=== PATIENT | female | born 1940 | race Caucasian/White ===

== ENCOUNTER 2018-10-18 13:23 | Inpatient (IN) ==
--- NOTE | 2018-10-18 13:54 | DR.GENAD ---
HPI Time Seen Time Seen by Provider: 10/18/18 13:42 PCP Primary Care Physician: ERNST Complaint/Symptoms Chief Complaint Doctors Comments: An 78 y/o female presented with SOB x 3 days. She has productive cough of yellow phlegm initially but it is now blood tinged. She denies fever or chest pain. She's has N/V + diarrhea also. Chief Complaint:: PT. C/O COUGHING UP BLOOD X 3 DAYS. PT. HAS ALSO HAD N/V/D, WEAKNESS. Nurses notes reviewed Nurses Notes Review: Yes Source History Provided: Patient Mode of Arrival Mode of Arrival: Ambulatory Timing Onset of Chief Complaint: 10/15/18 Came on: Gradually Duration How lon Duration: Days Modifying Factors Worsens:: exertion Improves:: rest PMH PMH Past Medical History: Yes Past Medical History: Asthma, COPD, Dyslipidemia and Hypertension Past Surgical History: Yes Surgical History: Other Past Surgical History Comment: PACEMAKER Family History History of Family Medical Conditions: No Social History Does patient currently use any type of tobacco product: No Have you used tobacco products in the last 12 months: No Type of Tobacco Use: None Does any household member use tobacco: No Alcohol Use: None Do you use any recreational Drugs:: No Lives With: Family Lives Where: Home infectious screening In the last 2 months have you had wt loss of >10#?: NO Have you had fever, night sweats or hemotysis?: No Have you traveled outside the country in the last 6 months?: No Isolation: Standard ROS Review of Systems Constitutional: No Symptoms Reported Eyes: No Symptoms Reported ENTM: No Symptoms Reported Respiratoy: Productive Cough and Short of Breath Cardiovascular: No Symptoms Reported and Edema; negative See HPI, Chest Pain, Palpitations, Syncope, Cyanosis and Skin Mottling Gastrointestinal/Abdominal: Diarrhea, Nausea and Vomiting Genitourinary: No Symptoms Reported Neurological: No Symptoms Reported Musculoskeletal: No Symptoms Reported; negative Pelvis Integumentary: No Symptoms Reported Hematologic/Lymphatic: No Symptoms Reported Endocrine: No Symptoms Reported Psychiatric: No Symptoms Reported PE Vital Signs Vitals: Temperature 98.4 F Pulse Rate [Apical] 69 Pulse Rate 72 Respiratory Rate 28 Blood Pressure [Left Arm] 138/76 Blood Pressure 112/60 O2 Sat by Pulse Oximetry 95 General Limitations: No Limitations General Appearance: Alert and In No Apparent Distress Head Head Exam: Normal Inspection, Atraumatic and Normocephalic Eyes Eye exam: Normal Appearance and EOMI ENT ENT Exam: Normal Oropharynx and Mucous Membranes Moist Neck Neck Exam: Normal Inspection, Full ROM and Trachea Midline Chest Chest Inspection: Normal Inspection and Symmetric Chest Wall Rise Respiratory Respiratory Exam: Normal Lung Sounds Bilat Cardiovascular Cardiovascular Exam: Regular Rate, Normal Rhythm, +S1 and +S2 Abdominal Exam Abdominal Exam: Normal Inspection, Normal Bowel Sounds and Soft Extremities Extremities Exam: Edema (2+ in RLE and 1+ in the LLE.) Back Back Exam: Normal Inspection Neurologic Neurological Exam: Alert and Oriented X3 Psychiatric Psychiatric Exam: Normal Affect and Normal Mood Skin Skin Exam: Warm, Dry and Normal Color COURSE Education/Counseling Education/Counseling: Patient, Family, Education and Counseling Educated On: Diagnosis, Prognosis and Needs for Follow Up; negative Treatment ROR Labs Reviewed Laboratory Results Reviewed?: Yes Result Diagrams: 10/18/18 14:04 10/18/18 14:04 Laboratory: 10/18/18 14:39 Sputum - Expectorated Sputum - Final WBC 8.2 X10^3/uL (3.6-10.0) 10/18/18 14:04 RBC 4.71 X10^6/uL (3.5-5.4) 10/18/18 14:04 Hgb 15.8 g/dL (12.0-16.0) 10/18/18 14:04 Hct 46.8 % (36.0-47.0) 10/18/18 14:04 MCV 99.3 fL (80.0-100.0) 10/18/18 14:04 MCH 33.6 pg (27.0-34.0) 10/18/18 14:04 MCHC 33.8 g/dL (33.0-35.0) 10/18/18 14:04 RDW 16.2 % (11.6-16.5) 10/18/18 14:04 Plt Count 86 X10^3/uL (150.0-450.0) L 10/18/18 14:04 MPV 9.2 fL (7.4-11.0) 10/18/18 14:04 Neut % (Auto) 82.1 % (42.0-75.0) H 10/18/18 14:04 Lymph % (Auto) 9.5 % (21.0-51.0) L 10/18/18 14:04 [place] % (Auto) 7.8 % (0.0-13.0) 10/18/18 14:04 Eos % (Auto) 0.3 % (0.9-2.9) L 10/18/18 14:04 Baso % (Auto) 0.3 % (0.2-1.0) 10/18/18 14:04 Neut # (Auto) 6.7 x10^3/uL (2.2-4.8) H 10/18/18 14:04 Lymph # (Auto) 0.8 X10^3/uL (1.3-2.9) L 10/18/18 14:04 Bent # (Auto) 0.6 x10^3/uL (0.3-0.8) 10/18/18 14:04 Eos # (Auto) 0.0 x10^3/uL (0.0-0.2) 10/18/18 14:04 Baso # (Auto) 0.0 X10^3/uL (0.0-0.1) 10/18/18 14:04 Absolute Nucleated RBC 0.0 /100WBC 10/18/18 14:04 INR Target Range - 10/18/18 14:04 INR 1.69 (0.8-1.3) H 10/18/18 14:04 Sample Site Lr 10/18/18 13:56 ABG pH 7.430 (7.35-7.45) 10/18/18 13:56 ABG pCO2 46.0 mmHg (35.0-45.0) H 10/18/18 13:56 ABG pO2 64.0 mmHg (80.0-100.0) L 10/18/18 13:56 ABG HCO3 30.5 mmol/L (22-26) H* 10/18/18 13:56 ABG O2 Saturation 93.0 % (90-100) 10/18/18 13:56 ABG Base Excess 5.3 mmol/L (-2.0-2.0) H 10/18/18 13:56 Curtis Test Pos 10/18/18 13:56 A-a Gradient 78.0 mmHg 10/18/18 13:56 FiO2 28.0 10/18/18 13:56 Blood Gas Comments Pt mena well. cdn 10/18/18 13:56 Sodium 142 mmol/L (136-145) 10/18/18 14:04 Corrected Sodium 143 mmol/L (136-145) 10/18/18 14:04 Potassium 3.6 mmol/L (3.5-5.1) 10/18/18 14:04 Chloride 109 mmol/L (98-107) H 10/18/18 14:04 Carbon Dioxide 29.7 mmol/L (21-32) 10/18/18 14:04 BUN 25 mg/dL (7-18) H 10/18/18 14:04 Creatinine 0.96 mg/dL (0.55-1.02) 10/18/18 14:04 Est GFR (MDRD) Af Amer > 60 (>60) 10/18/18 14:04 Est GFR (MDRD) Non-Af 59 (>60) 10/18/18 14:04 Glucose 138 mg/dL (65-99) H 10/18/18 14:04 Lactic Acid 1.7 mmol/L (0.4-2.0) 10/18/18 15:48 Calcium 8.7 mg/dL (8.5-10.1) 10/18/18 14:04 Corrected Calcium 9.7 mg/dL (8.5-10.1) 10/18/18 14:04 Total Bilirubin 3.20 mg/dL (0.2-1.0) H 10/18/18 14:04 AST 23 Units/L (15-37) 10/18/18 14:04 ALT 10 Units/L (12-78) L 10/18/18 14:04 Alkaline Phosphatase 86 Units/L (46-116) 10/18/18 14:04 Total Protein 6.3 g/dL (6.4-8.2) L 10/18/18 14:04 Albumin 2.8 g/dL (3.4-5.0) L 10/18/18 14:04 Globulin 3.5 g/dL (2.5-4.5) 10/18/18 14:04 Albumin/Globulin Ratio 0.8 Ratio (1.1-2.1) L 10/18/18 14:04 Specimen Type Random urine 10/18/18 14:55 Urine Color Dark yellow (YELLOW) 10/18/18 14:55 Urine Appearance Hazy (CLEAR) 10/18/18 14:55 Urine pH 5.0 (5.0 - 8.0) 10/18/18 14:55 Ur Specific [place] 1.025 (1.000-1.030) 10/18/18 14:55 Urine Protein 3+ (NEGATIVE) 10/18/18 14:55 Urine Glucose (UA) Negative (NEGATIVE) 10/18/18 14:55 Urine Ketones Negative (NEGATIVE) 10/18/18 14:55 Urine Occult Blood 3+ (NEGATIVE) 10/18/18 14:55 Urine Nitrite Negative (NEGATIVE) 10/18/18 14:55 Urine Bilirubin 1+ (NEGATIVE) 10/18/18 14:55 Urine Urobilinogen 1+ (NORMAL) 10/18/18 14:55 Ur Leukocyte Esterase 1+ (NEGATIVE) 10/18/18 14:55 Urine RBC 3-5 /HPF (NONE SEEN) 10/18/18 14:55 Urine WBC 3-5 /HPF (NONE SEEN) 10/18/18 14:55 Ur Squamous Epith Cells Many /HPF (NEGATIVE) 10/18/18 14:55 Urine Bacteria Trace /HPF (NEGATIVE) 10/18/18 14:55 Ur Culture Indicated? No/not indicated 10/18/18 14:55 XRAY XRAY Interpreted by: Self XRAY Findings: CXR: cardiomegaly, PPM leads into LV. LLL infiltrate. EKG Rate: 73 [place]: Normal Rhythm: Paced Block: None Hypertrophy: None ST: Normal Diagnosis Discharge Problem: Thrombocytopathia, Azotemia, Benign essential HTN Pneumonia Qualifiers: Pneumonia type: due to unspecified organism Laterality: left Lung location: lower lobe of lung Qualified Code(s): J18.1 - Lobar pneumonia, unspecified organism Arrhythmia Qualifiers: Arrhythmia type: other cardiac arrhythmia Qualified Code(s): I49.8 - Other specified cardiac arrhythmias COPD (chronic obstructive pulmonary disease) Qualifiers: COPD type: COPD with acute lower respiratory infection Qualified Code(s): J44.0 - Chronic obstructive pulmonary disease with acute lower respiratory infection
[2018-10-18 14:06] LABS: ABG BASE EXCESS 5.3 mmol/L (-2.0-2.0)
[2018-10-18 14:07] LABS: ABG ALLEN TEST POS; ABG HCO3 30.5 mmol/L (22-26)
[2018-10-18 14:12] LABS: BASOPHILS % (AUTO) 0.3 % (0.2-1.0); EOSINOPHILS % (AUTO) 0.3 % (0.9-2.9); HEMATOCRIT 46.8 % (36.0-47.0); HEMOGLOBIN 15.8 g/dL (12.0-16.0); LYMPHOCYTES # (AUTO) 0.8 X10^3/uL (1.3-2.9); LYMPHOCYTES % (AUTO) 9.5 % (21.0-51.0); MEAN CORPUSCULAR HEMOGLOBIN 33.6 pg (27.0-34.0); MEAN CORPUSCULAR HGB CONC 33.8 g/dL (33.0-35.0); MEAN CORPUSCULAR VOLUME 99.3 fL (80.0-100.0); MEAN PLATELET VOLUME 9.2 fL (7.4-11.0); MONOCYTES # (AUTO) 0.6 x10^3/uL (0.3-0.8); MONOCYTES % (AUTO) 7.8 % (0.0-13.0); NEUTROPHILS # (AUTO) 6.7 x10^3/uL (2.2-4.8); NEUTROPHILS % (AUTO) 82.1 % (42.0-75.0); PLATELET COUNT 86 X10^3/uL (150.0-450.0); RED BLOOD COUNT 4.71 X10^6/uL (3.5-5.4); RED CELL DISTRIBUTION WIDTH 16.2 % (11.6-16.5); WHITE BLOOD COUNT 8.2 X10^3/uL (3.6-10.0)
[2018-10-18 14:24] LABS: ALANINE AMINOTRANSFERASE 10 Units/L (12-78); ALBUMIN 2.8 g/dL (3.4-5.0); ALKALINE PHOSPHATASE 86 Units/L (46-116); ASPARTATE AMINO TRANSFERASE 23 Units/L (15-37); BLOOD UREA NITROGEN 25 mg/dL (7-18); CALCIUM 8.7 mg/dL (8.5-10.1); CARBON DIOXIDE 29.7 mmol/L (21-32); CHLORIDE 109 mmol/L (98-107); COR CA(FOR HYPOALB) 9.7 mg/dL (8.5-10.1); COR NA(FOR HYPERGLY) 143 mmol/L (136-145); CREATININE 0.96 mg/dL (0.55-1.02); SODIUM 142 mmol/L (136-145); TOTAL PROTEIN 6.3 g/dL (6.4-8.2); eGFR NON BLACK RACES 59 (>60)
[2018-10-18] MEDS ORDERED: LASIX ONE (14:31)
[2018-10-18] MEDS: LASIX PO ONE (14:38)
--- NOTE | 2018-10-18 15:03 | RAD ---
HISTORY: Coughing up blood Study: Single view of the chest. Comparison: None. Findings: Cardiomegaly. Left lung base airspace opacity. Osseous structures demonstrate no acute abnormality. IMPRESSION: 1. Airspace opacity at the left lung base for which pneumonia or malignancy cannot be excluded. Reported By:
[2018-10-18 15:10] LABS: BILIRUBIN,URINE 1+ (NEGATIVE); BLOOD/HEMOGLOBIN,URINE 3+ (NEGATIVE); GLUCOSE, URINE NEGATIVE (NEGATIVE); KETONES,URINE NEGATIVE (NEGATIVE); LEUKOCYTE ESTERASE ,URINE 1+ (NEGATIVE); NITRITES,URINE NEGATIVE (NEGATIVE); PROTEIN,URINE 3+ (NEGATIVE); UROBILINOGEN,URINE 1+ (NORMAL)
[2018-10-18] MEDS ORDERED: ZOSYN VIAL 3.375 GRAMS 3.375 G in NS 100 ML IV + SPIKE MINIBAG* 100 ML IV ONE (15:32)
[2018-10-18 15:37] LABS: APPEARANCE,URINE HAZY (CLEAR); COLOR,URINE DARK YELLOW (YELLOW)
[2018-10-18 15:38] LABS: BACTERIA,URINE TRACE /HPF (NEGATIVE); SQUAMOUS EPITHELIAL CELL,UR MANY /HPF (NEGATIVE)
[2018-10-18] MEDS ORDERED: NS 100 ML IV + SPIKE MINIBAG* 100 ML ONE (15:50)
[2018-10-18] MEDS ORDERED: ZOSYN VIAL 3.375 GRAMS IV ONE (15:50)
[2018-10-18] MEDS ORDERED: NS 1000 ML 1,000 ML ONE (16:00)
[2018-10-18] MEDS ORDERED: TUSSIONEX PENNKINETIC SUSP PO PRN (17:13)
[2018-10-18 18:04] LABS: BILIRUBIN,URINE NEGATIVE (NEGATIVE); BLOOD/HEMOGLOBIN,URINE 2+ (NEGATIVE); GLUCOSE, URINE NEGATIVE (NEGATIVE); KETONES,URINE NEGATIVE (NEGATIVE); LEUKOCYTE ESTERASE ,URINE NEGATIVE (NEGATIVE); NITRITES,URINE NEGATIVE (NEGATIVE); PROTEIN,URINE NEGATIVE (NEGATIVE); UROBILINOGEN,URINE NORMAL (NORMAL)
[2018-10-18 18:14] LABS: APPEARANCE,URINE CLEAR (CLEAR); COLOR,URINE PALE YELLOW (YELLOW)
[2018-10-18 18:15] LABS: AMORPHOUS SEDIMENT,UR 2+ /HPF (NEGATIVE); BACTERIA,URINE TRACE /HPF (NEGATIVE); SQUAMOUS EPITHELIAL CELL,UR NEGATIVE /HPF (NEGATIVE)
[2018-10-18] MEDS ORDERED: NS 1/2 1000 ML IV 1,000 ML ONE (18:41)
[2018-10-18] MEDS: NS 1/2 1000 ML IV 1,000 ML IV SCH (18:42)
[2018-10-18] MEDS: PULMICORT NEB TX 0.5 MG NEB SCH (20:20)
[2018-10-18] MEDS: DUONEB 0.5 MG/3 MG NEB SCH (20:20)
[2018-10-18] MEDS: BROVANA IN SCH (20:39)
[2018-10-18] MEDS: ENTRESTO 24/26 MG TAB PO SCH (20:46)
[2018-10-18] MEDS: ROBITUSSIN DM PO SCH (20:46)
[2018-10-18] MEDS ORDERED: PULMICORT NEB TX 0.5 MG NEB SCH (21:00)
[2018-10-18] MEDS ORDERED: DUONEB 0.5 MG/3 MG NEB SCH (21:00)
[2018-10-18] MEDS ORDERED: PATIENT'S HOME MEDICATION (Fluticasone Propion-Salmeterol [Fluticasone Propion-Salmeterol] IN SCH (21:00)
[2018-10-18] MEDS ORDERED: BROVANA IN SCH (21:00)
[2018-10-19] MEDS: DUONEB 0.5 MG/3 MG NEB SCH ×6 (00:57→20:25)
[2018-10-19 05:40] LABS: BASOPHILS % (AUTO) 0.3 % (0.2-1.0); EOSINOPHILS % (AUTO) 0.2 % (0.9-2.9); HEMATOCRIT 44.7 % (36.0-47.0); LYMPHOCYTES # (AUTO) 0.8 X10^3/uL (1.3-2.9); LYMPHOCYTES % (AUTO) 13.4 % (21.0-51.0); MEAN CORPUSCULAR HEMOGLOBIN 33.9 pg (27.0-34.0); MEAN CORPUSCULAR HGB CONC 33.5 g/dL (33.0-35.0); MEAN PLATELET VOLUME 9.9 fL (7.4-11.0); MONOCYTES # (AUTO) 0.6 x10^3/uL (0.3-0.8); MONOCYTES % (AUTO) 10.6 % (0.0-13.0); NEUTROPHILS # (AUTO) 4.6 x10^3/uL (2.2-4.8); NEUTROPHILS % (AUTO) 75.5 % (42.0-75.0); PLATELET COUNT 88 X10^3/uL (150.0-450.0); RED BLOOD COUNT 4.43 X10^6/uL (3.5-5.4); RED CELL DISTRIBUTION WIDTH 16.1 % (11.6-16.5); WHITE BLOOD COUNT 6.1 X10^3/uL (3.6-10.0)
[2018-10-19 05:58] LABS: ALANINE AMINOTRANSFERASE 10 Units/L (12-78); ALBUMIN 2.4 g/dL (3.4-5.0); ALKALINE PHOSPHATASE 75 Units/L (46-116); ASPARTATE AMINO TRANSFERASE 21 Units/L (15-37); BLOOD UREA NITROGEN 19 mg/dL (7-18); CHLORIDE 106 mmol/L (98-107); COR CA(FOR HYPOALB) 9.3 mg/dL (8.5-10.1); CREATININE 0.89 mg/dL (0.55-1.02); SODIUM 144 mmol/L (136-145); TOTAL PROTEIN 5.7 g/dL (6.4-8.2); eGFR NON BLACK RACES > 60 (>60)
[2018-10-19] MEDS ORDERED: POTASSIUM CHLORIDE LIQ 20 MEQ UDC PO PRN (06:01)
[2018-10-19] MEDS ORDERED: K-RIDER 10 MEQ/NS 100 ML 10 MEQ/100 ML BAG IV PRN (06:01)
[2018-10-19] MEDS ORDERED: POTASSIUM CHL 40 MEQ/NS 0.45% 500 ML IV PRN (06:01)
[2018-10-19] MEDS ORDERED: POTASSIUM CHL 60 MEQ/NS 0.45% 500 ML IV PRN (06:01)
[2018-10-19] MEDS ORDERED: MAGNESIUM SULFATE 1 GRAM/100 mL PREMIX 1 GM/100 ML BAG IV PRN (06:01)
[2018-10-19] MEDS ORDERED: K-DUR TAB 20 MEQ PO PRN (06:01)
[2018-10-19] MEDS ORDERED: KLOR-CON PO PRN (06:01)
[2018-10-19] MEDS ORDERED: MICRO K EXTEN CAP 10 MEQ PO PRN (06:01)
[2018-10-19] MEDS: NS 1/2 1000 ML IV 1,000 ML IV SCH (06:19)
[2018-10-19] MEDS ORDERED: NS 1/2 1000 ML IV 1,000 ML ONE ×2 (06:19→23:43)
[2018-10-19] MEDS: BROVANA IN SCH ×2 (08:31→20:40)
[2018-10-19] MEDS: PULMICORT NEB TX 0.5 MG NEB SCH ×2 (08:35→20:25)
[2018-10-19] MEDS ORDERED: ASPIRIN EC 81 MG PO SCH ×2 (09:00→21:00)
[2018-10-19] MEDS ORDERED: PHARMACY CONSULT - DOSE _____ XX SCH (09:00)
[2018-10-19] MEDS: ROBITUSSIN DM PO SCH ×5 (09:43→22:30)
[2018-10-19] MEDS: LEVAQUIN PREMIX IV 750 MG 750 MG/150 ML BAG IV SCH (09:43)
[2018-10-19] MEDS: ENTRESTO 24/26 MG TAB PO SCH ×2 (09:43→20:56)
[2018-10-19] MEDS ORDERED: NS 100 ML IV 100 ML ONE (13:22)
[2018-10-19 14:01] LABS: FREE T4 (FREE THYROXINE) 1.37 ng/dL (0.76-1.46); TSH (3RD GENERATION) 1.685 uIU/mL (0.358-3.74)
[2018-10-19 14:04] VITALS: BMI 41.8
[2018-10-19] MEDS: COREG TAB 25 MG PO SCH ×3 (14:08→22:29)
--- NOTE | 2018-10-19 14:19 | CT ---
HISTORY: Shortness of breath with pneumonia versus mass. Study: CT chest with contrast Comparison: Chest x-ray dated October 18, 2018. Technique: Multiple axial images of the chest were obtained from the thoracic inlet to the upper abdomen after the administration of IV contrast. MIP images were obtained. Dose reduction techniques including Automated Exposure Control (AEC) and adjustment of mA and kV were utilized. Findings: The mediastinum does not demonstrate significant pathological lymphadenopathy. There is no paracardial effusion observed. The thoracic aorta is normal in its contour without evidence for aneurysmal dilatation. The central pulmonary arterial system does not demonstrate central filling defects to suggest pulmonary emboli. Left chest cardiac pacemaker. Cardiomegaly. Small bilateral pleural effusions with associated compressive atelectasis versus infiltrate. Interlobular septal thickening consistent with pulmonary edema. No obvious pulmonary nodule, mass, or pneumothorax. 6 mm nonobstructing left renal nephrolith. The gallbladder is surgically absent. Remaining upper abdominal structures are unremarkable. Degenerative changes of the spine. No aggressive osseous lesions. IMPRESSION: 1. No CT evidence of acute pulmonary embolus. 2. Constellation of findings likely representing pulmonary edema secondary to congestive heart failure. Underlying infiltrate not entirely excluded. Recommend clinical/laboratory correlation. 3. Other findings as above. Reported By:
[2018-10-19] MEDS: LASIX PO ONE (15:11)
--- NOTE | 2018-10-19 19:29 | DR.H&P ---
H&P - History & Physical for Day of: H&P Date: 10/18/18 - Chief Complaint Chief Complaint: COUGHING UP BLOOD - History of Present Illness History of Present Illness: 78 WF ER ADMISSION WITH CO COUGHING UP BLOOD IN MUCOUS FOR 2-3 DAYS. PT HAS PMH OF COPD, HTN, OA, CAD, AFIB. PT IS ON COUMADIN THERAPY FOR AFIB, HAS PACE MAKER PRESENT. PT HAS BEEN UNDER THE CARE OF [facility]. PT DENIES ANY CHEST PAIN. CXR IN ER REVEALED LL OPACITY. PT ADMITTED FOR PNEUMONIA PROTOCOL, RESP THERAPY, EVALUATION OF RESP ILLNESS. - Past Medical History Past Medical History: Asthma, CHF, COPD, Coronary Artery Disease, Dyslipidemia, Hypertension - Past Surgical History Surgical History: Cholecystectomy, Other - Family History Family Medical History: Hypertension - Social History Does patient currently use any type of tobacco product: No Have you used tobacco products in the last 12 months: No Type of Tobacco Use: None Does any household member use tobacco: No Alcohol Use: None Drug Use: None - Medications Home Medications: codeine Allergy (Verified 10/18/18 13:38) latex Allergy (Verified 10/18/18 13:38) milk Allergy (Verified 10/18/18 14:31) CONTINUE taking the following medications aspirin [Aspirin Low Dose] 81 mg PO DAILY 10/18/18 [History] fluticasone propion-salmeterol [Advair Diskus] 1 puff INHALATION BID 10/18/18 [History] sacubitril-valsartan [Entresto] 1 tab PO BID 10/18/18 [History] - Review of Systems Constitutional: Weakness Eyes: No Symptoms Reported ENT: No Symptoms Reported Respiratory: Cough, Shortness of Breath, Hemoptysis Cardiovascular: No Symptoms Reported. denies: Edema Gastrointestinal: No Symptoms Reported Genitourinary: No Symptoms Reported Musculoskeletal: No Symptoms Reported Skin: No Symptoms Reported Neurological: No Symptoms Reported - Physical Exam Vital Signs: Temperature 98 F Pulse Rate [Apical] 70 Pulse Rate 70 Respiratory Rate 18 Blood Pressure [Left Arm] 116/67 Blood Pressure 112/60 O2 Sat by Pulse Oximetry 93 Oriented: Normal Eyes: Normal Ear: Normal Nose: Normal Throat: Normal Respiratory: RLL Diminished, LML Diminished, LLL Diminished Cardiovascular: Normal, Other (PACEMAKER PRESENT) : Normal Auscultation: Bowel Sounds: Normal Palpation: Normal Tenderness: Normal Skin: Normal Musculoskeletal: Normal Psychiatric: Normal Mood Description: Anxious Affect: Anxious Speech Pattern: Clear, Appropriate - Assessment/Plan (1) Pneumonia Qualifiers: Pneumonia type: due to unspecified organism Laterality: left Lung location: lower lobe of lung Qualified Code(s): J18.1 - Lobar pneumonia, unspecified organism Status: Acute Plan: ADMIT, PNEUMONIA PROTOCOL. IV ATBX, RESP THERAPY. BLOOD AND SPUTUM CULTURES. CARDIAC MONITORING, AM CT CHEST WITH CONTRAST. STRICT I& OS, SUPPLEMENTAL O2. VERIFY HOME MEDICATIONS (2) Hemoptysis Status: Acute (3) Chronic a-fib Status: Acute (4) Thrombocytopathia Status: Acute (5) COPD (chronic obstructive pulmonary disease) Qualifiers: COPD type: COPD with acute lower respiratory infection Qualified Code(s): J44.0 - Chronic obstructive pulmonary disease with acute lower respiratory infection Status: Acute - Allergies Allergies/Adverse Reactions: Allergies Allergy/AdvReac Type Severity Reaction Status Date / Time codeine Allergy Verified 10/18/18 13:38 latex Allergy Verified 10/18/18 13:38 milk Allergy Verified 10/18/18 14:31
[2018-10-19] MEDS ORDERED: APLISOL ID ONE (19:33)
[2018-10-19] MEDS: LASIX IVP SCH (20:58)
[2018-10-19] MEDS ORDERED: LIPITOR TAB 10 MG PO SCH (21:00)
[2018-10-20] MEDS: DUONEB 0.5 MG/3 MG NEB SCH ×4 (00:45→11:59)
[2018-10-20] MEDS: NS 1/2 1000 ML IV 1,000 ML IV SCH ×4 (05:22→13:47)
[2018-10-20 06:00] LABS: BASOPHILS % (AUTO) 0.5 % (0.2-1.0); EOSINOPHILS # (AUTO) 0.1 x10^3/uL (0.0-0.2); EOSINOPHILS % (AUTO) 1.4 % (0.9-2.9); HEMOGLOBIN 15.2 g/dL (12.0-16.0); LYMPHOCYTES # (AUTO) 0.8 X10^3/uL (1.3-2.9); LYMPHOCYTES % (AUTO) 13.2 % (21.0-51.0); MEAN CORPUSCULAR HEMOGLOBIN 33.4 pg (27.0-34.0); MEAN CORPUSCULAR HGB CONC 33.7 g/dL (33.0-35.0); MEAN CORPUSCULAR VOLUME 99.2 fL (80.0-100.0); MEAN PLATELET VOLUME 8.8 fL (7.4-11.0); MONOCYTES # (AUTO) 0.7 x10^3/uL (0.3-0.8); MONOCYTES % (AUTO) 10.9 % (0.0-13.0); NEUTROPHILS # (AUTO) 4.4 x10^3/uL (2.2-4.8); PLATELET COUNT 101 X10^3/uL (150.0-450.0); RED BLOOD COUNT 4.54 X10^6/uL (3.5-5.4); RED CELL DISTRIBUTION WIDTH 15.8 % (11.6-16.5)
[2018-10-20 06:21] LABS: ALANINE AMINOTRANSFERASE 10 Units/L (12-78); ALBUMIN 2.3 g/dL (3.4-5.0); ALKALINE PHOSPHATASE 86 Units/L (46-116); ASPARTATE AMINO TRANSFERASE 21 Units/L (15-37); BLOOD UREA NITROGEN 14 mg/dL (7-18); CALCIUM 8.1 mg/dL (8.5-10.1); CARBON DIOXIDE 34.3 mmol/L (21-32); CHLORIDE 103 mmol/L (98-107); CHOL/HDL RATIO 3.3 (0.0-5.0); CHOLESTEROL 97 mg/dL (0-200); COR CA(FOR HYPOALB) 9.5 mg/dL (8.5-10.1); CREATININE 0.86 mg/dL (0.55-1.02); HDL CHOLESTEROL 29 mg/dL (40-60); SODIUM 143 mmol/L (136-145); TOTAL PROTEIN 5.8 g/dL (6.4-8.2); TRIGLYCERIDES 67 mg/dL (0-150); eGFR NON BLACK RACES > 60 (>60)
[2018-10-20] MEDS: COREG TAB 25 MG PO SCH (08:14)
[2018-10-20] MEDS: ENTRESTO 24/26 MG TAB PO SCH (08:14)
[2018-10-20] MEDS: LEVAQUIN PREMIX IV 750 MG 750 MG/150 ML BAG IV SCH (08:14)
[2018-10-20] MEDS: ROBITUSSIN DM PO SCH ×2 (08:15→13:47)
[2018-10-20] MEDS: BROVANA IN SCH (09:07)
[2018-10-20] MEDS: PULMICORT NEB TX 0.5 MG NEB SCH (09:10)
[2018-10-20] MEDS: LASIX IVP SCH (09:25)
--- NOTE | 2018-10-20 10:07 | RAD ---
HISTORY: Shortness of breath Study: Chest Comparison: October 18, 2018 Findings: The patient is rotated. The cardiac silhouette is enlarged. Persistent opacification is again seen within the left lower lobe similar to prior exam and keeping with atelectasis, infiltrate and/or effusion. Underlying lesion cannot entirely be excluded. Recommend clinical correlation and continued follow-up as indicated for further evaluation. If practical, correlation with follow-up exam to include PA and lateral views may be helpful. IMPRESSION: Cardiomegaly. Left basilar airspace disease as discussed above. Reported By:
[2018-10-20 13:45] VITALS: BP 144/88
--- NOTE | 2018-10-25 18:09 | PCM.PROG ---
Progress Note - Progress Note for Day of Date of Exam: 10/19/18 - Subjective Subjective: 78 WF ADMITTED VIA ER ON 10/18 WITH SOB. PT HAS PMH OF COPD AND CHF. SPUTUM CULTURE COLLECTED ON ADMISSION, PT STARTED ON IV ATBX THERAPY, IV LASIX FOR CHF EXACERBATION, RESP THERAPY. PT CONTINUES WITH CO SOB TODAY, WITH 4LITERS URINE OUTPT SINCE STARTING IV LASIX. PT HAD CT CHEST R/O PE, NEGATIVE FOR PULMONARY EMBOLI. - Past Medical Family Social History Past Med/Fam/Surg Hx: No changes since H&P Allergies: Allergies codeine Allergy (Verified 10/18/18 13:38) latex Allergy (Verified 10/18/18 13:38) milk Allergy (Verified 10/18/18 14:31) - Review of Systems ROS: No change since H&P - Vital Signs and I&O's Vital Signs: Temperature 98.0 F Pulse Rate [Right] 70 Pulse Rate [Apical] 70 Pulse Rate 70 Respiratory Rate 20 Blood Pressure [Left Arm] 144/88 Blood Pressure 112/60 O2 Sat by Pulse Oximetry 2 - Physical Exam Oriented: Normal Eyes: Normal Ear: Normal Nose: Normal Throat: Normal Respiratory: Diminished, Rhonchi Cardiovascular: Normal, Other (PACEMAKER PRESENT) : Normal Auscultation: Bowel Sounds: Normal Tenderness: Normal Skin: Normal Musculoskeletal: Normal Psychiatric: Normal Mood Description: Anxious Affect: Anxious Speech Pattern: Clear, Appropriate - Laboratory and Diagnostics Result Diagrams: 10/20/18 05:19 10/20/18 05:19 Labs: 10/18/18 15:48 Blood Blood Culture - Final 10/18/18 15:48 Blood Blood Culture - Final 10/18/18 14:39 Sputum - Expectorated Sputum Sputum Culture - Final 10/18/18 14:39 Sputum - Expectorated Sputum - Final Laboratory WBC 6.0 X10^3/uL (3.6-10.0) 10/20/18 05:19 RBC 4.54 X10^6/uL (3.5-5.4) 10/20/18 05:19 Hgb 15.2 g/dL (12.0-16.0) 10/20/18 05:19 Hct 45.0 % (36.0-47.0) 10/20/18 05:19 MCV 99.2 fL (80.0-100.0) 10/20/18 05:19 MCH 33.4 pg (27.0-34.0) 10/20/18 05:19 MCHC 33.7 g/dL (33.0-35.0) 10/20/18 05:19 RDW 15.8 % (11.6-16.5) 10/20/18 05:19 Plt Count 101 X10^3/uL (150.0-450.0) L 10/20/18 05:19 MPV 8.8 fL (7.4-11.0) 10/20/18 05:19 Neut % (Auto) 74.0 % (42.0-75.0) 10/20/18 05:19 Lymph % (Auto) 13.2 % (21.0-51.0) L 10/20/18 05:19 [place] % (Auto) 10.9 % (0.0-13.0) 10/20/18 05:19 Eos % (Auto) 1.4 % (0.9-2.9) 10/20/18 05:19 Baso % (Auto) 0.5 % (0.2-1.0) 10/20/18 05:19 Neut # (Auto) 4.4 x10^3/uL (2.2-4.8) 10/20/18 05:19 Lymph # (Auto) 0.8 X10^3/uL (1.3-2.9) L 10/20/18 05:19 [place] # (Auto) 0.7 x10^3/uL (0.3-0.8) 10/20/18 05:19 Eos # (Auto) 0.1 x10^3/uL (0.0-0.2) 10/20/18 05:19 Baso # (Auto) 0.0 X10^3/uL (0.0-0.1) 10/20/18 05:19 Absolute Nucleated RBC 0.0 /100WBC 10/20/18 05:19 ESR 8 MM/HOUR (0-20) 10/19/18 13:17 INR Target Range - 10/18/18 14:04 INR 1.69 (0.8-1.3) H 10/18/18 14:04 Sample Site Lr 10/18/18 13:56 ABG pH 7.430 (7.35-7.45) 10/18/18 13:56 ABG pCO2 46.0 mmHg (35.0-45.0) H 10/18/18 13:56 ABG pO2 64.0 mmHg (80.0-100.0) L 10/18/18 13:56 ABG HCO3 30.5 mmol/L (22-26) H* 10/18/18 13:56 ABG O2 Saturation 93.0 % (90-100) 10/18/18 13:56 ABG Base Excess 5.3 mmol/L (-2.0-2.0) H 10/18/18 13:56 Curtis Test Pos 10/18/18 13:56 A-a Gradient 78.0 mmHg 10/18/18 13:56 FiO2 28.0 10/18/18 13:56 Blood Gas Comments Pt mena well. cdn 10/18/18 13:56 Sodium 143 mmol/L (136-145) 10/20/18 05:19 Corrected Sodium TNP 10/20/18 05:19 Potassium 3.0 mmol/L (3.5-5.1) L* 10/20/18 05:19 Chloride 103 mmol/L (98-107) 10/20/18 05:19 Carbon Dioxide 34.3 mmol/L (21-32) H 10/20/18 05:19 BUN 14 mg/dL (7-18) 10/20/18 05:19 Creatinine 0.86 mg/dL (0.55-1.02) 10/20/18 05:19 Est GFR (MDRD) Af Amer > 60 (>60) 10/20/18 05:19 Est GFR (MDRD) Non-Af > 60 (>60) 10/20/18 05:19 Glucose 98 mg/dL (65-99) 10/20/18 05:19 Lactic Acid 1.7 mmol/L (0.4-2.0) 10/18/18 15:48 Calcium 8.1 mg/dL (8.5-10.1) L 10/20/18 05:19 Corrected Calcium 9.5 mg/dL (8.5-10.1) 10/20/18 05:19 Magnesium 1.6 mg/dL (1.7-2.9) L 10/20/18 05:19 Total Bilirubin 1.80 mg/dL (0.2-1.0) H 10/20/18 05:19 AST 21 Units/L (15-37) 10/20/18 05:19 ALT 10 Units/L (12-78) L 10/20/18 05:19 Alkaline Phosphatase 86 Units/L (46-116) 10/20/18 05:19 Lactate Dehydrogenase 216 Units/L (81-234) 10/19/18 13:17 C-Reactive Protein 79.00 mg/L (0-3.0) H 10/19/18 13:17 Total Protein 5.8 g/dL (6.4-8.2) L 10/20/18 05:19 Albumin 2.3 g/dL (3.4-5.0) L 10/20/18 05:19 Globulin 3.5 g/dL (2.5-4.5) 10/20/18 05:19 Albumin/Globulin Ratio 0.7 Ratio (1.1-2.1) L 10/20/18 05:19 Triglycerides 67 mg/dL (0-150) 10/20/18 05:19 Cholesterol 97 mg/dL (0-200) 10/20/18 05:19 LDL Cholesterol, Calc 55 mg/dL (0-100) 10/20/18 05:19 HDL Cholesterol 29 mg/dL (40-60) L 10/20/18 05:19 Cholesterol/HDL Ratio 3.3 (0.0-5.0) 10/20/18 05:19 Free T4 1.37 ng/dL (0.76-1.46) 10/19/18 13:17 TSH 3rd Generation 1.685 uIU/mL (0.358-3.74) 10/19/18 13:17 Specimen Type Catherized urine 10/18/18 17:50 Urine Color Pale yellow (YELLOW) 10/18/18 17:50 Urine Appearance Clear (CLEAR) 10/18/18 17:50 Urine pH 5.0 (5.0 - 8.0) 10/18/18 17:50 Ur Specific [place] 1.015 (1.000-1.030) 10/18/18 17:50 Urine Protein Negative (NEGATIVE) 10/18/18 17:50 Urine Glucose (UA) Negative (NEGATIVE) 10/18/18 17:50 Urine Ketones Negative (NEGATIVE) 10/18/18 17:50 Urine Occult Blood 2+ (NEGATIVE) 10/18/18 17:50 Urine Nitrite Negative (NEGATIVE) 10/18/18 17:50 Urine Bilirubin Negative (NEGATIVE) 10/18/18 17:50 Urine Urobilinogen Normal (NORMAL) 10/18/18 17:50 Ur Leukocyte Esterase Negative (NEGATIVE) 10/18/18 17:50 Urine RBC 3-5 /HPF (NONE SEEN) 10/18/18 17:50 Urine WBC None seen /HPF (NONE SEEN) 10/18/18 17:50 Ur Squamous Epith Cells Negative /HPF (NEGATIVE) 10/18/18 17:50 Amorphous Sediment 2+ /HPF (NEGATIVE) 10/18/18 17:50 Urine Bacteria Trace /HPF (NEGATIVE) 10/18/18 17:50 Ur Culture Indicated? No/not indicated 10/18/18 17:50 - Plan (1) SOB (shortness of breath) Status: Acute Plan: CT CHEST, IV LASIX. RESP THERAPY, IV ATBX, SUPPLEMENTAL O2. REPEAT AM ABG. BP CONTROL, STRICT I & OS (2) CHF (congestive heart failure) Status: Acute (3) COPD (chronic obstructive pulmonary disease) Status: Acute Qualifiers: COPD type: COPD with acute exacerbation Qualified Code(s): J44.1 - Chronic obstructive pulmonary disease with (acute) exacerbation (4) Hemoptysis Status: Acute (5) Pneumonia Status: Acute Qualifiers: Pneumonia type: due to unspecified organism Laterality: left Lung location: lower lobe of lung Qualified Code(s): J18.1 - Lobar pneumonia, unspecified organism Plan: PNEUMONIA PROTOCOL. IV ATBX, RESP THERAPY. BLOOD AND SPUTUM CULTURES. CARDIAC MONITORING. STRICT I& OS, SUPPLEMENTAL O2. VERIFY HOME MEDICATIONS (6) Chronic a-fib Status: Acute (7) Thrombocytopathia Status: Acute
--- NOTE | 2018-10-25 18:17 | PCM.DCPLAN ---
Discharge Summary - Admission Date Date of Admission: 10/18/18 - Discharge Date Discharge Date: 10/20/18 - Admission Diagnoses (1) SOB (shortness of breath) Status: Acute (2) CHF (congestive heart failure) Status: Acute (3) COPD (chronic obstructive pulmonary disease) Status: Acute (4) Hemoptysis Status: Acute (5) Pneumonia Status: Acute (6) Chronic a-fib Status: Acute (7) Thrombocytopathia Status: Acute - Discharge Diagnoses Discharge Diagnosis: SOB DUE TO COPD EXACERBATION HYPOXIA CHF COPD PNEUMONIA HTN CAD OA AFIB - Discharge Medications Discharge Medications: Home Medication List Entresto 1 tab PO BID 10/18/18 [History] aspirin [Aspirin Low Dose] 81 mg PO DAILY 10/18/18 [History] fluticasone propion-salmeterol 1 puff INHALATION BID 10/18/18 [History] doxycycline hyclate 100 mg PO BID #20 cap 10/20/18 [Rx] Prescriptions: doxycycline hyclate NATALY ROSE - Hospital Course Vital Signs: Temperature 98.0 F Pulse Rate [Right] 70 Pulse Rate [Apical] 70 Pulse Rate 70 Respiratory Rate 20 Blood Pressure [Left Arm] 144/88 Blood Pressure 112/60 O2 Sat by Pulse Oximetry 2 Latest Lab Results: Laboratory Last Values WBC 6.0 X10^3/uL (3.6-10.0) 10/20/18 05:19 RBC 4.54 X10^6/uL (3.5-5.4) 10/20/18 05:19 Hgb 15.2 g/dL (12.0-16.0) 10/20/18 05:19 Hct 45.0 % (36.0-47.0) 10/20/18 05:19 MCV 99.2 fL (80.0-100.0) 10/20/18 05:19 MCH 33.4 pg (27.0-34.0) 10/20/18 05:19 MCHC 33.7 g/dL (33.0-35.0) 10/20/18 05:19 RDW 15.8 % (11.6-16.5) 10/20/18 05:19 Plt Count 101 X10^3/uL (150.0-450.0) L 10/20/18 05:19 MPV 8.8 fL (7.4-11.0) 10/20/18 05:19 Neut % (Auto) 74.0 % (42.0-75.0) 10/20/18 05:19 Lymph % (Auto) 13.2 % (21.0-51.0) L 10/20/18 05:19 [place] % (Auto) 10.9 % (0.0-13.0) 10/20/18 05:19 Eos % (Auto) 1.4 % (0.9-2.9) 10/20/18 05:19 Baso % (Auto) 0.5 % (0.2-1.0) 10/20/18 05:19 Neut # (Auto) 4.4 x10^3/uL (2.2-4.8) 10/20/18 05:19 Lymph # (Auto) 0.8 X10^3/uL (1.3-2.9) L 10/20/18 05:19 [place] # (Auto) 0.7 x10^3/uL (0.3-0.8) 10/20/18 05:19 Eos # (Auto) 0.1 x10^3/uL (0.0-0.2) 10/20/18 05:19 Baso # (Auto) 0.0 X10^3/uL (0.0-0.1) 10/20/18 05:19 Absolute Nucleated RBC 0.0 /100WBC 10/20/18 05:19 ESR 8 MM/HOUR (0-20) 10/19/18 13:17 INR Target Range - 10/18/18 14:04 INR 1.69 (0.8-1.3) H 10/18/18 14:04 Sample Site Lr 10/18/18 13:56 ABG pH 7.430 (7.35-7.45) 10/18/18 13:56 ABG pCO2 46.0 mmHg (35.0-45.0) H 10/18/18 13:56 ABG pO2 64.0 mmHg (80.0-100.0) L 10/18/18 13:56 ABG HCO3 30.5 mmol/L (22-26) H* 10/18/18 13:56 ABG O2 Saturation 93.0 % (90-100) 10/18/18 13:56 ABG Base Excess 5.3 mmol/L (-2.0-2.0) H 10/18/18 13:56 Curtis Test Pos 10/18/18 13:56 A-a Gradient 78.0 mmHg 10/18/18 13:56 FiO2 28.0 10/18/18 13:56 Blood Gas Comments Pt mena well. cdn 10/18/18 13:56 Sodium 143 mmol/L (136-145) 10/20/18 05:19 Corrected Sodium TNP 10/20/18 05:19 Potassium 3.0 mmol/L (3.5-5.1) L* 10/20/18 05:19 Chloride 103 mmol/L (98-107) 10/20/18 05:19 Carbon Dioxide 34.3 mmol/L (21-32) H 10/20/18 05:19 BUN 14 mg/dL (7-18) 10/20/18 05:19 Creatinine 0.86 mg/dL (0.55-1.02) 10/20/18 05:19 Est GFR (MDRD) Af Amer > 60 (>60) 10/20/18 05:19 Est GFR (MDRD) Non-Af > 60 (>60) 10/20/18 05:19 Glucose 98 mg/dL (65-99) 10/20/18 05:19 Lactic Acid 1.7 mmol/L (0.4-2.0) 10/18/18 15:48 Calcium 8.1 mg/dL (8.5-10.1) L 10/20/18 05:19 Corrected Calcium 9.5 mg/dL (8.5-10.1) 10/20/18 05:19 Magnesium 1.6 mg/dL (1.7-2.9) L 10/20/18 05:19 Total Bilirubin 1.80 mg/dL (0.2-1.0) H 10/20/18 05:19 AST 21 Units/L (15-37) 10/20/18 05:19 ALT 10 Units/L (12-78) L 10/20/18 05:19 Alkaline Phosphatase 86 Units/L (46-116) 10/20/18 05:19 Lactate Dehydrogenase 216 Units/L (81-234) 10/19/18 13:17 C-Reactive Protein 79.00 mg/L (0-3.0) H 10/19/18 13:17 Total Protein 5.8 g/dL (6.4-8.2) L 10/20/18 05:19 Albumin 2.3 g/dL (3.4-5.0) L 10/20/18 05:19 Globulin 3.5 g/dL (2.5-4.5) 10/20/18 05:19 Albumin/Globulin Ratio 0.7 Ratio (1.1-2.1) L 10/20/18 05:19 Triglycerides 67 mg/dL (0-150) 10/20/18 05:19 Cholesterol 97 mg/dL (0-200) 10/20/18 05:19 LDL Cholesterol, Calc 55 mg/dL (0-100) 10/20/18 05:19 HDL Cholesterol 29 mg/dL (40-60) L 10/20/18 05:19 Cholesterol/HDL Ratio 3.3 (0.0-5.0) 10/20/18 05:19 Free T4 1.37 ng/dL (0.76-1.46) 10/19/18 13:17 TSH 3rd Generation 1.685 uIU/mL (0.358-3.74) 10/19/18 13:17 Specimen Type Catherized urine 10/18/18 17:50 Urine Color Pale yellow (YELLOW) 10/18/18 17:50 Urine Appearance Clear (CLEAR) 10/18/18 17:50 Urine pH 5.0 (5.0 - 8.0) 10/18/18 17:50 Ur Specific Gary 1.015 (1.000-1.030) 10/18/18 17:50 Urine Protein Negative (NEGATIVE) 10/18/18 17:50 Urine Glucose (UA) Negative (NEGATIVE) 10/18/18 17:50 Urine Ketones Negative (NEGATIVE) 10/18/18 17:50 Urine Occult Blood 2+ (NEGATIVE) 10/18/18 17:50 Urine Nitrite Negative (NEGATIVE) 10/18/18 17:50 Urine Bilirubin Negative (NEGATIVE) 10/18/18 17:50 Urine Urobilinogen Normal (NORMAL) 10/18/18 17:50 Ur Leukocyte Esterase Negative (NEGATIVE) 10/18/18 17:50 Urine RBC 3-5 /HPF (NONE SEEN) 05/22/19 17:50 Urine WBC None seen /HPF (NONE SEEN) 10/18/18 17:50 Ur Squamous Epith Cells Negative /HPF (NEGATIVE) 10/18/18 17:50 Amorphous Sediment 2+ /HPF (NEGATIVE) 10/18/18 17:50 Urine Bacteria Trace /HPF (NEGATIVE) 10/18/18 17:50 Ur Culture Indicated? No/not indicated 10/18/18 17:50 Hospital Course: 78 WF ER ADMISSION WITH CO COUGHING UP BLOOD IN MUCOUS FOR 2-3 DAYS. PT HAS PMH OF COPD, HTN, OA, CAD, AFIB. PT IS ON COUMADIN THERAPY FOR AFIB, HAS PACE MAKER PRESENT. PT HAS BEEN UNDER THE CARE OF [facility]. PT DENIES ANY CHEST PAIN. CXR IN ER REVEALED LL OPACITY SUGGESTING POSSIBLE PNEUMONIA WITH VASCULAR CONGESTION, CHF. PT HAS HX OF COPD. PT ADMITTED WITH PNEUMONIA PROTOCOL, RESP THERAPY, SPUTUM CULTURES, IV LASIX WITH STRICT I&OS, CARDIAC MONITORING. PT HAD ABG ON ADMISSION AND AFTER TREATMENT AND IMPROVEMENT IN RESP DISTRESS PT REFUSED REPEAT ABG. PT HAD CT CHEST R/O PE AND LUNG MASS. CT RESULTED IN Constellation of findings likely representing pulmonary edema secondary to congestive heart failure. Underlying infiltrate not entirely excluded. Recommend clinical/laboratory correlation. WBC WERE NORMAL, PT WAS AFEBRILE. PT HAD 4LITERS URINE OUTPUT SINCE FIRST IV LASIX DOSE. PT REPORTED IMPROVING SOB, ASKING TO GO HOME. PT INSTRUCTED TO FOLLOW UP WITH HER INTELLECTUAL PROPERTY COUNSEL AND PCP FOR REPEAT LUNG CXR TO SHOW RESOLUTION IN LLL AIRSPACE DISEASE. PT ON COUMADIN. PT INSTRUCTED TO REPEAT INR DUE TO ANTIBIOTIC TREATMENT AND INSTRUCTED PT TO USE DUO NEBS AND SUPPLEMENTAL O2 FOR SOB DUE TO COPD AND CHF EXACERBATION. PT INSTRUCTED TO RETURN TO ER IF CONDITION RETURNED OR WORSENED. - Discharge Plan Disposition: HOME, SELF-CARE Condition: Stable Prescriptions: doxycycline hyclate 100 mg PO BID #20 cap - Follow ups/Referrals Follow ups/Referrals: [facility] [place] [facility] [place] [Other] DAVIDGORHAM HEALT [STAFF PHYSICIAN] - Kristin Biggs [Primary Care Provider] - 10/30/18 10:20 am - Instructions Instructions: Chronic Obstructive Pulmonary Disease Exacerbation, Krzc-[id number], Fall Prevention in the Home, Adult, [id number], Home Oxygen Use, Adult, Hypertension, [id number]-ln-Cyor, Heart Failure, [id number], Edema, [id number]-[id number], Community-Acquired Pneumonia, Adult Additional Instructions: dc home to resume home meds doxy 100mg bid strict i&O repeat inr and cxr with pcp in 1 week f/u cardiology in 2-3 weeks Forms: Patient Portal
== END 2018-10-20 15:20 | disposition home or self-care (01) | DRG 194 ==
LOC: ER 13:32 → MED/SURG 17:13
PROVIDERS: ADMIT Internal Medicine; ATTEND Internal Medicine
DX: R04.2 Hemoptysis; R79.82 Elevated C-reactive protein (CRP); Z79.1 Long term (current) use of non-steroidal anti-inflammatories (NSAID); Z95.0 Presence of cardiac pacemaker; J44.0 Chronic obstructive pulmonary disease with (acute) lower respiratory infection; D69.6 Thrombocytopenia, unspecified; R79.89 Other specified abnormal findings of blood chemistry; I48.91 Unspecified atrial fibrillation; R06.02 Shortness of breath; R26.89 Other abnormalities of gait and mobility; J18.8 Other pneumonia, unspecified organism; I10 Essential (primary) hypertension; E78.2 Mixed hyperlipidemia; I49.8 Other specified cardiac arrhythmias; R94.31 Abnormal electrocardiogram [ECG] [EKG]
CPT/HCPCS: 36415; 36600; 51702; 71010; 71045; 71260; 80053; 80061; 81001; 82803; 83605; 83615; 83735; 84132; 84439; 84443; 85025; 85610; 85652; 86140; 87040; 87070; 87205; 93005; 94640; 94760; 96365; 96374; 99284; A4222; J1940; J1956; J2543; J7030; J7050; J7620; J7626

== ENCOUNTER 2019-02-21 14:35 | Observation (INO) ==
[2019-02-21] MEDS ORDERED: DUONEB 0.5 MG/3 MG NEB ONE (14:46)
[2019-02-21] MEDS ORDERED: LASIX IVP ONE ×2 (14:47→14:56)
--- NOTE | 2019-02-21 15:01 | DR.SOBA ---
HPI Time Seen Time Seen by Provider: 02/21/19 14:40 Primary Care Physician Primary Care Physician: TAYLOR MEZA Complaints Chief Complaint Doctors Comments: An 78 y/o female presenting with c/o SOB today. This occurs at rest/minimal exertion. She has productive cough but no fever. She has COPD and is oxygen dependent at home. She has some inhalers at home but doesn't know the name (s). Chief Complaint:: PT C/O SOB, PT STATES SHE HAD PNEUMONIA 5 MONTHS AGO AND PT WEARS HOME 02, 3 LPM AND PT C/O COUGHING UP YELLOW SPUTUM , PT HAS 2 PLUS PITTING EDEMA TO HER LOWER ,,BR Reviewed Nurses Notes Reviewed: Yes Source History Provided: Patient Mode of Arrival Mode of Arrival: Stretcher Timing Onset of Chief Complaint: 02/20/19 Context Onset:: At Rest and With Light Exertion PE Risk Factors:: None History of:: COPD and CHF Currently on:: Inhaled Bronchodilators Prehospital Care:: O2 Modifying Factors Worsens:: Exertion Improves:: Nothing Associated Signs and Symptoms Associated Signs and Symptoms: None If Chest Pain Quality: denies Sharp, Stabbing, Squeezing, Pressure like, Heavy, Crushing, Burning, Aching, Pleuritic and Other PMH PMH Past Medical History: Yes Past Medical History: Asthma, CHF, COPD, Coronary Artery Disease, Dyslipidemia and Hypertension Past Surgical History: Yes Surgical History: Cholecystectomy and Other Family History History of Family Medical Conditions: Yes Family Medical History: Hypertension Social History Does patient currently use any type of tobacco product: No Have you used tobacco products in the last 12 months: No Type of Tobacco Use: None Does any household member use tobacco: No Alcohol Use: None Do you use any recreational Drugs:: No Lives With: Family Lives Where: Home infectious screening In the last 2 months have you had wt loss of >10#?: NO Have you had fever, night sweats or hemotysis?: No Have you traveled outside the country in the last 6 months?: No Isolation: Standard ROS Review of Systems Constitutional: No Symptoms Reported Eyes: No Symptoms Reported ENTM: No Symptoms Reported Respiratoy: Productive Cough and Short of Breath Cardiovascular: Edema; negative No Symptoms Reported, See HPI, Chest Pain, Palpitations, Syncope, Cyanosis and Skin Mottling Gastrointestinal/Abdominal: No Symptoms Reported Genitourinary: No Symptoms Reported Neurological: No Symptoms Reported Musculoskeletal: No Symptoms Reported Integumentary: No Symptoms Reported Hematologic/Lymphatic: No Symptoms Reported Endocrine: No Symptoms Reported Psychiatric: No Symptoms Reported PE Vital Signs Vitals: Temperature 97.2 F Pulse Rate 80 Respiratory Rate 22 Blood Pressure [Left Arm] 163/96 Blood Pressure 152/90 O2 Sat by Pulse Oximetry 94 General Limitations: No Limitations General Appearance: Alert and In No Apparent Distress Head Head Exam: Normal Inspection, Atraumatic and Normocephalic Eyes Eye exam: Normal Appearance and EOMI ENT ENT Exam: Normal Exam, Normal Oropharynx and Mucous Membranes Moist Neck Neck Exam: Normal Inspection, Full ROM and Trachea Midline Chest Chest Inspection: Normal Inspection and Symmetric Chest Wall Rise Respiratory Respiratory Exam: Normal Lung Sounds Bilat Cardiovascular Cardiovascular Exam: Regular Rate, Normal Rhythm, Normal Heart Sounds, +S1 and +S2 Abdominal Exam Abdominal Exam: Normal Inspection, Normal Bowel Sounds and Soft Extremities Extremities Exam: Normal Inspection, Full ROM and Edema (2+); negative Tenderness, Normal Capillary Refill, Joint Swelling and Calf Tenderness Back Back Exam: Normal Inspection and Full ROM Neurologic Neurological Exam: Alert and Oriented X3 Psychiatric Psychiatric Exam: Normal Affect and Normal Mood ROR Labs Reviewed Result Diagrams: 02/21/19 15:04 02/21/19 15:04 Laboratory: WBC 4.0 X10^3/uL (3.6-10.0) 02/21/19 15:04 RBC 4.33 X10^6/uL (3.5-5.4) 02/21/19 15:04 Hgb 14.8 g/dL (12.0-16.0) 02/21/19 15:04 Hct 43.7 % (36.0-47.0) 02/21/19 15:04 MCV 101.0 fL (80.0-100.0) H 02/21/19 15:04 MCH 34.1 pg (27.0-34.0) H 02/21/19 15:04 MCHC 33.7 g/dL (33.0-35.0) 02/21/19 15:04 RDW 14.8 % (11.6-16.5) 02/21/19 15:04 Plt Count 105 X10^3/uL (150.0-450.0) L 02/21/19 15:04 MPV 8.6 fL (7.4-11.0) 02/21/19 15:04 Neut % (Auto) 64.7 % (42.0-75.0) 02/21/19 15:04 Lymph % (Auto) 21.7 % (21.0-51.0) 02/21/19 15:04 [place] % (Auto) 9.7 % (0.0-13.0) 02/21/19 15:04 Eos % (Auto) 2.8 % (0.9-2.9) 02/21/19 15:04 Baso % (Auto) 1.1 % (0.2-1.0) H 02/21/19 15:04 Neut # (Auto) 2.6 x10^3/uL (2.2-4.8) 02/21/19 15:04 Lymph # (Auto) 0.9 X10^3/uL (1.3-2.9) L 02/21/19 15:04 [place] # (Auto) 0.4 x10^3/uL (0.3-0.8) 02/21/19 15:04 Eos # (Auto) 0.1 x10^3/uL (0.0-0.2) 02/21/19 15:04 Baso # (Auto) 0.0 X10^3/uL (0.0-0.1) 02/21/19 15:04 Absolute Nucleated RBC 0.1 /100WBC 02/21/19 15:04 Sodium 143 mmol/L (136-145) 02/21/19 15:04 Corrected Sodium TNP 02/21/19 15:04 Potassium 4.0 mmol/L (3.5-5.1) 02/21/19 15:04 Chloride 106 mmol/L (98-107) 02/21/19 15:04 Carbon Dioxide 30.1 mmol/L (21-32) 02/21/19 15:04 BUN 19 mg/dL (7-18) H 02/21/19 15:04 Creatinine 0.92 mg/dL (0.55-1.02) 02/21/19 15:04 Est GFR (MDRD) Af Amer > 60 (>60) 02/21/19 15:04 Est GFR (MDRD) Non-Af > 60 (>60) 02/21/19 15:04 Glucose 104 mg/dL (65-99) H 02/21/19 15:04 Calcium 8.5 mg/dL (8.5-10.1) 02/21/19 15:04 Corrected Calcium 9.3 mg/dL (8.5-10.1) 02/21/19 15:04 Total Bilirubin 1.50 mg/dL (0.2-1.0) H 02/21/19 15:04 AST 15 Units/L (15-37) 02/21/19 15:04 ALT 6 Units/L (12-78) L 02/21/19 15:04 Alkaline Phosphatase 90 Units/L (46-116) 02/21/19 15:04 Creatine Kinase 39 Units/L (26-192) 02/21/19 15:04 CK-MB (CK-2) < 1.0 ng/mL (0-4.0) 02/21/19 15:04 CK/CKMB % Calc 2.6 % (<4) 02/21/19 15:04 Troponin I < 0.02 ng/mL (0-1.5) 02/21/19 15:04 Total Protein 6.7 g/dL (6.4-8.2) 02/21/19 15:04 Albumin 3.0 g/dL (3.4-5.0) L 02/21/19 15:04 Globulin 3.7 g/dL (2.5-4.5) 02/21/19 15:04 Albumin/Globulin Ratio 0.8 Ratio (1.1-2.1) L 02/21/19 15:04 Opioid Opioid Risk Tool Age (Robson box if 16-45): No History of Preadolescent Sexual Abuse: No Total: 0 Total Score Risk Category: Low Risk Copyright: Darryl ABEL predicting aberrant behaviors Diagnosis Discharge Problem: Pulmonary edema with congestive heart failure, Benign essential HTN COPD (chronic obstructive pulmonary disease) Qualifiers: COPD type: chronic bronchitis Chronic bronchitis type: simple Qualified Code(s): J41.0 - Simple chronic bronchitis A-fib Qualifiers: Atrial fibrillation type: chronic Qualified Code(s): I48.2 - Chronic atrial fibrillation Instructions Forms: Excuse From Work
[2019-02-21 15:14] LABS: BASOPHILS % (AUTO) 1.1 % (0.2-1.0); EOSINOPHILS # (AUTO) 0.1 x10^3/uL (0.0-0.2); EOSINOPHILS % (AUTO) 2.8 % (0.9-2.9); HEMATOCRIT 43.7 % (36.0-47.0); HEMOGLOBIN 14.8 g/dL (12.0-16.0); LYMPHOCYTES # (AUTO) 0.9 X10^3/uL (1.3-2.9); LYMPHOCYTES % (AUTO) 21.7 % (21.0-51.0); MEAN CORPUSCULAR HEMOGLOBIN 34.1 pg (27.0-34.0); MEAN CORPUSCULAR HGB CONC 33.7 g/dL (33.0-35.0); MEAN PLATELET VOLUME 8.6 fL (7.4-11.0); MONOCYTES # (AUTO) 0.4 x10^3/uL (0.3-0.8); MONOCYTES % (AUTO) 9.7 % (0.0-13.0); NEUTROPHILS # (AUTO) 2.6 x10^3/uL (2.2-4.8); NEUTROPHILS % (AUTO) 64.7 % (42.0-75.0); PLATELET COUNT 105 X10^3/uL (150.0-450.0); RED BLOOD COUNT 4.33 X10^6/uL (3.5-5.4); RED CELL DISTRIBUTION WIDTH 14.8 % (11.6-16.5)
[2019-02-21 15:23] LABS: ALANINE AMINOTRANSFERASE 6 Units/L (12-78); ALKALINE PHOSPHATASE 90 Units/L (46-116); ASPARTATE AMINO TRANSFERASE 15 Units/L (15-37); BLOOD UREA NITROGEN 19 mg/dL (7-18); CALCIUM 8.5 mg/dL (8.5-10.1); CARBON DIOXIDE 30.1 mmol/L (21-32); CHLORIDE 106 mmol/L (98-107); COR CA(FOR HYPOALB) 9.3 mg/dL (8.5-10.1); CREATININE 0.92 mg/dL (0.55-1.02); SODIUM 143 mmol/L (136-145); TOTAL PROTEIN 6.7 g/dL (6.4-8.2); eGFR NON BLACK RACES > 60 (>60)
--- NOTE | 2019-02-21 15:31 | RAD ---
Chest, one view Indication: Shortness of breath with dizziness Comparison: 01/14/2019 Findings: There is stable enlargement of the cardiac silhouette. There is pulmonary vascular congestion and diffuse bilateral interstitial prominence, suggestive for mild edema. Left-sided pacemaker is unchanged. Left basilar opacities appear essentially stable and again could reflect atelectasis versus residual infiltrate. No significant pleural effusion. No pneumothorax. Impression: Cardiomegaly, pulmonary vascular congestion and diffuse bilateral interstitial prominence, suggestive for mild pulmonary edema. Stable left basilar airspace disease. Reported By:
[2019-02-21 17:00] LABS: CKMB % 2.6 % (<4); CREATINE KINASE 39 Units/L (26-192); CREATINE KINASE MB < 1.0 ng/mL (0-4.0); TROPONIN I < 0.02 ng/mL (0-1.5)
--- NOTE | 2019-02-21 17:54 | DR.SOBA ---
HPI Time Seen Time Seen by Provider: 02/21/19 14:40 Primary Care Physician Primary Care Physician: TAYLOR MEZA Complaints Chief Complaint:: PT C/O SOB, PT STATES SHE HAD PNEUMONIA 5 MONTHS AGO AND PT WEARS HOME 02, 3 LPM AND PT C/O COUGHING UP YELLOW SPUTUM , PT HAS 2 PLUS PITTING EDEMA TO HER LOWER ,,BR Source History Provided: Patient Mode of Arrival Mode of Arrival: Stretcher Timing Onset of Chief Complaint: 02/20/19 PMH PMH Past Medical History: Yes Past Medical History: Asthma, CHF, COPD, Coronary Artery Disease, Dyslipidemia and Hypertension Past Surgical History: Yes Surgical History: Cholecystectomy and Other Family History History of Family Medical Conditions: Yes Family Medical History: Hypertension Social History Does patient currently use any type of tobacco product: No Have you used tobacco products in the last 12 months: No Type of Tobacco Use: None Does any household member use tobacco: No Alcohol Use: None Do you use any recreational Drugs:: No Lives With: Family Lives Where: Home infectious screening In the last 2 months have you had wt loss of >10#?: NO Have you had fever, night sweats or hemotysis?: No Have you traveled outside the country in the last 6 months?: No Isolation: Standard PE Vital Signs Vitals: Temperature 97.2 F Pulse Rate 80 Respiratory Rate 22 Blood Pressure [Left Arm] 163/96 Blood Pressure 152/90 O2 Sat by Pulse Oximetry 94 COURSE Reevaluation 1st: Improved 2nd: Improved Education/Counseling Education/Counseling: Patient, Education and Counseling Educated On: Treatment, Diagnosis, Prognosis and Needs for Follow Up ROR Labs Reviewed Laboratory Results Reviewed?: Yes Result Diagrams: 02/21/19 15:04 02/21/19 15:04 Laboratory: WBC 4.0 X10^3/uL (3.6-10.0) 02/21/19 15:04 RBC 4.33 X10^6/uL (3.5-5.4) 02/21/19 15:04 Hgb 14.8 g/dL (12.0-16.0) 02/21/19 15:04 Hct 43.7 % (36.0-47.0) 02/21/19 15:04 MCV 101.0 fL (80.0-100.0) H 02/21/19 15:04 MCH 34.1 pg (27.0-34.0) H 02/21/19 15:04 MCHC 33.7 g/dL (33.0-35.0) 02/21/19 15:04 RDW 14.8 % (11.6-16.5) 02/21/19 15:04 Plt Count 105 X10^3/uL (150.0-450.0) L 02/21/19 15:04 MPV 8.6 fL (7.4-11.0) 02/21/19 15:04 Neut % (Auto) 64.7 % (42.0-75.0) 02/21/19 15:04 Lymph % (Auto) 21.7 % (21.0-51.0) 02/21/19 15:04 [place] % (Auto) 9.7 % (0.0-13.0) 02/21/19 15:04 Eos % (Auto) 2.8 % (0.9-2.9) 02/21/19 15:04 Baso % (Auto) 1.1 % (0.2-1.0) H 02/21/19 15:04 Neut # (Auto) 2.6 x10^3/uL (2.2-4.8) 02/21/19 15:04 Lymph # (Auto) 0.9 X10^3/uL (1.3-2.9) L 02/21/19 15:04 [place] # (Auto) 0.4 x10^3/uL (0.3-0.8) 02/21/19 15:04 Eos # (Auto) 0.1 x10^3/uL (0.0-0.2) 02/21/19 15:04 Baso # (Auto) 0.0 X10^3/uL (0.0-0.1) 02/21/19 15:04 Absolute Nucleated RBC 0.1 /100WBC 02/21/19 15:04 Sodium 143 mmol/L (136-145) 02/21/19 15:04 Corrected Sodium TNP 02/21/19 15:04 Potassium 4.0 mmol/L (3.5-5.1) 02/21/19 15:04 Chloride 106 mmol/L (98-107) 02/21/19 15:04 Carbon Dioxide 30.1 mmol/L (21-32) 02/21/19 15:04 BUN 19 mg/dL (7-18) H 02/21/19 15:04 Creatinine 0.92 mg/dL (0.55-1.02) 02/21/19 15:04 Est GFR (MDRD) Af Amer > 60 (>60) 02/21/19 15:04 Est GFR (MDRD) Non-Af > 60 (>60) 02/21/19 15:04 Glucose 104 mg/dL (65-99) H 02/21/19 15:04 Calcium 8.5 mg/dL (8.5-10.1) 02/21/19 15:04 Corrected Calcium 9.3 mg/dL (8.5-10.1) 02/21/19 15:04 Total Bilirubin 1.50 mg/dL (0.2-1.0) H 02/21/19 15:04 AST 15 Units/L (15-37) 02/21/19 15:04 ALT 6 Units/L (12-78) L 02/21/19 15:04 Alkaline Phosphatase 90 Units/L (46-116) 02/21/19 15:04 Creatine Kinase 39 Units/L (26-192) 02/21/19 15:04 CK-MB (CK-2) < 1.0 ng/mL (0-4.0) 02/21/19 15:04 CK/CKMB % Calc 2.6 % (<4) 02/21/19 15:04 Troponin I < 0.02 ng/mL (0-1.5) 02/21/19 15:04 Total Protein 6.7 g/dL (6.4-8.2) 02/21/19 15:04 Albumin 3.0 g/dL (3.4-5.0) L 02/21/19 15:04 Globulin 3.7 g/dL (2.5-4.5) 02/21/19 15:04 Albumin/Globulin Ratio 0.8 Ratio (1.1-2.1) L 02/21/19 15:04 XRAY XRAY Interpreted by: Self XRAY Findings: CXR: Interstitial edema + Pulmonary edema. EKG Rate: 75 [place]: Normal Rhythm: Paced Block: None Opioid Opioid Risk Tool Age (Robson box if 16-45): No History of Preadolescent Sexual Abuse: No Total: 0 Total Score Risk Category: Low Risk Copyright: Darryl ABEL predicting aberrant behaviors Diagnosis Discharge Problem: Pulmonary edema with congestive heart failure, Benign essential HTN COPD (chronic obstructive pulmonary disease) Qualifiers: COPD type: chronic bronchitis Chronic bronchitis type: simple Qualified Code(s): J41.0 - Simple chronic bronchitis A-fib Qualifiers: Atrial fibrillation type: chronic Qualified Code(s): I48.2 - Chronic atrial fibrillation Instructions Forms: Excuse From Work
[2019-02-21] MEDS ORDERED: DUONEB 0.5 MG/3 MG NEB SCH (18:00)
[2019-02-21 20:17] VITALS: BMI 35.3
[2019-02-21] MEDS: DUONEB 0.5 MG/3 MG NEB SCH (20:37)
[2019-02-21] MEDS: LASIX IVP SCH (21:08)
[2019-02-21 21:36] LABS: CKMB % 2.1 % (<4); CREATINE KINASE 58 Units/L (26-192); CREATINE KINASE MB 1.2 ng/mL (0-4.0); TROPONIN I < 0.02 ng/mL (0-1.5)
[2019-02-22] MEDS: DUONEB 0.5 MG/3 MG NEB SCH ×6 (01:01→20:18)
[2019-02-22 04:02] LABS: CKMB % 2.1 % (<4); TROPONIN I 0.02 ng/mL (0-1.5)
--- NOTE | 2019-02-22 06:23 | RAD ---
AP chest. Indication: Shortness of breath Comparison: 02/21/2019 Findings: Examination is unchanged with moderate cardiomegaly and dense consolidative process within the retrocardiac left lower lobe and blunting of left costophrenic sulcus. There is also stable pulmonary interstitial prominence bilaterally. No pneumothorax. No acute osseous abnormality. Stable positioning of left chest wall pacemaker. Impression: No significant change from prior examination demonstrating suspected mild pulmonary interstitial edema in the setting of moderate cardiomegaly. Persistent dense airspace consolidation and blunting of left costophrenic sulcus likely represents combination of atelectasis, infiltrate and or pleural effusion. Reported By:
[2019-02-22] MEDS: LASIX IVP SCH ×2 (08:44→21:14)
[2019-02-22] MEDS ORDERED: COUMADIN TAB 4 MG PO SCH (09:00)
[2019-02-22 09:02] LABS: CKMB % 1.7 % (<4); CREATINE KINASE 59 Units/L (26-192); CREATINE KINASE MB < 1.0 ng/mL (0-4.0); TROPONIN I 0.02 ng/mL (0-1.5)
[2019-02-22] MEDS ORDERED: FLUTICASONE PROPION SALMETEROL INHALATION SCH (09:45)
[2019-02-22] MEDS: CLARITIN PO SCH (09:51)
[2019-02-22] MEDS: ENTRESTO 24/26 MG TAB PO SCH ×2 (09:52→21:15)
[2019-02-22] MEDS: COREG TAB 25 MG PO SCH ×2 (09:52→21:14)
[2019-02-22] MEDS: PULMICORT NEB TX 0.5 MG NEB SCH (20:19)
[2019-02-22] MEDS ORDERED: LIPITOR TAB 10 MG PO SCH (21:00)
[2019-02-22] MEDS: COUMADIN TAB 4 MG PO SCH ×2 (21:14→21:17)
[2019-02-23] MEDS: DUONEB 0.5 MG/3 MG NEB SCH ×4 (01:29→12:44)
[2019-02-23 05:25] LABS: BASOPHILS % (AUTO) 0.7 % (0.2-1.0); EOSINOPHILS # (AUTO) 0.1 x10^3/uL (0.0-0.2); EOSINOPHILS % (AUTO) 1.7 % (0.9-2.9); HEMATOCRIT 48.5 % (36.0-47.0); HEMOGLOBIN 16.5 g/dL (12.0-16.0); LYMPHOCYTES # (AUTO) 0.7 X10^3/uL (1.3-2.9); LYMPHOCYTES % (AUTO) 11.2 % (21.0-51.0); MEAN CORPUSCULAR HGB CONC 34.1 g/dL (33.0-35.0); MEAN CORPUSCULAR VOLUME 99.8 fL (80.0-100.0); MEAN PLATELET VOLUME 8.5 fL (7.4-11.0); MONOCYTES # (AUTO) 0.6 x10^3/uL (0.3-0.8); MONOCYTES % (AUTO) 9.3 % (0.0-13.0); NEUTROPHILS # (AUTO) 4.8 x10^3/uL (2.2-4.8); NEUTROPHILS % (AUTO) 77.1 % (42.0-75.0); PLATELET COUNT 113 X10^3/uL (150.0-450.0); RED BLOOD COUNT 4.86 X10^6/uL (3.5-5.4); RED CELL DISTRIBUTION WIDTH 14.6 % (11.6-16.5); WHITE BLOOD COUNT 6.2 X10^3/uL (3.6-10.0)
[2019-02-23 05:39] LABS: ALANINE AMINOTRANSFERASE 7 Units/L (12-78); ALBUMIN 2.8 g/dL (3.4-5.0); ALKALINE PHOSPHATASE 88 Units/L (46-116); ASPARTATE AMINO TRANSFERASE 20 Units/L (15-37); BLOOD UREA NITROGEN 21 mg/dL (7-18); CALCIUM 8.4 mg/dL (8.5-10.1); CARBON DIOXIDE 36.2 mmol/L (21-32); CHLORIDE 98 mmol/L (98-107); COR CA(FOR HYPOALB) 9.4 mg/dL (8.5-10.1); CREATININE 1.09 mg/dL (0.55-1.02); SODIUM 142 mmol/L (136-145); TOTAL PROTEIN 6.6 g/dL (6.4-8.2); eGFR NON BLACK RACES 51 (>60)
[2019-02-23 05:57] LABS: IRON 74 ug/dL (50-175)
--- NOTE | 2019-02-23 06:42 | RAD ---
Examination: Chest, PA and lateral views History: SOB Comparison 02/22/2019 Findings: Cardiomegaly with stable position of pacing device. Chronic coarsening of interstitial pulmonary pattern with persistent opacification in the left lower lobe. Impression: Stable cardiomegaly and left lower lung airspace disease consistent with pneumonia/atelectasis. Reported By:
[2019-02-23] MEDS: ENTRESTO 24/26 MG TAB PO SCH (08:45)
[2019-02-23] MEDS: COREG TAB 25 MG PO SCH (08:45)
[2019-02-23] MEDS: CLARITIN PO SCH (08:45)
[2019-02-23] MEDS ORDERED: K-DUR TAB 20 MEQ PO STA (09:07)
[2019-02-23] MEDS: PULMICORT NEB TX 0.5 MG NEB SCH (09:19)
[2019-02-23] MEDS ORDERED: K-DUR TAB 20 MEQ PO ONE (09:20)
[2019-02-23 11:01] LABS: CALCIUM 8.5 mg/dL (8.5-10.1); CREATININE 1.2 mg/dL (0.55-1.02)
[2019-02-23 11:05] LABS: CARBON DIOXIDE 41.1 mmol/L (21-32)
[2019-02-23] MEDS: LASIX IVP SCH (11:38)
[2019-02-23 12:06] VITALS: BP 109/69
== END 2019-02-23 15:40 | disposition home or self-care (01) ==
LOC: ER 14:35 → MED/SURG 14:35
PROVIDERS: ADMIT Obstetrics & Gynecology Obstetrics; ATTEND Obstetrics & Gynecology Obstetrics
CPT/HCPCS: 36415; 71010; 71020; 71045; 71046; 80048; 80053; 82550; 82553; 82607; 82728; 82746; 83540; 83735; 84466; 84484; 85025; 85610; 87070; 87205; 93005; 94640; 94760; 96365; 96374; 97162; 97166; 99284; A4222; G0378; J1940; J7620; J7626

== ENCOUNTER 2019-08-09 13:49 | Observation (INO) ==
[2019-08-09] MEDS ORDERED: DUONEB 0.5 MG/3 MG (3 mL) NEB ONE ×2 (15:28→15:47)
[2019-08-09] MEDS ORDERED: NS 1000 ML 1,000 ML ONE (15:35)
[2019-08-09 15:48] LABS: BASOPHILS % (AUTO) 0.7 % (0.2-1.0); EOSINOPHILS % (AUTO) 1.2 % (0.9-2.9); HEMATOCRIT 42.5 % (36.0-47.0); LYMPHOCYTES # (AUTO) 0.6 X10^3/uL (1.3-2.9); LYMPHOCYTES % (AUTO) 27.1 % (21.0-51.0); MEAN CORPUSCULAR HEMOGLOBIN 32.7 pg (27.0-34.0); MEAN CORPUSCULAR HGB CONC 32.9 g/dL (33.0-35.0); MEAN CORPUSCULAR VOLUME 99.1 fL (80.0-100.0); MEAN PLATELET VOLUME 9.4 fL (7.4-11.0); MONOCYTES # (AUTO) 0.3 x10^3/uL (0.3-0.8); MONOCYTES % (AUTO) 15.6 % (0.0-13.0); NEUTROPHILS # (AUTO) 1.2 x10^3/uL (2.2-4.8); NEUTROPHILS % (AUTO) 55.4 % (42.0-75.0); PLATELET COUNT 113 X10^3/uL (150.0-450.0); RED BLOOD COUNT 4.29 X10^6/uL (3.5-5.4); RED CELL DISTRIBUTION WIDTH 15.7 % (11.6-16.5); WHITE BLOOD COUNT 2.1 X10^3/uL (3.6-10.0)
[2019-08-09] MEDS ORDERED: NS 1000 ML 1,000 ML IV SCH (16:00)
[2019-08-09 16:15] LABS: BAND NEUTROPHILS % 5 % (0-10); PLATELET MORPHOLOGY COMMENT NORMAL (NORMAL)
[2019-08-09 16:24] LABS: ALANINE AMINOTRANSFERASE 26 Units/L (12-78); ALBUMIN 2.8 g/dL (3.4-5.0); ALKALINE PHOSPHATASE 77 Units/L (46-116); ASPARTATE AMINO TRANSFERASE 50 Units/L (15-37); BLOOD UREA NITROGEN 20 mg/dL (7-18); CALCIUM 8.1 mg/dL (8.5-10.1); CARBON DIOXIDE 38.6 mmol/L (21-32); CHLORIDE 105 mmol/L (98-107); COR CA(FOR HYPOALB) 9.1 mg/dL (8.5-10.1); CREATINE KINASE 59 Units/L (26-192); CREATININE 0.96 mg/dL (0.55-1.02); MAGNESIUM 1.9 mg/dL (1.7-2.9); SODIUM 141 mmol/L (136-145); TOTAL PROTEIN 6.4 g/dL (6.4-8.2); TROPONIN I 0.19 ng/mL (0-1.5); eGFR NON BLACK RACES 59 (>60)
[2019-08-09 18:14] LABS: CKMB % 2.1 % (<4); CREATINE KINASE MB 1.1 ng/mL (0-4.0); TROPONIN I 0.16 ng/mL (0-1.5)
--- NOTE | 2019-08-09 19:41 | RAD ---
CHEST, 1 VIEWHISTORY: Cough and nauseaStudy: Single view of the chest.Comparison:NoneFindings:Cardiomegaly.No focal consolidations, pleural effusions or pneumothorax. Osseous structures demonstrate no acute abnormality.IMPRESSION:1. No acute cardiopulmonary process.Electronically signed by: HARSHAD JACKSON (Aug 09, 2019 19:40:50)
--- NOTE | 2019-08-09 20:15 | DR.NAUSEAF ---
HPI Time Seen Time Seen by Provider: 08/09/19 15:25 Primary Care Physician Primary Care Physician: DIAMOND Calvo MD Complaints Chief Complaint:: PT C/O BLOOD PRESSURE LOW, " I FELL LIKE I'M GONNA LEAVE HERE ") PT STATES " I NEED A SHOT TO KEEP ME UP AND TO KEEP MY BP UP AND I THINK MY BLOOD SUGAR IS LOW AND I HAVE BEEN NAUSEATED , AND I HAVE NOT BEEN ABLE TO SLEEP ..BR Self Treatment fo Chief Complaint: PT STATES " MELISSA MEZA IS TRYING TO GET MY BP UP ,,BR Source History Provided: Patient Mode of Arrival Mode of Arrival: Wheelchair Timing Onset of Chief Complaint: 07/18/19 PMH PMH Past Medical History: Yes Past Medical History: Asthma, CHF and COPD Past Surgical History: Yes Surgical History: Cholecystectomy and Other Past Surgical History Comment: PACEMAKER . BR Family History History of Family Medical Conditions: Yes Family Medical History: Hypertension Social History Does patient currently use any type of tobacco product: Yes Have you used tobacco products in the last 12 months: Yes Type of Tobacco Use: None Does any household member use tobacco: No Alcohol Use: None Do you use any recreational Drugs:: No Lives With: Family Lives Where: Home infectious screening In the last 2 months have you had wt loss of >10#?: NO Have you had fever, night sweats or hemotysis?: No Have you traveled outside the country in the last 6 months?: No Isolation: Standard ROS Review of Systems Constitutional: Weakness and Other (Feels like BP is low and sugar isn't right) Eyes: No Symptoms Reported ENTM: No Symptoms Reported Respiratoy: No Symptoms Reported Cardiovascular: No Symptoms Reported Gastrointestinal/Abdominal: Nausea Musculoskeletal: No Symptoms Reported All Other Systems: Reviewed and Negative PE Vital Signs Vitals: Temperature 99.6 F Pulse Rate 69 Respiratory Rate 19 Blood Pressure [Right Arm] 109/61 Blood Pressure [Left Arm] 109/69 Blood Pressure 145/85 O2 Sat by Pulse Oximetry 98 General Limitations: No Limitations General Appearance: Alert and In No Apparent Distress Head Head Exam: Normal Inspection, Atraumatic and Normocephalic Eyes Eye exam: PERRL and EOMI ENT ENT Exam: Mucous Membranes Moist and Other (mildly cyanotic lips) Neck Neck Exam: Full ROM Chest Chest Inspection: Symmetric Chest Wall Rise Respiratory Respiratory Exam: Bilateral: Decreased Breath Sounds Cardiovascular Cardiovascular Exam: Regular Rate and Normal Rhythm Abdominal Exam Abdominal Exam: Soft and Other (Nontender) Extremities Extremities Exam: Other (No pedal edema. There is a right medial ankle dogbite without drainage. Mild erythema.) Neurologic Neurological Exam: Alert, CN II-XII Intact and Other (Appropriately co mmunicative) Psychiatric Psychiatric Exam: Normal Affect and Normal Mood Skin Skin Exam: Warm, Dry and Normal Color COURSE Treatment Treatment: DuoNeb was administered (SOB). Second Troponin -.16 . Will admit to R/O [place]. Consultation Consultation Comments: 20:10 Discussed w/ Dr. Agrawal. Will admit to Observation. Pt. stating on the way to the floor that she has not taken her Xarelto for a while until today because it was causing the dog bite on the right ankle to b leed heavily. ROR Labs Reviewed Result Diagrams: 08/09/19 15:57 08/09/19 15:57 Laboratory: WBC 2.1 X10^3/uL (3.6-10.0) L 08/09/19 15:57 RBC 4.29 X10^6/uL (3.5-5.4) 08/09/19 15:57 Hgb 14.0 g/dL (12.0-16.0) 08/09/19 15:57 Hct 42.5 % (36.0-47.0) 08/09/19 15:57 MCV 99.1 fL (80.0-100.0) 08/09/19 15:57 MCH 32.7 pg (27.0-34.0) 08/09/19 15:57 MCHC 32.9 g/dL (33.0-35.0) L 08/09/19 15:57 RDW 15.7 % (11.6-16.5) 08/09/19 15:57 Plt Count 113 X10^3/uL (150.0-450.0) L 08/09/19 15:57 Plt Count Comment Decreased (ADEQUATE) A 08/09/19 15:57 MPV 9.4 fL (7.4-11.0) 08/09/19 15:57 Neut % (Auto) 55.4 % (42.0-75.0) 08/09/19 15:57 Lymph % (Auto) 27.1 % (21.0-51.0) 08/09/19 15:57 [place] % (Auto) 15.6 % (0.0-13.0) H 08/09/19 15:57 Eos % (Auto) 1.2 % (0.9-2.9) 08/09/19 15:57 Baso % (Auto) 0.7 % (0.2-1.0) 08/09/19 15:57 Neut # (Auto) 1.2 x10^3/uL (2.2-4.8) L 08/09/19 15:57 Lymph # (Auto) 0.6 X10^3/uL (1.3-2.9) L 08/09/19 15:57 [place] # (Auto) 0.3 x10^3/uL (0.3-0.8) 08/09/19 15:57 Eos # (Auto) 0.0 x10^3/uL (0.0-0.2) 08/09/19 15:57 Baso # (Auto) 0.0 X10^3/uL (0.0-0.1) 08/09/19 15:57 Absolute Nucleated RBC 0.3 /100WBC 08/09/19 15:57 Total Counted 100 08/09/19 15:57 Neutrophils % (Manual) 54 % (39-76) 08/09/19 15:57 Band Neutrophils % 5 % (0-10) 08/09/19 15:57 Lymphocytes % (Manual) 27 % (13-43) 08/09/19 15:57 Monocytes % (Manual) 13 % (4-9) H 08/09/19 15:57 Eosinophils % (Manual) 1 % (0-6) 08/09/19 15:57 Plt Morphology Comment Normal (NORMAL) 08/09/19 15:57 RBC Morphology Normal (NORMAL) 08/09/19 15:57 Sodium 141 mmol/L (136-145) 08/09/19 15:57 Corrected Sodium TNP 08/09/19 15:57 Potassium 3.7 mmol/L (3.5-5.1) 08/09/19 15:57 Chloride 105 mmol/L (98-107) 08/09/19 15:57 Carbon Dioxide 38.6 mmol/L (21-32) H 08/09/19 15:57 BUN 20 mg/dL (7-18) H 08/09/19 15:57 Creatinine 0.96 mg/dL (0.55-1.02) 08/09/19 15:57 Est GFR (MDRD) Af Amer > 60 (>60) 08/09/19 15:57 Est GFR (MDRD) Non-Af 59 (>60) 08/09/19 15:57 Glucose 88 mg/dL (65-99) 08/09/19 15:57 Calcium 8.1 mg/dL (8.5-10.1) L 08/09/19 15:57 Corrected Calcium 9.1 mg/dL (8.5-10.1) 08/09/19 15:57 Magnesium 1.9 mg/dL (1.7-2.9) 08/09/19 15:57 Total Bilirubin 0.90 mg/dL (0.2-1.0) 08/09/19 15:57 AST 50 Units/L (15-37) H 08/09/19 15:57 ALT 26 Units/L (12-78) 08/09/19 15:57 Alkaline Phosphatase 77 Units/L (46-116) 08/09/19 15:57 Creatine Kinase 52 Units/L (26-192) 08/09/19 17:40 CK-MB (CK-2) 1.1 ng/mL (0-4.0) 08/09/19 17:40 CK/CKMB % Calc 2.1 % (<4) 08/09/19 17:40 Troponin I 0.16 ng/mL (0-1.5) 08/09/19 17:40 Total Protein 6.4 g/dL (6.4-8.2) 08/09/19 15:57 Albumin 2.8 g/dL (3.4-5.0) L 08/09/19 15:57 Globulin 3.6 g/dL (2.5-4.5) 08/09/19 15:57 Albumin/Globulin Ratio 0.8 Ratio (1.1-2.1) L 08/09/19 15:57 Opioid Opioid Risk Tool Age (Robson box if 16-45): No History of Preadolescent Sexual Abuse: No Total: 0 Total Score Risk Category: Low Risk Copyright: Darryl ABEL predicting aberrant behaviors Diagnosis Discharge Problem: Nausea and vomiting in adult patient
[2019-08-09] MEDS ORDERED: PROVENTIL NEB TX 0.083% 2.5MG/ 3ML IN PRN (20:29)
[2019-08-09] MEDS ORDERED: ENTRESTO 24/26 MG TAB PO SCH (21:03)
[2019-08-09 21:49] LABS: CKMB % 2.2 % (<4); CREATINE KINASE MB 1.1 ng/mL (0-4.0); TROPONIN I 0.18 ng/mL (0-1.5)
[2019-08-09] MEDS: LIPITOR TAB 10 MG PO SCH (22:30)
[2019-08-09] MEDS: D5 NS + KCL 20 MEQ/L 1,000 ML IV SCH (22:30)
[2019-08-09] MEDS: PROVENTIL NEB TX 0.083% 2.5MG/ 3ML IN PRN (23:01)
[2019-08-10] VITALS: BMI 32.8
[2019-08-10 03:49] LABS: CKMB % 1.9 % (<4); CREATINE KINASE 53 Units/L (26-192); CREATINE KINASE MB < 1.0 ng/mL (0-4.0); TROPONIN I 0.17 ng/mL (0-1.5)
[2019-08-10] MEDS: PROVENTIL NEB TX 0.083% 2.5MG/ 3ML IN PRN (04:45)
[2019-08-10] MEDS ORDERED: ZOFRAN INJ 4 MG VIAL IVP PRN (08:20)
--- NOTE | 2019-08-10 08:23 | DR.H&P ---
H&P History & Physical for Day of: H&P Date: 08/10/19 Chief Complaint Chief Complaint: SOB, nausea, diarrhea Allergies Allergies Allergy/AdvReac Type Severity Reaction Status Date / Time codeine Allergy Verified 08/09/19 14:01 latex Allergy Verified 08/09/19 14:01 milk Allergy Verified 08/09/19 14:01 History of Present Illness History of Present Illness: Mr. Vasquez is a 79y/o female with a PMH of COPD, CHF, Atrial fibrillation, severe cardiomyopathy, pacemaker, asthma presents with worsening SOB, cough. She states her symptoms worsened yesterday. She does use oxygen at home 2L intermittently during the day and night. She does have inhalers and nebulizer but has not been using much. She also reports nausea, decreased appetite and diarrhea for the past 2-3 weeks. She reports poor oral intake. She states she was admitted at [facility] few weeks ago due to a leg injury and dizziness. She lives with her daughter who recently had pneumonia. She sees Dr. Melton cardiology in [place]. Her pcp is Dr. Biggs, she was recently taken off Entresto due to low blood pressure. She was also recently switched from coumadin to Xarelto. ED work up: -CXR: negative for acute process - troponins: 0.19 - 0.16 - 0.18 - 0.17 - Started on D5 NS with KCL due to dehydration Plan: start solumedrol 80 mg q8, add scheduled duonebs, mucomyst, azithromycin Sputum cultures, stool studies, C diff Decrease IVF to 50 cc/hr, stop once patient is eating Add Zofran prn Resume home medications Follow up labs from today Past Medical History Past Medical History: Asthma, CHF, COPD and Hypertension Additional Medical History: Atrial fibrillation Past Surgical History Surgical History: Cholecystectomy Additional Surgical History: Pacemaker placement Family History Family Medical History: Hypertension Social History Does patient currently use any type of tobacco product: No Have you used tobacco products in the last 12 months: No Type of Tobacco Use: None How many years tobacco product used: 40 Does any household member use tobacco: No Alcohol Use: None Drug Use: None Prescription drug monitoring program results: PDMP was not reviewed Medications Home Medications: codeine Allergy (Verified 08/09/19 14:01) latex Allergy (Verified 08/09/19 14:01) milk Allergy (Verified 08/09/19 14:01) CONTINUE taking the following medications albuterol sulfate 2.5 mg INHALATION PRN PRN 08/09/19 [History] carvedilol [Coreg] 25 mg PO DAILY 08/09/19 [History] furosemide 20 mg PO DAILY 08/09/19 [History] potassium chloride [K-Tab] 10 meq PO DAILY 08/09/19 [History] rivaroxaban [Xarelto] 20 mg PO DAILY 08/09/19 [History] Labs Result Diagrams: 08/10/19 08:59 08/10/19 08:59 Labs: Laboratory WBC 2.1 X10^3/uL (3.6-10.0) L 08/09/19 15:57 RBC 4.29 X10^6/uL (3.5-5.4) 08/09/19 15:57 Hgb 14.0 g/dL (12.0-16.0) 08/09/19 15:57 Hct 42.5 % (36.0-47.0) 08/09/19 15:57 MCV 99.1 fL (80.0-100.0) 08/09/19 15:57 MCH 32.7 pg (27.0-34.0) 08/09/19 15:57 MCHC 32.9 g/dL (33.0-35.0) L 08/09/19 15:57 RDW 15.7 % (11.6-16.5) 08/09/19 15:57 Plt Count 113 X10^3/uL (150.0-450.0) L 08/09/19 15:57 Plt Count Comment Decreased (ADEQUATE) A 08/09/19 15:57 MPV 9.4 fL (7.4-11.0) 08/09/19 15:57 Neut % (Auto) 55.4 % (42.0-75.0) 08/09/19 15:57 Lymph % (Auto) 27.1 % (21.0-51.0) 08/09/19 15:57 [place] % (Auto) 15.6 % (0.0-13.0) H 08/09/19 15:57 Eos % (Auto) 1.2 % (0.9-2.9) 08/09/19 15:57 Baso % (Auto) 0.7 % (0.2-1.0) 08/09/19 15:57 Neut # (Auto) 1.2 x10^3/uL (2.2-4.8) L 08/09/19 15:57 Lymph # (Auto) 0.6 X10^3/uL (1.3-2.9) L 08/09/19 15:57 [place] # (Auto) 0.3 x10^3/uL (0.3-0.8) 08/09/19 15:57 Eos # (Auto) 0.0 x10^3/uL (0.0-0.2) 08/09/19 15:57 Baso # (Auto) 0.0 X10^3/uL (0.0-0.1) 08/09/19 15:57 Absolute Nucleated RBC 0.3 /100WBC 08/09/19 15:57 Total Counted 100 08/09/19 15:57 Neutrophils % (Manual) 54 % (39-76) 08/09/19 15:57 Band Neutrophils % 5 % (0-10) 08/09/19 15:57 Lymphocytes % (Manual) 27 % (13-43) 08/09/19 15:57 Monocytes % (Manual) 13 % (4-9) H 08/09/19 15:57 Eosinophils % (Manual) 1 % (0-6) 08/09/19 15:57 Plt Morphology Comment Normal (NORMAL) 08/09/19 15:57 RBC Morphology Normal (NORMAL) 08/09/19 15:57 Sodium 141 mmol/L (136-145) 08/09/19 15:57 Corrected Sodium TNP 08/09/19 15:57 Potassium 3.7 mmol/L (3.5-5.1) 08/09/19 15:57 Chloride 105 mmol/L (98-107) 08/09/19 15:57 Carbon Dioxide 38.6 mmol/L (21-32) H 08/09/19 15:57 BUN 20 mg/dL (7-18) H 08/09/19 15:57 Creatinine 0.96 mg/dL (0.55-1.02) 08/09/19 15:57 Est GFR (MDRD) Af Amer > 60 (>60) 08/09/19 15:57 Est GFR (MDRD) Non-Af 59 (>60) 08/09/19 15:57 Glucose 88 mg/dL (65-99) 08/09/19 15:57 Calcium 8.1 mg/dL (8.5-10.1) L 08/09/19 15:57 Corrected Calcium 9.1 mg/dL (8.5-10.1) 08/09/19 15:57 Magnesium 1.9 mg/dL (1.7-2.9) 08/09/19 15:57 Total Bilirubin 0.90 mg/dL (0.2-1.0) 08/09/19 15:57 AST 50 Units/L (15-37) H 08/09/19 15:57 ALT 26 Units/L (12-78) 08/09/19 15:57 Alkaline Phosphatase 77 Units/L (46-116) 08/09/19 15:57 Creatine Kinase 53 Units/L (26-192) 08/10/19 03:21 CK-MB (CK-2) < 1.0 ng/mL (0-4.0) 08/10/19 03:21 CK/CKMB % Calc 1.9 % (<4) 08/10/19 03:21 Troponin I 0.17 ng/mL (0-1.5) 08/10/19 03:21 Total Protein 6.4 g/dL (6.4-8.2) 08/09/19 15:57 Albumin 2.8 g/dL (3.4-5.0) L 08/09/19 15:57 Globulin 3.6 g/dL (2.5-4.5) 08/09/19 15:57 Albumin/Globulin Ratio 0.8 Ratio (1.1-2.1) L 08/09/19 15:57 Review of Systems Constitutional: Weakness Eyes: No Symptoms Reported ENT: No Symptoms Reported Respiratory: Cough, Shortness of Breath, SOB with Excertion, Sputum and Wheezing Cardiovascular: No Symptoms Reported Gastrointestinal: Nausea and Diarrhea Genitourinary: No Symptoms Reported Musculoskeletal: No Symptoms Reported Skin: Bruising Neurological: No Symptoms Reported Physical Exam Vital Signs: Temperature 98.1 F Pulse Rate [Right Brachial] 69 Pulse Rate 69 Respiratory Rate 21 Blood Pressure [Right Arm] 132/89 Blood Pressure [Left Arm] 109/69 Blood Pressure 138/91 O2 Sat by Pulse Oximetry 95 Oriented: Normal Eyes: Normal Nose: Normal Respiratory: Rhonchi Throughout and Wheezes Throughout Cardiovascular: Normal and Edema Auscultation: Bowel Sounds: Normal Palpation: Normal Tenderness: Normal Skin: Normal Musculoskeletal: Normal Psychiatric: Normal Mood Description: Calm Affect: Normal Speech Pattern: Clear and Appropriate Assessment/Plan (1) COPD exacerbation: Status: Acute (2) CHF (congestive heart failure): Qualifiers: Heart failure chronicity: chronic Heart failure type: systolic Qualified Code(s): I50.22 - Chronic systolic (congestive) heart failure Status: Acute (3) Diarrhea: Qualifiers: Diarrhea type: unspecified type Qualified Code(s): R19.7 - Diarrhea, unspecified Status: Acute (4) Chronic a-fib: Status: Acute (5) Benign essential HTN: Status: Acute (6) Hypoalbuminemia due to protein-calorie malnutrition: Status: Acute (7) Thrombocytopenia: Status: Acute (8) Hematuria: Qualifiers: Hematuria type: asymptomatic microscopic Qualified Code(s): R31.21 - Asymptomatic microscopic hematuria Status: Acute Review H&P Reviewed: Yes Patient was examined?: Yes
[2019-08-10] MEDS ORDERED: XARELTO PO SCH (09:00)
[2019-08-10] MEDS ORDERED: LASIX PO SCH (09:00)
[2019-08-10 09:13] LABS: BASOPHILS % (AUTO) 1.1 % (0.2-1.0); EOSINOPHILS % (AUTO) 1.8 % (0.9-2.9); HEMATOCRIT 42.7 % (36.0-47.0); HEMOGLOBIN 14.2 g/dL (12.0-16.0); LYMPHOCYTES # (AUTO) 0.8 X10^3/uL (1.3-2.9); LYMPHOCYTES % (AUTO) 30.9 % (21.0-51.0); MEAN CORPUSCULAR HGB CONC 33.2 g/dL (33.0-35.0); MEAN CORPUSCULAR VOLUME 99.3 fL (80.0-100.0); MONOCYTES # (AUTO) 0.4 x10^3/uL (0.3-0.8); MONOCYTES % (AUTO) 15.6 % (0.0-13.0); NEUTROPHILS # (AUTO) 1.2 x10^3/uL (2.2-4.8); NEUTROPHILS % (AUTO) 50.6 % (42.0-75.0); PLATELET COUNT 80 X10^3/uL (150.0-450.0); RED CELL DISTRIBUTION WIDTH 15.6 % (11.6-16.5); WHITE BLOOD COUNT 2.4 X10^3/uL (3.6-10.0)
[2019-08-10 09:23] LABS: BILIRUBIN,URINE NEGATIVE (NEGATIVE); BLOOD/HEMOGLOBIN,URINE 4+ (NEGATIVE); GLUCOSE, URINE NEGATIVE (NEGATIVE); KETONES,URINE NEGATIVE (NEGATIVE); LEUKOCYTE ESTERASE ,URINE NEGATIVE (NEGATIVE); NITRITES,URINE NEGATIVE (NEGATIVE); PROTEIN,URINE 3+ (NEGATIVE); UROBILINOGEN,URINE 1+ (NORMAL)
[2019-08-10 09:27] LABS: ALANINE AMINOTRANSFERASE 25 Units/L (12-78); ALBUMIN 2.8 g/dL (3.4-5.0); ALKALINE PHOSPHATASE 75 Units/L (46-116); ASPARTATE AMINO TRANSFERASE 42 Units/L (15-37); BLOOD UREA NITROGEN 16 mg/dL (7-18); CALCIUM 7.9 mg/dL (8.5-10.1); CARBON DIOXIDE 33.3 mmol/L (21-32); CHLORIDE 105 mmol/L (98-107); COR CA(FOR HYPOALB) 8.9 mg/dL (8.5-10.1); COR NA(FOR HYPERGLY) 141 mmol/L (136-145); CREATININE 0.97 mg/dL (0.55-1.02); MAGNESIUM 1.8 mg/dL (1.7-2.9); SODIUM 140 mmol/L (136-145); TOTAL PROTEIN 6.4 g/dL (6.4-8.2); eGFR NON BLACK RACES 59 (>60)
[2019-08-10 09:35] LABS: CKMB % 1.9 % (<4); CREATINE KINASE 53 Units/L (26-192); CREATINE KINASE MB < 1.0 ng/mL (0-4.0); TROPONIN I 0.14 ng/mL (0-1.5)
[2019-08-10] MEDS: DUONEB 0.5 MG/3 MG (3 mL) NEB SCH ×4 (09:38→20:06)
[2019-08-10] MEDS: MUCOMYST 20% 200 MG/ML NEB SCH ×3 (09:38→20:07)
[2019-08-10 09:40] LABS: BAND NEUTROPHILS % 6 % (0-10); BASOPHILS % (MANUAL) 1 % (0-1); PLATELET MORPHOLOGY COMMENT NORMAL (NORMAL)
[2019-08-10 09:46] LABS: APPEARANCE,URINE CLOUDY (CLEAR); COLOR,URINE YELLOW (YELLOW)
[2019-08-10 09:47] LABS: BACTERIA,URINE TRACE /HPF (NEGATIVE); RBC,URINE 20-30 /HPF (0-3); SQUAMOUS EPITHELIAL CELL,UR MODERATE /HPF (NEGATIVE)
[2019-08-10] MEDS: MICRO K EXTEN CAP 10 MEQ PO SCH (10:15)
[2019-08-10] MEDS: COREG TAB 25 MG PO SCH (10:15)
[2019-08-10] MEDS: ZITHROMAX TAB 250 MG PO SCH (11:45)
[2019-08-10] MEDS: SOLU-Medrol 125 MG VIAL IVP SCH ×3 (11:45→21:51)
[2019-08-10] MEDS: D5 NS + KCL 20 MEQ/L 1,000 ML IV SCH ×2 (16:45→23:16)
[2019-08-10] MEDS: LIPITOR TAB 10 MG PO SCH (21:15)
[2019-08-11] MEDS: DUONEB 0.5 MG/3 MG (3 mL) NEB SCH ×6 (00:55→20:22)
[2019-08-11 05:24] LABS: BASOPHILS % (AUTO) 0.4 % (0.2-1.0); HEMATOCRIT 41.6 % (36.0-47.0); HEMOGLOBIN 13.7 g/dL (12.0-16.0); LYMPHOCYTES # (AUTO) 0.4 X10^3/uL (1.3-2.9); LYMPHOCYTES % (AUTO) 32.4 % (21.0-51.0); MEAN CORPUSCULAR HEMOGLOBIN 32.9 pg (27.0-34.0); MEAN CORPUSCULAR HGB CONC 32.8 g/dL (33.0-35.0); MEAN CORPUSCULAR VOLUME 100.1 fL (80.0-100.0); MONOCYTES # (AUTO) 0.1 x10^3/uL (0.3-0.8); MONOCYTES % (AUTO) 11.2 % (0.0-13.0); NEUTROPHILS # (AUTO) 0.7 x10^3/uL (2.2-4.8); PLATELET COUNT 70 X10^3/uL (150.0-450.0); RED BLOOD COUNT 4.16 X10^6/uL (3.5-5.4); RED CELL DISTRIBUTION WIDTH 15.1 % (11.6-16.5)
[2019-08-11 05:27] LABS: BLOOD UREA NITROGEN 13 mg/dL (7-18); CALCIUM 7.6 mg/dL (8.5-10.1); CARBON DIOXIDE 33.4 mmol/L (21-32); CHLORIDE 104 mmol/L (98-107); COR NA(FOR HYPERGLY) 144 mmol/L (136-145); CREATININE 0.96 mg/dL (0.55-1.02); SODIUM 141 mmol/L (136-145); eGFR NON BLACK RACES 59 (>60)
[2019-08-11 05:56] LABS: WHITE BLOOD COUNT 1.3 X10^3/uL (3.6-10.0)
[2019-08-11 05:57] LABS: BAND NEUTROPHILS % 4 % (0-10); PLATELET MORPHOLOGY COMMENT NORMAL (NORMAL)
[2019-08-11] MEDS: SOLU-Medrol 125 MG VIAL IVP SCH ×3 (05:57→22:00)
[2019-08-11] MEDS: MUCOMYST 20% 200 MG/ML NEB SCH ×2 (08:02→20:22)
[2019-08-11] MEDS: MICRO K EXTEN CAP 10 MEQ PO SCH (08:37)
[2019-08-11] MEDS: COREG TAB 25 MG PO SCH (08:37)
[2019-08-11] MEDS: ZITHROMAX TAB 250 MG PO SCH (08:37)
[2019-08-11] MEDS: D5 NS + KCL 20 MEQ/L 1,000 ML IV SCH (17:11)
[2019-08-11] MEDS ORDERED: SOLU-Medrol 40 MG VIAL ONE (20:35)
[2019-08-11] MEDS: LIPITOR TAB 10 MG PO SCH (20:41)
[2019-08-12] MEDS: DUONEB 0.5 MG/3 MG (3 mL) NEB SCH ×3 (00:44→08:58)
[2019-08-12] MEDS: D5 NS + KCL 20 MEQ/L 1,000 ML IV SCH (01:00)
[2019-08-12 05:26] LABS: BASOPHILS % (AUTO) 0.2 % (0.2-1.0); HEMATOCRIT 39.8 % (36.0-47.0); HEMOGLOBIN 13.2 g/dL (12.0-16.0); LYMPHOCYTES # (AUTO) 0.4 X10^3/uL (1.3-2.9); LYMPHOCYTES % (AUTO) 8.8 % (21.0-51.0); MEAN CORPUSCULAR HEMOGLOBIN 32.8 pg (27.0-34.0); MEAN CORPUSCULAR VOLUME 99.2 fL (80.0-100.0); MEAN PLATELET VOLUME 9.6 fL (7.4-11.0); MONOCYTES # (AUTO) 0.5 x10^3/uL (0.3-0.8); MONOCYTES % (AUTO) 9.7 % (0.0-13.0); NEUTROPHILS # (AUTO) 4.1 x10^3/uL (2.2-4.8); NEUTROPHILS % (AUTO) 81.3 % (42.0-75.0); PLATELET COUNT 70 X10^3/uL (150.0-450.0); RED BLOOD COUNT 4.01 X10^6/uL (3.5-5.4); RED CELL DISTRIBUTION WIDTH 15.2 % (11.6-16.5)
[2019-08-12 05:29] LABS: BLOOD UREA NITROGEN 14 mg/dL (7-18); CALCIUM 7.9 mg/dL (8.5-10.1); CARBON DIOXIDE 32.8 mmol/L (21-32); CHLORIDE 106 mmol/L (98-107); COR NA(FOR HYPERGLY) 144 mmol/L (136-145); CREATININE 0.85 mg/dL (0.55-1.02); SODIUM 142 mmol/L (136-145); eGFR NON BLACK RACES > 60 (>60)
[2019-08-12] MEDS ORDERED: SOLU-Medrol 40 MG VIAL ONE (05:34)
[2019-08-12] MEDS: SOLU-Medrol 125 MG VIAL IVP SCH (05:36)
[2019-08-12] MEDS: MUCOMYST 20% 200 MG/ML NEB SCH (08:58)
[2019-08-12] MEDS: ZITHROMAX TAB 250 MG PO SCH (09:26)
[2019-08-12] MEDS: MICRO K EXTEN CAP 10 MEQ PO SCH (09:26)
[2019-08-12] MEDS: COREG TAB 25 MG PO SCH (09:26)
[2019-08-12 11:10] VITALS: BP 143/96
== END 2019-08-12 11:00 | disposition home or self-care (01) ==
LOC: ICU 13:56 → ER 13:56 → OBS 21:05 → ICU 21:06 → OBS 08-10 15:00 → UNDODISOB 08-12 11:00
PROVIDERS: ADMIT Internal Medicine; ATTEND Internal Medicine
CPT/HCPCS: 36415; 71010; 71045; 80048; 80053; 81001; 82270; 82550; 82553; 83630; 83735; 84484; 85025; 85610; 87045; 87427; 87449; 87493; 87899; 93005; 94640; 96360; 96361; 96365; 96367; 96374; 97163; 97165; 99285; A4222; G0378; J2920; J2930; J7030; J7613; J7620

== ENCOUNTER 2019-08-21 03:14 | Inpatient (IN) ==
--- NOTE | 2019-08-21 03:24 | DR.CP ---
HPI - Time Seen Time seen: 03:25 - HPI Comment HPI Comment: Patient complaint of cough , chest pain and dyspnea. Hx of same but worse last night. On oxygen 2 l/NC at home. Patient with wet gurgling cough. - Source History Provided: Patient - Mode of Arrival Mode of Arrival: EMS - Timing Came on: Gradually Pain: Present Now - Duration Duration: Constant How lon Duration: Days - Location Location of Chest Pain: Chest Chest Pain Radiation Location: None - Context Onset: At rest Cardiac Risk Factors: HTN History of: Cardiomyopathy Prehospital Care: Oxygen - Quality Quality: Sharp (chest pain) - Severity Severity: Moderate - Modifying Factors Worsens: Coughing Impoves: Rest - Associated Signs and Symptoms Associated Signs and Symptoms: Shortness of Breath PMH - PMH Past Medical History: Hypertension, COPD, Asthma, CHF Past Surgical History: Yes Surgical History: Cholecystectomy - Family History Family Medical History: Hypertension - Social History Do you use any recreational Drugs:: No - infectious screening Isolation: Standard ROS - Review of Systems Constitutional: No Symptoms Reported Eyes: No Symptoms Reported ENTM: No Symptoms Reported Respiratoy: Non-Productive Cough, Moist Cough Cardiovascular: Chest Pain Gastrointestinal/Abdominal: No Symptoms Reported Genitourinary: No Symptoms Reported Neurological: No Symptoms Reported Musculoskeletal: No Symptoms Reported Integumentary: Other (senile skin) Hematologic/Lymphatic: No Symptoms Reported Endocrine: No Symptoms Reported Psychiatric: Depression All Other Systems: Reviewed and Negative PE - General Limitations: No Limitations General Appearance: Alert - Head Head Exam: Normal Inspection - Eyes Eye exam: Normal Appearance, PERRL, EOMI - ENT ENT Exam: Normal Exam - Chest Chest Inspection: Normal Inspection - Respiratory Respiratory Exam: Bilateral Rales, Bilateral Decreased Breath Sounds, Lower Rales - Cardiovascular Cardiovascular Exam: Regular Rate Pulse: Irregular Edema: Normal - Abdominal Exam Abdominal Exam: Normal Inspection, Normal Bowel Sounds, Soft. negative: Distention - Extremities Extremities Exam: Normal Inspection, Full ROM - Back Back Exam: Normal Inspection - Neurologic Neurological Exam: Alert, Oriented X3, CN II-XII Intact - Psychiatric Psychiatric Exam: Depressed - Skin Skin Exam: Intact, Other (senile skin) - Vitals Vitals: Blood Pressure [Right Arm] 132/89 Blood Pressure [Left Arm] 109/69 Blood Pressure 143/96 Opioid - Opioid Risk Tool Age (Robson box if 16-45): No History of Preadolescent Sexual Abuse: No Total: 0 Total Score Risk Category: Low Risk - Discharge Plan Condition: Stable - Follow ups/Referrals Follow ups/Referrals: HANNAH DUKES [Primary Care Provider] - 3 days - Instructions
[2019-08-21] MEDS ORDERED: XOPENEX 1.25 MG/3 ML NEBULE NEB ONE ×2 (03:39→03:46)
[2019-08-21] MEDS ORDERED: SOLU-Medrol 125 MG VIAL IVP ONE (03:39)
[2019-08-21] MEDS ORDERED: SOLU-Medrol 125 MG VIAL ONE (03:46)
--- NOTE | 2019-08-21 03:49 | DR.CP ---
HPI - Time Seen Time seen: 03:30 - PCP Primary Care Physician: SOCRATES - HPI Comment HPI Comment: patient with wet gurgling cough and chest pain. Hx of copd and chf. - Complaint Chief Complaint:: PATIENT STATES SHE WOKE UP 1 HR BACK FACER AND WAS HAVING MID CHEST PAIN AND COMPLAINTS OF COUGH WITH SOB, PT NOTED TO HAVE COUGH IN TRIAGE NON PRODUCTIVE. PT STATES WAS IN HOSPITAL 3-12 THRU 3-15 FOR PNA. - Reviewed Nurses Notes Review: Yes - Source History Provided: Patient, EMS - Mode of Arrival Mode of Arrival: EMS - Timing Onset of Chief Complaint: 08/21/19 Came on: Gradually Pain: Present Now - Duration Duration: Constant How lon Duration: Hours - Location Location of Chest Pain: Chest Chest Pain Radiation Location: None - Context Onset: At rest Cardiac Risk Factors: HTN History of: Cardiomyopathy Prehospital Care: Oxygen - Quality Quality: Sharp PMH - PMH Past Medical History: Yes Past Medical History: Hypertension, COPD, Asthma, CHF Past Surgical History: Yes Surgical History: Cholecystectomy Past Surgical History Comment: PACE MAKER - Family History History of Family Medical Conditions: Yes Family Medical History: Hypertension - Social History Does patient currently use any type of tobacco product: No Have you used tobacco products in the last 12 months: No Type of Tobacco Use: None Does any household member use tobacco: No Alcohol Use: None Do you use any recreational Drugs:: No Lives With: Alone Lives Where: Home - Travel Risk Coronavirus risk:travel/contact w/high risk person: No Has patient experienced Coronavirus symptoms: No - infectious screening In the last 2 months have you had wt loss of >10#?: NO Have you had fever, night sweats or hemotysis?: No Have you traveled outside the country in the last 6 months?: No Isolation: Standard ROS - Review of Systems Constitutional: No Symptoms Reported Eyes: No Symptoms Reported ENTM: No Symptoms Reported Respiratoy: Non-Productive Cough, Moist Cough Cardiovascular: Chest Pain, Other (cardiomyopathy) Gastrointestinal/Abdominal: No Symptoms Reported Genitourinary: No Symptoms Reported Neurological: No Symptoms Reported Musculoskeletal: No Symptoms Reported Integumentary: Other (senile skin) Hematologic/Lymphatic: No Symptoms Reported Endocrine: No Symptoms Reported Psychiatric: Depression PE - General Limitations: No Limitations General Appearance: Alert, In No Apparent Distress - Head Head Exam: Normal Inspection - Eyes Eye exam: Normal Appearance, EOMI - ENT ENT Exam: Normal Exam, Normal Oropharynx - Chest Chest Inspection: Normal Inspection - Respiratory Respiratory Exam: Bilateral Rales, Bilateral Decreased Breath Sounds, Lower Rales - Cardiovascular Cardiovascular Exam: Regular Rate, Other (pacemaker) Pulse: Normal Edema: Normal - Abdominal Exam Abdominal Exam: Normal Inspection, Normal Bowel Sounds, Soft - Extremities Extremities Exam: Normal Inspection, Full ROM - Back Back Exam: Normal Inspection - Neurologic Neurological Exam: Alert, Oriented X3, CN II-XII Intact - Psychiatric Psychiatric Exam: Normal Affect - Skin Skin Exam: Intact, Other (senile skin) - Vitals Vitals: Temperature 97.6 F Pulse Rate [Left] 70 Pulse Rate 82 Respiratory Rate 20 Blood Pressure [Right Arm] 132/89 Blood Pressure [Left Arm] 165/96 Blood Pressure 176/96 O2 Sat by Pulse Oximetry 97 Course - Consultation Called: 06:30 Call Returned: 06:30 Consultation Comments: case discussed with DR. Charles admit rule out AL and chf possible Pneumonia ROR - Labs Reviewed Result Diagrams: 08/21/19 03:40 08/21/19 03:40 - Labs Reviewed Laboratory: WBC 4.3 X10^3/uL (3.6-10.0) 08/21/19 03:40 RBC 4.54 X10^6/uL (3.5-5.4) 08/21/19 03:40 Hgb 14.5 g/dL (12.0-16.0) 08/21/19 03:40 Hct 44.3 % (36.0-47.0) 08/21/19 03:40 MCV 97.5 fL (80.0-100.0) 08/21/19 03:40 MCH 32.0 pg (27.0-34.0) 08/21/19 03:40 MCHC 32.9 g/dL (33.0-35.0) L 08/21/19 03:40 RDW 15.6 % (11.6-16.5) 08/21/19 03:40 Plt Count 141 X10^3/uL (150.0-450.0) L 08/21/19 03:40 MPV 9.0 fL (7.4-11.0) 08/21/19 03:40 Neut % (Auto) 59.8 % (42.0-75.0) 08/21/19 03:40 Lymph % (Auto) 23.1 % (21.0-51.0) 08/21/19 03:40 [place] % (Auto) 13.6 % (0.0-13.0) H 08/21/19 03:40 Eos % (Auto) 2.2 % (0.9-2.9) 08/21/19 03:40 Baso % (Auto) 1.3 % (0.2-1.0) H 08/21/19 03:40 Neut # (Auto) 2.6 x10^3/uL (2.2-4.8) 08/21/19 03:40 Lymph # (Auto) 1.0 X10^3/uL (1.3-2.9) L 08/21/19 03:40 [place] # (Auto) 0.6 x10^3/uL (0.3-0.8) 08/21/19 03:40 Eos # (Auto) 0.1 x10^3/uL (0.0-0.2) 08/21/19 03:40 Baso # (Auto) 0.1 X10^3/uL (0.0-0.1) 08/21/19 03:40 Absolute Nucleated RBC 0.2 /100WBC 08/21/19 03:40 PT 23.3 SECONDS (11.8-14.3) 08/21/19 03:40 INR Target Range - 08/21/19 03:40 INR 2.17 (0.8-1.3) H 08/21/19 03:40 Sodium 143 mmol/L (136-145) 08/21/19 03:40 Corrected Sodium 144 mmol/L (136-145) 08/21/19 03:40 Potassium 3.7 mmol/L (3.5-5.1) 08/21/19 03:40 Chloride 104 mmol/L (98-107) 08/21/19 03:40 Carbon Dioxide 32.4 mmol/L (21-32) H 08/21/19 03:40 BUN 19 mg/dL (7-18) H 08/21/19 03:40 Creatinine 1.02 mg/dL (0.55-1.02) 08/21/19 03:40 Est GFR (MDRD) Af Amer > 60 (>60) 08/21/19 03:40 Est GFR (MDRD) Non-Af 55 (>60) L 08/21/19 03:40 Glucose 133 mg/dL (65-99) H 08/21/19 03:40 Calcium 8.0 mg/dL (8.5-10.1) L 08/21/19 03:40 Corrected Calcium 9.0 mg/dL (8.5-10.1) 08/21/19 03:40 Magnesium 1.8 mg/dL (1.7-2.9) 08/21/19 03:40 Total Bilirubin 2.60 mg/dL (0.2-1.0) H 08/21/19 03:40 AST 19 Units/L (15-37) 08/21/19 03:40 ALT 15 Units/L (12-78) 08/21/19 03:40 Alkaline Phosphatase 73 Units/L (46-116) 08/21/19 03:40 Creatine Kinase 31 Units/L (26-192) 08/21/19 03:40 CK-MB (CK-2) 1.4 ng/mL (0-4.0) 08/21/19 03:40 CK/CKMB % Calc 4.5 % (<4) 08/21/19 03:40 Troponin I 0.04 ng/mL (0-1.5) 08/21/19 03:40 B-Natriuretic Peptide 2410 pg/mL (0-79) H* 08/21/19 03:40 Total Protein 6.4 g/dL (6.4-8.2) 08/21/19 03:40 Albumin 2.8 g/dL (3.4-5.0) L 08/21/19 03:40 Globulin 3.6 g/dL (2.5-4.5) 08/21/19 03:40 Albumin/Globulin Ratio 0.8 Ratio (1.1-2.1) L 08/21/19 03:40 Triglycerides 79 mg/dL (0-150) 08/21/19 03:40 Cholesterol 111 mg/dL (0-200) 08/21/19 03:40 LDL Cholesterol, Calc 69 mg/dL (0-100) 08/21/19 03:40 HDL Cholesterol 26 mg/dL (40-60) L 08/21/19 03:40 Cholesterol/HDL Ratio 4.3 (0.0-5.0) 08/21/19 03:40 Opioid - Opioid Risk Tool Age (Robson box if 16-45): No History of Preadolescent Sexual Abuse: No Total: 0 Total Score Risk Category: Low Risk - Diagnosis Discharge Problem: Chest pain Qualifiers: Chest pain type: unspecified Qualified Code(s): R07.9 - Chest pain, unspecified CHF (congestive heart failure) Qualifiers: Heart failure type: other Qualified Code(s): I50.9 - Heart failure, unspecified - Discharge Plan Condition: Stable - Follow ups/Referrals Follow ups/Referrals: HANNAH DUKES [Primary Care Provider] - 3 days - Instructions
[2019-08-21 03:58] LABS: BASOPHILS # (AUTO) 0.1 X10^3/uL (0.0-0.1); BASOPHILS % (AUTO) 1.3 % (0.2-1.0); EOSINOPHILS # (AUTO) 0.1 x10^3/uL (0.0-0.2); EOSINOPHILS % (AUTO) 2.2 % (0.9-2.9); HEMATOCRIT 44.3 % (36.0-47.0); HEMOGLOBIN 14.5 g/dL (12.0-16.0); LYMPHOCYTES % (AUTO) 23.1 % (21.0-51.0); MEAN CORPUSCULAR HGB CONC 32.9 g/dL (33.0-35.0); MEAN CORPUSCULAR VOLUME 97.5 fL (80.0-100.0); MONOCYTES # (AUTO) 0.6 x10^3/uL (0.3-0.8); MONOCYTES % (AUTO) 13.6 % (0.0-13.0); NEUTROPHILS # (AUTO) 2.6 x10^3/uL (2.2-4.8); NEUTROPHILS % (AUTO) 59.8 % (42.0-75.0); PLATELET COUNT 141 X10^3/uL (150.0-450.0); RED BLOOD COUNT 4.54 X10^6/uL (3.5-5.4); RED CELL DISTRIBUTION WIDTH 15.6 % (11.6-16.5); WHITE BLOOD COUNT 4.3 X10^3/uL (3.6-10.0)
[2019-08-21 04:04] LABS: BLOOD UREA NITROGEN 19 mg/dL (7-18); CARBON DIOXIDE 32.4 mmol/L (21-32); CHLORIDE 104 mmol/L (98-107); COR NA(FOR HYPERGLY) 144 mmol/L (136-145); CREATININE 1.02 mg/dL (0.55-1.02); SODIUM 143 mmol/L (136-145); TROPONIN I 0.04 ng/mL (0-1.5); eGFR NON BLACK RACES 55 (>60)
[2019-08-21 04:07] LABS: ALANINE AMINOTRANSFERASE 15 Units/L (12-78); ALBUMIN 2.8 g/dL (3.4-5.0); ALKALINE PHOSPHATASE 73 Units/L (46-116); ASPARTATE AMINO TRANSFERASE 19 Units/L (15-37); CHOL/HDL RATIO 4.3 (0.0-5.0); CHOLESTEROL 111 mg/dL (0-200); CKMB % 4.5 % (<4); CREATINE KINASE 31 Units/L (26-192); CREATINE KINASE MB 1.4 ng/mL (0-4.0); HDL CHOLESTEROL 26 mg/dL (40-60); MAGNESIUM 1.8 mg/dL (1.7-2.9); TOTAL PROTEIN 6.4 g/dL (6.4-8.2); TRIGLYCERIDES 79 mg/dL (0-150)
--- NOTE | 2019-08-21 04:20 | RAD ---
Chest AP portableIndication: Chest painCOMPARISONMar2019FINDINGSThere is cardiomegaly without pneumothorax. Pacemaker leads noted. Increased interstitial markings. Patchy left lower lung opacity suggested.Left hemidiaphragm is mildly inflated.IMPRESSIONCardiomegaly and COPD with chronic lung changes. Developing left lower lung pneumonia favored. Follow-up to resolution.Electronically signed by: REGAN ARENAS (Aug 21, 2019 04:19:11)
[2019-08-21] MEDS ORDERED: LASIX IVP ONE ×2 (06:45→07:02)
[2019-08-21] MEDS ORDERED: NS 100 ML IV 100 ML IV ONE (07:22)
[2019-08-21] MEDS ORDERED: ROCEPHIN VIAL 1 GRAM ONE (07:23)
[2019-08-21] MEDS: ROCEPHIN VIAL 1 GRAM 1 G in NS 100 ML IV + SPIKE MINIBAG* 100 ML IV SCH ×2 (07:33→08:33)
[2019-08-21 07:47] LABS: BILIRUBIN,URINE 1+ (NEGATIVE); BLOOD/HEMOGLOBIN,URINE 5+ (NEGATIVE); GLUCOSE, URINE NEGATIVE (NEGATIVE); KETONES,URINE 1+ (NEGATIVE); LEUKOCYTE ESTERASE ,URINE 1+ (NEGATIVE); NITRITES,URINE NEGATIVE (NEGATIVE); PH,URINE 6.5 (5.0 - 8.0); PROTEIN,URINE 3+ (NEGATIVE); UROBILINOGEN,URINE 2+ (NORMAL)
[2019-08-21 08:00] LABS: APPEARANCE,URINE HAZY (CLEAR); COLOR,URINE YELLOW (YELLOW)
[2019-08-21 08:01] LABS: BACTERIA,URINE NEGATIVE /HPF (NEGATIVE); MUCUS,URINE FEW /HPF (NEGATIVE); RBC,URINE 20-30 /HPF (0-3); SQUAMOUS EPITHELIAL CELL,UR FEW /HPF (NEGATIVE)
[2019-08-21] MEDS ORDERED: XOPENEX 1.25 MG/3 ML NEBULE NEB PRN (08:17)
[2019-08-21 08:37] VITALS: BMI 32.2
[2019-08-21] MEDS: LASIX IVP SCH ×2 (08:51→17:50)
[2019-08-21] MEDS ORDERED: SOLU-Medrol 125 MG VIAL IVP SCH (09:00)
[2019-08-21] MEDS ORDERED: XOPENEX 1.25 MG/3 ML NEBULE NEB SCH (09:00)
[2019-08-21 09:25] LABS: CKMB % 5.8 % (<4); CREATINE KINASE MB 1.8 ng/mL (0-4.0); TROPONIN I 0.03 ng/mL (0-1.5)
--- NOTE | 2019-08-21 10:56 | DR.H&P ---
H&P - History & Physical for Day of: H&P Date: 08/21/19 - Chief Complaint Chief Complaint: COUGH, SOB - History of Present Illness History of Present Illness: IS A 79 YEAR OLD PATIENT OF [facility] WHO PRESENTED TO THE ER WITH COMPLAINTS OF PERSISTENT COUGH AND SHORTNESS OF BREATH. COUGH IS NON-PRODUCTIVE. SHE WAS RECENTLY HOSPITALIZED FROM 08/08-08/11 FOR TREATMENT OF PNEUMONIA. SHE REPORTS THAT SYMPTOMS HAVE BEEN PERSISTENT SINCE DISCHARGE. ON ARRIVAL TO THE ER, VITALS WERE 97.6-82-20-95%NC-176/96. LABS WERE OBTAINED. ABNORMAL LAB VALUES INCLUDE THE FOLLOWING: PLT COUNT 141, INR 2.17, CARBON DIOXIDE 32.4, BUN 19, GLUCOSE 133, CALCIUM 8.0, TOTAL BILI 2.60, BNP 2410, ALBUMIN 2.8, HDL 26. CARDIAC ENZYMES ARE WITHIN NORMAL LIMITS. A URINALYSIS WAS OBTAINED AND REVEALED: WBC 0-2, RBC 20- 30, BACTERIA NEGATIVE, LEUKOCYTES 1+. BLOOD CULTURES WERE OBTAINED. A CHEST XRAY WAS OBTAINED AND REVEALED: Cardiomegaly and COPD with chronic lung changes. Developing left lower lung pneumonia favored. Follow-up to resolution. EKG REVEALED: VENTRICULAR PACED RHYTHM WITH HR 70. SHE WAS GIVEN LASIX 40MG IV X 1 DOSE, XOPENEX TREATMENT X 1, AND SOLU-MEDROL 125MG IV X 1. SHE WAS ADMITTED FOR FURTHER EVALUATION AND TREATMENT OF PNEUMONIA AND CHF. SHE WAS STARTED ON ROCEPHIN 1G IV DAILY, LASIX 20MG IV BID, SOLU-MEDROL 125MG IV DAILY, AND RESPIRATORY TX. WE WILL DISCONTINUE THE ROCEPHIN TODAY AND START IV FORTAZ AND IV LEVAQUIN. WE WILL CHANGE THE SOLU-MEDROL TO 80MG IV TID. OTHERWISE, WE WILL FOLLOW UP WITH AM LABS AND CHEST XRAY AND CONTINUE TO MONITOR. - Past Medical History Past Medical History: Hypertension, COPD, Asthma, CHF Additional Medical History: Atrial fibrillation - Past Surgical History Surgical History: Cholecystectomy Additional Surgical History: Pacemaker placement - Family History Family Medical History: Hypertension - Social History Does patient currently use any type of tobacco product: No Have you used tobacco products in the last 12 months: No Type of Tobacco Use: None Does any household member use tobacco: No Alcohol Use: None - Medications Home Medications: codeine Allergy (Verified 03/24/20 08:16) latex Allergy (Verified 08/21/19 08:16) milk Allergy (Verified 08/21/19 08:16) CONTINUE taking the following medications atorvastatin 10 mg PO HS 08/21/19 [History] carvedilol [Coreg] 25 mg PO BID 08/21/19 [History] potassium chloride [K-Tab] 20 meq PO DAILY 08/21/19 [History] - Review of Systems Constitutional: Weakness Eyes: No Symptoms Reported ENT: No Symptoms Reported Respiratory: See HPI, Cough, Shortness of Breath, Wheezing. denies: Sputum Cardiovascular: No Symptoms Reported Gastrointestinal: No Symptoms Reported Genitourinary: No Symptoms Reported Musculoskeletal: No Symptoms Reported Skin: No Symptoms Reported Neurological: Weakness - Physical Exam Vital Signs: Temperature 98 F Pulse Rate [Left Brachial] 69 Pulse Rate [Apical] 69 Pulse Rate [Left] 70 Pulse Rate 82 Respiratory Rate 22 Blood Pressure [Right Arm] 132/89 Blood Pressure [Left Arm] 168/103 Blood Pressure 176/96 O2 Sat by Pulse Oximetry 98 Oriented: Normal Eyes: Normal Ear: Normal Nose: Normal Throat: Normal Respiratory: Wheezes Throughout Cardiovascular: Normal : Normal Auscultation: Bowel Sounds: Normal Palpation: Normal Tenderness: Normal Skin: Normal Musculoskeletal: Normal Psychiatric: Normal Mood Description: Calm Affect: Normal Speech Pattern: Clear - Assessment/Plan (1) Pneumonia Qualifiers: Pneumonia type: due to unspecified organism Laterality: left Lung location: lower lobe of lung Qualified Code(s): J18.9 - Pneumonia, unspecified organism Status: Acute Plan: ADMIT, IV FORTAZ, IV LEVAQUIN, SOLU-MEDROL 80MG IV TID, RESPIRATORY TX, SUPPLEMENTAL OXYGEN, (2) CHF (congestive heart failure) Qualifiers: Heart failure type: unspecified Heart failure chronicity: acute on chronic Qualified Code(s): I50.9 - Heart failure, unspecified Status: Acute Plan: LASIX 20MG IV BID, CONTINUE TO MONITOR - Allergies Allergies/Adverse Reactions: Allergies Allergy/AdvReac Type Severity Reaction Status Date / Time codeine Allergy Verified 08/21/19 08:16 latex Allergy Verified 08/21/19 08:16 milk Allergy Verified 08/21/19 08:16
[2019-08-21] MEDS: FORTAZ or TAZICEF VIAL INJ 1 G in NS 100 ML IV + SPIKE MINIBAG* 100 ML IV SCH ×3 (12:00→21:02)
[2019-08-21] MEDS ORDERED: NS 250 ML IV 250 ML IV ONE (12:05)
[2019-08-21] MEDS: LEVAQUIN PREMIX IV 750 MG 750 MG/150 ML BAG IV SCH (12:15)
[2019-08-21] MEDS: XARELTO PO SCH (12:16)
[2019-08-21] MEDS: COREG TAB 25 MG PO SCH ×2 (12:17→20:49)
[2019-08-21] MEDS: MICRO K EXTEN CAP 10 MEQ PO SCH (12:17)
[2019-08-21] MEDS: SOLU-Medrol 40 MG VIAL IVP SCH ×2 (14:51→21:02)
[2019-08-21 15:59] LABS: CKMB % 4.6 % (<4); CREATINE KINASE MB 1.3 ng/mL (0-4.0); TROPONIN I 0.02 ng/mL (0-1.5)
[2019-08-21] MEDS ORDERED: LIPITOR TAB 10 MG PO SCH (21:00)
--- NOTE | 2019-08-22 05:32 | RAD ---
Chest AP portableIndication: Dyspnea. COPDCOMPARISONPrevious day's radiographFINDINGSThere is cardiomegaly with pacemaker leads as expected. Pulmonary hyperinflation is noted. Left lung base poorly evaluated. No new new consolidation convincingly demonstrated.IMPRESSIONLeft lower lung infiltrate possible. Cardiomegaly and COPD.Electronically signed by: REGAN ARENAS (Aug 22, 2019 05:30:28)
[2019-08-22] MEDS: SOLU-Medrol 40 MG VIAL IVP SCH (05:33)
[2019-08-22] MEDS: FORTAZ or TAZICEF VIAL INJ 1 G in NS 100 ML IV + SPIKE MINIBAG* 100 ML IV SCH (05:33)
[2019-08-22] MEDS ORDERED: HumuLIN R SUBCUT PRN (05:45)
[2019-08-22 08:09] VITALS: BP 147/84
[2019-08-22] MEDS: MICRO K EXTEN CAP 10 MEQ PO SCH (08:45)
[2019-08-22] MEDS: COREG TAB 25 MG PO SCH (08:45)
[2019-08-22] MEDS: LASIX IVP SCH (08:45)
[2019-08-22] MEDS: XARELTO PO SCH (08:45)
[2019-08-22] MEDS: LEVAQUIN PREMIX IV 750 MG 750 MG/150 ML BAG IV SCH (08:45)
[2019-08-22 08:51] LABS: BASOPHILS % (AUTO) 0.2 % (0.2-1.0); HEMATOCRIT 45.2 % (36.0-47.0); LYMPHOCYTES # (AUTO) 0.6 X10^3/uL (1.3-2.9); LYMPHOCYTES % (AUTO) 8.3 % (21.0-51.0); MEAN CORPUSCULAR HEMOGLOBIN 32.3 pg (27.0-34.0); MEAN CORPUSCULAR HGB CONC 33.3 g/dL (33.0-35.0); MEAN PLATELET VOLUME 8.3 fL (7.4-11.0); MONOCYTES # (AUTO) 0.2 x10^3/uL (0.3-0.8); MONOCYTES % (AUTO) 2.9 % (0.0-13.0); NEUTROPHILS # (AUTO) 6.9 x10^3/uL (2.2-4.8); NEUTROPHILS % (AUTO) 88.6 % (42.0-75.0); PLATELET COUNT 132 X10^3/uL (150.0-450.0); RED BLOOD COUNT 4.66 X10^6/uL (3.5-5.4); RED CELL DISTRIBUTION WIDTH 15.4 % (11.6-16.5); WHITE BLOOD COUNT 7.8 X10^3/uL (3.6-10.0)
[2019-08-22 08:58] LABS: ALBUMIN 2.7 g/dL (3.4-5.0); CARBON DIOXIDE 36.3 mmol/L (21-32); CREATININE 1.29 mg/dL (0.55-1.02); TOTAL PROTEIN 6.2 g/dL (6.4-8.2)
[2019-08-22] MEDS ORDERED: SNACK - Diabetic Appropriate PO SCH (20:00)
== END 2019-08-22 13:25 | disposition home health service (06) | DRG 195 ==
LOC: ER 03:15 → MED/SURG 03:15 → OBSVTOIN 06:47 → MED/SURG 07:44
PROVIDERS: ADMIT Internal Medicine; ATTEND Internal Medicine
DX: R07.89 Other chest pain; R06.02 Shortness of breath; J18.8 Other pneumonia, unspecified organism; J44.9 Chronic obstructive pulmonary disease, unspecified; R94.31 Abnormal electrocardiogram [ECG] [EKG]; I50.9 Heart failure, unspecified
CPT/HCPCS: 36415; 51702; 71010; 71045; 80053; 80061; 81001; 82550; 82553; 83605; 83735; 83880; 84484; 85025; 85610; 87040; 93005; 94760; 96365; 96374; 96375; 99284; A4216; A4222; J0696; J0713; J1940; J1956; J2920; J2930; J7050

== ENCOUNTER 2020-02-15 19:46 | Inpatient (IN) ==
--- NOTE | 2020-02-15 20:05 | DR.EXTPAIN ---
HPI Time seen Time Seen by Provider: 02/15/20 19:55 Complaint/Symptoms Chief Complaint Doctor Comments: patient too weak to get off floor today. EMS brought to ER for evaluation of weakness. She was on the floor all day and has cellulitis. Home is in terrible condition and filthy. Nurses notes reviewed Nurses Notes Review: Yes Source History Provided: Patient and EMS Mode of arrival Mode of Arrival: EMS Context History of: None Associated signs and symptoms Associated Signs and Symptoms: Weakness and Shortness of Breath Other history Other History: afib, COPD, HTN, CHF PMH PMH Past Medical History: Asthma, CHF, COPD and Hypertension Past Surgical History: Yes Surgical History: Cholecystectomy Family History Family Medical History: Hypertension Social History Type of Tobacco Use: Cigarettes (past use none now) Alcohol Use: None Do you use any recreational Drugs:: No Lives Where: Home ROS Review of Systems Constitutional: Weakness Eyes: No Symptoms Reported ENTM: No Symptoms Reported Respiratoy: Short of Breath Cardiovascular: No Symptoms Reported Gastrointestinal/Abdominal: Diarrhea Genitourinary: No Symptoms Reported Neurological: Weakness Musculoskeletal: No Symptoms Reported Integumentary: Rash (cellulitis both legs right > left) Hematologic/Lymphatic: No Symptoms Reported Endocrine: No Symptoms Reported Psychiatric: Depression All Other Systems: Reviewed and Negative PE Vital Signs Vitals: Temperature 97.8 F Pulse Rate 75 Respiratory Rate 13 Blood Pressure [Right Arm] 156/104 Blood Pressure [Left Arm] 161/95 Blood Pressure 112/67 O2 Sat by Pulse Oximetry 100 General Limitations: No Limitations General Appearance: Alert and In No Apparent Distress Head Head Exam: Normal Inspection, Atraumatic and Normocephalic Eyes Eye exam: Normal Appearance and EOMI ENT ENT Exam: Normal Exam and Normal Oropharynx Neck Neck Exam: Normal Inspection, Full ROM and Trachea Midline Chest Chest Inspection: Normal Inspection Respiratory Respiratory Exam: Normal Lung Sounds Bilat Respiratory Exam: Bilateral: Clear to Auscultation Cardiovascular Cardiovascular Exam: Regular Rate Abdominal Exam Abdominal Exam: Normal Inspection Extremities Extremities Exam: Edema and Other (erythema right > left both legs) Upper Extremities Shoulder Exam: Normal Inspection Arm Exam: Normal Inspection Elbow Exam: Normal Inspection Forearm Exam: Normal Inspection Neurosensory Exam: Normal Exam Lower Extremities Hip/Pelvis Exam: Normal Inspection Upper Leg Exam: Normal Inspection Knee Exam: Normal Inspection, Full ROM and Erythema Lower Leg Exam: Normal Inspection, Tenderness and Erythema Ankle Exam: Normal Inspection and Erythema Foot/Toe Exam: Normal Inspection and Erythema Gait Exam: Not Tested/Not Observed Back Back Exam: Normal Inspection Neurological Neurological Exam: Alert, Oriented X3 and CN II-XII Intact Psychiatric Psychiatric Exam: Depressed Skin Skin Exam: Rash (cellulitis type rash both legs) and Erythema; negative Normal Color Type of Lesion: Rash Distribution: LLE and RLE Description: Erythematous and Macular COURSE Consultation Called: 23:52 Call Returned: 23:57 Consultation Comments: case discussed with DR. Pimentel admit for antibiotics, Adult protective services consult [facility] Labs Reviewed Result Diagrams: 02/18/20 05:20 02/18/20 05:20 Laboratory: 02/15/20 20:42 Blood Blood Culture - Preliminary 02/15/20 20:30 Blood Blood Culture - Preliminary WBC 9.2 X10^3/uL (3.6-10.0) 02/15/20 20:42 RBC 4.74 X10^6/uL (3.5-5.4) 02/15/20 20:42 Hgb 13.2 g/dL (12.0-16.0) 02/15/20 20:42 Hct 41.8 % (36.0-47.0) 02/15/20 20:42 MCV 88.2 fL (80.0-100.0) 02/15/20 20:42 MCH 27.9 pg (27.0-34.0) 02/15/20 20:42 MCHC 31.6 g/dL (33.0-35.0) L 02/15/20 20:42 RDW 21.8 % (11.6-16.5) H 02/15/20 20:42 Plt Count 93 X10^3/uL (150.0-450.0) L 02/15/20 20:42 Plt Count Comment Decreased (ADEQUATE) A 02/15/20 20:42 MPV 8.6 fL (7.4-11.0) 02/15/20 20:42 Neut % (Auto) 78.7 % (42.0-75.0) H 02/15/20 20:42 Lymph % (Auto) 11.4 % (21.0-51.0) L 02/15/20 20:42 [place] % (Auto) 9.2 % (0.0-13.0) 02/15/20 20:42 Eos % (Auto) 0.3 % (0.9-2.9) L 02/15/20 20:42 Baso % (Auto) 0.4 % (0.2-1.0) 02/15/20 20:42 Neut # (Auto) 7.3 x10^3/uL (2.2-4.8) H 02/15/20 20:42 Lymph # (Auto) 1.1 X10^3/uL (1.3-2.9) L 02/15/20 20:42 [place] # (Auto) 0.8 x10^3/uL (0.3-0.8) 02/15/20 20:42 Eos # (Auto) 0.0 x10^3/uL (0.0-0.2) 02/15/20 20:42 Baso # (Auto) 0.0 X10^3/uL (0.0-0.1) 02/15/20 20:42 Absolute Nucleated RBC 0.3 /100WBC 02/15/20 20:42 Plt Morphology Comment Normal (NORMAL) 02/15/20 20:42 RBC Morphology Abnormal (NORMAL) A 02/15/20 20:42 Anisocytosis 2+ A 02/15/20 20:42 Sodium 143 mmol/L (136-145) 02/15/20 20:30 Corrected Sodium TNP 02/15/20 20:30 Potassium 3.7 mmol/L (3.5-5.1) 02/15/20 20:30 Chloride 106 mmol/L (98-107) 02/15/20 20:30 Carbon Dioxide 35.6 mmol/L (21-32) H 02/15/20 20:30 BUN 22 mg/dL (7-18) H 02/15/20 20:30 Creatinine 1.10 mg/dL (0.55-1.02) H 02/15/20 20:30 Est GFR (MDRD) Af Amer > 60 (>60) 02/15/20 20:30 Est GFR (MDRD) Non-Af 51 (>60) L 02/15/20 20:30 Glucose 101 mg/dL (65-99) H 02/15/20 20:30 Lactic Acid 1.5 mmol/L (0.4-2.0) 02/15/20 20:42 Calcium 8.3 mg/dL (8.5-10.1) L 02/15/20 20:30 Corrected Calcium 9.6 mg/dL (8.5-10.1) 02/15/20 20:30 Total Bilirubin 3.80 mg/dL (0.2-1.0) H 02/15/20 20:30 AST 24 Units/L (15-37) 02/15/20 20:30 ALT 9 Units/L (12-78) L 02/15/20 20:30 Alkaline Phosphatase 90 Units/L (46-116) 02/15/20 20:30 Creatine Kinase 317 Units/L (26-192) H 02/15/20 20:30 CK-MB (CK-2) 1.6 ng/mL (0-4.0) 02/15/20 20: CK/CKMB % Calc 0.5 % (<4) 02/15/20 20: Troponin I 0.05 ng/mL (0-1.5) 02/15/20 20: B-Natriuretic Peptide 984 pg/mL (0-79) H* 02/15/20 23:06 Total Protein 5.7 g/dL (6.4-8.2) L 02/15/20 20:30 Albumin 2.4 g/dL (3.4-5.0) L 02/15/20 20: Globulin 3.3 g/dL (2.5-4.5) 02/15/20 20: Albumin/Globulin Ratio 0.7 Ratio (1.1-2.1) L 02/15/20 20: Specimen Type Random urine 02/15/20 20: Urine Color [place] (YELLOW) 02/15/20 20: Urine Appearance Hazy (CLEAR) 02/15/20 20: Urine pH 5.0 (5.0 - 8.0) 02/15/20 20: Ur Specific [place] 1.025 (1.000-1.030) 02/15/20 20:08 Urine Protein 3+ (NEGATIVE) 02/15/20 20: Urine Glucose (UA) Negative (NEGATIVE) 02/15/20 20: Urine Ketones Negative (NEGATIVE) 02/15/20 20: Urine Occult Blood 2+ (NEGATIVE) 02/15/20 20:08 Urine Nitrite Negative (NEGATIVE) 02/15/20 20:08 Urine Bilirubin 1+ (NEGATIVE) 02/15/20 20:08 Urine Urobilinogen 2+ (NORMAL) 02/15/20 20:08 Ur Leukocyte Esterase 1+ (NEGATIVE) 02/15/20 20:08 Urine RBC 0-2 /HPF (0-3) 02/15/20 20:08 Urine WBC 3-5 /HPF (0-5) 02/15/20 20:08 Ur Squamous Epith Cells Numerous /HPF (NEGATIVE) 02/15/20 20:08 Amorphous Sediment 1+ /HPF (NEGATIVE) 02/15/20 20:08 Urine Bacteria 1+ /HPF (NEGATIVE) 02/15/20 20:08 Ur Culture Indicated? No/not indicated 02/15/20 20:08 XRAY XRAY Interpreted by: Radiologist X-ray Results: chest: mild CHF Opioid Opioid Risk Tool Age (Robson box if 16-45): No History of Preadolescent Sexual Abuse: No Total: 0 Total Score Risk Category: Low Risk Copyright: Darryl ABEL predicting aberrant behaviors
[2020-02-15] MEDS ORDERED: DUONEB 0.5 MG/3 MG (3 mL) NEB ONE ×2 (20:10→20:57)
[2020-02-15] MEDS ORDERED: NS 1000 ML 1,000 ML ONE (20:15)
[2020-02-15 20:17] LABS: BILIRUBIN,URINE 1+ (NEGATIVE); BLOOD/HEMOGLOBIN,URINE 2+ (NEGATIVE); GLUCOSE, URINE NEGATIVE (NEGATIVE); KETONES,URINE NEGATIVE (NEGATIVE); LEUKOCYTE ESTERASE ,URINE 1+ (NEGATIVE); NITRITES,URINE NEGATIVE (NEGATIVE); PROTEIN,URINE 3+ (NEGATIVE); UROBILINOGEN,URINE 2+ (NORMAL)
[2020-02-15 20:30] LABS: APPEARANCE,URINE HAZY (CLEAR); COLOR,URINE AMBER (YELLOW)
[2020-02-15 20:50] LABS: AMORPHOUS SEDIMENT,UR 1+ /HPF (NEGATIVE); BACTERIA,URINE 1+ /HPF (NEGATIVE); RBC,URINE 0-2 /HPF (0-3); SQUAMOUS EPITHELIAL CELL,UR NUMEROUS /HPF (NEGATIVE)
[2020-02-15 21:00] LABS: BASOPHILS % (AUTO) 0.4 % (0.2-1.0); EOSINOPHILS % (AUTO) 0.3 % (0.9-2.9); HEMATOCRIT 41.8 % (36.0-47.0); HEMOGLOBIN 13.2 g/dL (12.0-16.0); LYMPHOCYTES # (AUTO) 1.1 X10^3/uL (1.3-2.9); LYMPHOCYTES % (AUTO) 11.4 % (21.0-51.0); MEAN CORPUSCULAR HEMOGLOBIN 27.9 pg (27.0-34.0); MEAN CORPUSCULAR HGB CONC 31.6 g/dL (33.0-35.0); MEAN CORPUSCULAR VOLUME 88.2 fL (80.0-100.0); MEAN PLATELET VOLUME 8.6 fL (7.4-11.0); MONOCYTES # (AUTO) 0.8 x10^3/uL (0.3-0.8); MONOCYTES % (AUTO) 9.2 % (0.0-13.0); NEUTROPHILS # (AUTO) 7.3 x10^3/uL (2.2-4.8); NEUTROPHILS % (AUTO) 78.7 % (42.0-75.0); PLATELET COUNT 93 X10^3/uL (150.0-450.0); RED BLOOD COUNT 4.74 X10^6/uL (3.5-5.4); RED CELL DISTRIBUTION WIDTH 21.8 % (11.6-16.5); WHITE BLOOD COUNT 9.2 X10^3/uL (3.6-10.0)
[2020-02-15] MEDS ORDERED: NS 1000 ML 1,000 ML IV SCH (21:00)
[2020-02-15 21:07] LABS: ANISOCYTOSIS 2+; PLATELET MORPHOLOGY COMMENT NORMAL (NORMAL)
[2020-02-15 21:12] LABS: BLOOD UREA NITROGEN 22 mg/dL (7-18); CALCIUM 8.3 mg/dL (8.5-10.1); CARBON DIOXIDE 35.6 mmol/L (21-32); CHLORIDE 106 mmol/L (98-107); SODIUM 143 mmol/L (136-145); TROPONIN I 0.05 ng/mL (0-1.5); eGFR NON BLACK RACES 51 (>60)
[2020-02-15 21:17] LABS: ALANINE AMINOTRANSFERASE 9 Units/L (12-78); ALBUMIN 2.4 g/dL (3.4-5.0); ALKALINE PHOSPHATASE 90 Units/L (46-116); ASPARTATE AMINO TRANSFERASE 24 Units/L (15-37); CKMB % 0.5 % (<4); COR CA(FOR HYPOALB) 9.6 mg/dL (8.5-10.1); CREATINE KINASE 317 Units/L (26-192); CREATINE KINASE MB 1.6 ng/mL (0-4.0); TOTAL PROTEIN 5.7 g/dL (6.4-8.2)
--- NOTE | 2020-02-15 21:26 | RAD ---
STUDY: CHEST, 1 VIEWCOMPARISON: December 15, 2019HISTORY: WEAKNESSFINDINGS:Stable cardiomegaly is seen with findings suggesting mild degree of pulmonary edema. Transvenous pacing wires are grossly stable without evidence of lead wire fractures. No pleural effusion or gross pneumothorax is seen.IMPRESSION:Stable cardiomegaly is seen with findings suggesting mild degree of pulmonary edema. Correlation with patient BNP levels may be helpful.Electronically signed by: Mack Guallpa (Feb 15, 2020 21:25:24)
[2020-02-15] MEDS ORDERED: ROCEPHIN VIAL 1 GRAM 1 G in NS 100 ML IV + SPIKE MINIBAG* 100 ML IV SCH (23:49)
[2020-02-15] MEDS ORDERED: LASIX IVP ONE (23:50)
[2020-02-16] MEDS ORDERED: ROCEPHIN VIAL 1 GRAM 1 G in NS 100 ML IV + SPIKE MINIBAG* 100 ML IV SCH (00:15)
[2020-02-16] MEDS ORDERED: ROCEPHIN VIAL 1 GRAM ONE (00:22)
[2020-02-16] MEDS ORDERED: LASIX ONE (00:22)
[2020-02-16] MEDS ORDERED: NS 100 ML IV + SPIKE MINIBAG* 100 ML IV ONE (00:22)
[2020-02-16] MEDS: NS 1000 ML 1,000 ML IV SCH ×2 (00:31→15:34)
[2020-02-16] MEDS ORDERED: DUONEB 0.5 MG/3 MG (3 mL) NEB PRN (02:06)
[2020-02-16] MEDS: DUONEB 0.5 MG/3 MG (3 mL) NEB SCH ×3 (05:15→20:59)
[2020-02-16] MEDS ORDERED: DUONEB 0.5 MG/3 MG (3 mL) NEB SCH (06:00)
[2020-02-16] MEDS: MICRO K EXTEN CAP 10 MEQ PO SCH (09:48)
[2020-02-16] MEDS: XARELTO PO SCH (09:48)
[2020-02-16] MEDS: LASIX PO SCH (09:48)
[2020-02-16] MEDS: COREG TAB 25 MG PO SCH ×2 (09:48→20:22)
--- NOTE | 2020-02-16 11:26 | DR.H&P ---
H&P History & Physical for Day of: H&P Date: 02/15/20 Chief Complaint Chief Complaint: Weakness Right leg pain Allergies Allergies Allergy/AdvReac Type Severity Reaction Status Date / Time codeine Allergy Verified 12/15/19 08:20 latex Allergy Verified 12/15/19 08:20 milk Allergy Verified 12/15/19 08:20 History of Present Illness History of Present Illness: Pt is a 79 yo f pmhx CHF, COPD, HTN, admitted after being found on the floor of her home for a day after having a fall. Pt reports she has been feeling weak and has noticed the skin on her right leg is red. Denies fevers, chills. Labs/imaging: Wbc 9.2, Hgb 13.2, Plt 93, Na 143, K 3.7, Cr 1.10, Gluc 101, CK 317, BNP 984, CXR: Stable cardiomegaly is seen with findings suggesting mild degree of pulmonary edema. Correlation with patient BNP levels may be helpful. Abdominal XR: Stable cardiomegaly with minimal central pulmonary congestion or pulmonary artery hypertension. Mild left basilar which is less prominent and may represent recurrent infiltrate or atelectasis vs residual scarring. Will start IV antibiotic, Vancomycin, for right leg cellulitis. Restart home medications. Order PT/OT evaluation. Continue to monitor and follow up labs/imaging in the morning. Past Medical History Past Medical History: Asthma, CHF, COPD and Hypertension Additional Medical History: Atrial fibrillation Past Surgical History Surgical History: Cholecystectomy and Other Additional Surgical History: Pacemaker placement Family History Family Medical History: Hypertension Social History Type of Tobacco Use: Cigarettes (past use none now) Alcohol Use: None Drug Use: None Medications Home Medications: codeine Allergy (Verified 12/15/19 08:20) latex Allergy (Verified 12/15/19 08:20) milk Allergy (Verified 12/15/19 08:20) Labs Result Diagrams: 02/15/20 20:42 02/15/20 20:30 Labs: Laboratory WBC 9.2 X10^3/uL (3.6-10.0) 02/15/20 20:42 RBC 4.74 X10^6/uL (3.5-5.4) 02/15/20 20:42 Hgb 13.2 g/dL (12.0-16.0) 02/15/20 20:42 Hct 41.8 % (36.0-47.0) 02/15/20 20:42 MCV 88.2 fL (80.0-100.0) 02/15/20 20:42 MCH 27.9 pg (27.0-34.0) 02/15/20 20:42 MCHC 31.6 g/dL (33.0-35.0) L 02/15/20 20:42 RDW 21.8 % (11.6-16.5) H 02/15/20 20:42 Plt Count 93 X10^3/uL (150.0-450.0) L 02/15/20 20:42 Plt Count Comment Decreased (ADEQUATE) A 02/15/20 20: MPV 8.6 fL (7.4-11.0) 02/15/20 20:42 Neut % (Auto) 78.7 % (42.0-75.0) H 02/15/20 20:42 Lymph % (Auto) 11.4 % (21.0-51.0) L 02/15/20 20:42 [place] % (Auto) 9.2 % (0.0-13.0) 02/15/20 20:42 Eos % (Auto) 0.3 % (0.9-2.9) L 02/15/20 20:42 Baso % (Auto) 0.4 % (0.2-1.0) 02/15/20 20:42 Neut # (Auto) 7.3 x10^3/uL (2.2-4.8) H 02/15/20 20:42 Lymph # (Auto) 1.1 X10^3/uL (1.3-2.9) L 02/15/20 20:42 [place] # (Auto) 0.8 x10^3/uL (0.3-0.8) 02/15/20 20:42 Eos # (Auto) 0.0 x10^3/uL (0.0-0.2) 02/15/20 20:42 Baso # (Auto) 0.0 X10^3/uL (0.0-0.1) 02/15/20 20:42 Absolute Nucleated RBC 0.3 /100WBC 02/15/20 20:42 Plt Morphology Comment Normal (NORMAL) 02/15/20 20:42 RBC Morphology Abnormal (NORMAL) A 02/15/20 20:42 Anisocytosis 2+ A 02/15/20 20:42 Sodium 143 mmol/L (136-145) 02/15/20 20:30 Corrected Sodium TNP 02/15/20 20:30 Potassium 3.7 mmol/L (3.5-5.1) 02/15/20 20:30 Chloride 106 mmol/L (98-107) 02/15/20 20:30 Carbon Dioxide 35.6 mmol/L (21-32) H 02/15/20 20:30 BUN 22 mg/dL (7-18) H 02/15/20 20:30 Creatinine 1.10 mg/dL (0.55-1.02) H 02/15/20 20:30 Est GFR (MDRD) Af Amer > 60 (>60) 02/15/20 20:30 Est GFR (MDRD) Non-Af 51 (>60) L 02/15/20 20: Glucose 101 mg/dL (65-99) H 02/15/20 20:30 Lactic Acid 1.5 mmol/L (0.4-2.0) 02/15/20:42 Calcium 8.3 mg/dL (8.5-10.1) L 02/15/20 20: Corrected Calcium 9.6 mg/dL (8.5-10.1) 02/15/20 20:30 Total Bilirubin 3.80 mg/dL (0.2-1.0) H 02/15/20 20:30 AST 24 Units/L (15-37) 02/15/20 20:30 ALT 9 Units/L (12-78) L 02/15/20 20:30 Alkaline Phosphatase 90 Units/L (46-116) 02/15/20 20:30 Creatine Kinase 317 Units/L (26-192) H 02/15/20 20:30 CK-MB (CK-2) 1.6 ng/mL (0-4.0) 02/15/20 20:30 CK/CKMB % Calc 0.5 % (<4) 02/15/20 20:30 Troponin I 0.05 ng/mL (0-1.5) 02/15/20 20:30 B-Natriuretic Peptide 984 pg/mL (0-79) H* 02/15/20 23:06 Total Protein 5.7 g/dL (6.4-8.2) L 02/15/20 20:30 Albumin 2.4 g/dL (3.4-5.0) L 02/15/20 20:30 Globulin 3.3 g/dL (2.5-4.5) 02/15/20 20:30 Albumin/Globulin Ratio 0.7 Ratio (1.1-2.1) L 02/15/20 20:30 Specimen Type Random urine 02/15/20 20:08 Urine Color [place] (YELLOW) 02/15/20 20:08 Urine Appearance Hazy (CLEAR) 02/15/20 20:08 Urine pH 5.0 (5.0 - 8.0) 02/15/20 20:08 Ur Specific [place] 1.025 (1.000-1.030) 02/15/20 20:08 Urine Protein 3+ (NEGATIVE) 02/15/20 20:08 Urine Glucose (UA) Negative (NEGATIVE) 02/15/20 20:08 Urine Ketones Negative (NEGATIVE) 02/15/20 20:08 Urine Occult Blood 2+ (NEGATIVE) 02/15/20 20:08 Urine Nitrite Negative (NEGATIVE) 02/15/20 20:08 Urine Bilirubin 1+ (NEGATIVE) 02/15/20 20:08 Urine Urobilinogen 2+ (NORMAL) 02/15/20 20:08 Ur Leukocyte Esterase 1+ (NEGATIVE) 02/15/20 20:08 Urine RBC 0-2 /HPF (0-3) 02/15/20 20:08 Urine WBC 3-5 /HPF (0-5) 02/15/20 20:08 Ur Squamous Epith Cells Numerous /HPF (NEGATIVE) 02/15/20 20:08 Amorphous Sediment 1+ /HPF (NEGATIVE) 02/15/20 20:08 Urine Bacteria 1+ /HPF (NEGATIVE) 02/15/20 20:08 Ur Culture Indicated? No/not indicated 02/15/20 20:08 Review of Systems Constitutional: Weakness; denies Fever and Chills Eyes: No Symptoms Reported ENT: No Symptoms Reported Respiratory: No Symptoms Reported Cardiovascular: No Symptoms Reported Gastrointestinal: No Symptoms Reported Genitourinary: No Symptoms Reported Musculoskeletal: Leg Pain (RLE) Skin: Other (redness RLE) Neurological: No Symptoms Reported Physical Exam Vital Signs: Temperature 98.2 F Pulse Rate [Left Radial] 72 Pulse Rate 69 Respiratory Rate 18 Blood Pressure [Right Arm] 156/104 Blood Pressure [Left Arm] 134/83 Blood Pressure 154/89 O2 Sat by Pulse Oximetry 97 Oriented: Normal Eyes: Normal Ear: Normal Nose: Normal Respiratory: Diminished Throughout Cardiovascular: Normal : Normal Auscultation: Bowel Sounds: Normal Palpation: Normal Tenderness: Normal Skin: Red (RLE with surgical pen demarcation, warm to touch) Musculoskeletal: Normal Psychiatric: Normal Mood Description: Calm and Appropriate Affect: Normal Speech Pattern: Clear and Appropriate Assessment/Plan (1) Cellulitis: Status: Acute Plan: IV Vancomycin Continue to monitor. Review H&P Reviewed: Yes Patient was examined?: Yes
[2020-02-16] MEDS ORDERED: PHARMACY CONSULT - VANCOMYCIN XX SCH (12:00)
[2020-02-16] MEDS: VANCOMYCIN HCL 1 G in D5W 250 ML IV 250 ML IV SCH ×2 (15:15→20:51)
[2020-02-16] MEDS: ROCEPHIN VIAL 1 GRAM 1 G in NS 100 ML IV + SPIKE MINIBAG* 100 ML IV SCH (20:22)
[2020-02-16] MEDS: LIPITOR TAB 10 MG PO SCH (20:22)
[2020-02-17] MEDS: NS 1000 ML 1,000 ML IV SCH (03:00)
[2020-02-17] MEDS: DUONEB 0.5 MG/3 MG (3 mL) NEB SCH ×3 (06:08→22:10)
[2020-02-17 06:29] LABS: BASOPHILS % (AUTO) 0.7 % (0.2-1.0); EOSINOPHILS # (AUTO) 0.1 x10^3/uL (0.0-0.2); HEMATOCRIT 41.6 % (36.0-47.0); HEMOGLOBIN 13.1 g/dL (12.0-16.0); LYMPHOCYTES # (AUTO) 0.9 X10^3/uL (1.3-2.9); LYMPHOCYTES % (AUTO) 14.5 % (21.0-51.0); MEAN CORPUSCULAR HEMOGLOBIN 27.9 pg (27.0-34.0); MEAN CORPUSCULAR HGB CONC 31.5 g/dL (33.0-35.0); MEAN CORPUSCULAR VOLUME 88.4 fL (80.0-100.0); MEAN PLATELET VOLUME 8.9 fL (7.4-11.0); MONOCYTES # (AUTO) 0.5 x10^3/uL (0.3-0.8); MONOCYTES % (AUTO) 7.9 % (0.0-13.0); NEUTROPHILS # (AUTO) 4.8 x10^3/uL (2.2-4.8); NEUTROPHILS % (AUTO) 74.9 % (42.0-75.0); PLATELET COUNT 104 X10^3/uL (150.0-450.0); RED BLOOD COUNT 4.71 X10^6/uL (3.5-5.4); RED CELL DISTRIBUTION WIDTH 21.5 % (11.6-16.5); WHITE BLOOD COUNT 6.4 X10^3/uL (3.6-10.0)
[2020-02-17 06:42] LABS: ALBUMIN 2.2 g/dL (3.4-5.0); CARBON DIOXIDE 31.6 mmol/L (21-32); COR CA(FOR HYPOALB) 9.4 mg/dL (8.5-10.1); CREATININE 1.25 mg/dL (0.55-1.02); TOTAL PROTEIN 5.8 g/dL (6.4-8.2)
[2020-02-17 06:58] LABS: ANISOCYTOSIS 1+; PLATELET MORPHOLOGY COMMENT NORMAL (NORMAL)
[2020-02-17 07:53] VITALS: BMI 34.3
[2020-02-17] MEDS: VANCOMYCIN HCL 1 G in D5W 250 ML IV 250 ML IV SCH ×2 (08:20→22:52)
[2020-02-17] MEDS: LASIX PO SCH (08:20)
[2020-02-17] MEDS: XARELTO PO SCH (08:20)
[2020-02-17] MEDS: MICRO K EXTEN CAP 10 MEQ PO SCH (08:20)
[2020-02-17] MEDS: COREG TAB 25 MG PO SCH ×2 (08:20→20:52)
--- NOTE | 2020-02-17 10:40 | PCM.PROG ---
Progress Note Progress Note for Day of Date of Exam: 02/17/20 Subjective Subjective: Pt is a 79 yo f pmhx CHF, COPD, HTN, admitted for cellulitis. This morning she is sitting up in a chair feeling a little better compared to yesterday. No acute events overnight. Labs/imaging: Wbc 6.4, Hgb 13.1, Plt 104, Na 140, K 3.6, Cr 1.25, Gluc 131. Treatment course includes: IV Vancomycin. Cellulitis improving with some reduction from demarcation line. Pt refused PT/OT evaluation. Continue to monitor and follow up labs/imaging in the morning. Past Medical Family Social History Past Med/Fam/Surg Hx: No changes since H&P Allergies: Allergies codeine Allergy (Verified 12/15/19 08:20) latex Allergy (Verified 12/15/19 08:20) milk Allergy (Verified 12/15/19 08:20) Review of Systems ROS: No change since H&P Vital Signs and I&O's Vital Signs: Temperature 97.9 F Pulse Rate [Left Radial] 71 Pulse Rate 71 Respiratory Rate 18 Blood Pressure [Right Arm] 156/104 Blood Pressure [Left Arm] 137/96 Blood Pressure 154/89 O2 Sat by Pulse Oximetry 94 Intake and Output: Intake & Output 02/14/20 02/15/20 02/16/20 02/17/20 23:59 23:59 23:59 23:59 Intake Total 3677 / 3677 1080 / 1080 Output Total 3750 / 3750 275 / 275 Balance -73 / -73 805 / 805 Physical Exam Oriented: Normal Eyes: Normal Ear: Normal Nose: Normal Respiratory: Normal Cardiovascular: Normal : Normal Auscultation: Bowel Sounds: Normal Tenderness: Normal Skin: Red (RLE with surgical pen demarcation, warm to touch) Musculoskeletal: Normal Psychiatric: Normal Mood Description: Calm and Appropriate Affect: Normal Speech Pattern: Clear and Appropriate Laboratory and Diagnostics Result Diagrams: 02/17/20 05:39 02/17/20 05:39 Labs: 02/15/20 20:42 Blood Blood Culture - Preliminary 02/15/20 20:30 Blood Blood Culture - Preliminary Laboratory WBC 6.4 X10^3/uL (3.6-10.0) 02/17/20 05:39 RBC 4.71 X10^6/uL (3.5-5.4) 02/17/20 05:39 Hgb 13.1 g/dL (12.0-16.0) 02/17/20 05:39 Hct 41.6 % (36.0-47.0) 02/17/20 05:39 MCV 88.4 fL (80.0-100.0) 02/17/20 05:39 MCH 27.9 pg (27.0-34.0) 02/17/20 05:39 MCHC 31.5 g/dL (33.0-35.0) L 02/17/20 05:39 RDW 21.5 % (11.6-16.5) H 02/17/20 05:39 Plt Count 104 X10^3/uL (150.0-450.0) L 02/17/20 05:39 Plt Count Comment Decreased (ADEQUATE) A 02/17/20 05:39 MPV 8.9 fL (7.4-11.0) 02/17/20 05:39 Neut % (Auto) 74.9 % (42.0-75.0) 02/17/20 05:39 Lymph % (Auto) 14.5 % (21.0-51.0) L 02/17/20 05:39 [place] % (Auto) 7.9 % (0.0-13.0) 02/17/20 05:39 Eos % (Auto) 2.0 % (0.9-2.9) 02/17/20 05:39 Baso % (Auto) 0.7 % (0.2-1.0) 02/17/20 05:39 Neut # (Auto) 4.8 x10^3/uL (2.2-4.8) 02/17/20 05:39 Lymph # (Auto) 0.9 X10^3/uL (1.3-2.9) L 02/17/20 05:39 [place] # (Auto) 0.5 x10^3/uL (0.3-0.8) 02/17/20 05:39 Eos # (Auto) 0.1 x10^3/uL (0.0-0.2) 02/17/20 05:39 Baso # (Auto) 0.0 X10^3/uL (0.0-0.1) 02/17/20 05:39 Absolute Nucleated RBC 0.3 /100WBC 02/17/20 05:39 Plt Morphology Comment Normal (NORMAL) 02/17/20 05:39 RBC Morphology Abnormal (NORMAL) A 02/17/20 05:39 Anisocytosis 1+ A 02/17/20 05:39 Sodium 139 mmol/L (136-145) 02/17/20 05:39 Corrected Sodium 140 mmol/L (136-145) 02/17/20 05:39 Potassium 3.6 mmol/L (3.5-5.1) 02/17/20 05:39 Chloride 104 mmol/L (98-107) 02/17/20 05:39 Carbon Dioxide 31.6 mmol/L (21-32) 02/17/20 05:39 BUN 21 mg/dL (7-18) H 02/17/20 05:39 Creatinine 1.25 mg/dL (0.55-1.02) H 02/17/20 05:39 Est GFR (MDRD) Af Amer 53 (>60) L 02/17/20 05:39 Est GFR (MDRD) Non-Af 44 (>60) L 02/17/20 05:39 Glucose 131 mg/dL (65-99) H 02/17/20 05:39 Lactic Acid 1.5 mmol/L (0.4-2.0) 02/15/20 20:42 Calcium 8.0 mg/dL (8.5-10.1) L 02/17/20 05:39 Corrected Calcium 9.4 mg/dL (8.5-10.1) 02/17/20 05:39 Magnesium 1.6 mg/dL (1.7-2.9) L 02/17/20 05:39 Total Bilirubin 1.70 mg/dL (0.2-1.0) H 02/17/20 05:39 AST 21 Units/L (15-37) 02/17/20 05:39 ALT 11 Units/L (12-78) L 02/17/20 05:39 Alkaline Phosphatase 106 Units/L (46-116) 02/17/20 05:39 Creatine Kinase 317 Units/L (26-192) H 02/15/20 20:30 CK-MB (CK-2) 1.6 ng/mL (0-4.0) 02/15/20 20:30 CK/CKMB % Calc 0.5 % (<4) 02/15/20 20:30 Troponin I 0.05 ng/mL (0-1.5) 02/15/20 20:30 B-Natriuretic Peptide 984 pg/mL (0-79) H* 02/15/20 23:06 Total Protein 5.8 g/dL (6.4-8.2) L 02/17/20 05:39 Albumin 2.2 g/dL (3.4-5.0) L 02/17/20 05:39 Globulin 3.6 g/dL (2.5-4.5) 02/17/20 05:39 Albumin/Globulin Ratio 0.6 Ratio (1.1-2.1) L 02/17/20 05:39 Specimen Type Random urine 02/15/20 20:08 Urine Color [place] (YELLOW) 02/15/20 20:08 Urine Appearance Hazy (CLEAR) 02/15/20 20:08 Urine pH 5.0 (5.0 - 8.0) 02/15/20 20:08 Ur Specific [place] 1.025 (1.000-1.030) 02/15/20 20:08 Urine Protein 3+ (NEGATIVE) 02/15/20 20:08 Urine Glucose (UA) Negative (NEGATIVE) 02/15/20 20:08 Urine Ketones Negative (NEGATIVE) 02/15/20 20:08 Urine Occult Blood 2+ (NEGATIVE) 02/15/20 20:08 Urine Nitrite Negative (NEGATIVE) 02/15/20 20:08 Urine Bilirubin 1+ (NEGATIVE) 02/15/20 20:08 Urine Urobilinogen 2+ (NORMAL) 02/15/20 20:08 Ur Leukocyte Esterase 1+ (NEGATIVE) 02/15/20 20:08 Urine RBC 0-2 /HPF (0-3) 02/15/20 20:08 Urine WBC 3-5 /HPF (0-5) 02/15/20 20:08 Ur Squamous Epith Cells Numerous /HPF (NEGATIVE) 02/15/20 20:08 Amorphous Sediment 1+ /HPF (NEGATIVE) 02/15/20 20:08 Urine Bacteria 1+ /HPF (NEGATIVE) 02/15/20 20:08 Ur Culture Indicated? No/not indicated 02/15/20 20:08 Plan (1) Cellulitis: Status: Acute Plan: IV Vancomycin Continue to monitor.
[2020-02-17] MEDS: MAGNESIUM SULFATE 1 GRAM/100 mL PREMIX 1 GM/100 ML BAG IV PRN (15:17)
[2020-02-17] MEDS ORDERED: RESTORIL CAP 15 MG PO ONE (20:50)
[2020-02-17] MEDS: LIPITOR TAB 10 MG PO SCH (20:52)
[2020-02-17] MEDS: ROCEPHIN VIAL 1 GRAM 1 G in NS 100 ML IV + SPIKE MINIBAG* 100 ML IV SCH (20:53)
[2020-02-17] MEDS: RESTORIL CAP 15 MG PO PRN ×2 (20:53→21:48)
[2020-02-18] MEDS: NS 1000 ML 1,000 ML IV SCH ×3 (04:34→20:35)
[2020-02-18] MEDS: DUONEB 0.5 MG/3 MG (3 mL) NEB SCH ×3 (06:14→21:08)
[2020-02-18 06:35] LABS: BASOPHILS % (AUTO) 0.6 % (0.2-1.0); EOSINOPHILS # (AUTO) 0.2 x10^3/uL (0.0-0.2); EOSINOPHILS % (AUTO) 4.1 % (0.9-2.9); HEMATOCRIT 38.3 % (36.0-47.0); HEMOGLOBIN 12.3 g/dL (12.0-16.0); LYMPHOCYTES % (AUTO) 18.7 % (21.0-51.0); MEAN CORPUSCULAR HEMOGLOBIN 28.1 pg (27.0-34.0); MEAN CORPUSCULAR HGB CONC 32.2 g/dL (33.0-35.0); MEAN CORPUSCULAR VOLUME 87.4 fL (80.0-100.0); MEAN PLATELET VOLUME 8.3 fL (7.4-11.0); MONOCYTES # (AUTO) 0.7 x10^3/uL (0.3-0.8); MONOCYTES % (AUTO) 13.1 % (0.0-13.0); NEUTROPHILS # (AUTO) 3.3 x10^3/uL (2.2-4.8); NEUTROPHILS % (AUTO) 63.5 % (42.0-75.0); PLATELET COUNT 103 X10^3/uL (150.0-450.0); RED BLOOD COUNT 4.38 X10^6/uL (3.5-5.4); RED CELL DISTRIBUTION WIDTH 21.3 % (11.6-16.5); WHITE BLOOD COUNT 5.2 X10^3/uL (3.6-10.0)
[2020-02-18 06:49] LABS: ALANINE AMINOTRANSFERASE 7 Units/L (12-78); ALKALINE PHOSPHATASE 103 Units/L (46-116); ASPARTATE AMINO TRANSFERASE 17 Units/L (15-37); BLOOD UREA NITROGEN 20 mg/dL (7-18); CALCIUM 7.8 mg/dL (8.5-10.1); CARBON DIOXIDE 30.5 mmol/L (21-32); CHLORIDE 107 mmol/L (98-107); COR CA(FOR HYPOALB) 9.4 mg/dL (8.5-10.1); CREATININE 1.07 mg/dL (0.55-1.02); MAGNESIUM 1.8 mg/dL (1.7-2.9); SODIUM 143 mmol/L (136-145); TOTAL PROTEIN 5.4 g/dL (6.4-8.2); eGFR NON BLACK RACES 52 (>60)
[2020-02-18 07:11] LABS: ANISOCYTOSIS SLIGHT; PLATELET MORPHOLOGY COMMENT NORMAL (NORMAL)
--- NOTE | 2020-02-18 09:09 | PCM.PROG ---
Progress Note Progress Note for Day of Date of Exam: 02/18/20 Subjective Subjective: Pt is a 79 yo f pmhx CHF, COPD, HTN, admitted for cellulitis. She is resting in bed this morning. No concerns. Labs/imaging: Wbc 5.2, Hgb 12.3, Plt 103, Na 143, K 3.4, Cr 1.07, Gluc 92. Treatment course includes: IV Vancomycin. Cellulitis continues to improve. Will continue treatment. Pt has refused PT/OT evaluation. Continue to monitor and follow up labs/imaging in the morning. Past Medical Family Social History Past Med/Fam/Surg Hx: No changes since H&P Allergies: Allergies codeine Allergy (Verified 12/15/19 08:20) latex Allergy (Verified 12/15/19 08:20) milk Allergy (Verified 12/15/19 08:20) Review of Systems ROS: No change since H&P Vital Signs and I&O's Vital Signs: Temperature 96.9 F Pulse Rate [Left Radial] 70 Pulse Rate 70 Respiratory Rate 18 Blood Pressure [Right Arm] 155/87 Blood Pressure [Left Arm] 156/98 Blood Pressure 154/89 O2 Sat by Pulse Oximetry 92 Intake and Output: Intake & Output 02/15/20 02/16/20 02/17/20 02/18/20 23:59 23:59 23:59 23:59 Intake Total 3677 / 3677 2940 / 2940 566 / 566 Output Total 3750 / 3750 1825 / 1825 2400 / 2400 Balance -73 / -73 1115 / 1115 -1834 / -1834 Physical Exam Oriented: Normal Eyes: Normal Ear: Normal Nose: Normal Respiratory: Normal Cardiovascular: Normal : Normal Auscultation: Bowel Sounds: Normal Tenderness: Normal Skin: Red (RLE with surgical pen demarcation, warm to touch) Musculoskeletal: Normal Psychiatric: Normal Mood Description: Calm and Appropriate Affect: Normal Speech Pattern: Clear and Appropriate Laboratory and Diagnostics Result Diagrams: 02/18/20 05:20 02/18/20 05:20 Labs: 02/15/20 20:42 Blood Blood Culture - Preliminary 02/15/20 20:30 Blood Blood Culture - Preliminary Laboratory WBC 5.2 X10^3/uL (3.6-10.0) 02/18/20 05:20 RBC 4.38 X10^6/uL (3.5-5.4) 02/18/20 05:20 Hgb 12.3 g/dL (12.0-16.0) 02/18/20 05:20 Hct 38.3 % (36.0-47.0) 02/18/20 05:20 MCV 87.4 fL (80.0-100.0) 02/18/20 05:20 MCH 28.1 pg (27.0-34.0) 02/18/20 05:20 MCHC 32.2 g/dL (33.0-35.0) L 02/18/20 05:20 RDW 21.3 % (11.6-16.5) H 02/18/20 05:20 Plt Count 103 X10^3/uL (150.0-450.0) L 02/18/20 05:20 Plt Count Comment Decreased (ADEQUATE) A 02/18/20 05:20 MPV 8.3 fL (7.4-11.0) 02/18/20 05:20 Neut % (Auto) 63.5 % (42.0-75.0) 02/18/20 05:20 Lymph % (Auto) 18.7 % (21.0-51.0) L 02/18/20 05:20 [place] % (Auto) 13.1 % (0.0-13.0) H 02/18/20 05:20 Eos % (Auto) 4.1 % (0.9-2.9) H 02/18/20 05:20 Baso % (Auto) 0.6 % (0.2-1.0) 02/18/20 05:20 Neut # (Auto) 3.3 x10^3/uL (2.2-4.8) 02/18/20 05:20 Lymph # (Auto) 1.0 X10^3/uL (1.3-2.9) L 02/18/20 05:20 Morris # (Auto) 0.7 x10^3/uL (0.3-0.8) 02/18/20 05:20 Eos # (Auto) 0.2 x10^3/uL (0.0-0.2) 02/18/20 05:20 Baso # (Auto) 0.0 X10^3/uL (0.0-0.1) 02/18/20 05:20 Absolute Nucleated RBC 0.3 /100WBC 02/18/20 05:20 Plt Morphology Comment Normal (NORMAL) 02/18/20 05:20 RBC Morphology Abnormal (NORMAL) A 02/18/20 05:20 Anisocytosis Slight A 02/18/20 05:20 Sodium 143 mmol/L (136-145) 02/18/20 05:20 Corrected Sodium TNP 02/18/20 05:20 Potassium 3.4 mmol/L (3.5-5.1) L 02/18/20 05:20 Chloride 107 mmol/L (98-107) 02/18/20 05:20 Carbon Dioxide 30.5 mmol/L (21-32) 02/18/20 05:20 BUN 20 mg/dL (7-18) H 02/18/20 05:20 Creatinine 1.07 mg/dL (0.55-1.02) H 02/18/20 05:20 Est GFR (MDRD) Af Amer > 60 (>60) 02/18/20 05:20 Est GFR (MDRD) Non-Af 52 (>60) L 02/18/20 05:20 Glucose 92 mg/dL (65-99) 02/18/20 05:20 Lactic Acid 1.5 mmol/L (0.4-2.0) 02/15/20 20:42 Calcium 7.8 mg/dL (8.5-10.1) L 02/18/20 05:20 Corrected Calcium 9.4 mg/dL (8.5-10.1) 02/18/20 05:20 Magnesium 1.8 mg/dL (1.7-2.9) 02/18/20 05:20 Total Bilirubin 1.10 mg/dL (0.2-1.0) H 02/18/20 05:20 AST 17 Units/L (15-37) 02/18/20 05:20 ALT 7 Units/L (12-78) L 02/18/20 05:20 Alkaline Phosphatase 103 Units/L (46-116) 02/18/20 05:20 Creatine Kinase 317 Units/L (26-192) H 02/15/20 20:30 CK-MB (CK-2) 1.6 ng/mL (0-4.0) 02/15/20 20:30 CK/CKMB % Calc 0.5 % (<4) 02/15/20 20:30 Troponin I 0.05 ng/mL (0-1.5) 02/15/20 20:30 B-Natriuretic Peptide 984 pg/mL (0-79) H* 02/15/20 23:06 Total Protein 5.4 g/dL (6.4-8.2) L 02/18/20 05:20 Albumin 2.0 g/dL (3.4-5.0) L 02/18/20 05:20 Globulin 3.4 g/dL (2.5-4.5) 02/18/20 05:20 Albumin/Globulin Ratio 0.6 Ratio (1.1-2.1) L 02/18/20 05:20 Specimen Type Random urine 02/15/20 20:08 Urine Color Kim (YELLOW) 02/15/20 20:08 Urine Appearance Hazy (CLEAR) 02/15/20 20:08 Urine pH 5.0 (5.0 - 8.0) 02/15/20 20:08 Ur Specific [place] 1.025 (1.000-1.030) 02/15/20 20:08 Urine Protein 3+ (NEGATIVE) 02/15/20 20:08 Urine Glucose (UA) Negative (NEGATIVE) 02/15/20 20:08 Urine Ketones Negative (NEGATIVE) 02/15/20 20:08 Urine Occult Blood 2+ (NEGATIVE) 02/15/20 20:08 Urine Nitrite Negative (NEGATIVE) 02/15/20 20:08 Urine Bilirubin 1+ (NEGATIVE) 02/15/20 20:08 Urine Urobilinogen 2+ (NORMAL) 02/15/20 20:08 Ur Leukocyte Esterase 1+ (NEGATIVE) 02/15/20 20:08 Urine RBC 0-2 /HPF (0-3) 02/15/20 20:08 Urine WBC 3-5 /HPF (0-5) 02/15/20 20:08 Ur Squamous Epith Cells Numerous /HPF (NEGATIVE) 02/15/20 20:08 Amorphous Sediment 1+ /HPF (NEGATIVE) 02/15/20 20:08 Urine Bacteria 1+ /HPF (NEGATIVE) 02/15/20 20:08 Ur Culture Indicated? No/not indicated 02/15/20 20:08 Random Vancomycin 13.5 ug/mL 02/17/20 21:56 Plan (1) Cellulitis: Status: Acute Plan: IV Vancomycin Continue to monitor.
[2020-02-18] MEDS: VANCOMYCIN HCL 1 G in D5W 250 ML IV 250 ML IV SCH ×2 (09:35→20:31)
[2020-02-18] MEDS: XARELTO PO SCH ×2 (10:08→13:41)
[2020-02-18] MEDS: MICRO K EXTEN CAP 10 MEQ PO SCH ×2 (10:08→20:36)
[2020-02-18] MEDS: COREG TAB 25 MG PO SCH ×3 (10:08→20:32)
[2020-02-18] MEDS: LASIX PO SCH ×2 (10:08→13:41)
[2020-02-18] MEDS: MAGNESIUM SULFATE 1 GRAM/100 mL PREMIX 1 GM/100 ML BAG IV PRN ×2 (11:10→12:48)
[2020-02-18] MEDS ORDERED: POTASSIUM CHL 40 MEQ/NS 0.45% 500 ML IV PRN (17:45)
[2020-02-18] MEDS ORDERED: K-RIDER 10 MEQ/NS 100 ML 10 MEQ/100 ML BAG IV PRN (17:45)
[2020-02-18] MEDS ORDERED: POTASSIUM CHLORIDE LIQ 20 MEQ UDC PO PRN (17:45)
[2020-02-18] MEDS ORDERED: POTASSIUM CHL 60 MEQ/NS 0.45% 500 ML IV PRN (17:45)
[2020-02-18] MEDS: LIPITOR TAB 10 MG PO SCH (20:32)
[2020-02-18] MEDS: ROCEPHIN VIAL 1 GRAM 1 G in NS 100 ML IV + SPIKE MINIBAG* 100 ML IV SCH (20:33)
[2020-02-18] MEDS ORDERED: SEROquel TAB 25 mg PO SCH (21:00)
[2020-02-18] MEDS: RESTORIL CAP 15 MG PO PRN (22:26)
[2020-02-19] MEDS: DUONEB 0.5 MG/3 MG (3 mL) NEB SCH (05:53)
[2020-02-19 06:21] LABS: BASOPHILS % (AUTO) 0.6 % (0.2-1.0); EOSINOPHILS # (AUTO) 0.3 x10^3/uL (0.0-0.2); EOSINOPHILS % (AUTO) 6.7 % (0.9-2.9); HEMATOCRIT 43.1 % (36.0-47.0); HEMOGLOBIN 13.8 g/dL (12.0-16.0); LYMPHOCYTES # (AUTO) 0.9 X10^3/uL (1.3-2.9); LYMPHOCYTES % (AUTO) 19.8 % (21.0-51.0); MEAN CORPUSCULAR HEMOGLOBIN 28.1 pg (27.0-34.0); MEAN CORPUSCULAR HGB CONC 32.1 g/dL (33.0-35.0); MEAN CORPUSCULAR VOLUME 87.7 fL (80.0-100.0); MEAN PLATELET VOLUME 8.6 fL (7.4-11.0); MONOCYTES # (AUTO) 0.6 x10^3/uL (0.3-0.8); MONOCYTES % (AUTO) 11.8 % (0.0-13.0); NEUTROPHILS # (AUTO) 2.9 x10^3/uL (2.2-4.8); NEUTROPHILS % (AUTO) 61.1 % (42.0-75.0); PLATELET COUNT 106 X10^3/uL (150.0-450.0); RED BLOOD COUNT 4.91 X10^6/uL (3.5-5.4); RED CELL DISTRIBUTION WIDTH 21.5 % (11.6-16.5); WHITE BLOOD COUNT 4.8 X10^3/uL (3.6-10.0)
[2020-02-19] MEDS: NS 1000 ML 1,000 ML IV SCH (06:31)
[2020-02-19 06:55] LABS: ALANINE AMINOTRANSFERASE 9 Units/L (12-78); ALKALINE PHOSPHATASE 107 Units/L (46-116); ASPARTATE AMINO TRANSFERASE 21 Units/L (15-37); BLOOD UREA NITROGEN 16 mg/dL (7-18); CARBON DIOXIDE 28.9 mmol/L (21-32); CHLORIDE 108 mmol/L (98-107); COR CA(FOR HYPOALB) 9.6 mg/dL (8.5-10.1); CREATININE 1.07 mg/dL (0.55-1.02); SODIUM 142 mmol/L (136-145); TOTAL PROTEIN 5.5 g/dL (6.4-8.2); eGFR NON BLACK RACES 52 (>60)
[2020-02-19 06:59] LABS: ANISOCYTOSIS 1+; PLATELET MORPHOLOGY COMMENT NORMAL (NORMAL)
--- NOTE | 2020-02-19 07:27 | DR.EXTPAIN ---
HPI Time seen Time Seen by Provider: 02/15/20 19:55 PCP Primary Care Physician: Kristin Biggs MD Complaint/Symptoms Chief Complaint:: PT IN ED VIA [facility] WITH C/O WEAKNESS, FALLS AND BILATERAL LEG WEEPING. PT HAS 3 + PITTING EDEMA TO BILATERAL LEGS WITH REDNESS, HOT TO TOUCH AND WEEPING FROM FEET TO TOP OF THIGHS. COVID-19 Coronavirus risk:travel/contact w/high risk person: No Has patient experienced Coronavirus symptoms: No Source History Provided: Patient and EMS Mode of arrival Mode of Arrival: EMS Timing Onset of Chief Complaint: 02/15/20 Associated signs and symptoms Associated Signs and Symptoms: Weakness and Shortness of Breath PMH PMH Past Medical History: Yes Past Medical History: Asthma, CHF, COPD and Hypertension Past Surgical History: Yes Surgical History: Cholecystectomy and Other Family History History of Family Medical Conditions: Yes Family Medical History: Hypertension Social History Type of Tobacco Use: Cigarettes (past use none now) Alcohol Use: None Do you use any recreational Drugs:: No Lives With: Family Lives Where: Home Travel Risk Coronavirus risk:travel/contact w/high risk person: No Has patient experienced Coronavirus symptoms: No Infectious screening In the last 2 months have you had wt loss of >10#?: NO Have you had fever, night sweats or hemotysis?: No Have you traveled outside the country in the last 6 months?: No Isolation: Standard PE Vital Signs Vitals: Temperature 97.8 F Pulse Rate 75 Respiratory Rate 13 Blood Pressure [Right Arm] 156/104 Blood Pressure [Left Arm] 161/95 Blood Pressure 112/67 O2 Sat by Pulse Oximetry 100 ROR Labs Reviewed Result Diagrams: 02/19/20 05:22 02/19/20 05:22 Laboratory: 02/15/20 20:42 Blood Blood Culture - Preliminary 02/15/20 20:30 Blood Blood Culture - Preliminary WBC 9.2 X10^3/uL (3.6-10.0) 02/15/20 20:42 RBC 4.74 X10^6/uL (3.5-5.4) 02/15/20 20:42 Hgb 13.2 g/dL (12.0-16.0) 02/15/20 20:42 Hct 41.8 % (36.0-47.0) 02/15/20 20:42 MCV 88.2 fL (80.0-100.0) 02/15/20 20: MCH 27.9 pg (27.0-34.0) 02/15/20 20: MCHC 31.6 g/dL (33.0-35.0) L 02/15/20 20: RDW 21.8 % (11.6-16.5) H 02/15/20 20:42 Plt Count 93 X10^3/uL (150.0-450.0) L 02/15/20 20: Plt Count Comment Decreased (ADEQUATE) A 02/15/20 20: MPV 8.6 fL (7.4-11.0) 02/15/20 20: Neut % (Auto) 78.7 % (42.0-75.0) H 02/15/20 20:42 Lymph % (Auto) 11.4 % (21.0-51.0) L 02/15/20 20: [place] % (Auto) 9.2 % (0.0-13.0) 02/15/20 20: Eos % (Auto) 0.3 % (0.9-2.9) L 02/15/20 20:42 Baso % (Auto) 0.4 % (0.2-1.0) 02/15/20 20: Neut # (Auto) 7.3 x10^3/uL (2.2-4.8) H 02/15/20 20:42 Lymph # (Auto) 1.1 X10^3/uL (1.3-2.9) L 02/15/20 20:42 [place] # (Auto) 0.8 x10^3/uL (0.3-0.8) 02/15/20 20:42 Eos # (Auto) 0.0 x10^3/uL (0.0-0.2) 02/15/20 20:42 Baso # (Auto) 0.0 X10^3/uL (0.0-0.1) 02/15/20 20: Absolute Nucleated RBC 0.3 /100WBC 02/15/20 20:42 Plt Morphology Comment Normal (NORMAL) 02/15/20 20: RBC Morphology Abnormal (NORMAL) A 02/15/20 20:42 Anisocytosis 2+ A 02/15/20 20:42 Sodium 143 mmol/L (136-145) 02/15/20 20:30 Corrected Sodium TNP 02/15/20 20:30 Potassium 3.7 mmol/L (3.5-5.1) 02/15/20 20:30 Chloride 106 mmol/L (98-107) 02/15/20 20:30 Carbon Dioxide 35.6 mmol/L (21-32) H 02/15/20 20:30 BUN 22 mg/dL (7-18) H 02/15/20 20:30 Creatinine 1.10 mg/dL (0.55-1.02) H 02/15/20 20:30 Est GFR (MDRD) Af Amer > 60 (>60) 02/15/20 20:30 Est GFR (MDRD) Non-Af 51 (>60) L 02/15/20 20:30 Glucose 101 mg/dL (65-99) H 02/15/20 20:30 Lactic Acid 1.5 mmol/L (0.4-2.0) 02/15/20:42 Calcium 8.3 mg/dL (8.5-10.1) L 02/15/20 20:30 Corrected Calcium 9.6 mg/dL (8.5-10.1) 02/15/20 20:30 Total Bilirubin 3.80 mg/dL (0.2-1.0) H 02/15/20 20:30 AST 24 Units/L (15-37) 02/15/20 20:30 ALT 9 Units/L (12-78) L 02/15/20 20:30 Alkaline Phosphatase 90 Units/L (46-116) 02/15/20 20:30 Creatine Kinase 317 Units/L (26-192) H 02/15/20 20:30 CK-MB (CK-2) 1.6 ng/mL (0-4.0) 02/15/20 20:30 CK/CKMB % Calc 0.5 % (<4) 02/15/20 20:30 Troponin I 0.05 ng/mL (0-1.5) 02/15/20 20:30 B-Natriuretic Peptide 984 pg/mL (0-79) H* 02/15/20 23:06 Total Protein 5.7 g/dL (6.4-8.2) L 02/15/20 20:30 Albumin 2.4 g/dL (3.4-5.0) L 02/15/20 20:30 Globulin 3.3 g/dL (2.5-4.5) 02/15/20 20:30 Albumin/Globulin Ratio 0.7 Ratio (1.1-2.1) L 02/15/20 20:30 Specimen Type Random urine 02/15/20 20:08 Urine Color Kim (YELLOW) 02/15/20 20:08 Urine Appearance Hazy (CLEAR) 02/15/20 20:08 Urine pH 5.0 (5.0 - 8.0) 02/15/20 20:08 Ur Specific [place] 1.025 (1.000-1.030) 02/15/20 20:08 Urine Protein 3+ (NEGATIVE) 02/15/20 20:08 Urine Glucose (UA) Negative (NEGATIVE) 02/15/20 20:08 Urine Ketones Negative (NEGATIVE) 02/15/20 20: Urine Occult Blood 2+ (NEGATIVE) 02/15/20 20:08 Urine Nitrite Negative (NEGATIVE) 02/15/20 20:08 Urine Bilirubin 1+ (NEGATIVE) 02/15/20 20:08 Urine Urobilinogen 2+ (NORMAL) 02/15/20 20:08 Ur Leukocyte Esterase 1+ (NEGATIVE) 02/15/20 20:08 Urine RBC 0-2 /HPF (0-3) 02/15/20 20:08 Urine WBC 3-5 /HPF (0-5) 02/15/20 20:08 Ur Squamous Epith Cells Numerous /HPF (NEGATIVE) 02/15/20 20:08 Amorphous Sediment 1+ /HPF (NEGATIVE) 02/15/20 20:08 Urine Bacteria 1+ /HPF (NEGATIVE) 02/15/20 20:08 Ur Culture Indicated? No/not indicated 02/15/20 20:08 Opioid Opioid Risk Tool Age (Robson box if 16-45): No History of Preadolescent Sexual Abuse: No Total: 0 Total Score Risk Category: Low Risk Copyright: [facility] predicting aberrant behaviors Instructions Instructions: Fall Prevention in the Home, Adult, Hcjs-[id number] Hand Washing, Maqa-rs-Wbht Antibiotic Medicine, Adult Weakness, Gbft-[id number] Personal Hygiene Cellulitis, Adult, Lhxb-zr-[id number] Hypertension, Opak-et-Ebft Heart Failure, Keos-mr-Kuqj You've Been Prescribed an Antibiotic in the Hospital for an Infection - CDC (08/2017)
--- NOTE | 2020-02-19 08:33 | W.DIS.FURT ---
Summary of Discharge Discharge Summary of Date Date of Exam: 02/19/20 Admission Date Date of Admission: 02/15/20 Admission Diagnosis Hospital Course: Pt is a 79 yo f pmhx CHF, COPD, HTN, admitted for cellulitis of RLE. During her hospital course her treatment included antibiotics IV Vancomycin. She responded well to treatment, w/ erythema significantly improved almost resolved. Labs/imaging: Wbc 4.8, Hgb 13.8, Plt 106, Na 142, K 3.9, Cr 1.07, Gluc 89. On day of discharge patient in stable condition. Rx doxycycline course to complete. Instructed to follow up with pcp in 1 week. Vital Signs: Vital Signs (72 hours) 02/16/20 12:00 02/16/20 13:07 02/16/20 16:00 Temperature 98.0 F 99.0 F Pulse Rate 70 Pulse Rate [Left Radial] 70 70 Respiratory Rate 18 18 Blood Pressure [Left Arm] 142/82 131/85 Blood Pressure [Right Arm] O2 Sat by Pulse Oximetry 97 97 94 L 02/16/20 19:52 02/16/20 20:59 02/16/20 23:27 Temperature 98.2 F 99.4 F Pulse Rate 70 Pulse Rate [Left Radial] 69 90 Respiratory Rate 18 20 Blood Pressure [Left Arm] 130/77 143/85 Blood Pressure [Right Arm] O2 Sat by Pulse Oximetry 96 95 96 02/17/20 04:00 02/17/20 06:09 02/17/20 07:58 Temperature 98.9 F 97.9 F Pulse Rate 71 Pulse Rate [Left Radial] 68 71 Respiratory Rate 22 18 Blood Pressure [Left Arm] 148/84 143/99 Blood Pressure [Right Arm] O2 Sat by Pulse Oximetry 95 96 94 L 02/17/20 08:07 02/17/20 12:00 02/17/20 14:45 Temperature Pulse Rate 70 Pulse Rate [Left Radial] 72 Respiratory Rate 18 Blood Pressure [Left Arm] 137/96 145/87 Blood Pressure [Right Arm] O2 Sat by Pulse Oximetry 93 L 96 02/17/20 16:00 02/17/20 20:00 02/17/20 22:10 Temperature 97.7 F 97.5 F L Pulse Rate 70 Pulse Rate [Left Radial] 70 71 Respiratory Rate 20 22 Blood Pressure [Left Arm] 162/94 Blood Pressure [Right Arm] 155/87 O2 Sat by Pulse Oximetry 98 98 98 02/18/20 00:00 02/18/20 04:00 02/18/20 08:00 Temperature 98.7 F 96.9 F L 97.8 F Pulse Rate Pulse Rate [Left Radial] 70 70 70 Respiratory Rate 18 18 20 Blood Pressure [Left Arm] 149/88 156/98 Blood Pressure [Right Arm] 162/94 O2 Sat by Pulse Oximetry 95 92 L 98 02/18/20 12:00 02/18/20 13:15 02/18/20 16:00 Temperature 97.9 F 97.6 F Pulse Rate 70 Pulse Rate [Left Radial] 69 75 Respiratory Rate 20 20 Blood Pressure [Left Arm] 165/103 148/92 Blood Pressure [Right Arm] O2 Sat by Pulse Oximetry 94 L 97 96 02/18/20 20:00 02/18/20 21:08 02/19/20 00:00 Temperature 97.6 F 97.6 F Pulse Rate 69 Pulse Rate [Left Radial] 72 71 Respiratory Rate 24 17 Blood Pressure [Left Arm] 150/97 138/87 Blood Pressure [Right Arm] O2 Sat by Pulse Oximetry 97 96 97 02/19/20 04:00 Temperature 97.6 F Pulse Rate Pulse Rate [Left Radial] 78 Respiratory Rate 18 Blood Pressure [Left Arm] 153/69 Blood Pressure [Right Arm] O2 Sat by Pulse Oximetry 97 Labs: Laboratory Last Values WBC 4.8 X10^3/uL (3.6-10.0) 02/19/20 05:22 RBC 4.91 X10^6/uL (3.5-5.4) 02/19/20 05:22 Hgb 13.8 g/dL (12.0-16.0) 02/19/20 05:22 Hct 43.1 % (36.0-47.0) 02/19/20 05:22 MCV 87.7 fL (80.0-100.0) 02/19/20 05:22 MCH 28.1 pg (27.0-34.0) 02/19/20 05:22 MCHC 32.1 g/dL (33.0-35.0) L 02/19/20 05:22 RDW 21.5 % (11.6-16.5) H 02/19/20 05:22 Plt Count 106 X10^3/uL (150.0-450.0) L 02/19/20 05:22 Plt Count Comment Decreased (ADEQUATE) A 02/19/20 05:22 MPV 8.6 fL (7.4-11.0) 02/19/20 05:22 Neut % (Auto) 61.1 % (42.0-75.0) 02/19/20 05:22 Lymph % (Auto) 19.8 % (21.0-51.0) L 02/19/20 05:22 Levy % (Auto) 11.8 % (0.0-13.0) 02/19/20 05:22 Eos % (Auto) 6.7 % (0.9-2.9) H 02/19/20 05:22 Baso % (Auto) 0.6 % (0.2-1.0) 02/19/20 05:22 Neut # (Auto) 2.9 x10^3/uL (2.2-4.8) 02/19/20 05:22 Lymph # (Auto) 0.9 X10^3/uL (1.3-2.9) L 02/19/20 05:22 Levy # (Auto) 0.6 x10^3/uL (0.3-0.8) 02/19/20 05:22 Eos # (Auto) 0.3 x10^3/uL (0.0-0.2) H 02/19/20 05:22 Baso # (Auto) 0.0 X10^3/uL (0.0-0.1) 02/19/20 05:22 Absolute Nucleated RBC 0.2 /100WBC 02/19/20 05:22 Plt Morphology Comment Normal (NORMAL) 02/19/20 05:22 RBC Morphology Abnormal (NORMAL) A 02/19/20 05:22 Anisocytosis 1+ A 02/19/20 05:22 Sodium 142 mmol/L (136-145) 02/19/20 05:22 Corrected Sodium TNP 02/19/20 05:22 Potassium 3.9 mmol/L (3.5-5.1) 02/19/20 05:22 Chloride 108 mmol/L (98-107) H 02/19/20 05:22 Carbon Dioxide 28.9 mmol/L (21-32) 02/19/20 05:22 BUN 16 mg/dL (7-18) 02/19/20 05:22 Creatinine 1.07 mg/dL (0.55-1.02) H 02/19/20 05:22 Est GFR (MDRD) Af Amer > 60 (>60) 02/19/20 05:22 Est GFR (MDRD) Non-Af 52 (>60) L 02/19/20 05:22 Glucose 89 mg/dL (65-99) 02/19/20 05:22 Lactic Acid 1.5 mmol/L (0.4-2.0) 02/15/20 20:42 Calcium 8.0 mg/dL (8.5-10.1) L 02/19/20 05:22 Corrected Calcium 9.6 mg/dL (8.5-10.1) 02/19/20 05:22 Magnesium 2.0 mg/dL (1.7-2.9) 02/19/20 05:22 Total Bilirubin 1.10 mg/dL (0.2-1.0) H 02/19/20 05:22 AST 21 Units/L (15-37) 02/19/20 05:22 ALT 9 Units/L (12-78) L 02/19/20 05:22 Alkaline Phosphatase 107 Units/L (46-116) 02/19/20 05:22 Creatine Kinase 317 Units/L (26-192) H 02/15/20 20:30 CK-MB (CK-2) 1.6 ng/mL (0-4.0) 02/15/20 20:30 CK/CKMB % Calc 0.5 % (<4) 02/15/20 20:30 Troponin I 0.05 ng/mL (0-1.5) 02/15/20 20:30 B-Natriuretic Peptide 984 pg/mL (0-79) H* 02/15/20 23:06 Total Protein 5.5 g/dL (6.4-8.2) L 02/19/20 05:22 Albumin 2.0 g/dL (3.4-5.0) L 02/19/20 05:22 Globulin 3.5 g/dL (2.5-4.5) 02/19/20 05:22 Albumin/Globulin Ratio 0.6 Ratio (1.1-2.1) L 02/19/20 05:22 Specimen Type Random urine 02/15/20 20:08 Urine Color Kim (YELLOW) 02/15/20 20:08 Urine Appearance Hazy (CLEAR) 02/15/20 20:08 Urine pH 5.0 (5.0 - 8.0) 02/15/20 20:08 Ur Specific [place] 1.025 (1.000-1.030) 02/15/20 20:08 Urine Protein 3+ (NEGATIVE) 02/15/20 20:08 Urine Glucose (UA) Negative (NEGATIVE) 02/15/20 20:08 Urine Ketones Negative (NEGATIVE) 02/15/20 20:08 Urine Occult Blood 2+ (NEGATIVE) 02/15/20 20:08 Urine Nitrite Negative (NEGATIVE) 02/15/20 20:08 Urine Bilirubin 1+ (NEGATIVE) 02/15/20 20:08 Urine Urobilinogen 2+ (NORMAL) 02/15/20 20:08 Ur Leukocyte Esterase 1+ (NEGATIVE) 02/15/20 20:08 Urine RBC 0-2 /HPF (0-3) 02/15/20 20:08 Urine WBC 3-5 /HPF (0-5) 02/15/20 20:08 Ur Squamous Epith Cells Numerous /HPF (NEGATIVE) 02/15/20 20:08 Amorphous Sediment 1+ /HPF (NEGATIVE) 02/15/20 20:08 Urine Bacteria 1+ /HPF (NEGATIVE) 02/15/20 20:08 Ur Culture Indicated? No/not indicated 02/15/20 20:08 Random Vancomycin 13.5 ug/mL 02/17/20 21:56 Reason For Visit: BILATERAL CELLULITIS,WEAKNESS,ELEVATED BILIRUBIN Discharge Date Discharge Date: 02/19/20 Discharge Diagnosis All Active Problems (Updated 02/16/20 @ 11:38 by Andrea Pimentel) Cellulitis (Acute) Chest pain (Acute) Fall as cause of accidental injury at home as place of occurrence (Acute) Contusion of right shoulder, initial encounter (Acute) Degenerative arthritis of right shoulder region (Acute) Urinary tract infection (Acute) Hyperglycemia (Acute) Fracture of one or more phalanges of foot (Acute) Hypertension (Acute) Head injury (Acute) Acute cervical myofascial strain (Acute) Constipation (Acute) Hematuria (Acute) Thrombocytopenia (Acute) Diarrhea (Acute) CHF (congestive heart failure) (Acute) COPD exacerbation (Acute) 2+ pitting edema (Acute) Hypoalbuminemia due to protein-calorie malnutrition (Acute) Pneumonia (Acute) Azotemia (Acute) Arrhythmia (Acute) Benign essential HTN (Acute) COPD (chronic obstructive pulmonary disease) (Acute) Hemoptysis (Acute) Chronic a-fib (Acute) SOB (shortness of breath) (Acute) CHF (congestive heart failure) (Acute) Dizziness (Acute) Pneumonia (Acute) Lacunar infarction (Acute) Generalized weakness (Acute) Pulmonary edema with congestive heart failure (Acute) Benign essential HTN (Acute) COPD (chronic obstructive pulmonary disease) (Acute) A-fib (Acute) Nausea and vomiting in adult patient (Acute) Plan of Treatment: Continue with present treatment and follow up plan. Pt is to keep follow up appointment as instructed and take medications as ordered. Discharge Medications Discharge Medications: codeine Allergy (Verified 12/15/19 08:20) latex Allergy (Verified 12/15/19 08:20) milk Allergy (Verified 12/15/19 08:20) New Prescriptions doxycycline hyclate 100 mg PO BID 7 Days #14 tab 02/19/20 [Rx] Discharge Disposition Assessment: Stable no acute distress noted at time of discharge. Discharge Disposition: Home Discharge Condition: Stable
[2020-02-19] MEDS: MICRO K EXTEN CAP 10 MEQ PO SCH (09:30)
[2020-02-19] MEDS: VANCOMYCIN HCL 1 G in D5W 250 ML IV 250 ML IV SCH (09:45)
[2020-02-19] MEDS: COREG TAB 25 MG PO SCH (09:45)
[2020-02-19] MEDS: XARELTO PO SCH (09:45)
[2020-02-19] MEDS: LASIX PO SCH (09:45)
[2020-02-19 14:45] VITALS: BP 139/90
== END 2020-02-19 14:00 | disposition home health service (06) | DRG 603 ==
LOC: ER 19:46 → MED/SURG 02-16 00:28
PROVIDERS: ADMIT Family Medicine; ATTEND Family Medicine

== ENCOUNTER 2020-04-22 13:39 | Inpatient (IN) ==
--- NOTE | 2020-04-22 14:22 | DR.CP ---
HPI Time Seen Time Seen by Provider: 04/22/20 14:17 PCP Primary Care Physician: ERNST MEZA Complaint Chief Complaint:: EMS OUT TO PT WITH SOB, CHEST PAIN THAT STARTED LASTNIGHT , PT HAS EXP WHEEZES NOTED ..BR COVID-19 Coronavirus risk:travel/contact w/high risk person: No Has patient experienced Coronavirus symptoms: No Source History Provided: Patient Mode of Arrival Mode of Arrival: Wheelchair Timing Onset of Chief Complaint: 04/22/20 PMH PMH Past Medical History: Yes Past Medical History: Asthma, CHF, COPD and Hypertension Past Surgical History: Yes Surgical History: Cholecystectomy and Other Family History History of Family Medical Conditions: Yes Family Medical History: Hypertension Social History Does patient currently use any type of tobacco product: No Have you used tobacco products in the last 12 months: No Type of Tobacco Use: None Does any household member use tobacco: No Alcohol Use: None Do you use any recreational Drugs:: No Lives With: Family Lives Where: Home Travel Risk Coronavirus risk:travel/contact w/high risk person: No Has patient experienced Coronavirus symptoms: No Infectious screening In the last 2 months have you had wt loss of >10#?: NO Have you had fever, night sweats or hemotysis?: No Have you traveled outside the country in the last 6 months?: No Isolation: Droplet ROS Review of Systems Constitutional: No Symptoms Reported and See HPI Eyes: No Symptoms Reported and See HPI ENTM: No Symptoms Reported and See HPI Respiratoy: No Symptoms Reported and See HPI Cardiovascular: No Symptoms Reported and See HPI Gastrointestinal/Abdominal: No Symptoms Reported and See HPI Genitourinary: No Symptoms Reported and See HPI Neurological: No Symptoms Reported and See HPI Musculoskeletal: No Symptoms Reported and See HPI Integumentary: No Symptoms Reported and See HPI Hematologic/Lymphatic: No Symptoms Reported and See HPI Endocrine: No Symptoms Reported and See HPI Psychiatric: No Symptoms Reported and See HPI All Other Systems: Reviewed and Negative PE Vitals Vitals: Temperature 98.3 F Pulse Rate 71 Respiratory Rate 14 Blood Pressure [Right Arm] 139/90 Blood Pressure 143/97 O2 Sat by Pulse Oximetry 97 General Limitations: No Limitations General Appearance: Alert and In No Apparent Distress Head Head Exam: Normal Inspection Eyes Eye exam: Normal Appearance ENT ENT Exam: Normal Exam Chest Chest Inspection: Normal Inspection Respiratory Respiratory Exam: Normal Lung Sounds Bilat Cardiovascular Cardiovascular Exam: Regular Rate and Normal Rhythm Pulse: Normal Edema: Normal Abdominal Exam Abdominal Exam: Normal Inspection, Normal Bowel Sounds and Soft Extremities Extremities Exam: Normal Inspection Back Back Exam: Normal Inspection Neurologic Neurological Exam: Alert and Oriented X3 Psychiatric Psychiatric Exam: Normal Affect and Normal Mood Skin Skin Exam: Warm, Dry, Intact and Normal Color MDM Additional Information Additional Information Obtained From: Old Records Differential Diagnosis Differential Diagnosis: CHF, Gastritis, Myocardial Infarction, Pericarditis, Pleuritis, Pancreatitis, Pneumonia and Pneumothorax ROR Labs Reviewed Result Diagrams: 04/22/20 15:10 04/22/20 15:10 Laboratory: WBC 5.6 X10^3/uL (3.6-10.0) 04/22/20 15:10 RBC 4.62 X10^6/uL (3.5-5.4) 04/22/20 15:10 Hgb 13.5 g/dL (12.0-16.0) 04/22/20 15:10 Hct 43.3 % (36.0-47.0) 04/22/20 15:10 MCV 93.7 fL (80.0-100.0) 04/22/20 15:10 MCH 29.3 pg (27.0-34.0) 04/22/20 15:10 MCHC 31.2 g/dL (33.0-35.0) L 04/22/20 15:10 RDW 19.7 % (11.6-16.5) H 04/22/20 15:10 Plt Count 78 X10^3/uL (150.0-450.0) L 04/22/20 15:10 MPV 9.6 fL (7.4-11.0) 04/22/20 15:10 Neut % (Auto) 67.9 % (42.0-75.0) 04/22/20 15:10 Lymph % (Auto) 16.9 % (21.0-51.0) L 04/22/20 15:10 [place] % (Auto) 12.5 % (0.0-13.0) 04/22/20 15:10 Eos % (Auto) 2.0 % (0.9-2.9) 04/22/20 15:10 Baso % (Auto) 0.7 % (0.2-1.0) 04/22/20 15:10 Neut # (Auto) 3.8 x10^3/uL (2.2-4.8) 04/22/20 15:10 Lymph # (Auto) 0.9 X10^3/uL (1.3-2.9) L 04/22/20 15:10 [place] # (Auto) 0.7 x10^3/uL (0.3-0.8) 04/22/20 15:10 Eos # (Auto) 0.1 x10^3/uL (0.0-0.2) 04/22/20 15:10 Baso # (Auto) 0.0 X10^3/uL (0.0-0.1) 04/22/20 15:10 Absolute Nucleated RBC 0.3 /100WBC 04/22/20 15:10 Sodium 146 mmol/L (136-145) H 04/22/20 15:10 Corrected Sodium 147 mmol/L (136-145) H 04/22/20 15:10 Potassium 4.7 mmol/L (3.5-5.1) 04/22/20 15:10 Chloride 109 mmol/L (98-107) H 04/22/20 15:10 Carbon Dioxide 33.7 mmol/L (21-32) H 04/22/20 15:10 BUN 19 mg/dL (7-18) H 04/22/20 15:10 Creatinine 1.11 mg/dL (0.55-1.02) H 04/22/20 15:10 Est GFR (MDRD) Af Amer > 60 (>60) 04/22/20 15:10 Est GFR (MDRD) Non-Af 50 (>60) L 04/22/20 15:10 Glucose 133 mg/dL (65-99) H 04/22/20 15:10 Calcium 8.6 mg/dL (8.5-10.1) 04/22/20 15:10 Corrected Calcium 9.5 mg/dL (8.5-10.1) 04/22/20 15:10 Total Bilirubin 1.80 mg/dL (0.2-1.0) H 04/22/20 15:10 AST 26 Units/L (15-37) 04/22/20 15:10 ALT 13 Units/L (12-78) 04/22/20 15:10 Alkaline Phosphatase 143 Units/L (46-116) H 04/22/20 15:10 Creatine Kinase 66 Units/L (26-192) 04/22/20 15:10 CK-MB (CK-2) 2.1 ng/mL (0-4.0) 04/22/20 15:10 CK/CKMB % Calc 3.2 % (<4) 04/22/20 15:10 Troponin I 0.03 ng/mL (0-1.5) 04/22/20 15:10 B-Natriuretic Peptide 1700 pg/mL (0-79) H* 04/22/20 15:10 Total Protein 6.9 g/dL (6.4-8.2) 04/22/20 15:10 Albumin 2.9 g/dL (3.4-5.0) L 04/22/20 15:10 Globulin 4.0 g/dL (2.5-4.5) 04/22/20 15:10 Albumin/Globulin Ratio 0.7 Ratio (1.1-2.1) L 04/22/20 15:10 Amylase 15 Units/L (25-115) L 04/22/20 15:10 Lipase 41 Units/L (73-393) L 04/22/20 15:10 Specimen Type Catherized urine 04/22/20 14:27 Urine Color Dark yellow (YELLOW) 04/22/20 14:27 Urine Appearance Slightly hazy (CLEAR) 04/22/20 14:27 Urine pH 5.0 (5.0 - 8.0) 04/22/20 14: Ur Specific [place] 1.025 (1.000-1.030) 04/22/20 14:27 Urine Protein 3+ (NEGATIVE) 04/22/20 14: Urine Glucose (UA) Negative (NEGATIVE) 04/22/20 14: Urine Ketones 1+ (NEGATIVE) 04/22/20 14: Urine Occult Blood 4+ (NEGATIVE) 04/22/20 14: Urine Nitrite Negative (NEGATIVE) 04/22/20 14: Urine Bilirubin 1+ (NEGATIVE) 04/22/20 14: Urine Urobilinogen 2+ (NORMAL) 04/22/20 14: Ur Leukocyte Esterase 1+ (NEGATIVE) 04/22/20 14: Urine RBC 30-50 /HPF (0-3) A 04/22/20 14:27 Urine WBC 5-10 /HPF (0-5) A 04/22/20 14:27 Ur Squamous Epith Cells Moderate /HPF (NEGATIVE) 04/22/20 14:27 Amorphous Sediment 1+ /HPF (NEGATIVE) 04/22/20 14:27 Urine Bacteria Trace /HPF (NEGATIVE) 04/22/20 14:27 Ur Culture Indicated? No/not indicated 04/22/20 14:27 Opioid Opioid Risk Tool Age (Robson box if 16-45): No History of Preadolescent Sexual Abuse: No Total: 0 Total Score Risk Category: Low Risk Copyright: Darryl ABEL predicting aberrant behaviors
[2020-04-22 14:50] LABS: BASOPHILS % (AUTO) 0.7 % (0.2-1.0); EOSINOPHILS # (AUTO) 0.1 x10^3/uL (0.0-0.2); HEMATOCRIT 43.3 % (36.0-47.0); HEMOGLOBIN 13.5 g/dL (12.0-16.0); LYMPHOCYTES # (AUTO) 0.9 X10^3/uL (1.3-2.9); LYMPHOCYTES % (AUTO) 16.9 % (21.0-51.0); MEAN CORPUSCULAR HEMOGLOBIN 29.3 pg (27.0-34.0); MEAN CORPUSCULAR HGB CONC 31.2 g/dL (33.0-35.0); MEAN CORPUSCULAR VOLUME 93.7 fL (80.0-100.0); MEAN PLATELET VOLUME 9.6 fL (7.4-11.0); MONOCYTES # (AUTO) 0.7 x10^3/uL (0.3-0.8); MONOCYTES % (AUTO) 12.5 % (0.0-13.0); NEUTROPHILS # (AUTO) 3.8 x10^3/uL (2.2-4.8); NEUTROPHILS % (AUTO) 67.9 % (42.0-75.0); PLATELET COUNT 78 X10^3/uL (150.0-450.0); RED BLOOD COUNT 4.62 X10^6/uL (3.5-5.4); RED CELL DISTRIBUTION WIDTH 19.7 % (11.6-16.5); WHITE BLOOD COUNT 5.6 X10^3/uL (3.6-10.0)
[2020-04-22 14:56] LABS: BILIRUBIN,URINE 1+ (NEGATIVE); BLOOD/HEMOGLOBIN,URINE 4+ (NEGATIVE); GLUCOSE, URINE NEGATIVE (NEGATIVE); KETONES,URINE 1+ (NEGATIVE); LEUKOCYTE ESTERASE ,URINE 1+ (NEGATIVE); NITRITES,URINE NEGATIVE (NEGATIVE); PROTEIN,URINE 3+ (NEGATIVE); UROBILINOGEN,URINE 2+ (NORMAL)
--- NOTE | 2020-04-22 14:59 | RAD ---
HISTORYSOBSTUDYCHEST, 1 [id number] silhouette enlargement and left subclavian approach cardiac device and leads are is stable. There is pulmonary vascular congestion with basilar predominant interstitial coarsening. No large pleural effusion or pneumothorax identified. No dense infiltrates identified.IMPRESSIONCardiomegaly with suggestion of mild CHF.Electronically signed by: CORNELIO BRAGA (Apr 22, 2020 14:56:32)
[2020-04-22 15:05] LABS: BLOOD UREA NITROGEN 19 mg/dL (7-18)
[2020-04-22 15:11] LABS: AMORPHOUS SEDIMENT,UR 1+ /HPF (NEGATIVE); APPEARANCE,URINE SLIGHTLY HAZY (CLEAR); BACTERIA,URINE TRACE /HPF (NEGATIVE); COLOR,URINE DARK YELLOW (YELLOW); RBC,URINE 30-50 /HPF (0-3); SQUAMOUS EPITHELIAL CELL,UR MODERATE /HPF (NEGATIVE)
[2020-04-22 15:38] LABS: CALCIUM 8.6 mg/dL (8.5-10.1); CARBON DIOXIDE 33.7 mmol/L (21-32); CHLORIDE 109 mmol/L (98-107); COR NA(FOR HYPERGLY) 147 mmol/L (136-145); CREATININE 1.11 mg/dL (0.55-1.02); SODIUM 146 mmol/L (136-145); TROPONIN I 0.03 ng/mL (0-1.5); eGFR NON BLACK RACES 50 (>60)
[2020-04-22 15:42] LABS: ALANINE AMINOTRANSFERASE 13 Units/L (12-78); ALBUMIN 2.9 g/dL (3.4-5.0); ALKALINE PHOSPHATASE 143 Units/L (46-116); ASPARTATE AMINO TRANSFERASE 26 Units/L (15-37); CKMB % 3.2 % (<4); COR CA(FOR HYPOALB) 9.5 mg/dL (8.5-10.1); CREATINE KINASE 66 Units/L (26-192); CREATINE KINASE MB 2.1 ng/mL (0-4.0); TOTAL PROTEIN 6.9 g/dL (6.4-8.2)
[2020-04-22 16:05] LABS: AMYLASE 15 Units/L (25-115); LIPASE 41 Units/L (73-393)
[2020-04-22] MEDS ORDERED: LASIX IVP ONE ×2 (17:26→17:39)
[2020-04-22] MEDS ORDERED: COREG TAB 25 MG ONE (19:42)
[2020-04-22] MEDS ORDERED: COUMADIN TAB 4 MG (JANTOVEN) ONE (19:42)
[2020-04-22] MEDS: DUONEB 0.5 MG/3 MG (3 mL) NEB SCH (20:49)
[2020-04-22] MEDS ORDERED: DUONEB 0.5 MG/3 MG (3 mL) NEB SCH (21:00)
[2020-04-22] MEDS: COREG TAB 25 MG PO SCH (21:48)
[2020-04-22] MEDS: COUMADIN TAB 4 MG (JANTOVEN) PO SCH (21:51)
[2020-04-22 23:45] LABS: CKMB % 3.2 % (<4); TROPONIN I 0.03 ng/mL (0-1.5)
[2020-04-23] MEDS: DUONEB 0.5 MG/3 MG (3 mL) NEB SCH ×3 (05:50→21:44)
[2020-04-23 06:40] LABS: BASOPHILS % (AUTO) 0.6 % (0.2-1.0); EOSINOPHILS # (AUTO) 0.1 x10^3/uL (0.0-0.2); EOSINOPHILS % (AUTO) 1.8 % (0.9-2.9); HEMOGLOBIN 12.8 g/dL (12.0-16.0); LYMPHOCYTES # (AUTO) 0.6 X10^3/uL (1.3-2.9); LYMPHOCYTES % (AUTO) 10.6 % (21.0-51.0); MEAN CORPUSCULAR HEMOGLOBIN 29.5 pg (27.0-34.0); MEAN PLATELET VOLUME 9.1 fL (7.4-11.0); MONOCYTES # (AUTO) 0.7 x10^3/uL (0.3-0.8); MONOCYTES % (AUTO) 11.4 % (0.0-13.0); NEUTROPHILS # (AUTO) 4.6 x10^3/uL (2.2-4.8); NEUTROPHILS % (AUTO) 75.6 % (42.0-75.0); PLATELET COUNT 88 X10^3/uL (150.0-450.0); RED BLOOD COUNT 4.35 X10^6/uL (3.5-5.4); RED CELL DISTRIBUTION WIDTH 19.3 % (11.6-16.5); WHITE BLOOD COUNT 6.1 X10^3/uL (3.6-10.0)
[2020-04-23 07:17] LABS: ALANINE AMINOTRANSFERASE 10 Units/L (12-78); ALBUMIN 2.5 g/dL (3.4-5.0); ALKALINE PHOSPHATASE 119 Units/L (46-116); ASPARTATE AMINO TRANSFERASE 22 Units/L (15-37); BLOOD UREA NITROGEN 20 mg/dL (7-18); CALCIUM 8.3 mg/dL (8.5-10.1); CARBON DIOXIDE 32.4 mmol/L (21-32); CHLORIDE 108 mmol/L (98-107); CHOL/HDL RATIO 4.4 (0.0-5.0); CHOLESTEROL 75 mg/dL (0-200); CKMB % 3.5 % (<4); COR CA(FOR HYPOALB) 9.5 mg/dL (8.5-10.1); CREATINE KINASE 40 Units/L (26-192); CREATINE KINASE MB 1.4 ng/mL (0-4.0); CREATININE 1.13 mg/dL (0.55-1.02); HDL CHOLESTEROL 17 mg/dL (40-60); MAGNESIUM 1.8 mg/dL (1.7-2.9); SODIUM 146 mmol/L (136-145); TRIGLYCERIDES 64 mg/dL (0-150); TROPONIN I 0.03 ng/mL (0-1.5); eGFR NON BLACK RACES 49 (>60)
[2020-04-23] MEDS: COREG TAB 25 MG PO SCH ×2 (08:46→20:14)
[2020-04-23] MEDS: ROCEPHIN VIAL 1 GRAM 1 G in NS 100 ML IV + SPIKE MINIBAG* 100 ML IV SCH ×2 (08:46→14:29)
[2020-04-23] MEDS: MICRO K EXTEN CAP 10 MEQ PO SCH (08:47)
[2020-04-23] MEDS: LASIX IVP SCH (08:47)
--- NOTE | 2020-04-23 09:03 | DR.H&P ---
H&P History & Physical for Day of: H&P Date: 04/23/20 Chief Complaint Chief Complaint: SOB and weakness Allergies Allergies Allergy/AdvReac Type Severity Reaction Status Date / Time codeine Allergy Verified 04/22/20 14:09 latex Allergy Verified 04/22/20 14:09 milk Allergy Verified 04/22/20 14:09 History of Present Illness History of Present Illness: Ms. Vasquez is a 79y/o female with a PMH of atrial fibrillation, CHF, COPD on chronic O2 presented with worsening dyspnea and weakness. Patient states she uses 2L O2 at home and was having difficulty breat eloisa. She is a poor historian and unable to provide details regarding her medical hx. She sees Dr. 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 She is not sure if she is taking lasix at home. She does report recent weight gain and leg swelling. Denies N/V/D r abdominal pain. Denies fever or chills. Does report cough. ED work-up - CXR: mild CHF - Labs elevated BNP, Plt: 88 Cr: 1.11 (1.13) - UA: WBC present and ELIZABETH + She was given IV Lasix 40 mg IV once Plan: continue IV lasix 40 mg daily, monitor I/Os, daily weights. ECHO in May 2018 showed EF 35%. Will repeat echo today. Start Rocephin for UTI, urine culture ordered. Will add prednisone due to patient wheezing on exam. Continue duonebs and pulmicort. Monitor AM labs. PT/OT as tolerated. Past Medical History Past Medical History: Asthma, CHF, COPD and Hypertension Additional Medical History: Atrial fibrillation Past Surgical History Surgical History: Cholecystectomy and Other Additional Surgical History: Pacemaker placement Family History Family Medical History: Hypertension Social History Does patient currently use any type of tobacco product: No Have you used tobacco products in the last 12 months: No Type of Tobacco Use: None Does any household member use tobacco: No Alcohol Use: None Medications Home Medications: codeine Allergy (Verified 04/22/20 14:09) latex Allergy (Verified 04/22/20 14:09) milk Allergy (Verified 04/22/20 14:09) CONTINUE taking the following medications warfarin 4 mg PO DAILY 04/22/20 [History] Labs Result Diagrams: 04/23/20 06:05 04/23/20 06:05 Labs: Laboratory WBC 6.1 X10^3/uL (3.6-10.0) 04/23/20 06:05 RBC 4.35 X10^6/uL (3.5-5.4) 04/23/20 06:05 Hgb 12.8 g/dL (12.0-16.0) 04/23/20 06:05 Hct 40.0 % (36.0-47.0) 04/23/20 06:05 MCV 92.0 fL (80.0-100.0) 04/23/20 06:05 MCH 29.5 pg (27.0-34.0) 04/23/20 06:05 MCHC 32.0 g/dL (33.0-35.0) L 04/23/20 06:05 RDW 19.3 % (11.6-16.5) H 04/23/20 06:05 Plt Count 88 X10^3/uL (150.0-450.0) L 04/23/20 06:05 MPV 9.1 fL (7.4-11.0) 04/23/20 06:05 Neut % (Auto) 75.6 % (42.0-75.0) H 04/23/20 06:05 Lymph % (Auto) 10.6 % (21.0-51.0) L 04/23/20 06:05 [place] % (Auto) 11.4 % (0.0-13.0) 04/23/20 06:05 Eos % (Auto) 1.8 % (0.9-2.9) 04/23/20 06:05 Baso % (Auto) 0.6 % (0.2-1.0) 04/23/20 06:05 Neut # (Auto) 4.6 x10^3/uL (2.2-4.8) 04/23/20 06:05 Lymph # (Auto) 0.6 X10^3/uL (1.3-2.9) L 04/23/20 06:05 [place] # (Auto) 0.7 x10^3/uL (0.3-0.8) 04/23/20 06:05 Eos # (Auto) 0.1 x10^3/uL (0.0-0.2) 04/23/20 06:05 Baso # (Auto) 0.0 X10^3/uL (0.0-0.1) 04/23/20 06:05 Absolute Nucleated RBC 0.1 /100WBC 04/23/20 06:05 PT 19.3 SECONDS (11.8-14.3) 04/23/20 06:05 INR Target Range - 04/23/20 06:05 INR 1.69 (0.8-1.3) H 04/23/20 06:05 APTT 34.1 SECONDS (22.9-36.5) 04/23/20 06:05 PTT Comment - 04/23/20 06:05 Sodium 146 mmol/L (136-145) H 04/23/20 06:05 Corrected Sodium TNP 04/23/20 06:05 Potassium 4.0 mmol/L (3.5-5.1) 04/23/20 06:05 Chloride 108 mmol/L (98-107) H 04/23/20 06:05 Carbon Dioxide 32.4 mmol/L (21-32) H 04/23/20 06:05 BUN 20 mg/dL (7-18) H 04/23/20 06:05 Creatinine 1.13 mg/dL (0.55-1.02) H 04/23/20 06:05 Est GFR (MDRD) Af Amer 59 (>60) 04/23/20 06:05 Est GFR (MDRD) Non-Af 49 (>60) L 04/23/20 06:05 Glucose 80 mg/dL (65-99) 04/23/20 06:05 Calcium 8.3 mg/dL (8.5-10.1) L 04/23/20 06:05 Corrected Calcium 9.5 mg/dL (8.5-10.1) 04/23/20 06:05 Magnesium 1.8 mg/dL (1.7-2.9) 04/23/20 06:05 Total Bilirubin 1.60 mg/dL (0.2-1.0) H 04/23/20 06:05 AST 22 Units/L (15-37) 04/23/20 06:05 ALT 10 Units/L (12-78) L 04/23/20 06:05 Alkaline Phosphatase 119 Units/L (46-116) H 04/23/20 06:05 Creatine Kinase 40 Units/L (26-192) 04/23/20 06:05 CK-MB (CK-2) 1.4 ng/mL (0-4.0) 04/23/20 06:05 CK/CKMB % Calc 3.5 % (<4) 04/23/20 06:05 Troponin I 0.03 ng/mL (0-1.5) 04/23/20 06:05 B-Natriuretic Peptide 1700 pg/mL (0-79) H* 04/22/20 15:10 Total Protein 6.0 g/dL (6.4-8.2) L 04/23/20 06:05 Albumin 2.5 g/dL (3.4-5.0) L 04/23/20 06:05 Globulin 3.5 g/dL (2.5-4.5) 04/23/20 06:05 Albumin/Globulin Ratio 0.7 Ratio (1.1-2.1) L 04/23/20 06:05 Triglycerides 64 mg/dL (0-150) 04/23/20 06:05 Cholesterol 75 mg/dL (0-200) 04/23/20 06:05 LDL Cholesterol, Calc 45 mg/dL (0-100) 04/23/20 06:05 HDL Cholesterol 17 mg/dL (40-60) L 04/23/20 06:05 Cholesterol/HDL Ratio 4.4 (0.0-5.0) 04/23/20 06:05 Amylase 15 Units/L (25-115) L 04/22/20 15:10 Lipase 41 Units/L (73-393) L 04/22/20 15:10 Specimen Type Catherized urine 04/22/20 14:27 Urine Color Dark yellow (YELLOW) 04/22/20 14:27 Urine Appearance Slightly hazy (CLEAR) 04/22/20 14:27 Urine pH 5.0 (5.0 - 8.0) 04/22/20 14: Ur Specific [place] 1.025 (1.000-1.030) 04/22/20 14:27 Urine Protein 3+ (NEGATIVE) 04/22/20 14: Urine Glucose (UA) Negative (NEGATIVE) 04/22/20 14: Urine Ketones 1+ (NEGATIVE) 04/22/20 14:27 Urine Occult Blood 4+ (NEGATIVE) 04/22/20 14:27 Urine Nitrite Negative (NEGATIVE) 04/22/20 14:27 Urine Bilirubin 1+ (NEGATIVE) 04/22/20 14:27 Urine Urobilinogen 2+ (NORMAL) 04/22/20 14:27 Ur Leukocyte Esterase 1+ (NEGATIVE) 04/22/20 14:27 Urine RBC 30-50 /HPF (0-3) A 04/22/20 14:27 Urine WBC 5-10 /HPF (0-5) A 04/22/20 14:27 Ur Squamous Epith Cells Moderate /HPF (NEGATIVE) 04/22/20 14:27 Amorphous Sediment 1+ /HPF (NEGATIVE) 04/22/20 14:27 Urine Bacteria Trace /HPF (NEGATIVE) 04/22/20 14:27 Ur Culture Indicated? No/not indicated 04/22/20 14:27 SARS-CoV-2 (PCR) Negative (NEGATIVE) 04/22/20 15:48 Review of Systems Constitutional: Weakness and Malaise Eyes: No Symptoms Reported ENT: No Symptoms Reported Respiratory: Cough, Shortness of Breath, SOB with Excertion and Wheezing Cardiovascular: No Symptoms Reported and Edema Gastrointestinal: No Symptoms Reported Genitourinary: No Symptoms Reported Musculoskeletal: No Symptoms Reported Skin: No Symptoms Reported Neurological: No Symptoms Reported Physical Exam Vital Signs: Temperature 97.9 F Pulse Rate [Left Brachial] 69 Pulse Rate 70 Respiratory Rate 20 Blood Pressure [Left Arm] 134/85 Blood Pressure [Right Arm] 137/93 Blood Pressure 170/98 O2 Sat by Pulse Oximetry 96 Oriented: Normal Eyes: Normal Ear: Normal Throat: Normal Respiratory: Rales Throughout and Wheezes Throughout Cardiovascular: Normal and Edema Auscultation: Bowel Sounds: Normal Palpation: Normal Tenderness: Normal Skin: Bruising Musculoskeletal: Normal Psychiatric: Normal Mood Description: Calm Affect: Normal Speech Pattern: Clear and Appropriate Assessment/Plan (1) COPD exacerbation: Status: Acute (2) CHF exacerbation: Qualifiers: Heart failure type: unspecified Qualified Code(s): I50.9 - Heart failure, unspecified Status: Acute (3) Urinary tract infection: Qualifiers: Hematuria presence: without hematuria Urinary tract infection type: acute cystitis Qualified Code(s): N30.00 - Acute cystitis without hematuria Status: Acute (4) Thrombocytopenia: Status: Acute (5) Generalized weakness: Status: Acute (6) Hypoalbuminemia due to protein-calorie malnutrition: Status: Acute (7) Chronic a-fib: Status: Acute (8) SOB (shortness of breath): Status: Acute (9) Hypertension: Qualifiers: Hypertension type: essential hypertension Qualified Code(s): I10 - Essential (primary) hypertension Status: Acute Review H&P Reviewed: Yes Patient was examined?: Yes
[2020-04-23] MEDS ORDERED: NS 250 ML IV 250 ML IV ONE (09:09)
[2020-04-23] MEDS: PULMICORT NEB TX 0.5 MG NEB SCH ×3 (11:50→21:44)
[2020-04-23 14:16] VITALS: BMI 30.1
[2020-04-23] MEDS: PREDNISONE TAB 20 MG PO SCH ×2 (14:29→15:10)
[2020-04-23] MEDS: COUMADIN TAB 4 MG (JANTOVEN) PO SCH (20:15)
--- NOTE | 2020-04-24 05:24 | RAD ---
STUDY: CHEST, 1 VIEWCOMPARISON: April 22, 2020HISTORY: HYPOXIAFINDINGS:Global cardiomegaly is seen stable from prior study with transvenous pacing wires and mild degree of pulmonary edema. There is persistent bilateral lower lobe airspace disease. No pleural effusion or gross pneumothorax is seen. Stable airspace disease in the right upper lung zone is noted.IMPRESSION:There is no significant change from prior studyElectronically signed by: Mack Guallpa (Apr 24, 2020 05:22:24)
[2020-04-24] MEDS: DUONEB 0.5 MG/3 MG (3 mL) NEB SCH ×3 (05:48→20:54)
[2020-04-24 06:12] LABS: BASOPHILS % (AUTO) 0.6 % (0.2-1.0); EOSINOPHILS # (AUTO) 0.1 x10^3/uL (0.0-0.2); EOSINOPHILS % (AUTO) 1.4 % (0.9-2.9); HEMATOCRIT 40.6 % (36.0-47.0); HEMOGLOBIN 12.8 g/dL (12.0-16.0); LYMPHOCYTES # (AUTO) 0.9 X10^3/uL (1.3-2.9); LYMPHOCYTES % (AUTO) 12.8 % (21.0-51.0); MEAN CORPUSCULAR HEMOGLOBIN 29.4 pg (27.0-34.0); MEAN CORPUSCULAR HGB CONC 31.6 g/dL (33.0-35.0); MEAN CORPUSCULAR VOLUME 92.9 fL (80.0-100.0); MEAN PLATELET VOLUME 8.7 fL (7.4-11.0); MONOCYTES # (AUTO) 0.8 x10^3/uL (0.3-0.8); MONOCYTES % (AUTO) 11.6 % (0.0-13.0); NEUTROPHILS # (AUTO) 4.9 x10^3/uL (2.2-4.8); NEUTROPHILS % (AUTO) 73.6 % (42.0-75.0); PLATELET COUNT 92 X10^3/uL (150.0-450.0); RED BLOOD COUNT 4.37 X10^6/uL (3.5-5.4); RED CELL DISTRIBUTION WIDTH 18.7 % (11.6-16.5); WHITE BLOOD COUNT 6.7 X10^3/uL (3.6-10.0)
[2020-04-24 06:18] LABS: CARBON DIOXIDE 33.5 mmol/L (21-32); CREATININE 1.15 mg/dL (0.55-1.02)
[2020-04-24 06:33] LABS: PLATELET MORPHOLOGY COMMENT NORMAL (NORMAL)
[2020-04-24] MEDS: PULMICORT NEB TX 0.5 MG NEB SCH ×2 (08:45→20:54)
[2020-04-24] MEDS: MICRO K EXTEN CAP 10 MEQ PO SCH (09:55)
[2020-04-24] MEDS: LASIX IVP SCH (09:55)
[2020-04-24] MEDS: ROCEPHIN VIAL 1 GRAM 1 G in NS 100 ML IV + SPIKE MINIBAG* 100 ML IV SCH (09:55)
[2020-04-24] MEDS: COREG TAB 25 MG PO SCH ×2 (09:55→20:44)
[2020-04-24] MEDS: PREDNISONE TAB 20 MG PO SCH (09:55)
[2020-04-24] MEDS: COUMADIN TAB 4 MG (JANTOVEN) PO SCH (20:44)
[2020-04-25] MEDS: DUONEB 0.5 MG/3 MG (3 mL) NEB SCH ×3 (05:30→21:11)
[2020-04-25 06:13] LABS: BASOPHILS % (AUTO) 0.2 % (0.2-1.0); EOSINOPHILS % (AUTO) 0.1 % (0.9-2.9); HEMATOCRIT 41.6 % (36.0-47.0); HEMOGLOBIN 13.3 g/dL (12.0-16.0); LYMPHOCYTES # (AUTO) 0.5 X10^3/uL (1.3-2.9); LYMPHOCYTES % (AUTO) 8.6 % (21.0-51.0); MEAN CORPUSCULAR HEMOGLOBIN 29.6 pg (27.0-34.0); MEAN CORPUSCULAR VOLUME 92.6 fL (80.0-100.0); MEAN PLATELET VOLUME 8.7 fL (7.4-11.0); MONOCYTES # (AUTO) 0.7 x10^3/uL (0.3-0.8); MONOCYTES % (AUTO) 10.6 % (0.0-13.0); NEUTROPHILS # (AUTO) 5.1 x10^3/uL (2.2-4.8); NEUTROPHILS % (AUTO) 80.5 % (42.0-75.0); PLATELET COUNT 106 X10^3/uL (150.0-450.0); RED BLOOD COUNT 4.49 X10^6/uL (3.5-5.4); RED CELL DISTRIBUTION WIDTH 19.1 % (11.6-16.5); WHITE BLOOD COUNT 6.3 X10^3/uL (3.6-10.0)
[2020-04-25 06:19] LABS: BLOOD UREA NITROGEN 20 mg/dL (7-18); CALCIUM 8.2 mg/dL (8.5-10.1); CARBON DIOXIDE 35.3 mmol/L (21-32); CHLORIDE 106 mmol/L (98-107); COR NA(FOR HYPERGLY) 146 mmol/L (136-145); CREATININE 1.07 mg/dL (0.55-1.02); SODIUM 145 mmol/L (136-145); eGFR NON BLACK RACES 52 (>60)
[2020-04-25] MEDS: COREG TAB 25 MG PO SCH ×2 (09:11→21:00)
[2020-04-25] MEDS: LASIX IVP SCH (09:11)
[2020-04-25] MEDS: ROCEPHIN VIAL 1 GRAM 1 G in NS 100 ML IV + SPIKE MINIBAG* 100 ML IV SCH (09:12)
[2020-04-25] MEDS: PREDNISONE TAB 20 MG PO SCH (09:12)
[2020-04-25] MEDS: MICRO K EXTEN CAP 10 MEQ PO SCH (09:12)
[2020-04-25] MEDS: PULMICORT NEB TX 0.5 MG NEB SCH ×2 (09:33→21:11)
--- NOTE | 2020-04-25 10:31 | CT ---
HISTORY: [Altered mental status]Noncontrast head CT examination.Comparison: Numerous priors.Technique:Multiple axial images of the brain were obtained from the skull base to the vertex without administration of IV contrast.Findings: Overall, the head CT examination is unchanged compared to prior. There is moderate sulcal and cisternal prominence as well as atherosclerotic change in the proximal intracranial carotid and vertebral arteries, which is not out of proportion to the patient's stated age. There is diffuse CT density alteration seen in the periventricular white matter of the high and mid-convexity, which is likely in the setting of small vessel disease and not out of proportion to the patient's stated age. There is [mild bilateral ex vacuo] ventricular dilatation without evidence for hydrocephalus or herniation syndrome. No midline shift is evident. No acute intraparenchymal hemorrhage or mass can be identified. If there remains a strong concern for any intra-cranial neoplasm, then follow-up with CT or MR imaging of the brain would be more sensitive to exclude any intra-cranial mass lesion. No extra-axial fluid collections are seen. No alteration in the attenuation of the brain parenchyma can be identified to suggest acute or subacute ischemic change. However, if clinical symptoms are concerning for an acute CVA, then follow-up MRI with DWI sequencing is recommended. The extracranial structures [are unremarkable].IMPRESSION:1. Stable CT examination without acute intracranial changes seen. However, if the patients symptoms are clinically & neurologically concerning for an acute ischemic event, then MR imaging of the brain with DWI sequencing could be considered to exclude an acute CVA (based on this patient? s clinical presentation and the specific medical circumstance).2. Age-appropriate intra-cranial cerebral changes of advancing age. 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
[2020-04-25] MEDS: COZAAR PO SCH (11:47)
[2020-04-25] MEDS ORDERED: RESTORIL CAP 30 MG PO ONE ×2 (18:16→18:18)
[2020-04-25] MEDS: COUMADIN TAB 4 MG (JANTOVEN) PO SCH (21:00)
[2020-04-26 06:19] LABS: BASOPHILS % (AUTO) 0.1 % (0.2-1.0); HEMATOCRIT 43.5 % (36.0-47.0); HEMOGLOBIN 13.8 g/dL (12.0-16.0); LYMPHOCYTES # (AUTO) 0.7 X10^3/uL (1.3-2.9); LYMPHOCYTES % (AUTO) 10.3 % (21.0-51.0); MEAN CORPUSCULAR HEMOGLOBIN 29.4 pg (27.0-34.0); MEAN CORPUSCULAR HGB CONC 31.8 g/dL (33.0-35.0); MEAN CORPUSCULAR VOLUME 92.4 fL (80.0-100.0); MEAN PLATELET VOLUME 8.1 fL (7.4-11.0); MONOCYTES # (AUTO) 0.5 x10^3/uL (0.3-0.8); MONOCYTES % (AUTO) 7.3 % (0.0-13.0); NEUTROPHILS # (AUTO) 5.2 x10^3/uL (2.2-4.8); NEUTROPHILS % (AUTO) 82.3 % (42.0-75.0); PLATELET COUNT 106 X10^3/uL (150.0-450.0); RED BLOOD COUNT 4.71 X10^6/uL (3.5-5.4); RED CELL DISTRIBUTION WIDTH 19.3 % (11.6-16.5); WHITE BLOOD COUNT 6.4 X10^3/uL (3.6-10.0)
[2020-04-26] MEDS: DUONEB 0.5 MG/3 MG (3 mL) NEB SCH ×3 (06:28→20:35)
[2020-04-26 06:35] LABS: ALANINE AMINOTRANSFERASE 8 Units/L (12-78); ALBUMIN 2.4 g/dL (3.4-5.0); ALKALINE PHOSPHATASE 107 Units/L (46-116); ASPARTATE AMINO TRANSFERASE 16 Units/L (15-37); BLOOD UREA NITROGEN 22 mg/dL (7-18); CALCIUM 8.5 mg/dL (8.5-10.1); CARBON DIOXIDE 33.4 mmol/L (21-32); CHLORIDE 104 mmol/L (98-107); COR CA(FOR HYPOALB) 9.8 mg/dL (8.5-10.1); CREATININE 0.95 mg/dL (0.55-1.02); SODIUM 142 mmol/L (136-145); TOTAL PROTEIN 6.2 g/dL (6.4-8.2); eGFR NON BLACK RACES > 60 (>60)
[2020-04-26] MEDS: PULMICORT NEB TX 0.5 MG NEB SCH ×2 (09:07→20:35)
[2020-04-26] MEDS: PREDNISONE TAB 20 MG PO SCH (09:32)
[2020-04-26] MEDS: ROCEPHIN VIAL 1 GRAM 1 G in NS 100 ML IV + SPIKE MINIBAG* 100 ML IV SCH (09:32)
[2020-04-26] MEDS: COREG TAB 25 MG PO SCH ×3 (09:32→20:45)
[2020-04-26] MEDS: COZAAR PO SCH (09:33)
[2020-04-26] MEDS: LASIX IVP SCH (09:33)
[2020-04-26] MEDS: MICRO K EXTEN CAP 10 MEQ PO SCH (09:33)
[2020-04-26] MEDS: THIAMINE HCL INJ IVP SCH ×2 (11:39→20:41)
[2020-04-26] MEDS: COUMADIN TAB 4 MG (JANTOVEN) PO SCH (20:40)
[2020-04-26] MEDS: RESTORIL CAP 30 MG PO PRN (20:41)
[2020-04-27] MEDS: DUONEB 0.5 MG/3 MG (3 mL) NEB SCH ×3 (05:35→20:25)
[2020-04-27 06:08] LABS: BASOPHILS % (AUTO) 0.1 % (0.2-1.0); CALCIUM 8.2 mg/dL (8.5-10.1); CARBON DIOXIDE 36.2 mmol/L (21-32); CREATININE 1.13 mg/dL (0.55-1.02); EOSINOPHILS % (AUTO) 0.1 % (0.9-2.9); HEMOGLOBIN 14.1 g/dL (12.0-16.0); LYMPHOCYTES # (AUTO) 0.8 X10^3/uL (1.3-2.9); LYMPHOCYTES % (AUTO) 13.6 % (21.0-51.0); MEAN CORPUSCULAR HEMOGLOBIN 29.5 pg (27.0-34.0); MEAN CORPUSCULAR HGB CONC 32.1 g/dL (33.0-35.0); MEAN CORPUSCULAR VOLUME 91.9 fL (80.0-100.0); MEAN PLATELET VOLUME 8.3 fL (7.4-11.0); MONOCYTES # (AUTO) 0.6 x10^3/uL (0.3-0.8); MONOCYTES % (AUTO) 9.7 % (0.0-13.0); NEUTROPHILS # (AUTO) 4.5 x10^3/uL (2.2-4.8); NEUTROPHILS % (AUTO) 76.5 % (42.0-75.0); PLATELET COUNT 113 X10^3/uL (150.0-450.0); RED BLOOD COUNT 4.79 X10^6/uL (3.5-5.4); RED CELL DISTRIBUTION WIDTH 19.1 % (11.6-16.5); WHITE BLOOD COUNT 5.9 X10^3/uL (3.6-10.0)
[2020-04-27] MEDS: PULMICORT NEB TX 0.5 MG NEB SCH ×2 (09:15→20:25)
[2020-04-27] MEDS ORDERED: COZAAR ONE (09:44)
[2020-04-27] MEDS: COREG TAB 25 MG PO SCH (10:02)
[2020-04-27] MEDS: MICRO K EXTEN CAP 10 MEQ PO SCH (10:02)
[2020-04-27] MEDS: THIAMINE HCL INJ IVP SCH ×2 (10:03→21:41)
[2020-04-27] MEDS: COZAAR PO SCH (10:03)
[2020-04-27] MEDS: ROCEPHIN VIAL 1 GRAM 1 G in NS 100 ML IV + SPIKE MINIBAG* 100 ML IV SCH (10:04)
[2020-04-27] MEDS: RESTORIL CAP 30 MG PO PRN (20:45)
[2020-04-27] MEDS: COUMADIN TAB 4 MG (JANTOVEN) PO SCH (21:40)
[2020-04-28] MEDS: DUONEB 0.5 MG/3 MG (3 mL) NEB SCH ×3 (05:50→20:40)
[2020-04-28 06:20] LABS: BASOPHILS % (AUTO) 0.4 % (0.2-1.0); EOSINOPHILS # (AUTO) 0.1 x10^3/uL (0.0-0.2); EOSINOPHILS % (AUTO) 1.9 % (0.9-2.9); HEMATOCRIT 42.6 % (36.0-47.0); HEMOGLOBIN 13.7 g/dL (12.0-16.0); LYMPHOCYTES # (AUTO) 1.2 X10^3/uL (1.3-2.9); MEAN CORPUSCULAR HEMOGLOBIN 29.8 pg (27.0-34.0); MEAN CORPUSCULAR HGB CONC 32.2 g/dL (33.0-35.0); MEAN CORPUSCULAR VOLUME 92.4 fL (80.0-100.0); MEAN PLATELET VOLUME 8.3 fL (7.4-11.0); MONOCYTES # (AUTO) 0.7 x10^3/uL (0.3-0.8); MONOCYTES % (AUTO) 11.6 % (0.0-13.0); NEUTROPHILS # (AUTO) 4.1 x10^3/uL (2.2-4.8); NEUTROPHILS % (AUTO) 67.1 % (42.0-75.0); PLATELET COUNT 109 X10^3/uL (150.0-450.0); RED BLOOD COUNT 4.62 X10^6/uL (3.5-5.4); RED CELL DISTRIBUTION WIDTH 19.1 % (11.6-16.5); WHITE BLOOD COUNT 6.1 X10^3/uL (3.6-10.0)
[2020-04-28 06:43] LABS: BLOOD UREA NITROGEN 34 mg/dL (7-18); CALCIUM 7.9 mg/dL (8.5-10.1); CARBON DIOXIDE 32.2 mmol/L (21-32); CHLORIDE 105 mmol/L (98-107); CREATININE 1.15 mg/dL (0.55-1.02); SODIUM 143 mmol/L (136-145); eGFR NON BLACK RACES 48 (>60)
[2020-04-28] MEDS: PULMICORT NEB TX 0.5 MG NEB SCH ×2 (09:15→20:40)
[2020-04-28] MEDS: MICRO K EXTEN CAP 10 MEQ PO SCH (09:16)
[2020-04-28] MEDS: THIAMINE HCL INJ IVP SCH ×2 (09:16→21:15)
[2020-04-28] MEDS: COREG TAB 25 MG PO SCH ×2 (09:16→21:15)
[2020-04-28] MEDS: LASIX PO SCH (09:16)
[2020-04-28] MEDS: COZAAR PO SCH (09:16)
[2020-04-28] MEDS: ROCEPHIN VIAL 1 GRAM 1 G in NS 100 ML IV + SPIKE MINIBAG* 100 ML IV SCH (09:16)
[2020-04-28] MEDS: COUMADIN TAB 4 MG (JANTOVEN) PO SCH (21:15)
[2020-04-29] MEDS: DUONEB 0.5 MG/3 MG (3 mL) NEB SCH ×3 (05:27→21:06)
[2020-04-29 06:51] LABS: BASOPHILS % (AUTO) 0.6 % (0.2-1.0); EOSINOPHILS # (AUTO) 0.1 x10^3/uL (0.0-0.2); EOSINOPHILS % (AUTO) 2.5 % (0.9-2.9); HEMATOCRIT 42.4 % (36.0-47.0); HEMOGLOBIN 13.7 g/dL (12.0-16.0); LYMPHOCYTES % (AUTO) 17.9 % (21.0-51.0); MEAN CORPUSCULAR HEMOGLOBIN 29.6 pg (27.0-34.0); MEAN CORPUSCULAR HGB CONC 32.3 g/dL (33.0-35.0); MEAN CORPUSCULAR VOLUME 91.8 fL (80.0-100.0); MEAN PLATELET VOLUME 8.4 fL (7.4-11.0); MONOCYTES # (AUTO) 0.6 x10^3/uL (0.3-0.8); MONOCYTES % (AUTO) 10.5 % (0.0-13.0); NEUTROPHILS # (AUTO) 3.9 x10^3/uL (2.2-4.8); NEUTROPHILS % (AUTO) 68.5 % (42.0-75.0); PLATELET COUNT 118 X10^3/uL (150.0-450.0); RED BLOOD COUNT 4.62 X10^6/uL (3.5-5.4); RED CELL DISTRIBUTION WIDTH 18.6 % (11.6-16.5); WHITE BLOOD COUNT 5.7 X10^3/uL (3.6-10.0)
[2020-04-29 07:02] LABS: CARBON DIOXIDE 34.7 mmol/L (21-32); CREATININE 1.17 mg/dL (0.55-1.02)
[2020-04-29] MEDS: PULMICORT NEB TX 0.5 MG NEB SCH ×2 (09:17→21:06)
--- NOTE | 2020-04-29 09:22 | PCM.PROG ---
Progress Note Progress Note for Day of Date of Exam: 04/28/20 Subjective Subjective: Patient seen at bedside, no overnight events. She states she feels better and wants to go home. She is alert but not oriented. She is being treated for CHF exacerbation, generalized weakness and UTI. She is currently on 2L NC. Over the weekend, Dr. Escalante spoke to patient's daughter and she would like to have the patient placed in a [place] [facility] facility due to patient not being able to care for herself at home due to her worsening dementia. CM working on placement. Labs: Plt 109 BUN/Cr: 34/1.15 Plan: continue current management with PO lasix, DC rocephin. Continue PT/OT as tolerated. CM to work on discharge after discussing with patient's daughter. Past Medical Family Social History Past Med/Fam/Surg Hx: No changes since H&P Allergies: Allergies codeine Allergy (Verified 04/22/20 14:09) latex Allergy (Verified 04/22/20 14:09) milk Allergy (Verified 04/22/20 14:09) Review of Systems ROS: No change since H&P Vital Signs and I&O's Vital Signs: Temperature 97.5 F Pulse Rate [Right] 70 Pulse Rate [Left Brachial] 69 Pulse Rate 72 Respiratory Rate 18 Blood Pressure [Right Calf] 166/95 Blood Pressure [Left Arm] 149/93 Blood Pressure [Right Arm] 144/93 Blood Pressure 170/98 O2 Sat by Pulse Oximetry 97 Intake and Output: Intake & Output 04/26/20 04/27/20 04/28/20 04/29/20 23:59 23:59 23:59 23:59 Intake Total 1852 / 1852 1720 / 1720 610 / 610 165 / 165 Output Total 3475 / 3475 1050 / 1050 1974 / 1974 300 / 300 Balance -1623 / -1623 670 / 670 -1365 / -1365 -135 / -135 Physical Exam Oriented: Not Oriented Eyes: Normal Ear: Normal Throat: Normal Respiratory: Generalized and Diminished Cardiovascular: Normal and Edema (resolved ) Auscultation: Bowel Sounds: Normal Tenderness: Normal Skin: Bruising Musculoskeletal: Normal Psychiatric: Normal Mood Description: Calm Affect: Normal Speech Pattern: Clear and Appropriate Laboratory and Diagnostics Result Diagrams: 04/29/20 05:17 04/29/20 05:17 Labs: 04/23/20 10:04 Urine,Clean Catch Urine Culture - Final Laboratory WBC 5.7 X10^3/uL (3.6-10.0) 04/29/20 05:17 RBC 4.62 X10^6/uL (3.5-5.4) 04/29/20 05:17 Hgb 13.7 g/dL (12.0-16.0) 04/29/20 05:17 Hct 42.4 % (36.0-47.0) 04/29/20 05:17 MCV 91.8 fL (80.0-100.0) 04/29/20 05:17 MCH 29.6 pg (27.0-34.0) 04/29/20 05:17 MCHC 32.3 g/dL (33.0-35.0) L 04/29/20 05:17 RDW 18.6 % (11.6-16.5) H 04/29/20 05:17 Plt Count 118 X10^3/uL (150.0-450.0) L 04/29/20 05:17 Plt Count Comment Adequate (ADEQUATE) 04/24/20 05:44 MPV 8.4 fL (7.4-11.0) 04/29/20 05:17 Neut % (Auto) 68.5 % (42.0-75.0) 04/29/20 05:17 Lymph % (Auto) 17.9 % (21.0-51.0) L 04/29/20 05:17 [place] % (Auto) 10.5 % (0.0-13.0) 04/29/20 05:17 Eos % (Auto) 2.5 % (0.9-2.9) 04/29/20 05:17 Baso % (Auto) 0.6 % (0.2-1.0) 04/29/20 05:17 Neut # (Auto) 3.9 x10^3/uL (2.2-4.8) 04/29/20 05:17 Lymph # (Auto) 1.0 X10^3/uL (1.3-2.9) L 04/29/20 05:17 [place] # (Auto) 0.6 x10^3/uL (0.3-0.8) 04/29/20 05:17 Eos # (Auto) 0.1 x10^3/uL (0.0-0.2) 04/29/20 05:17 Baso # (Auto) 0.0 X10^3/uL (0.0-0.1) 04/29/20 05:17 Absolute Nucleated RBC 0.2 /100WBC 04/29/20 05:17 Total Counted 100 04/24/20 05:44 Neutrophils % (Manual) 73 % (39-76) 04/24/20 05:44 Lymphocytes % (Manual) 20 % (13-43) 04/24/20 05:44 Monocytes % (Manual) 6 % (4-9) 04/24/20 05:44 Eosinophils % (Manual) 1 % (0-6) 04/24/20 05:44 Plt Morphology Comment Normal (NORMAL) 04/24/20 05:44 RBC Morphology Normal (NORMAL) 04/24/20 05:44 PT 17.0 SECONDS (11.8-14.3) 04/28/20 05:19 INR Target Range - 04/28/20 05:19 INR 1.43 (0.8-1.3) H 04/28/20 05:19 APTT 34.1 SECONDS (22.9-36.5) 04/23/20 06:05 PTT Comment - 04/23/20 06:05 Sodium 142 mmol/L (136-145) 04/29/20 05:17 Corrected Sodium 143 mmol/L (136-145) 04/29/20 05:17 Potassium 4.3 mmol/L (3.5-5.1) 04/29/20 05:17 Chloride 104 mmol/L (98-107) 04/29/20 05:17 Carbon Dioxide 34.7 mmol/L (21-32) H 04/29/20 05:17 BUN 33 mg/dL (7-18) H 04/29/20 05:17 Creatinine 1.17 mg/dL (0.55-1.02) H 04/29/20 05:17 Est GFR (MDRD) Af Amer 57 (>60) L 04/29/20 05:17 Est GFR (MDRD) Non-Af 47 (>60) L 04/29/20 05:17 Glucose 148 mg/dL (65-99) H 04/29/20 05:17 Calcium 8.0 mg/dL (8.5-10.1) L 04/29/20 05:17 Corrected Calcium 9.8 mg/dL (8.5-10.1) 04/26/20 05:50 Magnesium 1.8 mg/dL (1.7-2.9) 04/23/20 06:05 Total Bilirubin 0.90 mg/dL (0.2-1.0) 04/26/20 05:50 AST 16 Units/L (15-37) 04/26/20 05:50 ALT 8 Units/L (12-78) L 04/26/20 05:50 Alkaline Phosphatase 107 Units/L (46-116) 04/26/20 05:50 Creatine Kinase 40 Units/L (26-192) 04/23/20 06:05 CK-MB (CK-2) 1.4 ng/mL (0-4.0) 04/23/20 06:05 CK/CKMB % Calc 3.5 % (<4) 04/23/20 06:05 Troponin I 0.03 ng/mL (0-1.5) 04/23/20 06:05 B-Natriuretic Peptide 946 pg/mL (0-79) H* 04/24/20 05:44 Total Protein 6.2 g/dL (6.4-8.2) L 04/26/20 05:50 Albumin 2.4 g/dL (3.4-5.0) L 04/26/20 05:50 Globulin 3.8 g/dL (2.5-4.5) 04/26/20 05:50 Albumin/Globulin Ratio 0.6 Ratio (1.1-2.1) L 04/26/20 05:50 Triglycerides 64 mg/dL (0-150) 04/23/20 06:05 Cholesterol 75 mg/dL (0-200) 04/23/20 06:05 LDL Cholesterol, Calc 45 mg/dL (0-100) 04/23/20 06:05 HDL Cholesterol 17 mg/dL (40-60) L 04/23/20 06:05 Cholesterol/HDL Ratio 4.4 (0.0-5.0) 04/23/20 06:05 Amylase 15 Units/L (25-115) L 04/22/20 15:10 Lipase 41 Units/L (73-393) L 04/22/20 15:10 Specimen Type Catherized urine 04/22/20 14:27 Urine Color Dark yellow (YELLOW) 04/22/20 14: Urine Appearance Slightly hazy (CLEAR) 04/22/20 14:27 Urine pH 5.0 (5.0 - 8.0) 04/22/20 14:27 Ur Specific [place] 1.025 (1.000-1.030) 04/22/20 14:27 Urine Protein 3+ (NEGATIVE) 04/22/20 14:27 Urine Glucose (UA) Negative (NEGATIVE) 04/22/20 14: Urine Ketones 1+ (NEGATIVE) 04/22/20 14: Urine Occult Blood 4+ (NEGATIVE) 04/22/20 14: Urine Nitrite Negative (NEGATIVE) 04/22/20 14: Urine Bilirubin 1+ (NEGATIVE) 04/22/20 14: Urine Urobilinogen 2+ (NORMAL) 04/22/20 14:27 Ur Leukocyte Esterase 1+ (NEGATIVE) 04/22/20 14: Urine RBC 30-50 /HPF (0-3) A 04/22/20 14:27 Urine WBC 5-10 /HPF (0-5) A 04/22/20 14:27 Ur Squamous Epith Cells Moderate /HPF (NEGATIVE) 04/22/20 14: Amorphous Sediment 1+ /HPF (NEGATIVE) 04/22/20 14:27 Urine Bacteria Trace /HPF (NEGATIVE) 04/22/20 14:27 Ur Culture Indicated? No/not indicated 04/22/20 14:27 SARS-CoV-2 (PCR) Negative (NEGATIVE) 04/22/20 15:48 Plan (1) CHF exacerbation: Status: Acute Qualifiers: Heart failure type: unspecified Qualified Code(s): I50.9 - Heart failure, unspecified (2) Generalized weakness: Status: Acute (3) Hypertension: Status: Chronic Qualifiers: Hypertension type: essential hypertension Qualified Code(s): I10 - Essential (primary) hypertension
--- NOTE | 2020-04-29 09:31 | PCM.PROG ---
Progress Note - Progress Note for Day of Date of Exam: 04/24/20 - Subjective Subjective: MS. HEREDIA IS A 79 YEAR OLD PATIENT WHO WAS ADMITTED TO SERVICES OF . SHE WAS ADMITTED YESTERDAY FOR TREATMENT OF CHF, COPD EXACERBATION, AND A URINARY TRACT INFECTION. TODAY, SHE IS ALERT, LYING IN BED ON MORNING ROUNDS. SHE CONTINUES WITH COMPLAINTS OF SHORTNESS OF BREATH, WEAKNESS, AND LOWER EXTREMITY SWELLING. ON EXAMINATION, HEART IS REGULAR IN RATE AND RHYTHM. BILATERAL LUNGS ARE NOTED WITH SCATTERED THROUGHOUT. ABDOMEN IS ROUND, SOFT, AND NON-TENDER WITH NORMAL BOWEL SOUNDS IN ALL QUADRANTS. BILATERAL LOWER EXTREMITIES ARE NOTED WITH 1+ PITTING EDEMA. HER VITALS THIS MORNING ARE: 98.6-69-20-92%NC-156/81. LABS WERE OBTAINED. ABNORMAL LAB VALUES INCLUDE THE FOLLOWING: INR 1.49, CARBON DIOXIDE 33.5, BUN 21, CREATININE 1.15, GLUCOSE 129, CALCIUM 8.0, BNP 946. URINE CULTURE IS PENDING. A CHEST XRAY WAS OBTAINED AND REVEALED: Global cardiomegaly is seen stable from prior study with transvenous pacing wires and mild degree of pulmonary edema. There is persistent bilateral lower lobe airspace disease. No pleural effusion or gross pneumothorax is seen. Stable airspace disease in the right upper lung zone is noted. WE WILL CONTINUE WITH LASIX, NEB TX, ANTIBIOTICS, AND CURRENT PLAN OF CARE TODAY. OTHERWISE, WE WILL FOLLOW UP WITH AM LABS AND CONTINUE TO MONITOR. - Past Medical Family Social History Past Med/Fam/Surg Hx: No changes since H&P Allergies: Allergies codeine Allergy (Verified 04/22/20 14:09) latex Allergy (Verified 04/22/20 14:09) milk Allergy (Verified 04/22/20 14:09) - Review of Systems ROS: No change since H&P - Vital Signs and I&O's Vital Signs: Temperature 97.5 F Pulse Rate [Right] 70 Pulse Rate [Left Brachial] 69 Pulse Rate 72 Respiratory Rate 18 Blood Pressure [Right Calf] 166/95 Blood Pressure [Left Arm] 149/93 Blood Pressure [Right Arm] 144/93 Blood Pressure 170/98 O2 Sat by Pulse Oximetry 97 Intake and Output: Intake & Output 04/26/20 04/27/20 04/28/20 04/29/20 11:59 11:59 11:59 11:59 Intake Total 1260 / 1260 2001 1510 / 1510 765 / 765 Output Total 3835 / 3835 3500 / 3500 925 / 925 1999 Balance -2575 / -2575 -1498 / -1498 585 / 585 -1235 / -1235 - Physical Exam Oriented: Not Oriented Eyes: Normal Ear: Normal Throat: Normal Respiratory: Generalized, Diminished Cardiovascular: Normal, Edema (BLE 1+ PITTING EDEMA ) Auscultation: Bowel Sounds: Normal Palpation: Normal Tenderness: Normal Skin: Bruising Musculoskeletal: Normal Psychiatric: Normal Mood Description: Calm Affect: Normal Speech Pattern: Clear, Appropriate - Laboratory and Diagnostics Result Diagrams: 04/29/20 05:17 04/29/20 05:17 Labs: 04/23/20 10:04 Urine,Clean Catch Urine Culture - Final Laboratory WBC 5.7 X10^3/uL (3.6-10.0) 04/29/20 05:17 RBC 4.62 X10^6/uL (3.5-5.4) 04/29/20 05:17 Hgb 13.7 g/dL (12.0-16.0) 04/29/20 05:17 Hct 42.4 % (36.0-47.0) 04/29/20 05:17 MCV 91.8 fL (80.0-100.0) 04/29/20 05:17 MCH 29.6 pg (27.0-34.0) 04/29/20 05:17 MCHC 32.3 g/dL (33.0-35.0) L 04/29/20 05:17 RDW 18.6 % (11.6-16.5) H 04/29/20 05:17 Plt Count 118 X10^3/uL (150.0-450.0) L 04/29/20 05:17 Plt Count Comment Adequate (ADEQUATE) 04/24/20 05:44 MPV 8.4 fL (7.4-11.0) 04/29/20 05:17 Neut % (Auto) 68.5 % (42.0-75.0) 04/29/20 05:17 Lymph % (Auto) 17.9 % (21.0-51.0) L 04/29/20 05:17 [place] % (Auto) 10.5 % (0.0-13.0) 04/29/20 05:17 Eos % (Auto) 2.5 % (0.9-2.9) 04/29/20 05:17 Baso % (Auto) 0.6 % (0.2-1.0) 04/29/20 05:17 Neut # (Auto) 3.9 x10^3/uL (2.2-4.8) 04/29/20 05:17 Lymph # (Auto) 1.0 X10^3/uL (1.3-2.9) L 04/29/20 05:17 [place] # (Auto) 0.6 x10^3/uL (0.3-0.8) 04/29/20 05:17 Eos # (Auto) 0.1 x10^3/uL (0.0-0.2) 04/29/20 05:17 Baso # (Auto) 0.0 X10^3/uL (0.0-0.1) 04/29/20 05:17 Absolute Nucleated RBC 0.2 /100WBC 04/29/20 05:17 Total Counted 100 04/24/20 05:44 Neutrophils % (Manual) 73 % (39-76) 04/24/20 05:44 Lymphocytes % (Manual) 20 % (13-43) 04/24/20 05:44 Monocytes % (Manual) 6 % (4-9) 04/24/20 05:44 Eosinophils % (Manual) 1 % (0-6) 04/24/20 05:44 Plt Morphology Comment Normal (NORMAL) 04/24/20 05:44 RBC Morphology Normal (NORMAL) 04/24/20 05:44 PT 17.0 SECONDS (11.8-14.3) 04/28/20 05:19 INR Target Range - 04/28/20 05:19 INR 1.43 (0.8-1.3) H 04/28/20 05:19 APTT 34.1 SECONDS (22.9-36.5) 04/23/20 06:05 PTT Comment - 04/23/20 06:05 Sodium 142 mmol/L (136-145) 04/29/20 05:17 Corrected Sodium 143 mmol/L (136-145) 04/29/20 05:17 Potassium 4.3 mmol/L (3.5-5.1) 04/29/20 05:17 Chloride 104 mmol/L (98-107) 04/29/20 05:17 Carbon Dioxide 34.7 mmol/L (21-32) H 04/29/20 05:17 BUN 33 mg/dL (7-18) H 04/29/20 05:17 Creatinine 1.17 mg/dL (0.55-1.02) H 04/29/20 05:17 Est GFR (MDRD) Af Amer 57 (>60) L 04/29/20 05:17 Est GFR (MDRD) Non-Af 47 (>60) L 04/29/20 05:17 Glucose 148 mg/dL (65-99) H 04/29/20 05:17 Calcium 8.0 mg/dL (8.5-10.1) L 04/29/20 05:17 Corrected Calcium 9.8 mg/dL (8.5-10.1) 04/26/20 05:50 Magnesium 1.8 mg/dL (1.7-2.9) 04/23/20 06:05 Total Bilirubin 0.90 mg/dL (0.2-1.0) 04/26/20 05:50 AST 16 Units/L (15-37) 04/26/20 05:50 ALT 8 Units/L (12-78) L 04/26/20 05:50 Alkaline Phosphatase 107 Units/L (46-116) 04/26/20 05:50 Creatine Kinase 40 Units/L (26-192) 04/23/20 06:05 CK-MB (CK-2) 1.4 ng/mL (0-4.0) 04/23/20 06:05 CK/CKMB % Calc 3.5 % (<4) 04/23/20 06:05 Troponin I 0.03 ng/mL (0-1.5) 04/23/20 06:05 B-Natriuretic Peptide 946 pg/mL (0-79) H* 04/24/20 05:44 Total Protein 6.2 g/dL (6.4-8.2) L 04/26/20 05:50 Albumin 2.4 g/dL (3.4-5.0) L 04/26/20 05:50 Globulin 3.8 g/dL (2.5-4.5) 04/26/20 05:50 Albumin/Globulin Ratio 0.6 Ratio (1.1-2.1) L 04/26/20 05:50 Triglycerides 64 mg/dL (0-150) 04/23/20 06:05 Cholesterol 75 mg/dL (0-200) 04/23/20 06:05 LDL Cholesterol, Calc 45 mg/dL (0-100) 04/23/20 06:05 HDL Cholesterol 17 mg/dL (40-60) L 04/23/20 06:05 Cholesterol/HDL Ratio 4.4 (0.0-5.0) 04/23/20 06:05 Amylase 15 Units/L (25-115) L 04/22/20 15:10 Lipase 41 Units/L (73-393) L 04/22/20 15:10 Specimen Type Catherized urine 04/22/20 14:27 Urine Color Dark yellow (YELLOW) 04/22/20 14:27 Urine Appearance Slightly hazy (CLEAR) 04/22/20 14:27 Urine pH 5.0 (5.0 - 8.0) 04/22/20 14:27 Ur Specific [place] 1.025 (1.000-1.030) 04/22/20 14:27 Urine Protein 3+ (NEGATIVE) 04/22/20 14: Urine Glucose (UA) Negative (NEGATIVE) 04/22/20 14: Urine Ketones 1+ (NEGATIVE) 04/22/20 14: Urine Occult Blood 4+ (NEGATIVE) 04/22/20 14: Urine Nitrite Negative (NEGATIVE) 04/22/20 14: Urine Bilirubin 1+ (NEGATIVE) 04/22/20 14:27 Urine Urobilinogen 2+ (NORMAL) 04/22/20 14:27 Ur Leukocyte Esterase 1+ (NEGATIVE) 04/22/20 14:27 Urine RBC 30-50 /HPF (0-3) A 04/22/20 14:27 Urine WBC 5-10 /HPF (0-5) A 04/22/20 14:27 Ur Squamous Epith Cells Moderate /HPF (NEGATIVE) 04/22/20 14: Amorphous Sediment 1+ /HPF (NEGATIVE) 04/22/20 14:27 Urine Bacteria Trace /HPF (NEGATIVE) 04/22/20 14:27 Ur Culture Indicated? No/not indicated 04/22/20 14:27 SARS-CoV-2 (PCR) Negative (NEGATIVE) 04/22/20 15:48
[2020-04-29] MEDS: LASIX PO SCH (09:40)
[2020-04-29] MEDS: MICRO K EXTEN CAP 10 MEQ PO SCH (09:40)
[2020-04-29] MEDS: THIAMINE HCL INJ IVP SCH ×2 (09:40→21:30)
[2020-04-29] MEDS: COREG TAB 25 MG PO SCH ×2 (09:40→21:28)
[2020-04-29] MEDS: COZAAR PO SCH (09:40)
--- NOTE | 2020-04-29 16:24 | PCM.PROG ---
Progress Note Progress Note for Day of Date of Exam: 04/29/20 Subjective Subjective: Patient seen at bedside, no overnight events. She is doing well. She states she worked with PT a little bit. She is waiting placement for [facility] for rehab. CM working on it with the family. First choice is [facility]. Labs: Plt 118 BUN/Cr: 33/1.17 Plan: continue current treatment, PT/OT as tolerated. Wean O2 as tolerated. CM working on [facility] placement. Patient stable to be discharged to rehab. Past Medical Family Social History Past Med/Fam/Surg Hx: No changes since H&P Allergies: Allergies codeine Allergy (Verified 04/22/20 14:09) latex Allergy (Verified 04/22/20 14:09) milk Allergy (Verified 04/22/20 14:09) Review of Systems ROS: No change since H&P Vital Signs and I&O's Vital Signs: Temperature 97.7 F Pulse Rate [Right] 52 Pulse Rate [Left Brachial] 69 Pulse Rate 70 Respiratory Rate 18 Blood Pressure [Right Calf] 166/95 Blood Pressure [Left Arm] 149/93 Blood Pressure [Right Arm] 147/83 Blood Pressure 170/98 O2 Sat by Pulse Oximetry 93 Intake and Output: Intake & Output 04/26/20 04/27/20 04/28/20 04/29/20 23:59 23:59 23:59 23:59 Intake Total 1852 / 1852 1720 / 1720 610 / 610 165 / 165 Output Total 3475 / 3475 1050 / 1050 1974 / 1974 300 / 300 Balance -1623 / -1623 670 / 670 -1365 / -1365 -135 / -135 Physical Exam Oriented: Not Oriented Eyes: Normal Ear: Normal Throat: Normal Respiratory: Generalized and Diminished Cardiovascular: Normal and Edema (BLE 1+ PITTING EDEMA ) Auscultation: Bowel Sounds: Normal Tenderness: Normal Skin: Bruising Musculoskeletal: Normal Psychiatric: Normal Mood Description: Calm Affect: Normal Speech Pattern: Clear and Appropriate Laboratory and Diagnostics Result Diagrams: 04/29/20 05:17 04/29/20 05:17 Labs: 04/23/20 10:04 Urine,Clean Catch Urine Culture - Final Laboratory WBC 5.7 X10^3/uL (3.6-10.0) 04/29/20 05:17 RBC 4.62 X10^6/uL (3.5-5.4) 04/29/20 05:17 Hgb 13.7 g/dL (12.0-16.0) 04/29/20 05:17 Hct 42.4 % (36.0-47.0) 04/29/20 05:17 MCV 91.8 fL (80.0-100.0) 04/29/20 05:17 MCH 29.6 pg (27.0-34.0) 04/29/20 05:17 MCHC 32.3 g/dL (33.0-35.0) L 04/29/20 05:17 RDW 18.6 % (11.6-16.5) H 04/29/20 05:17 Plt Count 118 X10^3/uL (150.0-450.0) L 04/29/20 05:17 Plt Count Comment Adequate (ADEQUATE) 04/24/20 05:44 MPV 8.4 fL (7.4-11.0) 04/29/20 05:17 Neut % (Auto) 68.5 % (42.0-75.0) 04/29/20 05:17 Lymph % (Auto) 17.9 % (21.0-51.0) L 04/29/20 05:17 [place] % (Auto) 10.5 % (0.0-13.0) 04/29/20 05:17 Eos % (Auto) 2.5 % (0.9-2.9) 04/29/20 05:17 Baso % (Auto) 0.6 % (0.2-1.0) 04/29/20 05:17 Neut # (Auto) 3.9 x10^3/uL (2.2-4.8) 04/29/20 05:17 Lymph # (Auto) 1.0 X10^3/uL (1.3-2.9) L 04/29/20 05:17 [place] # (Auto) 0.6 x10^3/uL (0.3-0.8) 04/29/20 05:17 Eos # (Auto) 0.1 x10^3/uL (0.0-0.2) 04/29/20 05:17 Baso # (Auto) 0.0 X10^3/uL (0.0-0.1) 04/29/20 05:17 Absolute Nucleated RBC 0.2 /100WBC 04/29/20 05:17 Total Counted 100 04/24/20 05:44 Neutrophils % (Manual) 73 % (39-76) 04/24/20 05:44 Lymphocytes % (Manual) 20 % (13-43) 04/24/20 05:44 Monocytes % (Manual) 6 % (4-9) 04/24/20 05:44 Eosinophils % (Manual) 1 % (0-6) 04/24/20 05:44 Plt Morphology Comment Normal (NORMAL) 04/24/20 05:44 RBC Morphology Normal (NORMAL) 04/24/20 05:44 PT 17.0 SECONDS (11.8-14.3) 04/28/20 05:19 INR Target Range - 04/28/20 05:19 INR 1.43 (0.8-1.3) H 04/28/20 05:19 APTT 34.1 SECONDS (22.9-36.5) 04/23/20 06:05 PTT Comment - 04/23/20 06:05 Sodium 142 mmol/L (136-145) 04/29/20 05:17 Corrected Sodium 143 mmol/L (136-145) 04/29/20 05:17 Potassium 4.3 mmol/L (3.5-5.1) 04/29/20 05:17 Chloride 104 mmol/L (98-107) 04/29/20 05:17 Carbon Dioxide 34.7 mmol/L (21-32) H 04/29/20 05:17 BUN 33 mg/dL (7-18) H 04/29/20 05:17 Creatinine 1.17 mg/dL (0.55-1.02) H 04/29/20 05:17 Est GFR (MDRD) Af Amer 57 (>60) L 04/29/20 05:17 Est GFR (MDRD) Non-Af 47 (>60) L 04/29/20 05:17 Glucose 148 mg/dL (65-99) H 04/29/20 05:17 Calcium 8.0 mg/dL (8.5-10.1) L 04/29/20 05:17 Corrected Calcium 9.8 mg/dL (8.5-10.1) 04/26/20 05:50 Magnesium 1.8 mg/dL (1.7-2.9) 04/23/20 06:05 Total Bilirubin 0.90 mg/dL (0.2-1.0) 04/26/20 05:50 AST 16 Units/L (15-37) 04/26/20 05:50 ALT 8 Units/L (12-78) L 04/26/20 05:50 Alkaline Phosphatase 107 Units/L (46-116) 04/26/20 05:50 Creatine Kinase 40 Units/L (26-192) 04/23/20 06:05 CK-MB (CK-2) 1.4 ng/mL (0-4.0) 04/23/20 06:05 CK/CKMB % Calc 3.5 % (<4) 04/23/20 06:05 Troponin I 0.03 ng/mL (0-1.5) 04/23/20 06:05 B-Natriuretic Peptide 946 pg/mL (0-79) H* 04/24/20 05:44 Total Protein 6.2 g/dL (6.4-8.2) L 04/26/20 05:50 Albumin 2.4 g/dL (3.4-5.0) L 04/26/20 05:50 Globulin 3.8 g/dL (2.5-4.5) 04/26/20 05:50 Albumin/Globulin Ratio 0.6 Ratio (1.1-2.1) L 04/26/20 05:50 Triglycerides 64 mg/dL (0-150) 04/23/20 06:05 Cholesterol 75 mg/dL (0-200) 04/23/20 06:05 LDL Cholesterol, Calc 45 mg/dL (0-100) 04/23/20 06:05 HDL Cholesterol 17 mg/dL (40-60) L 04/23/20 06:05 Cholesterol/HDL Ratio 4.4 (0.0-5.0) 04/23/20 06:05 Amylase 15 Units/L (25-115) L 04/22/20 15:10 Lipase 41 Units/L (73-393) L 04/22/20 15:10 Specimen Type Catherized urine 04/22/20 14:27 Urine Color Dark yellow (YELLOW) 04/22/20 14:27 Urine Appearance Slightly hazy (CLEAR) 04/22/20 14:27 Urine pH 5.0 (5.0 - 8.0) 04/22/20 14:27 Ur Specific [place] 1.025 (1.000-1.030) 04/22/20 14:27 Urine Protein 3+ (NEGATIVE) 04/22/20 14:27 Urine Glucose (UA) Negative (NEGATIVE) 04/22/20 14:27 Urine Ketones 1+ (NEGATIVE) 04/22/20 14:27 Urine Occult Blood 4+ (NEGATIVE) 04/22/20 14:27 Urine Nitrite Negative (NEGATIVE) 04/22/20 14:27 Urine Bilirubin 1+ (NEGATIVE) 04/22/20 14:27 Urine Urobilinogen 2+ (NORMAL) 04/22/20 14:27 Ur Leukocyte Esterase 1+ (NEGATIVE) 04/22/20 14:27 Urine RBC 30-50 /HPF (0-3) A 04/22/20 14:27 Urine WBC 5-10 /HPF (0-5) A 04/22/20 14:27 Ur Squamous Epith Cells Moderate /HPF (NEGATIVE) 04/22/20 14:27 Amorphous Sediment 1+ /HPF (NEGATIVE) 04/22/20 14:27 Urine Bacteria Trace /HPF (NEGATIVE) 04/22/20 14:27 Ur Culture Indicated? No/not indicated 04/22/20 14:27 SARS-CoV-2 (PCR) Negative (NEGATIVE) 04/22/20 15:48 Plan (1) CHF exacerbation: Status: Acute Qualifiers: Heart failure type: unspecified Qualified Code(s): I50.9 - Heart failure, unspecified (2) Generalized weakness: Status: Acute (3) Hypertension: Status: Chronic Qualifiers: Hypertension type: essential hypertension Qualified Code(s): I10 - Essential (primary) hypertension (4) Urinary tract infection: Status: Inactive Qualifiers: Hematuria presence: without hematuria Urinary tract infection type: acute cystitis Qualified Code(s): N30.00 - Acute cystitis without hematuria (5) Thrombocytopenia: Status: Inactive (6) COPD exacerbation: Status: Inactive
[2020-04-29] MEDS: COUMADIN TAB 4 MG (JANTOVEN) PO SCH (21:29)
[2020-04-30] MEDS: DUONEB 0.5 MG/3 MG (3 mL) NEB SCH ×2 (05:59→14:30)
[2020-04-30 06:49] LABS: BASOPHILS % (AUTO) 0.6 % (0.2-1.0); EOSINOPHILS # (AUTO) 0.1 x10^3/uL (0.0-0.2); EOSINOPHILS % (AUTO) 2.7 % (0.9-2.9); HEMATOCRIT 43.7 % (36.0-47.0); HEMOGLOBIN 13.9 g/dL (12.0-16.0); LYMPHOCYTES # (AUTO) 0.9 X10^3/uL (1.3-2.9); LYMPHOCYTES % (AUTO) 15.6 % (21.0-51.0); MEAN CORPUSCULAR HGB CONC 31.7 g/dL (33.0-35.0); MEAN CORPUSCULAR VOLUME 91.5 fL (80.0-100.0); MEAN PLATELET VOLUME 8.9 fL (7.4-11.0); MONOCYTES # (AUTO) 0.4 x10^3/uL (0.3-0.8); MONOCYTES % (AUTO) 8.1 % (0.0-13.0); PLATELET COUNT 118 X10^3/uL (150.0-450.0); RED BLOOD COUNT 4.78 X10^6/uL (3.5-5.4); RED CELL DISTRIBUTION WIDTH 18.6 % (11.6-16.5); WHITE BLOOD COUNT 5.5 X10^3/uL (3.6-10.0)
[2020-04-30 07:06] LABS: CALCIUM 8.1 mg/dL (8.5-10.1); CARBON DIOXIDE 32.9 mmol/L (21-32); CREATININE 1.15 mg/dL (0.55-1.02)
[2020-04-30] MEDS ORDERED: VITAMIN B-1 PO SCH (09:00)
[2020-04-30] MEDS: LASIX PO SCH (09:38)
[2020-04-30] MEDS: COZAAR PO SCH (09:38)
[2020-04-30] MEDS: COREG TAB 25 MG PO SCH (09:38)
[2020-04-30] MEDS: MICRO K EXTEN CAP 10 MEQ PO SCH (09:38)
[2020-04-30] MEDS: PULMICORT NEB TX 0.5 MG NEB SCH (10:00)
[2020-04-30 12:02] VITALS: BP 150/94
--- NOTE | 2020-04-30 12:08 | W.DIS.FURT ---
Summary of Discharge Admission Diagnosis Vital Signs: Vital Signs (72 hours) 04/27/20 15:58 04/27/20 20:00 04/27/20 20:25 Temperature 97.8 F 98.1 F Pulse Rate 69 Pulse Rate [Left Brachial] Pulse Rate [Right] 70 71 Respiratory Rate 20 20 Blood Pressure [Right Arm] 119/72 130/75 O2 Sat by Pulse Oximetry 96 95 94 L 04/28/20 00:00 04/28/20 04:00 04/28/20 08:00 Temperature 98.5 F 98.0 F 98.4 F Pulse Rate Pulse Rate [Left Brachial] 69 Pulse Rate [Right] 69 70 Respiratory Rate 18 24 20 Blood Pressure [Right Arm] 114/66 132/84 125/81 O2 Sat by Pulse Oximetry 95 97 92 L 04/28/20 09:15 04/28/20 12:00 04/28/20 12:30 Temperature 99.7 F H Pulse Rate 76 Pulse Rate [Left Brachial] Pulse Rate [Right] 81 Respiratory Rate 20 Blood Pressure [Right Arm] 174/100 162/88 O2 Sat by Pulse Oximetry 94 L 91 L 04/28/20 16:00 04/28/20 20:00 04/28/20 20:40 Temperature 98.7 F 98.3 F Pulse Rate 72 Pulse Rate [Left Brachial] Pulse Rate [Right] 66 70 Respiratory Rate 20 18 Blood Pressure [Right Arm] 122/62 127/79 O2 Sat by Pulse Oximetry 92 L 94 L 93 L 04/29/20 00:00 04/29/20 04:00 04/29/20 08:00 Temperature 97.8 F 97.5 F L 97.1 F L Pulse Rate Pulse Rate [Left Brachial] Pulse Rate [Right] 71 70 70 Respiratory Rate 20 18 20 Blood Pressure [Right Arm] 135/87 144/93 152/92 O2 Sat by Pulse Oximetry 96 97 93 L 04/29/20 09:17 04/29/20 12:00 04/29/20 16:00 Temperature 97.7 F 98.0 F Pulse Rate 70 Pulse Rate [Left Brachial] Pulse Rate [Right] 52 L 80 Respiratory Rate 18 20 Blood Pressure [Right Arm] 147/83 125/76 O2 Sat by Pulse Oximetry 97 93 L 95 04/29/20 20:00 04/29/20 21:06 12/02/20 00:00 Temperature 98.8 F 98.4 F Pulse Rate 69 Pulse Rate [Left Brachial] Pulse Rate [Right] 70 69 Respiratory Rate 18 20 Blood Pressure [Right Arm] 128/78 143/90 O2 Sat by Pulse Oximetry 95 94 L 95 04/30/20 04:00 04/30/20 05:59 04/30/20 08:00 Temperature 97.5 F L 98.8 F Pulse Rate 70 Pulse Rate [Left Brachial] Pulse Rate [Right] 72 67 Respiratory Rate 18 20 Blood Pressure [Right Arm] 141/91 163/88 O2 Sat by Pulse Oximetry 95 94 L 95 04/30/20 12:00 Temperature 98.4 F Pulse Rate Pulse Rate [Left Brachial] Pulse Rate [Right] 70 Respiratory Rate 18 Blood Pressure [Right Arm] 150/94 O2 Sat by Pulse Oximetry 94 L Labs: Laboratory Last Values WBC 5.5 X10^3/uL (3.6-10.0) 04/30/20 05:25 RBC 4.78 X10^6/uL (3.5-5.4) 04/30/20 05:25 Hgb 13.9 g/dL (12.0-16.0) 04/30/20 05:25 Hct 43.7 % (36.0-47.0) 04/30/20 05:25 MCV 91.5 fL (80.0-100.0) 04/30/20 05:25 MCH 29.0 pg (27.0-34.0) 04/30/20 05:25 MCHC 31.7 g/dL (33.0-35.0) L 04/30/20 05:25 RDW 18.6 % (11.6-16.5) H 04/30/20 05:25 Plt Count 118 X10^3/uL (150.0-450.0) L 04/30/20 05:25 Plt Count Comment Adequate (ADEQUATE) 04/24/20 05:44 MPV 8.9 fL (7.4-11.0) 04/30/20 05:25 Neut % (Auto) 73.0 % (42.0-75.0) 04/30/20 05:25 Lymph % (Auto) 15.6 % (21.0-51.0) L 04/30/20 05:25 [place] % (Auto) 8.1 % (0.0-13.0) 04/30/20 05:25 Eos % (Auto) 2.7 % (0.9-2.9) 04/30/20 05:25 Baso % (Auto) 0.6 % (0.2-1.0) 04/30/20 05:25 Neut # (Auto) 4.0 x10^3/uL (2.2-4.8) 04/30/20 05:25 Lymph # (Auto) 0.9 X10^3/uL (1.3-2.9) L 04/30/20 05:25 [place] # (Auto) 0.4 x10^3/uL (0.3-0.8) 04/30/20 05:25 Eos # (Auto) 0.1 x10^3/uL (0.0-0.2) 04/30/20 05:25 Baso # (Auto) 0.0 X10^3/uL (0.0-0.1) 04/30/20 05:25 Absolute Nucleated RBC 0.1 /100WBC 04/30/20 05:25 Total Counted 100 04/24/20 05:44 Neutrophils % (Manual) 73 % (39-76) 04/24/20 05:44 Lymphocytes % (Manual) 20 % (13-43) 04/24/20 05:44 Monocytes % (Manual) 6 % (4-9) 04/24/20 05:44 Eosinophils % (Manual) 1 % (0-6) 04/24/20 05:44 Plt Morphology Comment Normal (NORMAL) 04/24/20 05:44 RBC Morphology Normal (NORMAL) 04/24/20 05:44 PT 19.2 SECONDS (11.8-14.3) 04/30/20 05:25 INR Target Range - 04/30/20 05:25 INR 1.67 (0.8-1.3) H 04/30/20 05:25 APTT 34.1 SECONDS (22.9-36.5) 04/23/20 06:05 PTT Comment - 04/23/20 06:05 Sodium 142 mmol/L (136-145) 04/30/20 05:25 Corrected Sodium 143 mmol/L (136-145) 04/30/20 05:25 Potassium 4.3 mmol/L (3.5-5.1) 04/30/20 05:25 Chloride 105 mmol/L (98-107) 04/30/20 05:25 Carbon Dioxide 32.9 mmol/L (21-32) H 04/30/20 05:25 BUN 29 mg/dL (7-18) H 04/30/20 05:25 Creatinine 1.15 mg/dL (0.55-1.02) H 04/30/20 05:25 Est GFR (MDRD) Af Amer 58 (>60) L 04/30/20 05:25 Est GFR (MDRD) Non-Af 48 (>60) L 04/30/20 05:25 Glucose 128 mg/dL (65-99) H 04/30/20 05:25 Calcium 8.1 mg/dL (8.5-10.1) L 04/30/20 05:25 Corrected Calcium 9.8 mg/dL (8.5-10.1) 04/26/20 05:50 Magnesium 1.8 mg/dL (1.7-2.9) 04/23/20 06:05 Total Bilirubin 0.90 mg/dL (0.2-1.0) 04/26/20 05:50 AST 16 Units/L (15-37) 04/26/20 05:50 ALT 8 Units/L (12-78) L 04/26/20 05:50 Alkaline Phosphatase 107 Units/L (46-116) 04/26/20 05:50 Creatine Kinase 40 Units/L (26-192) 04/23/20 06:05 CK-MB (CK-2) 1.4 ng/mL (0-4.0) 04/23/20 06:05 CK/CKMB % Calc 3.5 % (<4) 04/23/20 06:05 Troponin I 0.03 ng/mL (0-1.5) 04/23/20 06:05 B-Natriuretic Peptide 946 pg/mL (0-79) H* 04/24/20 05:44 Total Protein 6.2 g/dL (6.4-8.2) L 04/26/20 05:50 Albumin 2.4 g/dL (3.4-5.0) L 04/26/20 05:50 Globulin 3.8 g/dL (2.5-4.5) 04/26/20 05:50 Albumin/Globulin Ratio 0.6 Ratio (1.1-2.1) L 04/26/20 05:50 Triglycerides 64 mg/dL (0-150) 04/23/20 06:05 Cholesterol 75 mg/dL (0-200) 04/23/20 06:05 LDL Cholesterol, Calc 45 mg/dL (0-100) 04/23/20 06:05 HDL Cholesterol 17 mg/dL (40-60) L 04/23/20 06:05 Cholesterol/HDL Ratio 4.4 (0.0-5.0) 04/23/20 06:05 Amylase 15 Units/L (25-115) L 04/22/20 15:10 Lipase 41 Units/L (73-393) L 04/22/20 15:10 Specimen Type Catherized urine 04/22/20 14:27 Urine Color Dark yellow (YELLOW) 04/22/20 14:27 Urine Appearance Slightly hazy (CLEAR) 04/22/20 14:27 Urine pH 5.0 (5.0 - 8.0) 04/22/20 14:27 Ur Specific [place] 1.025 (1.000-1.030) 04/22/20 14: Urine Protein 3+ (NEGATIVE) 04/22/20 14: Urine Glucose (UA) Negative (NEGATIVE) 04/22/20 14: Urine Ketones 1+ (NEGATIVE) 04/22/20 14: Urine Occult Blood 4+ (NEGATIVE) 04/22/20 14: Urine Nitrite Negative (NEGATIVE) 04/22/20 14: Urine Bilirubin 1+ (NEGATIVE) 04/22/20 14: Urine Urobilinogen 2+ (NORMAL) 04/22/20 14:27 Ur Leukocyte Esterase 1+ (NEGATIVE) 04/22/20 14: Urine RBC 30-50 /HPF (0-3) A 04/22/20 14: Urine WBC 5-10 /HPF (0-5) A 04/22/20 14:27 Ur Squamous Epith Cells Moderate /HPF (NEGATIVE) 04/22/20 14: Amorphous Sediment 1+ /HPF (NEGATIVE) 04/22/20 14: Urine Bacteria Trace /HPF (NEGATIVE) 04/22/20 14: Ur Culture Indicated? No/not indicated 04/22/20 14:27 SARS-CoV-2 (PCR) Negative (NEGATIVE) 04/22/20 15:48 Reason For Visit: CHF Discharge Diagnosis All Active Problems (Updated 04/29/20 @ 16:53 by Brandy Agrawal) CHF exacerbation (Acute) Generalized weakness (Acute) CHF (congestive heart failure) (Chronic) Degenerative arthritis of right shoulder region (Chronic) Hypertension (Chronic) COPD (chronic obstructive pulmonary disease) (Chronic) Plan of Treatment: Continue with present treatment and follow up plan. Pt is to keep follow up appointment as instructed and take medications as ordered. Discharge Medications Discharge Medications: codeine Allergy (Verified 04/22/20 14:09) latex Allergy (Verified 04/22/20 14:09) milk Allergy (Verified 04/22/20 14:09) CONTINUE taking the following medications warfarin 4 mg PO DAILY 04/22/20 [History] New Prescriptions losartan 100 mg PO DAILY 30 Days #60 tab 04/30/20 [Rx] Discharge Plan Discharge Plan Patient Disposition: HOME HEALTH SERVICE Condition: Stable Health Concerns: Post Hospitalization: new medications and changes needed to prevent readmission or further decline. Pt educated and given instructions on all concerns. Plan of Treatment: Continue with present treatment and follow up plan. Pt is to keep follow up appointment as instructed and take medications as ordered. Prescription drug monitoring program results: PDMP reviewed and no concerns identified Prescriptions: New losartan 50 mg Tablet 100 mg PO DAILY 30 Days Qty: 60 RF: 0 Continued furosemide 20 mg tablet 20 mg PO DAILY RF: 0 potassium chloride [K-Tab] 10 mEq tablet extended release 20 meq PO DAILY RF: 0 carvedilol [Coreg] 25 mg Tablet 25 mg PO BID RF: 0 ipratropium-albuterol 3 ML solution for nebulization 1 neb NEB TID Qty: 90 RF: 1 warfarin 4 mg tablet 4 mg PO DAILY RF: 0 Follow ups/Referrals Follow ups/Referrals: Kristin Biggs [Primary Care Provider] - 1 WEEK
== END 2020-04-30 16:40 | disposition home health service (06) | DRG 292 ==
LOC: ER 13:39 → MED/SURG 13:39
PROVIDERS: ADMIT Internal Medicine; ATTEND Internal Medicine
DX: Z95.0 Presence of cardiac pacemaker; E51.9 Thiamine deficiency, unspecified; R26.89 Other abnormalities of gait and mobility; I50.9 Heart failure, unspecified; R41.82 Altered mental status, unspecified; Z20.828 Contact with and (suspected) exposure to other viral communicable diseases; R79.1 Abnormal coagulation profile; N30.00 Acute cystitis without hematuria; R06.02 Shortness of breath; J44.1 Chronic obstructive pulmonary disease with (acute) exacerbation; I48.20 Chronic atrial fibrillation, unspecified; D69.6 Thrombocytopenia, unspecified; I11.0 Hypertensive heart disease with heart failure; R53.1 Weakness; R94.31 Abnormal electrocardiogram [ECG] [EKG]

== ENCOUNTER 2020-06-13 16:54 | Inpatient (IN) ==
--- NOTE | 2020-06-13 17:06 | DR.CP ---
HPI Time Seen Time Seen by Provider: 06/13/20 17:05 HPI Comment HPI Comment: PATIENT IS 80YR OLD FEMALE IN ER WITH INCREASING SOB AND LOW OXYGEN SATURATION THAT IS GETTING WORSE. PATIENT HERE VIA EMS. HE IS ON HOME O2 AND O2 INCREASE TO 3L/M, O2 SAT IMPROVED. HE IS COUGHING WITH YELLOW SPUTUM. NO FEVER. PLEURITIC CHEST PAIN RADIATING TO BACK. Complaint Chief Complaint Doctor Comments: SOB, LOW O2 SAT. COVID-19 Coronavirus risk:travel/contact w/high risk person: No Has patient experienced Coronavirus symptoms: Yes Coronavirus symptoms experienced: Coughing and Shortness of Breath Reviewed Nurses Notes Review: Yes Source History Provided: Patient and EMS Mode of Arrival Mode of Arrival: EMS Timing Came on: Suddenly Duration Duration: Constant Duration: Hours Location Location of Chest Pain: Chest Chest Pain Radiation Location: Back Context Onset: At rest PE Risk Factors: None History of: None Prehospital Care: Oxygen Quality Quality: Pleuritic Severity Severity: Moderate Modifying Factors Worsens: Exertion Impoves: Rest Associated Signs and Symptoms Associated Signs and Symptoms: Shortness of Breath Other History Other History: CHF, COPD, HTN. PMH PMH Past Medical History: Asthma, CHF, COPD and Hypertension Past Surgical History: Yes Surgical History: Cholecystectomy and Other Family History Family Medical History: Hypertension Social History Do you use any recreational Drugs:: No ROS Review of Systems Constitutional: See HPI, Weakness and Fatigue; negative Fever Eyes: No Symptoms Reported and See HPI ENTM: See HPI and Nose Congestion; negative Nose Discharge Respiratoy: See HPI, Non-Productive Cough, Short of Breath and Wheezing Cardiovascular: See HPI and Chest Pain Gastrointestinal/Abdominal: No Symptoms Reported and See HPI; negative Abdominal Pain, Diarrhea and Vomiting Genitourinary: No Symptoms Reported and See HPI; negative Dysuria Neurological: See HPI and Weakness; negative Headache and Dizziness Musculoskeletal: No Symptoms Reported and See HPI Integumentary: No Symptoms Reported and See HPI Hematologic/Lymphatic: See HPI and Easy Bruising Endocrine: No Symptoms Reported and See HPI Psychiatric: No Symptoms Reported and See HPI All Other Systems: Reviewed and Negative PE Vitals Vitals: Temperature 97.8 F Pulse Rate [Right Radial] 82 Pulse Rate 88 Respiratory Rate 20 Blood Pressure [Right Calf] 143/86 Blood Pressure [Left Arm] 149/93 Blood Pressure [Right Arm] 154/96 Blood Pressure 177/109 O2 Sat by Pulse Oximetry 96 General Limitations: No Limitations General Appearance: Alert and In Distress Head Head Exam: Normal Inspection Eyes Eye exam: Normal Appearance and PERRL; negative Scleral Icterus and Conjunctival Injection ENT ENT Exam: Normal Exam, Normal Oropharynx, Normal External Ear Exam and TM's Normal Bilaterally Chest Chest Inspection: Normal Inspection and Symmetric Chest Wall Rise; negative Tenderness Respiratory Respiratory Exam: Normal Lung Sounds Bilat; negative Accessory Muscle Use, Chest Wall Tenderness and Respiratory Distress Respiratory Exam: Bilateral: Rhonchi and Lower: Rhonchi Cardiovascular Cardiovascular Exam: Regular Rate, Normal Rhythm and Normal Heart Sounds; negative Systolic Murmur and Diastolic Murmur Pulse: Normal Edema: Normal Abdominal Exam Abdominal Exam: Normal Inspection, Normal Bowel Sounds and Soft; negative Tenderness Extremities Extremities Exam: Normal Inspection and Normal Capillary Refill; negative Tenderness Back Back Exam: Normal Inspection; negative (R) CVA Tenderness and (L) CVA Tenderness Neurologic Neurological Exam: Alert and Oriented X3; negative Motor Sensory Deficit Psychiatric Psychiatric Exam: Normal Affect and Normal Mood Skin Skin Exam: Warm, Dry, Intact and Normal Color MDM Additional Information Additional Information Obtained From: Old Records Differential Diagnosis Differential Diagnosis: Chest Wall Pain, CHF, Costochondritis, Myocardial Infarction, Pleuritis, Pneumonia and Pneumothorax COURSE Treatment Treatment: SEE ORDERS. Consultation Consultation Comments: DR. ELI WILL ADMIT PATIENT. Education/Counseling Education/Counseling: Patient Educated On: Diagnosis and Needs for Follow Up ROR Labs Reviewed Laboratory Results Reviewed?: Yes Result Diagrams: 06/24/20 05:40 06/24/20 08:46 Laboratory: 06/13/20 20:05 Urine,Catheterized Urine Culture - Final WBC 4.3 X10^3/uL (3.6-10.0) 06/13/20 17:53 RBC 4.89 X10^6/uL (3.5-5.4) 06/13/20 17:53 Hgb 14.5 g/dL (12.0-16.0) 06/13/20 17:53 Hct 44.9 % (36.0-47.0) 06/13/20 17:53 MCV 91.7 fL (80.0-100.0) 06/13/20 17:53 MCH 29.7 pg (27.0-34.0) 06/13/20 17:53 MCHC 32.3 g/dL (33.0-35.0) L 06/13/20 17:53 RDW 19.9 % (11.6-16.5) H 06/13/20 17:53 Plt Count 83 X10^3/uL (150.0-450.0) L 06/13/20 17:53 MPV 9.1 fL (7.4-11.0) 06/13/20 17:53 Neut % (Auto) 72.0 % (42.0-75.0) 06/13/20 17:53 Lymph % (Auto) 14.0 % (21.0-51.0) L 06/13/20 17:53 Hartley % (Auto) 12.0 % (0.0-13.0) 06/13/20 17:53 Eos % (Auto) 1.6 % (0.9-2.9) 06/13/20 17:53 Baso % (Auto) 0.4 % (0.2-1.0) 06/13/20 17:53 Neut # (Auto) 3.1 x10^3/uL (2.2-4.8) 06/13/20 17:53 Lymph # (Auto) 0.6 X10^3/uL (1.3-2.9) L 06/13/20 17:53 Hartley # (Auto) 0.5 x10^3/uL (0.3-0.8) 06/13/20 17:53 Eos # (Auto) 0.1 x10^3/uL (0.0-0.2) 06/13/20 17:53 Baso # (Auto) 0.0 X10^3/uL (0.0-0.1) 06/13/20 17:53 Absolute Nucleated RBC 0.1 /100WBC 06/13/20 17:53 Sample Site Rrad 06/13/20 19:30 ABG pH 7.470 (7.35-7.45) H 06/13/20 19:30 ABG pCO2 42.0 mmHg (35.0-45.0) 06/13/20 19:30 ABG pO2 84.0 mmHg (80.0-100.0) 06/13/20 19:30 ABG HCO3 30.6 mmol/L (22-26) H* 06/13/20 19:30 ABG O2 Saturation 97.0 % (90-100) 06/13/20 19:30 ABG Base Excess 6.3 mmol/L (-2.0-2.0) H 06/13/20 19:30 Curtis Test Pos 06/13/20 19:30 A-a Gradient 92.0 mmHg 06/13/20 19:30 FiO2 32.0 06/13/20 19:30 Blood Gas Comments Chato abg well-mtf 06/13/20 19:30 Sodium 148 mmol/L (136-145) H 06/13/20 17:53 Corrected Sodium TNP 06/13/20 17:53 Potassium 4.4 mmol/L (3.5-5.1) 06/13/20 17:53 Chloride 109 mmol/L (98-107) H 06/13/20 17:53 Carbon Dioxide 33.0 mmol/L (21-32) H 06/13/20 17:53 BUN 19 mg/dL (7-18) H 06/13/20 17:53 Creatinine 1.15 mg/dL (0.55-1.02) H 06/13/20 17:53 Est GFR (MDRD) Af Amer 58 (>60) L 06/13/20 17:53 Est GFR (MDRD) Non-Af 48 (>60) L 06/13/20 17:53 Glucose 102 mg/dL (65-99) H 06/13/20 17:53 Calcium 8.8 mg/dL (8.5-10.1) 06/13/20 17:53 Corrected Calcium 9.5 mg/dL (8.5-10.1) 06/13/20 17:53 Total Bilirubin 2.50 mg/dL (0.2-1.0) H 06/13/20 17:53 AST 23 Units/L (15-37) 06/13/20 17:53 ALT 10 Units/L (12-78) L 06/13/20 17:53 Alkaline Phosphatase 130 Units/L (46-116) H 06/13/20 17:53 Creatine Kinase 41 Units/L (26-192) 06/13/20 17:53 CK-MB (CK-2) < 1.0 ng/mL (0-4.0) 06/13/20 17:53 CK/CKMB % Calc 2.4 % (<4) 06/13/20 17:53 Troponin I 0.11 ng/mL (0-1.5) 06/13/20 17:53 Total Protein 7.0 g/dL (6.4-8.2) 06/13/20 17:53 Albumin 3.1 g/dL (3.4-5.0) L 06/13/20 17:53 Globulin 3.9 g/dL (2.5-4.5) 06/13/20 17:53 Albumin/Globulin Ratio 0.8 Ratio (1.1-2.1) L 06/13/20 17:53 Specimen Type Catherized urine 06/13/20 20:05 Urine Color Kim (YELLOW) 06/13/20 20: Urine Appearance Clear (CLEAR) 06/13/20 20: Urine pH 6.0 (5.0 - 8.0) 06/13/20 20:05 Ur Specific [place] 1.020 (1.000-1.030) 06/13/20 20:05 Urine Protein 3+ (NEGATIVE) 06/13/20 20:05 Urine Glucose (UA) Negative (NEGATIVE) 06/13/20 20: Urine Ketones Negative (NEGATIVE) 06/13/20 20:05 Urine Occult Blood 2+ (NEGATIVE) 06/13/20 20: Urine Nitrite Negative (NEGATIVE) 06/13/20 20:05 Urine Bilirubin 1+ (NEGATIVE) 06/13/20 20:05 Urine Urobilinogen 3+ (NORMAL) 06/13/20 20:05 Ur Leukocyte Esterase 1+ (NEGATIVE) 06/13/20 20:05 Urine RBC 5-10 /HPF (0-3) A 06/13/20 20:05 Urine WBC 3-5 /HPF (0-5) 06/13/20 20:05 Ur Squamous Epith Cells Few /HPF (NEGATIVE) 06/13/20 20:05 Urine Bacteria Trace /HPF (NEGATIVE) 06/13/20 20:05 Urine Mucus Few /HPF (NEGATIVE) 06/13/20 20:05 Urine Yeast Moderate /HPF (NEGATIVE) 06/13/20 20:05 Ur Culture Indicated? Yes/culture set up 06/13/20 20:05 SARS CoV-2 RNA Rapid JESI Positive (NEGATIVE) A 01/15/21 23:56 EKG Rate: 70 Rhythm: Paced Opioid Opioid Risk Tool Age (Robson box if 16-45): No History of Preadolescent Sexual Abuse: No Total: 0 Total Score Risk Category: Low Risk Copyright: Darryl ABEL predicting aberrant behaviors Diagnosis Discharge Problem: SOB (shortness of breath), Bronchitis, COVID-19 virus infection, Abnormal cardiac enzyme level UTI (urinary tract infection) Qualifiers: Urinary tract infection type: site unspecified Hematuria presence: with hematuria Qualified Code(s): N39.0 - Urinary tract infection, site not specified Instructions Instructions: Viral Respiratory Infection, Dbnr-Xx-Xkis Home Oxygen Use, Adult Understanding Your Risk for Falls Chronic Obstructive Pulmonary Disease Exacerbation, Mvoo-yc-Aytv Hypertension, Stgx-is-Aqsy Heart Failure, Jptz-bi-Vjrm Community-Acquired Pneumonia, Adult, Gcnh-cc-Qvnx Forms: Excuse From Work or School Precautions for COVID19 Patient Portal Social Distancing
--- NOTE | 2020-06-13 17:53 | RAD ---
HISTORYPT CALLED EMS C/O CHEST PAIN UPON ARRIVAL PT HAS ON HOME 02, AND PT SATS WERE IN THE 80'S WITH 02 ON PT PLACED ON 02 3 LPM SATS > 95 %. PT DENIES CP AT THIS PAIN, OR ANY C/P PT GIVEN 325 ASA PER EMS, RESP TX GIVEN PER EMS, PT HAVING EXP WHEEZESSTUDYCHEST, 1 [id number]/2020FINDINGSMinimal opacity in the right lung base could be atelectasis or pneumonia and is unchanged.Linear scarring in the upper right lung is stable. Left lung clear. The abnormality which was present at this location is no longer seen.Heart is probably large even accounting for magnification. Vascular calcifications are present compatible with atherosclerosis.Bones are unremarkable.Left subclavian ICD is present with leads in expected location.IMPRESSION1. Unchanged right basilar atelectasis or pneumonia2. Nearly resolved left basilar atelectasis or pneumonia3. Stable cardiomegalyElectronically signed by: Lew Biggs (Jun 13, 2020 17:51:42)
[2020-06-13 18:06] LABS: BASOPHILS % (AUTO) 0.4 % (0.2-1.0); EOSINOPHILS # (AUTO) 0.1 x10^3/uL (0.0-0.2); EOSINOPHILS % (AUTO) 1.6 % (0.9-2.9); HEMATOCRIT 44.9 % (36.0-47.0); HEMOGLOBIN 14.5 g/dL (12.0-16.0); LYMPHOCYTES # (AUTO) 0.6 X10^3/uL (1.3-2.9); MEAN CORPUSCULAR HEMOGLOBIN 29.7 pg (27.0-34.0); MEAN CORPUSCULAR HGB CONC 32.3 g/dL (33.0-35.0); MEAN CORPUSCULAR VOLUME 91.7 fL (80.0-100.0); MEAN PLATELET VOLUME 9.1 fL (7.4-11.0); MONOCYTES # (AUTO) 0.5 x10^3/uL (0.3-0.8); NEUTROPHILS # (AUTO) 3.1 x10^3/uL (2.2-4.8); PLATELET COUNT 83 X10^3/uL (150.0-450.0); RED BLOOD COUNT 4.89 X10^6/uL (3.5-5.4); RED CELL DISTRIBUTION WIDTH 19.9 % (11.6-16.5); WHITE BLOOD COUNT 4.3 X10^3/uL (3.6-10.0)
[2020-06-13 18:20] LABS: BLOOD UREA NITROGEN 19 mg/dL (7-18); CALCIUM 8.8 mg/dL (8.5-10.1); CHLORIDE 109 mmol/L (98-107); CREATININE 1.15 mg/dL (0.55-1.02); SODIUM 148 mmol/L (136-145); TROPONIN I 0.11 ng/mL (0-1.5); eGFR NON BLACK RACES 48 (>60)
[2020-06-13 18:25] LABS: ALANINE AMINOTRANSFERASE 10 Units/L (12-78); ALBUMIN 3.1 g/dL (3.4-5.0); ALKALINE PHOSPHATASE 130 Units/L (46-116); ASPARTATE AMINO TRANSFERASE 23 Units/L (15-37); CKMB % 2.4 % (<4); COR CA(FOR HYPOALB) 9.5 mg/dL (8.5-10.1); CREATINE KINASE 41 Units/L (26-192); CREATINE KINASE MB < 1.0 ng/mL (0-4.0)
[2020-06-13 19:33] LABS: ABG BASE EXCESS 6.3 mmol/L (-2.0-2.0); ABG HCO3 30.6 mmol/L (22-26)
[2020-06-13 19:34] LABS: ABG ALLEN TEST POS
[2020-06-13 20:16] LABS: BILIRUBIN,URINE 1+ (NEGATIVE); BLOOD/HEMOGLOBIN,URINE 2+ (NEGATIVE); GLUCOSE, URINE NEGATIVE (NEGATIVE); KETONES,URINE NEGATIVE (NEGATIVE); LEUKOCYTE ESTERASE ,URINE 1+ (NEGATIVE); NITRITES,URINE NEGATIVE (NEGATIVE); PROTEIN,URINE 3+ (NEGATIVE); UROBILINOGEN,URINE 3+ (NORMAL)
[2020-06-13 20:34] LABS: APPEARANCE,URINE CLEAR (CLEAR); COLOR,URINE AMBER (YELLOW)
[2020-06-13 20:35] LABS: BACTERIA,URINE TRACE /HPF (NEGATIVE); MUCUS,URINE FEW /HPF (NEGATIVE); SQUAMOUS EPITHELIAL CELL,UR FEW /HPF (NEGATIVE)
[2020-06-13 20:36] LABS: YEAST,URINE MODERATE /HPF (NEGATIVE)
[2020-06-13] MEDS ORDERED: ROCEPHIN VIAL 1 GRAM IM ONE (21:04)
[2020-06-13] MEDS ORDERED: ROCEPHIN VIAL 1 GRAM ONE (21:07)
[2020-06-13] MEDS ORDERED: XYLOCAINE 1 % (PLAIN) ONE (21:08)
[2020-06-13] MEDS ORDERED: TYLENOL 325 MG TAB PO ONE ×2 (21:09)
[2020-06-13] MEDS ORDERED: XYLOCAINE 1 % (PLAIN) IM ONE (21:18)
--- NOTE | 2020-06-13 22:34 | CT ---
EXAM: HEAD CT WITHOUT INTRAVENOUS CONTRASTHISTORY: Chest pain. Decreased O2 saturation.TECHNIQUE: Spiral axial CT images are obtained through the brain without the administration of intravenous contrast.DOSIMETRY: Total DLP 1256.3 mGycm; CTDI 67.4 mGyCOMPARISON: Head CT dated April 25, 2020.FINDINGS:There are patchy parenchymal lucencies seen throughout the white matter tracts of the centrum semiovale, consistent with chronic sequela of atherosclerotic microvascular ischemic disease. Please note that small or subtle acute infarction can be obscured in this radiologic setting. Consider followup MRI with diffusion weighted imaging if clinically warranted. There is no gross acute territorial infarction seen. Atherosclerosis of the intracranial ICAs and vertebral arteries is seen.There is moderate diffuse cerebral cortical atrophy, in keeping with the patient's advanced age. There is no intra-axial or extra-axial hemorrhage seen. No intra-axial or extra-axial mass lesions are noted. There is no hydrocephalus. There is no midline shift or other mass effect seen. The calvarium is intact. The partially imaged paranasal sinuses, middle ear cavities and mastoid air cells are clear.IMPRESSION:1. Extensive severe chronic microvascular ischemic disease throughout the centrum semiovale.2. No gross acute infarction seen; however, small or subtle acute infarctions can be obscured in this radiologic setting. Consider followup MRI with diffusion weighted imaging if clinically warranted.3. Moderate diffuse cerebral cortical atrophy in keeping with the patient's advanced age.4. Atherosclerosis of the intracranial ICAs and vertebral arteries is seen. Consider follow up MRI as clinically warranted.5. Overall, there is no significant interval change seen.Electronically signed by: Fabby Anderson (Jun 13, 2020 22:32:45)
[2020-06-14 02:13] VITALS: BMI 30.1
[2020-06-14] MEDS ORDERED: NS 1000 ML 1,000 ML ONE (02:32)
[2020-06-14] MEDS: NS 1000 ML 1,000 ML IV SCH (03:07)
[2020-06-14 05:29] LABS: ABG BASE EXCESS 6.1 mmol/L (-2.0-2.0)
[2020-06-14 05:31] LABS: ABG ALLEN TEST POSS
[2020-06-14 06:39] LABS: EOSINOPHILS % (AUTO) 1.3 % (0.9-2.9); HEMATOCRIT 43.7 % (36.0-47.0); HEMOGLOBIN 14.1 g/dL (12.0-16.0); LYMPHOCYTES # (AUTO) 0.8 X10^3/uL (1.3-2.9); LYMPHOCYTES % (AUTO) 22.9 % (21.0-51.0); MEAN CORPUSCULAR HEMOGLOBIN 29.8 pg (27.0-34.0); MEAN CORPUSCULAR HGB CONC 32.2 g/dL (33.0-35.0); MEAN CORPUSCULAR VOLUME 92.5 fL (80.0-100.0); MEAN PLATELET VOLUME 9.9 fL (7.4-11.0); MONOCYTES # (AUTO) 0.7 x10^3/uL (0.3-0.8); MONOCYTES % (AUTO) 20.1 % (0.0-13.0); NEUTROPHILS # (AUTO) 1.8 x10^3/uL (2.2-4.8); NEUTROPHILS % (AUTO) 54.7 % (42.0-75.0); PLATELET COUNT 84 X10^3/uL (150.0-450.0); RED BLOOD COUNT 4.72 X10^6/uL (3.5-5.4); RED CELL DISTRIBUTION WIDTH 20.3 % (11.6-16.5); WHITE BLOOD COUNT 3.3 X10^3/uL (3.6-10.0)
[2020-06-14 07:10] LABS: ALANINE AMINOTRANSFERASE 9 Units/L (12-78); ALBUMIN 2.8 g/dL (3.4-5.0); ALKALINE PHOSPHATASE 118 Units/L (46-116); ASPARTATE AMINO TRANSFERASE 22 Units/L (15-37); BLOOD UREA NITROGEN 19 mg/dL (7-18); CALCIUM 8.6 mg/dL (8.5-10.1); CARBON DIOXIDE 33.3 mmol/L (21-32); CHLORIDE 110 mmol/L (98-107); CKMB % 3.5 % (<4); COR CA(FOR HYPOALB) 9.6 mg/dL (8.5-10.1); CREATINE KINASE 37 Units/L (26-192); CREATINE KINASE MB 1.3 ng/mL (0-4.0); MAGNESIUM 1.8 mg/dL (1.7-2.9); SODIUM 149 mmol/L (136-145); TOTAL PROTEIN 6.6 g/dL (6.4-8.2); TROPONIN I 0.09 ng/mL (0-1.5); eGFR NON BLACK RACES 51 (>60)
--- NOTE | 2020-06-14 07:22 | RAD ---
HISTORY:Pneumonia, COVID-19Study: Single view chestComparison:YesterdayFINDINGS/IMPRESSION:Single portable view is submitted. Hazy bibasilar opacit ies may represent infiltrate or layering effusions. Stable cardiomegaly. Stable pacemaker. No pneumot horax identified.Electronically signed by: KALINA KIRBY (Jun 14, 2020 07:21:19)
[2020-06-14 08:04] LABS: ANISOCYTOSIS 1+; BAND NEUTROPHILS % 2 % (0-10); PLATELET MORPHOLOGY COMMENT NORMAL (NORMAL); TARGET CELLS PRESENT
[2020-06-14] MEDS ORDERED: REMDESIVIR 200 MG in NS 250 ML IV 250 ML IV ONE (09:27)
[2020-06-14] MEDS: COREG TAB 25 MG PO SCH ×2 (10:00→21:40)
[2020-06-14] MEDS ORDERED: NS 250 ML IV 250 ML IV ONE (10:36)
[2020-06-14] MEDS ORDERED: REMDESIVIR IV ONE (10:36)
[2020-06-14 11:56] LABS: CKMB % 2.3 % (<4); TROPONIN I 0.07 ng/mL (0-1.5)
[2020-06-14] MEDS: DUONEB 0.5 MG/3 MG (3 mL) NEB SCH ×2 (20:31→23:36)
[2020-06-14] MEDS: ROCEPHIN 1 GRAM IV PREMIX 1 G/50 ML IV.SOLN. IV SCH (21:40)
[2020-06-15] MEDS: NS 1000 ML 1,000 ML IV SCH (04:51)
[2020-06-15] MEDS: DUONEB 0.5 MG/3 MG (3 mL) NEB SCH ×4 (05:45→21:40)
[2020-06-15 06:11] LABS: HEMATOCRIT 40.8 % (36.0-47.0); HEMOGLOBIN 12.9 g/dL (12.0-16.0); LYMPHOCYTES # (AUTO) 0.8 X10^3/uL (1.3-2.9); LYMPHOCYTES % (AUTO) 21.7 % (21.0-51.0); MEAN CORPUSCULAR HEMOGLOBIN 29.3 pg (27.0-34.0); MEAN CORPUSCULAR HGB CONC 31.6 g/dL (33.0-35.0); MEAN CORPUSCULAR VOLUME 92.5 fL (80.0-100.0); MEAN PLATELET VOLUME 9.4 fL (7.4-11.0); MONOCYTES # (AUTO) 0.8 x10^3/uL (0.3-0.8); MONOCYTES % (AUTO) 23.1 % (0.0-13.0); NEUTROPHILS # (AUTO) 1.9 x10^3/uL (2.2-4.8); NEUTROPHILS % (AUTO) 53.2 % (42.0-75.0); PLATELET COUNT 75 X10^3/uL (150.0-450.0); RED BLOOD COUNT 4.42 X10^6/uL (3.5-5.4); RED CELL DISTRIBUTION WIDTH 19.9 % (11.6-16.5); WHITE BLOOD COUNT 3.6 X10^3/uL (3.6-10.0)
[2020-06-15 06:18] LABS: ABG ALLEN TEST POSS; ABG BASE EXCESS 4.7 mmol/L (-2.0-2.0); ABG HCO3 29.2 mmol/L (22-26)
[2020-06-15 06:24] LABS: ALANINE AMINOTRANSFERASE 7 Units/L (12-78); ALBUMIN 2.3 g/dL (3.4-5.0); ALKALINE PHOSPHATASE 116 Units/L (46-116); ASPARTATE AMINO TRANSFERASE 19 Units/L (15-37); BLOOD UREA NITROGEN 20 mg/dL (7-18); CARBON DIOXIDE 29.9 mmol/L (21-32); CHLORIDE 110 mmol/L (98-107); COR CA(FOR HYPOALB) 9.4 mg/dL (8.5-10.1); COR NA(FOR HYPERGLY) 146 mmol/L (136-145); CREATININE 1.02 mg/dL (0.55-1.02); SODIUM 146 mmol/L (136-145); TOTAL PROTEIN 5.8 g/dL (6.4-8.2); eGFR NON BLACK RACES 55 (>60)
[2020-06-15 06:44] LABS: BAND NEUTROPHILS % 4 % (0-10); PLATELET MORPHOLOGY COMMENT NORMAL (NORMAL); TARGET CELLS PRESENT
--- NOTE | 2020-06-15 07:04 | RAD ---
HISTORYcovidSTUDYPortable AP [id number]/16/2021FINDINGSThere is no change in appearance of heart, lungs or mediastinum. Cardiomegaly with pacemaker. Diffuse interstitial and airspace densities as before. No new areas of consolidation, pneumothorax or developing pleural effusion.IMPRESSIONNo change since 06/14/2020.Electronically signed by: AYUSH MERCADO (Jun 15, 2020 07:03:14)
[2020-06-15] MEDS: REMDESIVIR 100 MG in NS 250 ML IV 250 ML IV SCH (09:30)
[2020-06-15] MEDS ORDERED: PEPCID TAB 40 MG PO PRN (10:12)
--- NOTE | 2020-06-15 10:17 | DR.H&P ---
H&P - History & Physical for Day of: H&P Date: 06/14/20 - Chief Complaint Chief Complaint: SOB, CHEST TIGHTNESS - History of Present Illness History of Present Illness: PT IS 80 WF ER ADMISSION WITH COVID 19+ UPPER RESPIRATORY SYMPTOMS INCLUDING CHEST TIGHTNESS AND SOB. PT CXR WITHOUT FOCAL PNEUMONIA. PT HAS PMH OF CAD, COPD, HTN, OA. PT ADMITTED FOR TREATMENT OF ACUTE ILLNESS. PT IS UNABLE TO CARE FOR HERSELF AT HOME, FAMILY REQUESTING TO HAVE PT PLACED IN [facility] - Past Medical History Past Medical History: Hypertension, COPD, Asthma, CHF Additional Medical History: Atrial fibrillation - Past Surgical History Surgical History: Cholecystectomy, Other Additional Surgical History: Pacemaker placement - Family History Family Medical History: Hypertension - Social History Does patient currently use any type of tobacco product: No Have you used tobacco products in the last 12 months: No Type of Tobacco Use: None Does any household member use tobacco: No Alcohol Use: None Drug Use: None - Medications Home Medications: codeine Allergy (Verified 04/22/20 14:09) latex Allergy (Verified 04/22/20 14:09) milk Allergy (Verified 04/22/20 14:09) CONTINUE taking the following medications rivaroxaban [Xarelto] 20 mg PO DAILY 06/15/20 [History] New Prescriptions cefdinir 300 mg PO BID #20 cap 06/13/20 [Rx] - Review of Systems Constitutional: Weakness Eyes: No Symptoms Reported ENT: No Symptoms Reported Respiratory: Shortness of Breath, SOB with Excertion, Wheezing Cardiovascular: Palpitations Gastrointestinal: Nausea Genitourinary: No Symptoms Reported Musculoskeletal: No Symptoms Reported Skin: No Symptoms Reported Neurological: Weakness - Physical Exam Vital Signs: Temperature 98.4 F Pulse Rate [Right Radial] 70 Pulse Rate 70 Respiratory Rate 22 Blood Pressure [Right Calf] 159/93 Blood Pressure [Left Arm] 179/98 Blood Pressure [Right Arm] 161/98 Blood Pressure 177/109 O2 Sat by Pulse Oximetry 97 Oriented: Normal Eyes: Normal Ear: Normal Nose: Normal Throat: Normal Respiratory: Wheezes Throughout, RLL Diminished, LLL Diminished Cardiovascular: Normal : Normal Auscultation: Bowel Sounds: Normal Palpation: Normal Tenderness: Normal Skin: Decreased Turgur Musculoskeletal: Back:Thoracic, Back:Lumbar Psychiatric: Anxiety Affect: Anxious Speech Pattern: Clear, Appropriate - Assessment/Plan (1) COPD (chronic obstructive pulmonary disease) Qualifiers: COPD type: COPD with acute exacerbation Qualified Code(s): J44.1 - Chronic obstructive pulmonary disease with (acute) exacerbation Status: Chronic Plan: ADMIT, IV ATBX, IV SOLU MEDROL. RESP THERAPY, CE, EKG. CHEST XRAY AND ABG ON ADMISSION, SUPPLEMENTAL O2. IV HYDRATION, STRICT I&OS, VERIFY HOME MEDICATION. ISOLATION PRECAUTIONS, RESUME XARELTO, CONSULT CASE MANAGEMENT FOR NH PLACEMENT. IV REMDESIVIR, CONVALESCENT PLASMA (2) CHF (congestive heart failure) Qualifiers: Heart failure type: combined systolic and diastolic Heart failure chronicity: acute on chronic Qualified Code(s): I50.43 - Acute on chronic combined systolic (congestive) and diastolic (congestive) heart failure Status: Acute (3) Weakness generalized Status: Acute (4) SOB (shortness of breath) Status: Acute (5) COVID-19 virus infection Status: Acute (6) Hypertension Qualifiers: Hypertension type: essential hypertension Qualified Code(s): I10 - Essential (primary) hypertension Status: Chronic - Allergies Allergies/Adverse Reactions: Allergies Allergy/AdvReac Type Severity Reaction Status Date / Time codeine Allergy Verified 04/22/20 14:09 latex Allergy Verified 04/22/20 14:09 milk Allergy Verified 04/22/20 14:09
[2020-06-15] MEDS: ZITHROMAX INJ 500 MG VIAL 250 MG in NS 250 ML IV 250 ML IV SCH (11:26)
[2020-06-15] MEDS: COREG TAB 25 MG PO SCH ×2 (11:26→21:00)
[2020-06-15] MEDS ORDERED: SOLU-Medrol 125 MG VIAL ONE (11:35)
[2020-06-15 12:35] LABS: ABG HCO3 32.2 mmol/L (22-26)
[2020-06-15] MEDS: SOLU-Medrol 125 MG VIAL IVP SCH ×2 (14:19→21:00)
[2020-06-15] MEDS: ROCEPHIN 1 GRAM IV PREMIX 1 G/50 ML IV.SOLN. IV SCH (21:00)
[2020-06-16 04:40] LABS: ABG ALLEN TEST POS; ABG BASE EXCESS 3.7 mmol/L (-2.0-2.0); ABG HCO3 28.5 mmol/L (22-26)
[2020-06-16] MEDS: SOLU-Medrol 125 MG VIAL IVP SCH ×3 (06:19→21:28)
[2020-06-16 06:23] LABS: BASOPHILS % (AUTO) 0.4 % (0.2-1.0); HEMATOCRIT 41.5 % (36.0-47.0); HEMOGLOBIN 13.4 g/dL (12.0-16.0); LYMPHOCYTES # (AUTO) 0.5 X10^3/uL (1.3-2.9); LYMPHOCYTES % (AUTO) 24.5 % (21.0-51.0); MEAN CORPUSCULAR HEMOGLOBIN 29.6 pg (27.0-34.0); MEAN CORPUSCULAR HGB CONC 32.2 g/dL (33.0-35.0); MEAN CORPUSCULAR VOLUME 91.9 fL (80.0-100.0); MONOCYTES # (AUTO) 0.1 x10^3/uL (0.3-0.8); MONOCYTES % (AUTO) 5.4 % (0.0-13.0); NEUTROPHILS # (AUTO) 1.5 x10^3/uL (2.2-4.8); NEUTROPHILS % (AUTO) 69.7 % (42.0-75.0); PLATELET COUNT 75 X10^3/uL (150.0-450.0); RED BLOOD COUNT 4.52 X10^6/uL (3.5-5.4); RED CELL DISTRIBUTION WIDTH 20.1 % (11.6-16.5); WHITE BLOOD COUNT 2.2 X10^3/uL (3.6-10.0)
[2020-06-16 06:38] LABS: ALANINE AMINOTRANSFERASE 8 Units/L (12-78); ALBUMIN 2.3 g/dL (3.4-5.0); ALKALINE PHOSPHATASE 119 Units/L (46-116); ASPARTATE AMINO TRANSFERASE 24 Units/L (15-37); BLOOD UREA NITROGEN 22 mg/dL (7-18); CARBON DIOXIDE 26.7 mmol/L (21-32); CHLORIDE 107 mmol/L (98-107); COR CA(FOR HYPOALB) 9.4 mg/dL (8.5-10.1); COR NA(FOR HYPERGLY) 144 mmol/L (136-145); CREATININE 1.05 mg/dL (0.55-1.02); SODIUM 142 mmol/L (136-145); TOTAL PROTEIN 6.1 g/dL (6.4-8.2); eGFR NON BLACK RACES 53 (>60)
[2020-06-16] MEDS: NS 1000 ML 1,000 ML IV SCH ×3 (06:49→21:28)
[2020-06-16 07:50] LABS: BAND NEUTROPHILS % 2 % (0-10); PLATELET MORPHOLOGY COMMENT NORMAL (NORMAL)
[2020-06-16 07:51] LABS: TARGET CELLS FEW
[2020-06-16] MEDS: DUONEB 0.5 MG/3 MG (3 mL) NEB SCH ×4 (09:40→21:45)
[2020-06-16] MEDS: COREG TAB 25 MG PO SCH ×2 (09:50→20:13)
[2020-06-16] MEDS: XARELTO PO SCH (09:50)
[2020-06-16] MEDS: REMDESIVIR 100 MG in NS 250 ML IV 250 ML IV SCH (09:50)
[2020-06-16] MEDS: ZITHROMAX INJ 500 MG VIAL 250 MG in NS 250 ML IV 250 ML IV SCH (11:20)
--- NOTE | 2020-06-16 17:13 | VAS ---
HISTORYLT ARM SWELLINGSTUDYUPPER EXT VENOUS, UNILATERALCOMPARISONNoneTECHNIQUEMultiple calzada scale and color flow Doppler images of the deep venous system were obtained of the left upper extremity.FINDINGSThe deep venous system of the r left upper extremity was evaluated from the level of the internal jugular through the radial and ulnar veins. No rmal color flow and augmentation can be observed. In addition, normal compression is seen throughout the deep venous system.IMPRESSIONNegative for DVT.Electronically signed by: AUBREY BROWN (May 17:11:20)
[2020-06-16] MEDS: ROCEPHIN 1 GRAM IV PREMIX 1 G/50 ML IV.SOLN. IV SCH (20:13)
[2020-06-17] MEDS: SOLU-Medrol 125 MG VIAL IVP SCH ×3 (05:52→21:00)
[2020-06-17] MEDS: NS 1000 ML 1,000 ML IV SCH ×2 (08:04→22:37)
[2020-06-17] MEDS: COREG TAB 25 MG PO SCH ×2 (08:12→21:00)
[2020-06-17] MEDS: XARELTO PO SCH (08:12)
[2020-06-17] MEDS: REMDESIVIR 100 MG in NS 250 ML IV 250 ML IV SCH (08:13)
[2020-06-17] MEDS: DUONEB 0.5 MG/3 MG (3 mL) NEB SCH ×4 (08:36→21:45)
[2020-06-17 09:39] LABS: BASOPHILS % (AUTO) 0.2 % (0.2-1.0); HEMATOCRIT 42.5 % (36.0-47.0); HEMOGLOBIN 13.8 g/dL (12.0-16.0); LYMPHOCYTES # (AUTO) 0.5 X10^3/uL (1.3-2.9); LYMPHOCYTES % (AUTO) 7.9 % (21.0-51.0); MEAN CORPUSCULAR HEMOGLOBIN 29.6 pg (27.0-34.0); MEAN CORPUSCULAR HGB CONC 32.4 g/dL (33.0-35.0); MEAN CORPUSCULAR VOLUME 91.6 fL (80.0-100.0); MEAN PLATELET VOLUME 9.9 fL (7.4-11.0); MONOCYTES # (AUTO) 0.3 x10^3/uL (0.3-0.8); MONOCYTES % (AUTO) 4.8 % (0.0-13.0); NEUTROPHILS # (AUTO) 5.9 x10^3/uL (2.2-4.8); NEUTROPHILS % (AUTO) 87.1 % (42.0-75.0); PLATELET COUNT 83 X10^3/uL (150.0-450.0); RED BLOOD COUNT 4.64 X10^6/uL (3.5-5.4); RED CELL DISTRIBUTION WIDTH 20.8 % (11.6-16.5); WHITE BLOOD COUNT 6.8 X10^3/uL (3.6-10.0)
[2020-06-17] MEDS: ZITHROMAX INJ 500 MG VIAL 250 MG in NS 250 ML IV 250 ML IV SCH (09:45)
[2020-06-17 09:58] LABS: ALANINE AMINOTRANSFERASE < 6 Units/L (12-78); ALBUMIN 2.4 g/dL (3.4-5.0); ALKALINE PHOSPHATASE 111 Units/L (46-116); ASPARTATE AMINO TRANSFERASE 20 Units/L (15-37); BLOOD UREA NITROGEN 24 mg/dL (7-18); CALCIUM 7.9 mg/dL (8.5-10.1); CARBON DIOXIDE 25.4 mmol/L (21-32); CHLORIDE 107 mmol/L (98-107); COR CA(FOR HYPOALB) 9.2 mg/dL (8.5-10.1); COR NA(FOR HYPERGLY) 144 mmol/L (136-145); CREATININE 0.95 mg/dL (0.55-1.02); SODIUM 142 mmol/L (136-145); TOTAL PROTEIN 6.1 g/dL (6.4-8.2); eGFR NON BLACK RACES 60 (>60)
[2020-06-17 10:07] LABS: ANISOCYTOSIS 1+; PLATELET MORPHOLOGY COMMENT NORMAL (NORMAL); TARGET CELLS PRESENT
--- NOTE | 2020-06-17 10:07 | RAD ---
HISTORYPNEUMONIASTUDYCHEST, 1 [id number]/17/2021FINDINGSThere is airspace opacity in the left lower lung retrocardiac space. This could be atelectasis or pneumonia and is unchanged from the prior study.I suspect that the apparent abnormality in the right lung base is due to overlying soft tissues.Upper lungs clear. No significant pleural effusion or pneumothorax.Heart size probably large. Vascular calcifications are present compatible with atherosclerosis.Bones are unremarkable.Left subclavian ICD is present with leads in expected location.IMPRESSION1. Unchanged left basilar atelectasis or pneumonia2. Stable cardiomegalyElectronically signed by: Lew Biggs (Jun 17, 2020 10:05:04)
--- NOTE | 2020-06-17 10:49 | US ---
HISTORYLEFT BREAST EDEMASTUDYComplete left breast ultrasoundCOMPARISONNoneTECHNIQUEMultiple calzada scale images of the left breast were obtained in all 4 quadrants including the retroareolar and axillary regions..FINDINGSDiffuse subcutaneous edema is obs erved without underlying mass or cystic lesion to suggest malignancy.IMPRESSIONGeneralized subcutaneo us edema without sonographic evidence for malignancy.ACR CATEGORY: 2- benignContinued evaluation with screening mammogram when clinically feasible and recover from COVID-19Electronically signed by: CHRISTY GRACIA (Jun 17, 2020 10:48:00)
[2020-06-17] MEDS: ROCEPHIN 1 GRAM IV PREMIX 1 G/50 ML IV.SOLN. IV SCH (19:54)
[2020-06-18 04:15] LABS: ABG ALLEN TEST POSS; ABG BASE EXCESS 4.7 mmol/L (-2.0-2.0); ABG HCO3 29.2 mmol/L (22-26)
[2020-06-18] MEDS: SOLU-Medrol 125 MG VIAL IVP SCH ×3 (05:48→21:09)
--- NOTE | 2020-06-18 06:35 | RAD ---
HISTORYCOVID+; F/USTUDYCHEST, 1 VIEWCOMPARISONOne day prior.TECHNIQUEAP view of the chestFINDINGSThe cardiac silhouette is stably enlarged. Mediastinal contours appear stable. Three lead left chest wall pacemaker in situ. No significant change in bibasilar patchy lung opacities worse on the left. There is blunting of the costophrenic sulci. No pneumothorax.IMPRESSIONNo significant change in cardiomegaly with bibasilar opacities that may represent atelectasis or pneumonia. Blunted costophrenic sulci can be seen with small pleural effusions or pleural scarring.Electronically signed by: Kayden Hamilton (Jun 18, 2020 06:33:47)
[2020-06-18 07:03] LABS: BASOPHILS % (AUTO) 0.1 % (0.2-1.0); HEMOGLOBIN 14.2 g/dL (12.0-16.0); LYMPHOCYTES # (AUTO) 0.4 X10^3/uL (1.3-2.9); LYMPHOCYTES % (AUTO) 5.6 % (21.0-51.0); MEAN CORPUSCULAR HEMOGLOBIN 28.9 pg (27.0-34.0); MEAN CORPUSCULAR HGB CONC 31.4 g/dL (33.0-35.0); MEAN CORPUSCULAR VOLUME 91.9 fL (80.0-100.0); MEAN PLATELET VOLUME 9.8 fL (7.4-11.0); MONOCYTES # (AUTO) 0.2 x10^3/uL (0.3-0.8); MONOCYTES % (AUTO) 3.1 % (0.0-13.0); NEUTROPHILS # (AUTO) 5.9 x10^3/uL (2.2-4.8); NEUTROPHILS % (AUTO) 91.2 % (42.0-75.0); PLATELET COUNT 78 X10^3/uL (150.0-450.0); RED CELL DISTRIBUTION WIDTH 20.2 % (11.6-16.5); WHITE BLOOD COUNT 6.5 X10^3/uL (3.6-10.0)
[2020-06-18 07:10] LABS: BLOOD UREA NITROGEN 24 mg/dL (7-18); CALCIUM 7.9 mg/dL (8.5-10.1); CARBON DIOXIDE 26.1 mmol/L (21-32); CHLORIDE 106 mmol/L (98-107); COR NA(FOR HYPERGLY) 143 mmol/L (136-145); CREATININE 0.81 mg/dL (0.55-1.02); SODIUM 141 mmol/L (136-145); eGFR NON BLACK RACES > 60 (>60)
[2020-06-18 07:30] LABS: BAND NEUTROPHILS % 7 % (0-10)
[2020-06-18 07:31] LABS: ANISOCYTOSIS 1+; PLATELET MORPHOLOGY COMMENT NORMAL (NORMAL); TARGET CELLS OCC.
[2020-06-18] MEDS: REMDESIVIR 100 MG in NS 250 ML IV 250 ML IV SCH (08:01)
[2020-06-18] MEDS: COREG TAB 25 MG PO SCH ×2 (08:01→20:46)
[2020-06-18] MEDS: XARELTO PO SCH (08:02)
[2020-06-18] MEDS: ZITHROMAX INJ 500 MG VIAL 250 MG in NS 250 ML IV 250 ML IV SCH (08:58)
[2020-06-18] MEDS: DUONEB 0.5 MG/3 MG (3 mL) NEB SCH ×4 (09:20→21:45)
[2020-06-18] MEDS: NS 1000 ML 1,000 ML IV SCH (10:23)
[2020-06-18] MEDS ORDERED: MICRO K EXTEN CAP 10 MEQ PO PRN (13:24)
[2020-06-18] MEDS ORDERED: KLOR-CON PO PRN (13:24)
[2020-06-18] MEDS ORDERED: POTASSIUM CHL 40 MEQ/NS 0.45% 500 ML IV PRN (13:24)
[2020-06-18] MEDS ORDERED: K-DUR TAB 20 MEQ PO PRN (13:24)
[2020-06-18] MEDS ORDERED: POTASSIUM CHLORIDE LIQ 20 MEQ UDC PO PRN (13:24)
[2020-06-18] MEDS: MAGNESIUM SULFATE 1 GRAM/100 mL PREMIX 1 GM/100 ML BAG IV PRN ×2 (13:41→14:47)
[2020-06-18] MEDS: ROCEPHIN 1 GRAM IV PREMIX 1 G/50 ML IV.SOLN. IV SCH (20:46)
[2020-06-19] MEDS: SOLU-Medrol 125 MG VIAL IVP SCH ×3 (05:55→21:34)
[2020-06-19 06:30] LABS: BASOPHILS % (AUTO) 0.1 % (0.2-1.0); HEMATOCRIT 44.2 % (36.0-47.0); HEMOGLOBIN 14.1 g/dL (12.0-16.0); LYMPHOCYTES # (AUTO) 0.4 X10^3/uL (1.3-2.9); LYMPHOCYTES % (AUTO) 6.5 % (21.0-51.0); MEAN CORPUSCULAR HEMOGLOBIN 29.3 pg (27.0-34.0); MEAN CORPUSCULAR VOLUME 91.6 fL (80.0-100.0); MEAN PLATELET VOLUME 9.6 fL (7.4-11.0); MONOCYTES # (AUTO) 0.2 x10^3/uL (0.3-0.8); MONOCYTES % (AUTO) 2.9 % (0.0-13.0); NEUTROPHILS # (AUTO) 4.9 x10^3/uL (2.2-4.8); NEUTROPHILS % (AUTO) 90.5 % (42.0-75.0); PLATELET COUNT 65 X10^3/uL (150.0-450.0); RED BLOOD COUNT 4.82 X10^6/uL (3.5-5.4); RED CELL DISTRIBUTION WIDTH 20.4 % (11.6-16.5); WHITE BLOOD COUNT 5.4 X10^3/uL (3.6-10.0)
[2020-06-19 06:36] LABS: BLOOD UREA NITROGEN 26 mg/dL (7-18); CARBON DIOXIDE 26.8 mmol/L (21-32); CHLORIDE 108 mmol/L (98-107); COR NA(FOR HYPERGLY) 146 mmol/L (136-145); SODIUM 144 mmol/L (136-145); eGFR NON BLACK RACES 56 (>60)
[2020-06-19 07:14] LABS: ANISOCYTOSIS 1+; BAND NEUTROPHILS % 5 % (0-10); PLATELET MORPHOLOGY COMMENT NORMAL (NORMAL)
[2020-06-19] MEDS: ZITHROMAX INJ 500 MG VIAL 250 MG in NS 250 ML IV 250 ML IV SCH (09:29)
[2020-06-19] MEDS: COREG TAB 25 MG PO SCH ×2 (09:30→21:34)
[2020-06-19] MEDS: XARELTO PO SCH (09:33)
[2020-06-19] MEDS: DUONEB 0.5 MG/3 MG (3 mL) NEB SCH ×4 (09:47→20:30)
[2020-06-19] MEDS: NS 1000 ML 1,000 ML IV SCH ×2 (09:56→18:10)
[2020-06-19] MEDS: COZAAR PO SCH (16:18)
[2020-06-19] MEDS: ROCEPHIN 1 GRAM IV PREMIX 1 G/50 ML IV.SOLN. IV SCH (21:00)
[2020-06-20] MEDS: VISTARIL PO PRN
[2020-06-20] MEDS: NS 1000 ML 1,000 ML IV SCH (02:25)
[2020-06-20] MEDS ORDERED: APRESOLINE INJ 20 MG VIAL IVP ONE (03:21)
[2020-06-20] MEDS: SOLU-Medrol 125 MG VIAL IVP SCH ×2 (06:17→21:05)
[2020-06-20 06:54] LABS: ALANINE AMINOTRANSFERASE 13 Units/L (12-78); ALBUMIN 2.5 g/dL (3.4-5.0); ALKALINE PHOSPHATASE 112 Units/L (46-116); ASPARTATE AMINO TRANSFERASE 17 Units/L (15-37); BLOOD UREA NITROGEN 28 mg/dL (7-18); CARBON DIOXIDE 27.7 mmol/L (21-32); CHLORIDE 108 mmol/L (98-107); COR CA(FOR HYPOALB) 9.2 mg/dL (8.5-10.1); COR NA(FOR HYPERGLY) 146 mmol/L (136-145); CREATININE 0.96 mg/dL (0.55-1.02); SODIUM 143 mmol/L (136-145); TOTAL PROTEIN 6.2 g/dL (6.4-8.2); eGFR NON BLACK RACES 59 (>60)
[2020-06-20 06:58] LABS: BASOPHILS % (AUTO) 0.1 % (0.2-1.0); HEMATOCRIT 43.4 % (36.0-47.0); LYMPHOCYTES # (AUTO) 0.2 X10^3/uL (1.3-2.9); LYMPHOCYTES % (AUTO) 4.7 % (21.0-51.0); MEAN CORPUSCULAR HEMOGLOBIN 29.3 pg (27.0-34.0); MEAN CORPUSCULAR HGB CONC 32.3 g/dL (33.0-35.0); MEAN CORPUSCULAR VOLUME 90.7 fL (80.0-100.0); MEAN PLATELET VOLUME 9.7 fL (7.4-11.0); MONOCYTES # (AUTO) 0.1 x10^3/uL (0.3-0.8); MONOCYTES % (AUTO) 3.3 % (0.0-13.0); NEUTROPHILS # (AUTO) 4.1 x10^3/uL (2.2-4.8); NEUTROPHILS % (AUTO) 91.9 % (42.0-75.0); PLATELET COUNT 61 X10^3/uL (150.0-450.0); RED BLOOD COUNT 4.79 X10^6/uL (3.5-5.4); RED CELL DISTRIBUTION WIDTH 20.3 % (11.6-16.5); WHITE BLOOD COUNT 4.4 X10^3/uL (3.6-10.0)
[2020-06-20 08:13] LABS: BAND NEUTROPHILS % 4 % (0-10)
[2020-06-20 08:14] LABS: PLATELET MORPHOLOGY COMMENT NORMAL (NORMAL)
[2020-06-20 08:15] LABS: ANISOCYTOSIS 1+
[2020-06-20] MEDS: DUONEB 0.5 MG/3 MG (3 mL) NEB SCH ×4 (09:28→21:00)
[2020-06-20] MEDS: COREG TAB 25 MG PO SCH ×2 (09:39→20:46)
[2020-06-20] MEDS: XARELTO PO SCH (09:39)
[2020-06-20] MEDS: ZITHROMAX INJ 500 MG VIAL 250 MG in NS 250 ML IV 250 ML IV SCH (09:39)
[2020-06-20] MEDS: COZAAR PO SCH (09:39)
--- NOTE | 2020-06-20 10:21 | RAD ---
HISTORYCOVID, COPD, PNEUMONIASTUDYCHEST, 1 [id number]/20/2021FINDINGSThe trachea is midline. There is lciyrmcr-nw-vzkfez cardiomegaly. There is a left-sided pacemaker with two ventricular leads, one atrial lead and a venous coronary sinus wire unchanged since prior. There is again seen some ground-glass radiopacities in the bases unchanged since prior as well as in the right midlung zone. There is no evidence of effusion or pneumothorax.IMPRESSIONNo interval change. Haziness with ground-glass radiopacities in the bases.Electronically signed by: Nola Danielson (Jun 20, 2020 10:20:16)
[2020-06-20] MEDS: ROCEPHIN 1 GRAM IV PREMIX 1 G/50 ML IV.SOLN. IV SCH (20:46)
[2020-06-21] MEDS: VISTARIL PO PRN ×2 (03:39→22:30)
[2020-06-21] MEDS: NS 1000 ML 1,000 ML IV SCH (03:52)
[2020-06-21 04:55] LABS: ABG BASE EXCESS 7.8 mmol/L (-2.0-2.0)
[2020-06-21 04:56] LABS: ABG HCO3 32.7 mmol/L (22-26)
[2020-06-21 04:57] LABS: ABG ALLEN TEST POS
[2020-06-21] MEDS: SOLU-Medrol 125 MG VIAL IVP SCH ×3 (05:47→22:30)
[2020-06-21 06:32] LABS: ALANINE AMINOTRANSFERASE 14 Units/L (12-78); ALBUMIN 2.4 g/dL (3.4-5.0); ALKALINE PHOSPHATASE 98 Units/L (46-116); ASPARTATE AMINO TRANSFERASE 19 Units/L (15-37); BLOOD UREA NITROGEN 28 mg/dL (7-18); CALCIUM 8.1 mg/dL (8.5-10.1); CARBON DIOXIDE 32.1 mmol/L (21-32); CHLORIDE 108 mmol/L (98-107); COR CA(FOR HYPOALB) 9.4 mg/dL (8.5-10.1); COR NA(FOR HYPERGLY) 148 mmol/L (136-145); CREATININE 0.88 mg/dL (0.55-1.02); SODIUM 145 mmol/L (136-145); TOTAL PROTEIN 5.8 g/dL (6.4-8.2); eGFR NON BLACK RACES > 60 (>60)
[2020-06-21 07:01] LABS: BASOPHILS % (AUTO) 0.2 % (0.2-1.0); HEMATOCRIT 44.2 % (36.0-47.0); LYMPHOCYTES # (AUTO) 0.2 X10^3/uL (1.3-2.9); LYMPHOCYTES % (AUTO) 4.6 % (21.0-51.0); MEAN CORPUSCULAR HEMOGLOBIN 28.7 pg (27.0-34.0); MEAN CORPUSCULAR HGB CONC 31.6 g/dL (33.0-35.0); MEAN CORPUSCULAR VOLUME 90.9 fL (80.0-100.0); MEAN PLATELET VOLUME 9.2 fL (7.4-11.0); MONOCYTES # (AUTO) 0.2 x10^3/uL (0.3-0.8); MONOCYTES % (AUTO) 3.7 % (0.0-13.0); NEUTROPHILS # (AUTO) 3.9 x10^3/uL (2.2-4.8); NEUTROPHILS % (AUTO) 91.5 % (42.0-75.0); PLATELET COUNT 67 X10^3/uL (150.0-450.0); RED BLOOD COUNT 4.86 X10^6/uL (3.5-5.4); RED CELL DISTRIBUTION WIDTH 20.2 % (11.6-16.5); WHITE BLOOD COUNT 4.2 X10^3/uL (3.6-10.0)
--- NOTE | 2020-06-21 07:19 | RAD ---
HISTORYcovidSTUDYAP [id number]/22/2021FINDINGSStable cardiomegaly and pacemaker position. There is interval increase in diffuse airspace process in the lung bases, now obscuring the diaphragm surfaces. The upper lobes remain relatively clear.IMPRESSIONPersistent cardiomegaly. Increasing bibasal airspace disease consistent with progression of pneumonia.Electronically signed by: AYUSH MERCADO (Jun 21, 2020 07:17:26)
[2020-06-21 09:03] LABS: BASOPHILS % (MANUAL) 1 % (0-1); PLATELET MORPHOLOGY COMMENT NORMAL (NORMAL)
[2020-06-21 09:04] LABS: ANISOCYTOSIS 1+
[2020-06-21] MEDS: ZITHROMAX INJ 500 MG VIAL 250 MG in NS 250 ML IV 250 ML IV SCH (09:44)
[2020-06-21] MEDS: XARELTO PO SCH (09:44)
[2020-06-21] MEDS: COZAAR PO SCH ×3 (09:44→16:35)
[2020-06-21] MEDS: COREG TAB 25 MG PO SCH ×4 (09:44→22:30)
[2020-06-21] MEDS: DUONEB 0.5 MG/3 MG (3 mL) NEB SCH ×4 (09:50→20:55)
[2020-06-21] MEDS ORDERED: LASIX IVP ONE ×2 (11:03→11:42)
[2020-06-21 12:42] LABS: APPEARANCE,URINE HAZY (CLEAR); BILIRUBIN,URINE NEGATIVE (NEGATIVE); BLOOD/HEMOGLOBIN,URINE 1+ (NEGATIVE); COLOR,URINE YELLOW (YELLOW); GLUCOSE, URINE 1+ (NEGATIVE); KETONES,URINE NEGATIVE (NEGATIVE); LEUKOCYTE ESTERASE ,URINE NEGATIVE (NEGATIVE); NITRITES,URINE NEGATIVE (NEGATIVE); PROTEIN,URINE 2+ (NEGATIVE); UROBILINOGEN,URINE NORMAL (NORMAL)
[2020-06-21 12:46] LABS: AMORPHOUS SEDIMENT,UR TRACE /HPF (NEGATIVE); BACTERIA,URINE TRACE /HPF (NEGATIVE); SQUAMOUS EPITHELIAL CELL,UR RARE /HPF (NEGATIVE)
[2020-06-21 12:47] LABS: MUCUS,URINE FEW /HPF (NEGATIVE)
[2020-06-21] MEDS: ROCEPHIN 1 GRAM IV PREMIX 1 G/50 ML IV.SOLN. IV SCH (22:30)
[2020-06-22 06:28] LABS: BASOPHILS % (AUTO) 0.1 % (0.2-1.0); HEMATOCRIT 44.7 % (36.0-47.0); HEMOGLOBIN 14.4 g/dL (12.0-16.0); LYMPHOCYTES # (AUTO) 0.2 X10^3/uL (1.3-2.9); LYMPHOCYTES % (AUTO) 3.3 % (21.0-51.0); MEAN CORPUSCULAR HGB CONC 32.3 g/dL (33.0-35.0); MEAN CORPUSCULAR VOLUME 89.9 fL (80.0-100.0); MONOCYTES # (AUTO) 0.2 x10^3/uL (0.3-0.8); MONOCYTES % (AUTO) 3.9 % (0.0-13.0); NEUTROPHILS # (AUTO) 4.4 x10^3/uL (2.2-4.8); NEUTROPHILS % (AUTO) 92.7 % (42.0-75.0); PLATELET COUNT 69 X10^3/uL (150.0-450.0); RED BLOOD COUNT 4.97 X10^6/uL (3.5-5.4); RED CELL DISTRIBUTION WIDTH 20.6 % (11.6-16.5); WHITE BLOOD COUNT 4.7 X10^3/uL (3.6-10.0)
[2020-06-22 06:48] LABS: ALANINE AMINOTRANSFERASE 19 Units/L (12-78); ALBUMIN 2.4 g/dL (3.4-5.0); ALKALINE PHOSPHATASE 103 Units/L (46-116); ASPARTATE AMINO TRANSFERASE 23 Units/L (15-37); BLOOD UREA NITROGEN 26 mg/dL (7-18); CARBON DIOXIDE 32.7 mmol/L (21-32); CHLORIDE 106 mmol/L (98-107); COR CA(FOR HYPOALB) 9.3 mg/dL (8.5-10.1); COR NA(FOR HYPERGLY) 147 mmol/L (136-145); CREATININE 0.88 mg/dL (0.55-1.02); SODIUM 144 mmol/L (136-145); TOTAL PROTEIN 5.9 g/dL (6.4-8.2); eGFR NON BLACK RACES > 60 (>60)
--- NOTE | 2020-06-22 07:07 | RAD ---
HISTORYSOBSTUDYPortable AP [id number]/23/2021FINDINGS. Similar cardiomegaly and stable position of pacemaker. Persistent airspace disease at left base. Improved aeration of right lower lobe. No new abnormality demonstrated.IMPRESSION. Persistent cardiomegaly and pneumonia, similar in the left lower lobe and improving at the right base.Electronically signed by: AYUSH MERCADO (Jun 22, 2020 07:05:11)
[2020-06-22 07:52] LABS: BASOPHILS % (MANUAL) 2 % (0-1)
[2020-06-22 07:53] LABS: ANISOCYTOSIS 1+; PLATELET MORPHOLOGY COMMENT NORMAL (NORMAL)
[2020-06-22] MEDS: DUONEB 0.5 MG/3 MG (3 mL) NEB SCH ×4 (08:30→20:25)
[2020-06-22] MEDS: COREG TAB 25 MG PO SCH ×2 (09:15→20:09)
[2020-06-22] MEDS: COZAAR PO SCH (09:15)
[2020-06-22] MEDS: ZITHROMAX INJ 500 MG VIAL 250 MG in NS 250 ML IV 250 ML IV SCH (09:15)
[2020-06-22] MEDS: XARELTO PO SCH (09:16)
[2020-06-22] MEDS: POTASSIUM CHL 60 MEQ/NS 0.45% 500 ML IV PRN (10:57)
[2020-06-22] MEDS: SOLU-Medrol 125 MG VIAL IVP SCH ×2 (16:02→21:23)
[2020-06-22] MEDS: LASIX IVP SCH (16:23)
[2020-06-22] MEDS: ROCEPHIN 1 GRAM IV PREMIX 1 G/50 ML IV.SOLN. IV SCH (20:08)
[2020-06-22] MEDS: NS 1000 ML 1,000 ML IV SCH (20:08)
--- NOTE | 2020-06-22 20:40 | PCM.PROG ---
Progress Note - Progress Note for Day of Date of Exam: 06/21/20 - Subjective Subjective: IS BEING TREATED FOR PNEUMONIA DUE TO COVID-19, DEHYDRATION, UTI, AND AMS. TODAY, SHE CONTINUES WITH WEAKNESS AND ALTERED MENTAL STATUS. SHE DENIES OTHER COMPLAINTS. SHE IS CURRENTLY ON NASAL CANNULA WITH OXYGEN AT 2 LITERS/MIN. HER SATURATIONS HAVE BEEN 94-98% THIS MORNING AND THROU GHOUT THE NIGHT. STAFF REPORT THAT WHILE AMBULATING WITHOUT OXYGEN, HER SATURATIONS FALL TO THE 80s. ON EXAMINATION, HEART IS REGULAR IN RATE AND RHYTHM. BILATERAL LUNGS ARE NOTED WITH DIMINISHED LUNG SOUNDS THROUGHOUT. ABDOMEN IS ROUND, SOFT, AND NON-TENDER WITH NORMAL BOWEL SOUNDS NOTED IN ALL JOO DRANTS. SHE CONTINUES WITH LEFT UPPER EXTREMITY AND LEFT BREATH EDEMA. HER VITALS THIS MORNING ARE: 98.2-70-20-97%-178/93. LABS WERE OBTAINED. ABNORMAL LAB VALUES INCLUDE THE FOLLOWING: PLT COUNT 67, D-DIMER 1.33, CHLORIDE 108, BUN 28, GLUCOSE 208, CALCIUM 8.1, BNP 1650, TOTAL PROTEIN 5.8, ALBUMIN 2.4. ABG WAS OBTAINED AND REVEALED: PH 7.460, PC02 46, P02 101, HC03 32.7, 02 SAT 98, BASE EXCESS 7.8, A-A GRADIENT 41, FI02 28. A CHEST XRAY WAS OBTAINED AND REVEALED: Persistent cardiomegaly. Increasing bibasal airspace disease consistent with progression of pneumonia. SHE IS CURRENTLY RECEIVING IV FLUIDS AT [facility], AZITHROMYCIN 250MG IV DAILY, LASIX 40MG IV BID, VISTARIL 25-50MG PO Q8H PRN, DUONEBS QID, PEPCID 40MG PO BID PRN, COZAAR 25MG PO DAILY, XARELTO 20MG PO DAILY, SOLU-MEDROL 80MG IV Q8H, AND THE POTASSIUM AND MAGNESIUM PROTOCOLS. TODAY, WE WILL ADMINISTER LASIX 40MG IV X 1 DOSE. WE WILL CONTINUE TO DECREASE OXYGEN. OTHERWISE, WE PLAN TO FOLLOW UP WITH AM LABS, CHEST XRAY, ABG, AND CO NTINUE TO MONITOR. TIME SPENT ON CLINICAL ASSESSMENT, REVIEWING LABS AND IMAGING, DECISION MAKING, AND DOCUMENTATION GREATER THAN 75 MINUTES. - Past Medical Family Social History Past Med/Fam/Surg Hx: No changes since H&P Allergies: Allergies codeine Allergy (Verified 04/22/20 14:09) latex Allergy (Verified 04/22/20 14:09) milk Allergy (Verified 04/22/20 14:09) - Review of Systems ROS: No change since H&P - Vital Signs and I&O's Vital Signs: Temperature 98.2 F Pulse Rate [Left Brachial] 72 Pulse Rate [Right Radial] 71 Pulse Rate 68 Respiratory Rate 20 Blood Pressure [l arm] 160/98 Blood Pressure [left ankle] 156/97 Blood Pressure [Right Calf] 159/93 Blood Pressure [Left Arm] 170/101 Blood Pressure [Right Arm] 158/90 Blood Pressure 177/109 O2 Sat by Pulse Oximetry 97 Intake and Output: Intake & Output 06/20/20 06/21/20 06/22/20 06/23/20 11:59 11:59 11:59 11:59 Intake Total 2689 / 2689 644 / 644 1502 / 1502 660 / 660 Output Total 6525 / 6525 650 / 650 Balance 2689 / 2689 644 / 644 -5023 / -5023 - Physical Exam Oriented: Normal Eyes: Normal Ear: Normal Nose: Normal Throat: Normal Respiratory: Diminished Cardiovascular: Edema (left upper extremity and left breast edema) : Normal Auscultation: Bowel Sounds: Normal Palpation: Normal Tenderness: Normal Skin: Decreased Turgur Musculoskeletal: Back:Thoracic, Back:Lumbar Psychiatric: Anxiety Affect: Anxious Speech Pattern: Clear, Appropriate - Laboratory and Diagnostics Result Diagrams: 06/22/20 05:27 06/22/20 05:25 Labs: 06/13/20 20:05 Urine,Catheterized Urine Culture - Final Laboratory WBC 4.7 X10^3/uL (3.6-10.0) 06/22/20 05:27 RBC 4.97 X10^6/uL (3.5-5.4) 06/22/20 05:27 Hgb 14.4 g/dL (12.0-16.0) 06/22/20 05:27 Hct 44.7 % (36.0-47.0) 06/22/20 05:27 MCV 89.9 fL (80.0-100.0) 06/22/20 05:27 MCH 29.0 pg (27.0-34.0) 06/22/20 05:27 MCHC 32.3 g/dL (33.0-35.0) L 06/22/20 05:27 RDW 20.6 % (11.6-16.5) H 06/22/20 05:27 Plt Count 69 X10^3/uL (150.0-450.0) L 06/22/20 05:27 Plt Count Comment Decreased (ADEQUATE) A 06/22/20 05:27 MPV 9.0 fL (7.4-11.0) 06/22/20 05:27 Neut % (Auto) 92.7 % (42.0-75.0) H 06/22/20 05:27 Lymph % (Auto) 3.3 % (21.0-51.0) L 06/22/20 05:27 [place] % (Auto) 3.9 % (0.0-13.0) 06/22/20 05:27 Eos % (Auto) 0.0 % (0.9-2.9) L 06/22/20 05:27 Baso % (Auto) 0.1 % (0.2-1.0) L 06/22/20 05:27 Neut # (Auto) 4.4 x10^3/uL (2.2-4.8) 06/22/20 05:27 Lymph # (Auto) 0.2 X10^3/uL (1.3-2.9) L 06/22/20 05:27 [place] # (Auto) 0.2 x10^3/uL (0.3-0.8) L 06/22/20 05:27 Eos # (Auto) 0.0 x10^3/uL (0.0-0.2) 06/22/20 05:27 Baso # (Auto) 0.0 X10^3/uL (0.0-0.1) 06/22/20 05:27 Absolute Nucleated RBC 0.5 /100WBC 06/22/20 05:27 Total Counted 100 06/22/20 05:27 Neutrophils % (Manual) 93 % (39-76) H 06/22/20 05:27 Band Neutrophils % 4 % (0-10) 06/20/20 05:38 Lymphocytes % (Manual) 3 % (13-43) L 06/22/20 05:27 Monocytes % (Manual) 2 % (4-9) L 06/22/20 05:27 Eosinophils % (Manual) 4 % (0-6) 06/15/20 05:41 Basophils % (Manual) 2 % (0-1) H 06/22/20 05:27 Plt Morphology Comment Normal (NORMAL) 06/22/20 05:27 RBC Morphology Abnormal (NORMAL) A 06/22/20 05:27 Anisocytosis 1+ A 06/22/20 05:27 Target Cells Occ. 06/18/20 06:40 PT 18.8 SECONDS (11.8-14.3) 06/14/20 06:10 INR Target Range - 06/14/20 06:10 INR 1.62 (0.8-1.3) H 06/14/20 06:10 APTT 34.7 SECONDS (22.9-36.5) 06/14/20 06:10 PTT Comment - 06/14/20 06:10 D-Dimer 1.77 ug/ml (0.0-0.57) H* 06/22/20 05:27 Sample Site Lr 06/21/20 04:50 ABG pH 7.460 (7.35-7.45) H 06/21/20 04:50 ABG pCO2 46.0 mmHg (35.0-45.0) H 06/21/20 04:50 ABG pO2 101.0 mmHg (80.0-100.0) H 06/21/20 04:50 ABG HCO3 32.7 mmol/L (22-26) H* 06/21/20 04:50 ABG O2 Saturation 98.0 % (90-100) 06/21/20 04:50 ABG Base Excess 7.8 mmol/L (-2.0-2.0) H 06/21/20 04:50 Curtis Test Pos 06/21/20 04:50 A-a Gradient 41.0 mmHg 06/21/20 04:50 FiO2 28.0 06/21/20 04:50 Blood Gas Comments Chato well ae 06/21/20 04:50 Sodium 144 mmol/L (136-145) 06/22/20 05:25 Corrected Sodium 147 mmol/L (136-145) H 06/22/20 05:25 Potassium 2.8 mmol/L (3.5-5.1) L* 06/22/20 05:25 Chloride 106 mmol/L (98-107) 06/22/20 05:25 Carbon Dioxide 32.7 mmol/L (21-32) H 06/22/20 05:25 BUN 26 mg/dL (7-18) H 06/22/20 05:25 Creatinine 0.88 mg/dL (0.55-1.02) 06/22/20 05:25 Est GFR (MDRD) Af Amer > 60 (>60) 06/22/20 05:25 Est GFR (MDRD) Non-Af > 60 (>60) 06/22/20 05:25 Glucose 225 mg/dL (65-99) H 06/22/20 05:25 Calcium 8.0 mg/dL (8.5-10.1) L 06/22/20 05:25 Corrected Calcium 9.3 mg/dL (8.5-10.1) 06/22/20 05:25 Magnesium 2.0 mg/dL (1.7-2.9) 06/20/20 05:38 Total Bilirubin 1.30 mg/dL (0.2-1.0) H 06/22/20 05:25 AST 23 Units/L (15-37) 06/22/20 05:25 ALT 19 Units/L (12-78) 06/22/20 05:25 Alkaline Phosphatase 103 Units/L (46-116) 06/22/20 05:25 Creatine Kinase 43 Units/L (26-192) 06/14/20 11:00 CK-MB (CK-2) 1.0 ng/mL (0-4.0) 06/14/20 11:00 CK/CKMB % Calc 2.3 % (<4) 06/14/20 11:00 Troponin I 0.07 ng/mL (0-1.5) 06/14/20 11:00 C-Reactive Protein 0.50 mg/L (0-3.0) 06/22/20 05:25 B-Natriuretic Peptide 2060 pg/mL (0-79) H* 06/22/20 05:25 Total Protein 5.9 g/dL (6.4-8.2) L 06/22/20 05:25 Albumin 2.4 g/dL (3.4-5.0) L 06/22/20 05:25 Globulin 3.5 g/dL (2.5-4.5) 06/22/20 05:25 Albumin/Globulin Ratio 0.7 Ratio (1.1-2.1) L 06/22/20 05:25 Specimen Type Catherized urine 06/21/20 11:04 Urine Color Yellow (YELLOW) 06/21/20 11:04 Urine Appearance Hazy (CLEAR) 06/21/20 11:04 Urine pH 5.0 (5.0 - 8.0) 06/21/20 11:04 Ur Specific [place] 1.020 (1.000-1.030) 06/21/20 11:04 Urine Protein 2+ (NEGATIVE) 06/21/20 11:04 Urine Glucose (UA) 1+ (NEGATIVE) 06/21/20 11:04 Urine Ketones Negative (NEGATIVE) 06/21/20 11:04 Urine Occult Blood 1+ (NEGATIVE) 06/21/20 11:04 Urine Nitrite Negative (NEGATIVE) 06/21/20 11:04 Urine Bilirubin Negative (NEGATIVE) 06/21/20 11:04 Urine Urobilinogen Normal (NORMAL) 06/21/20 11:04 Ur Leukocyte Esterase Negative (NEGATIVE) 06/21/20 11:04 Urine RBC 3-5 /HPF (0-3) A 06/21/20 11:04 Urine WBC 3-5 /HPF (0-5) 06/21/20 11:04 Ur Squamous Epith Cells Rare /HPF (NEGATIVE) 06/21/20 11:04 Amorphous Sediment Trace /HPF (NEGATIVE) 06/21/20 11:04 Urine Bacteria Trace /HPF (NEGATIVE) 06/21/20 11:04 Urine Mucus Few /HPF (NEGATIVE) 06/21/20 11:04 Urine Yeast Moderate /HPF (NEGATIVE) 06/13/20 20:05 Ur Culture Indicated? No/not indicated 06/21/20 11:04 SARS CoV-2 RNA Rapid JESI Positive (NEGATIVE) A 06/13/20 23:56 Blood Type O NEGATIVE 06/15/20 10:43 - Plan (1) COVID-19 virus infection Status: Acute Plan: RECEIVING IV FLUIDS AT [facility], AZITHROMYCIN 250MG IV DAILY, LASIX 40MG IV BID, VISTARIL 25-50MG PO Q8H PRN, DUONEBS QID, PEPCID 40MG PO BID PRN, COZAAR 25MG PO DAILY, XARELTO 20MG PO DAILY, SOLU-MEDROL 80MG IV Q8H, AND THE POTASSIUM AND MAGNESIUM PROTOCOLS. (2) Pneumonia Status: Acute Qualifiers: Pneumonia type: due to unspecified organism (3) Dehydration Status: Acute (4) UTI (urinary tract infection) Status: Acute Qualifiers: Urinary tract infection type: site unspecified Hematuria presence: with hematuria Qualified Code(s): N39.0 - Urinary tract infection, site not specified; R31.9 - Hematuria, unspecified (5) AMS (altered mental status) Status: Acute (6) Weakness generalized Status: Acute
--- NOTE | 2020-06-22 20:58 | PCM.PROG ---
Progress Note - Progress Note for Day of Date of Exam: 06/22/20 - Subjective Subjective: IS BEING TREATED FOR PNEUMONIA DUE TO COVID-19, DEHYDRATION, UTI, AND AMS. TODAY, SHE CONTINUES WITH WEAKNESS AND ALTERED MENTAL STATUS. SHE DENIES OTHER COMPLAINTS. SHE IS CURRENTLY ON NASAL CANNULA WITH OXYGEN AT 2 LITERS/MIN. HER SATURATIONS HAVE BEEN 93-98% THIS MORNING AND THROU GHOUT THE NIGHT. STAFF REPORT THAT WHILE AMBULATING WITHOUT OXYGEN, HER SATURATIONS FALL TO THE 80s. THEY ALSO REPORTS THAT SHE IS REFUSING SEVERAL OF HER ORAL MEDICATIONS. ON EXAMINATION, HEART IS REGULAR IN RATE AND RHYTHM. BILATERAL LUNGS ARE NOTED WITH DIMINISHED LUNG SOUNDS THROUGHOUT. ABDOMEN IS ROUND, SOFT, AND NON-TENDER WITH NORMAL BOWEL SOUNDS NOTED IN ALL QUADRANTS. SHE CONTINUES WITH LEFT UPPER EXTREMITY AND LEFT BREATH EDEMA. HER VITALS THIS MORNING ARE: 97.9-70-20-96%-182/112. LABS WERE OBTAINED. ABNORMAL LAB VALUES INCLUDE THE FOLLOWING: PLT COUNT 69, D-DIMER 1.77, POTASSIUM 2.8, CARBON DIOXIDE 32.7, BUN 26, GLUCOSE 225, CALCIUM 8.0, TOTAL BILI 1.30, BNP 2060, TOTAL PROTEIN 5.9, ALBUMIN 2.4. A CHEST XRAY WAS OBTAINED AND REVEALED: Persistent cardiomegaly and pneumonia, similar in the left lower lobe and improving at the right base. SHE IS CURRENTLY RECEIVING IV FLUIDS AT [facility], AZITHROMYCIN 250MG IV DAILY, LASIX 40MG IV BID, VISTARIL 25-50MG PO Q8H PRN, DUONEBS QID, PEPCID 40MG PO BID PRN, COZAAR 25MG PO DAILY, XARELTO 20MG PO DAILY, SOLU-MEDROL 80MG IV Q8H, AND THE POTASSIUM AND MAGNESIUM PROTOCOLS. TODAY, WE WILL ADMINISTER LASIX 40MG IV X 2 DOSES. OTHERWISE, WE PLAN TO FOLLOW UP WITH AM LABS, CHEST XRAY, ABG, AND CONTINUE TO MONITOR. TIME SPENT ON CLINICAL ASSESSMENT, REVIEWING LABS AND IMAGING, DECISION MAKING, AND DOCUMENTATION GREATER THAN 75 MINUTES. - Past Medical Family Social History Past Med/Fam/Surg Hx: No changes since H&P Allergies: Allergies codeine Allergy (Verified 04/22/20 14:09) latex Allergy (Verified 04/22/20 14:09) milk Allergy (Verified 04/22/20 14:09) - Review of Systems ROS: No change since H&P - Vital Signs and I&O's Vital Signs: Temperature 98.2 F Pulse Rate [Left Brachial] 72 Pulse Rate [Right Radial] 71 Pulse Rate 68 Respiratory Rate 20 Blood Pressure [l arm] 160/98 Blood Pressure [left ankle] 156/97 Blood Pressure [Right Calf] 159/93 Blood Pressure [Left Arm] 170/101 Blood Pressure [Right Arm] 158/90 Blood Pressure 177/109 O2 Sat by Pulse Oximetry 97 Intake and Output: Intake & Output 06/20/20 06/21/20 06/22/20 06/23/20 11:59 11:59 11:59 11:59 Intake Total 2689 / 2689 644 / 644 1502 / 1502 660 / 660 Output Total 6525 / 6525 650 / 650 Balance 2689 / 2689 644 / 644 -5023 / -5023 - Physical Exam Oriented: Normal Eyes: Normal Ear: Normal Nose: Normal Throat: Normal Respiratory: Diminished Cardiovascular: Edema (left upper extremity and left breast edema) : Normal Auscultation: Bowel Sounds: Normal Tenderness: Normal Skin: Decreased Turgur Musculoskeletal: Back:Thoracic, Back:Lumbar Psychiatric: Anxiety Affect: Anxious Speech Pattern: Clear, Appropriate - Laboratory and Diagnostics Result Diagrams: 06/22/20 05:27 06/22/20 05:25 Labs: 06/13/20 20:05 Urine,Catheterized Urine Culture - Final Laboratory WBC 4.7 X10^3/uL (3.6-10.0) 06/22/20 05:27 RBC 4.97 X10^6/uL (3.5-5.4) 06/22/20 05:27 Hgb 14.4 g/dL (12.0-16.0) 06/22/20 05:27 Hct 44.7 % (36.0-47.0) 06/22/20 05:27 MCV 89.9 fL (80.0-100.0) 06/22/20 05:27 MCH 29.0 pg (27.0-34.0) 06/22/20 05:27 MCHC 32.3 g/dL (33.0-35.0) L 06/22/20 05:27 RDW 20.6 % (11.6-16.5) H 06/22/20 05:27 Plt Count 69 X10^3/uL (150.0-450.0) L 06/22/20 05:27 Plt Count Comment Decreased (ADEQUATE) A 06/22/20 05:27 MPV 9.0 fL (7.4-11.0) 06/22/20 05:27 Neut % (Auto) 92.7 % (42.0-75.0) H 06/22/20 05:27 Lymph % (Auto) 3.3 % (21.0-51.0) L 06/22/20 05:27 [place] % (Auto) 3.9 % (0.0-13.0) 06/22/20 05:27 Eos % (Auto) 0.0 % (0.9-2.9) L 06/22/20 05:27 Baso % (Auto) 0.1 % (0.2-1.0) L 06/22/20 05:27 Neut # (Auto) 4.4 x10^3/uL (2.2-4.8) 06/22/20 05:27 Lymph # (Auto) 0.2 X10^3/uL (1.3-2.9) L 06/22/20 05:27 [place] # (Auto) 0.2 x10^3/uL (0.3-0.8) L 06/22/20 05:27 Eos # (Auto) 0.0 x10^3/uL (0.0-0.2) 06/22/20 05:27 Baso # (Auto) 0.0 X10^3/uL (0.0-0.1) 06/22/20 05:27 Absolute Nucleated RBC 0.5 /100WBC 06/22/20 05:27 Total Counted 100 06/22/20 05:27 Neutrophils % (Manual) 93 % (39-76) H 06/22/20 05:27 Band Neutrophils % 4 % (0-10) 06/20/20 05:38 Lymphocytes % (Manual) 3 % (13-43) L 06/22/20 05:27 Monocytes % (Manual) 2 % (4-9) L 06/22/20 05:27 Eosinophils % (Manual) 4 % (0-6) 06/15/20 05:41 Basophils % (Manual) 2 % (0-1) H 06/22/20 05:27 Plt Morphology Comment Normal (NORMAL) 06/22/20 05:27 RBC Morphology Abnormal (NORMAL) A 06/22/20 05:27 Anisocytosis 1+ A 06/22/20 05:27 Target Cells Occ. 06/18/20 06:40 PT 18.8 SECONDS (11.8-14.3) 06/14/20 06:10 INR Target Range - 06/14/20 06:10 INR 1.62 (0.8-1.3) H 06/14/20 06:10 APTT 34.7 SECONDS (22.9-36.5) 06/14/20 06:10 PTT Comment - 06/14/20 06:10 D-Dimer 1.77 ug/ml (0.0-0.57) H* 06/22/20 05:27 Sample Site Lr 06/21/20 04:50 ABG pH 7.460 (7.35-7.45) H 06/21/20 04:50 ABG pCO2 46.0 mmHg (35.0-45.0) H 06/21/20 04:50 ABG pO2 101.0 mmHg (80.0-100.0) H 06/21/20 04:50 ABG HCO3 32.7 mmol/L (22-26) H* 06/21/20 04:50 ABG O2 Saturation 98.0 % (90-100) 06/21/20 04:50 ABG Base Excess 7.8 mmol/L (-2.0-2.0) H 06/21/20 04:50 Curtis Test Pos 06/21/20 04:50 A-a Gradient 41.0 mmHg 06/21/20 04:50 FiO2 28.0 06/21/20 04:50 Blood Gas Comments Chato well ae 06/21/20 04:50 Sodium 144 mmol/L (136-145) 06/22/20 05:25 Corrected Sodium 147 mmol/L (136-145) H 06/22/20 05:25 Potassium 2.8 mmol/L (3.5-5.1) L* 06/22/20 05:25 Chloride 106 mmol/L (98-107) 06/22/20 05:25 Carbon Dioxide 32.7 mmol/L (21-32) H 06/22/20 05:25 BUN 26 mg/dL (7-18) H 06/22/20 05:25 Creatinine 0.88 mg/dL (0.55-1.02) 06/22/20 05:25 Est GFR (MDRD) Af Amer > 60 (>60) 06/22/20 05:25 Est GFR (MDRD) Non-Af > 60 (>60) 06/22/20 05:25 Glucose 225 mg/dL (65-99) H 06/22/20 05:25 Calcium 8.0 mg/dL (8.5-10.1) L 06/22/20 05:25 Corrected Calcium 9.3 mg/dL (8.5-10.1) 06/22/20 05:25 Magnesium 2.0 mg/dL (1.7-2.9) 06/20/20 05:38 Total Bilirubin 1.30 mg/dL (0.2-1.0) H 06/22/20 05:25 AST 23 Units/L (15-37) 06/22/20 05:25 ALT 19 Units/L (12-78) 06/22/20 05:25 Alkaline Phosphatase 103 Units/L (46-116) 06/22/20 05:25 Creatine Kinase 43 Units/L (26-192) 06/14/20 11:00 CK-MB (CK-2) 1.0 ng/mL (0-4.0) 06/14/20 11:00 CK/CKMB % Calc 2.3 % (<4) 06/14/20 11:00 Troponin I 0.07 ng/mL (0-1.5) 06/14/20 11:00 C-Reactive Protein 0.50 mg/L (0-3.0) 06/22/20 05:25 B-Natriuretic Peptide 2060 pg/mL (0-79) H* 06/22/20 05:25 Total Protein 5.9 g/dL (6.4-8.2) L 06/22/20 05:25 Albumin 2.4 g/dL (3.4-5.0) L 06/22/20 05:25 Globulin 3.5 g/dL (2.5-4.5) 06/22/20 05:25 Albumin/Globulin Ratio 0.7 Ratio (1.1-2.1) L 06/22/20 05:25 Specimen Type Catherized urine 06/21/20 11:04 Urine Color Yellow (YELLOW) 06/21/20 11:04 Urine Appearance Hazy (CLEAR) 06/21/20 11:04 Urine pH 5.0 (5.0 - 8.0) 06/21/20 11:04 Ur Specific [place] 1.020 (1.000-1.030) 06/21/20 11:04 Urine Protein 2+ (NEGATIVE) 06/21/20 11:04 Urine Glucose (UA) 1+ (NEGATIVE) 06/21/20 11:04 Urine Ketones Negative (NEGATIVE) 06/21/20 11:04 Urine Occult Blood 1+ (NEGATIVE) 06/21/20 11:04 Urine Nitrite Negative (NEGATIVE) 06/21/20 11:04 Urine Bilirubin Negative (NEGATIVE) 06/21/20 11:04 Urine Urobilinogen Normal (NORMAL) 06/21/20 11:04 Ur Leukocyte Esterase Negative (NEGATIVE) 06/21/20 11:04 Urine RBC 3-5 /HPF (0-3) A 06/21/20 11:04 Urine WBC 3-5 /HPF (0-5) 06/21/20 11:04 Ur Squamous Epith Cells Rare /HPF (NEGATIVE) 06/21/20 11:04 Amorphous Sediment Trace /HPF (NEGATIVE) 06/21/20 11:04 Urine Bacteria Trace /HPF (NEGATIVE) 06/21/20 11:04 Urine Mucus Few /HPF (NEGATIVE) 06/21/20 11:04 Urine Yeast Moderate /HPF (NEGATIVE) 06/13/20 20:05 Ur Culture Indicated? No/not indicated 06/21/20 11:04 SARS CoV-2 RNA Rapid JESI Positive (NEGATIVE) A 06/13/20 23:56 Blood Type O NEGATIVE 06/15/20 10:43 - Plan (1) COVID-19 virus infection Status: Acute Plan: RECEIVING IV FLUIDS AT [facility], AZITHROMYCIN 250MG IV DAILY, LASIX 40MG IV BID, VISTARIL 25-50MG PO Q8H PRN, DUONEBS QID, PEPCID 40MG PO BID PRN, COZAAR 25MG PO DAILY, XARELTO 20MG PO DAILY, SOLU-MEDROL 80MG IV Q8H, AND THE POTASSIUM AND MAGNESIUM PROTOCOLS. (2) Pneumonia Status: Acute Qualifiers: Pneumonia type: due to unspecified organism (3) Dehydration Status: Acute (4) UTI (urinary tract infection) Status: Acute Qualifiers: Urinary tract infection type: site unspecified Hematuria presence: with hematuria Qualified Code(s): N39.0 - Urinary tract infection, site not specified; R31.9 - Hematuria, unspecified (5) AMS (altered mental status) Status: Acute (6) Weakness generalized Status: Acute
[2020-06-23] MEDS ORDERED: NORMODYNE INJ 20 MG VIAL IVP PRN (00:02)
[2020-06-23 04:09] LABS: ABG BASE EXCESS 17.9 mmol/L (-2.0-2.0)
[2020-06-23 04:11] LABS: ABG HCO3 42.1 mmol/L (22-26)
[2020-06-23 04:12] LABS: ABG ALLEN TEST POSS
[2020-06-23] MEDS: SOLU-Medrol 125 MG VIAL IVP SCH ×4 (06:13→22:11)
[2020-06-23 06:26] LABS: BASOPHILS % (AUTO) 0.2 % (0.2-1.0); HEMATOCRIT 44.5 % (36.0-47.0); HEMOGLOBIN 14.6 g/dL (12.0-16.0); LYMPHOCYTES # (AUTO) 0.1 X10^3/uL (1.3-2.9); LYMPHOCYTES % (AUTO) 2.4 % (21.0-51.0); MEAN CORPUSCULAR HEMOGLOBIN 29.4 pg (27.0-34.0); MEAN CORPUSCULAR HGB CONC 32.8 g/dL (33.0-35.0); MEAN CORPUSCULAR VOLUME 89.8 fL (80.0-100.0); MEAN PLATELET VOLUME 8.8 fL (7.4-11.0); MONOCYTES # (AUTO) 0.2 x10^3/uL (0.3-0.8); MONOCYTES % (AUTO) 4.6 % (0.0-13.0); NEUTROPHILS # (AUTO) 4.8 x10^3/uL (2.2-4.8); NEUTROPHILS % (AUTO) 92.8 % (42.0-75.0); PLATELET COUNT 75 X10^3/uL (150.0-450.0); RED BLOOD COUNT 4.95 X10^6/uL (3.5-5.4); WHITE BLOOD COUNT 5.2 X10^3/uL (3.6-10.0)
[2020-06-23 06:36] LABS: ALANINE AMINOTRANSFERASE 22 Units/L (12-78); ALBUMIN 2.4 g/dL (3.4-5.0); ALKALINE PHOSPHATASE 108 Units/L (46-116); ASPARTATE AMINO TRANSFERASE 25 Units/L (15-37); BLOOD UREA NITROGEN 25 mg/dL (7-18); CALCIUM 7.7 mg/dL (8.5-10.1); CARBON DIOXIDE 35.4 mmol/L (21-32); CHLORIDE 101 mmol/L (98-107); COR NA(FOR HYPERGLY) 147 mmol/L (136-145); CREATININE 0.94 mg/dL (0.55-1.02); SODIUM 143 mmol/L (136-145); TOTAL PROTEIN 5.9 g/dL (6.4-8.2); eGFR NON BLACK RACES > 60 (>60)
[2020-06-23 07:03] LABS: BAND NEUTROPHILS % 2 % (0-10); PLATELET MORPHOLOGY COMMENT NORMAL (NORMAL)
[2020-06-23 07:04] LABS: HYPOCHROMASIA 1+
--- NOTE | 2020-06-23 07:11 | RAD ---
HISTORYSOBSTUDYCHEST, 1 VIEWCOMPARISONOne day prior.TECHNIQUEAP view of the chestFINDINGSLeft chest wall pacemaker in situ. Stable cardiomegaly. Worse appearance of right base consolidation. Left base consolidation appears similar. Suspect small bilateral pleural effusions. No pneumothorax. Soft tissue attenuation limits evaluation.IMPRESSIONWorsened appearance of right base consolidation. Otherwise similar to prior.Electronically signed by: Kayden Hamilton (Jun 23, 2020 07:10:08)
[2020-06-23] MEDS: NS 1000 ML 1,000 ML IV SCH ×3 (07:29→22:11)
[2020-06-23] MEDS: DUONEB 0.5 MG/3 MG (3 mL) NEB SCH ×4 (09:24→20:26)
[2020-06-23] MEDS ORDERED: COZAAR ONE (09:29)
[2020-06-23] MEDS: ZITHROMAX INJ 500 MG VIAL 250 MG in NS 250 ML IV 250 ML IV SCH (10:01)
[2020-06-23] MEDS: COREG TAB 25 MG PO SCH ×2 (10:01→21:57)
[2020-06-23] MEDS: LASIX IVP SCH (10:01)
[2020-06-23] MEDS: XARELTO PO SCH (10:01)
[2020-06-23] MEDS: COZAAR PO SCH (10:02)
[2020-06-23] MEDS: POTASSIUM CHL 60 MEQ/NS 0.45% 500 ML IV PRN (14:12)
[2020-06-23] MEDS ORDERED: COLACE CAP 100 MG PO PRN (15:29)
[2020-06-23] MEDS ORDERED: MILK OF MAGNESIA PO PRN (15:29)
[2020-06-23] MEDS: MAGNESIUM SULFATE 1 GRAM/100 mL PREMIX 1 GM/100 ML BAG IV PRN ×2 (15:33→16:42)
[2020-06-23] MEDS: ROCEPHIN 1 GRAM IV PREMIX 1 G/50 ML IV.SOLN. IV SCH (20:35)
[2020-06-23] MEDS: COLACE CAP 100 MG PO SCH (21:57)
[2020-06-23] MEDS: MILK OF MAGNESIA PO SCH (21:58)
[2020-06-24] MEDS: K-RIDER 10 MEQ/NS 100 ML 10 MEQ/100 ML BAG IV PRN ×4 (03:13→06:26)
[2020-06-24] MEDS: SOLU-Medrol 125 MG VIAL IVP SCH (05:26)
[2020-06-24 06:22] LABS: BASOPHILS % (AUTO) 0.1 % (0.2-1.0); HEMATOCRIT 46.9 % (36.0-47.0); HEMOGLOBIN 15.4 g/dL (12.0-16.0); LYMPHOCYTES # (AUTO) 0.1 X10^3/uL (1.3-2.9); LYMPHOCYTES % (AUTO) 1.3 % (21.0-51.0); MEAN CORPUSCULAR HEMOGLOBIN 29.5 pg (27.0-34.0); MEAN CORPUSCULAR HGB CONC 32.9 g/dL (33.0-35.0); MEAN CORPUSCULAR VOLUME 89.4 fL (80.0-100.0); MEAN PLATELET VOLUME 8.6 fL (7.4-11.0); MONOCYTES # (AUTO) 0.5 x10^3/uL (0.3-0.8); MONOCYTES % (AUTO) 5.4 % (0.0-13.0); NEUTROPHILS # (AUTO) 8.8 x10^3/uL (2.2-4.8); NEUTROPHILS % (AUTO) 93.2 % (42.0-75.0); PLATELET COUNT 71 X10^3/uL (150.0-450.0); RED BLOOD COUNT 5.24 X10^6/uL (3.5-5.4); RED CELL DISTRIBUTION WIDTH 20.2 % (11.6-16.5); WHITE BLOOD COUNT 9.4 X10^3/uL (3.6-10.0)
[2020-06-24 06:37] LABS: ALANINE AMINOTRANSFERASE 34 Units/L (12-78); ALBUMIN 2.4 g/dL (3.4-5.0); ALKALINE PHOSPHATASE 126 Units/L (46-116); ASPARTATE AMINO TRANSFERASE 37 Units/L (15-37); BLOOD UREA NITROGEN 24 mg/dL (7-18); CARBON DIOXIDE 36.9 mmol/L (21-32); CHLORIDE 101 mmol/L (98-107); COR CA(FOR HYPOALB) 9.3 mg/dL (8.5-10.1); COR NA(FOR HYPERGLY) 147 mmol/L (136-145); CREATININE 0.87 mg/dL (0.55-1.02); MAGNESIUM 2.2 mg/dL (1.7-2.9); SODIUM 142 mmol/L (136-145); TOTAL PROTEIN 5.9 g/dL (6.4-8.2); eGFR NON BLACK RACES > 60 (>60)
--- NOTE | 2020-06-24 07:10 | RAD ---
HISTORYSOBSTUDYCHEST, 1 VIEWCOMPARISONOne day prior.TECHNIQUEAP view of the chestFINDINGSLeft chest wall pacemaker in situ. Overlying wires limit evaluation. The cardiac silhouette is stably enlarged. Mediastinal contours appear stable. Similar appearance of bibasilar airspace opacities. Cannot exclude small pleural effusions. No pneumothorax.IMPRESSIONNo significant change.Electronically signed by: Kayden Hamilton (Jun 24, 2020 07:09:09)
[2020-06-24 07:33] LABS: BAND NEUTROPHILS % 2 % (0-10); PLATELET MORPHOLOGY COMMENT NORMAL (NORMAL)
[2020-06-24] MEDS: DUONEB 0.5 MG/3 MG (3 mL) NEB SCH (08:11)
[2020-06-24] MEDS ORDERED: COZAAR PO SCH (09:00)
[2020-06-24] MEDS: COLACE CAP 100 MG PO SCH (09:33)
[2020-06-24] MEDS: COREG TAB 25 MG PO SCH (09:33)
[2020-06-24] MEDS: MILK OF MAGNESIA PO SCH (09:33)
[2020-06-24] MEDS: XARELTO PO SCH (09:34)
[2020-06-24] MEDS: ZITHROMAX INJ 500 MG VIAL 250 MG in NS 250 ML IV 250 ML IV SCH (09:43)
[2020-06-24 12:13] VITALS: BP 155/59
== END 2020-06-24 12:20 | disposition home health service (06) | DRG 177 ==
LOC: ER 16:55 → OBS 06-14 01:04 → MED/SURG 06-14 15:00
PROVIDERS: ADMIT Internal Medicine; ATTEND Internal Medicine
DX: J96.21 Acute and chronic respiratory failure with hypoxia; J12.82 Pneumonia due to coronavirus disease 2019; I10 Essential (primary) hypertension; J44.1 Chronic obstructive pulmonary disease with (acute) exacerbation; E87.5 Hyperkalemia; E86.0 Dehydration; R62.7 Adult failure to thrive; R06.02 Shortness of breath; R60.0 Localized edema; I25.10 Atherosclerotic heart disease of native coronary artery without angina pectoris; I48.91 Unspecified atrial fibrillation; I50.43 Acute on chronic combined systolic (congestive) and diastolic (congestive) heart failure; Z95.810 Presence of automatic (implantable) cardiac defibrillator; R53.1 Weakness; U07.1 COVID-19; R41.82 Altered mental status, unspecified; N39.0 Urinary tract infection, site not specified; R26.89 Other abnormalities of gait and mobility; J96.22 Acute and chronic respiratory failure with hypercapnia; R94.31 Abnormal electrocardiogram [ECG] [EKG]

== ENCOUNTER 2020-06-27 14:25 | Observation (INO) ==
--- NOTE | 2020-06-27 15:14 | DR.AMS ---
HPI Time Seen Time Seen by Provider: 06/27/20 15:01 HPI Comment HPI Comment: PATIENT IS 81 YR OLD FEMALE IN ER WITH AMD. HERE VIA EMS. DENIES FEVER, CHEST PAIN OR ABDOMINAL PAIN. PATIENT HAVE HISTORY OF HTN, DM, ASTHMA AND COPD. HAVE DYSPNEA ON EXERTION AND PERIPHERAL EDEMA. SHE KNOW SHE IS AT [facility].DENIES TRAUMA BUT HAVE BRUISES. PERSONAL HYGIENE IS POOR. Complaint Cheif Complaint Doctors Comments: AMS. Chief Complaint:: EMS OUT TO PT WITH AMS , AND FTT PTS DAUGHTER STATES TO EMS THAT SHE IS NOT ABLE TO TAKE CARE OF HER AND SHE WANTS HER IN THE TON[facility] ( PT APPEARS TO BE VERY UNKEPT , AND NOT CLEAN ) PTS EXT ARE COOL TO TOUCH AND SHE HAS BRUISES TO HER ARMS ,,BR COVID-19 Coronavirus risk:travel/contact w/high risk person: No Has patient experienced Coronavirus symptoms: No Reviewed Nurses Notes Reviewed: Yes Source History Provided: Patient and EMS Mode of Arrival Mode of Arrival: Stretcher Timing Onset of Chief Complaint: 06/25/20 Came On: Gradually Symptoms: Unchanged Symptom Onset: Unknown Duration Duration: Constant Duration: Days Quality Quality: Confusion Severity Severity: Moderate Context Recent: None History Of: Diabetes Associated Signs and Symptoms Associated Signs and Symptoms: Generalized Weakness and Confusion PMH PMH Past Medical History: Yes Past Medical History: Asthma, CHF, COPD and Hypertension Past Surgical History: Yes Surgical History: Cholecystectomy and Other Family History History of Family Medical Conditions: Yes Family Medical History: Hypertension Social History Does patient currently use any type of tobacco product: No Have you used tobacco products in the last 12 months: No Type of Tobacco Use: None Does any household member use tobacco: No Alcohol Use: None Do you use any recreational Drugs:: No Lives With: Family Lives Where: Home Travel Risk Coronavirus risk:travel/contact w/high risk person: No Has patient experienced Coronavirus symptoms: No Infectious screening In the last 2 months have you had wt loss of >10#?: NO Have you had fever, night sweats or hemotysis?: No Have you traveled outside the country in the last 6 months?: No Isolation: Standard ROS Review of Systems Constitutional: See HPI, Weakness and Fatigue; negative Fever Eyes: No Symptoms Reported ENTM: No Symptoms Reported; negative Nose Discharge and Nose Congestion Respiratoy: Moist Cough, Short of Breath and Wheezing Cardiovascular: See HPI and Edema; negative Chest Pain Gastrointestinal/Abdominal: No Symptoms Reported and See HPI; negative Abdominal Pain, Diarrhea and Vomiting Genitourinary: No Symptoms Reported and See HPI; negative Dysuria Neurological: See HPI and Weakness; negative Headache and Dizziness Musculoskeletal: See HPI and Back Pain Integumentary: See HPI and Bruises; negative Juandice Hematologic/Lymphatic: See HPI and Easy Bruising Endocrine: See HPI and Increased Thirst Psychiatric: See HPI and Depression All Other Systems: Reviewed and Negative PE Vitals Vital Signs: Temp Pulse Resp BP BP Pulse Ox 06/28/20 01:30 144/82 98 06/28/20 01:00 135/65 06/28/20 00:31 144/82 06/28/20 00:01 128/63 06/27/20 23:37 71 80 L 06/27/20 23:31 70 156/75 96 06/27/20 23:30 70 97 06/27/20 23:15 70 96 06/27/20 23:00 72 142/65 97 06/27/20 22:45 70 97 06/27/20 22:30 69 153/70 85 L 06/27/20 22:15 69 85 L 06/27/20 22:00 69 147/71 85 L 06/27/20 21:45 70 87 L 06/27/20 21:34 81 90 L 06/27/20 21:30 135/71 06/27/20 21:00 137/79 06/27/20 20:30 126/87 06/27/20 20:00 130/80 06/27/20 19:30 137/68 06/27/20 19:24 69 06/27/20 19:15 69 19 06/27/20 19:01 69 19 161/86 06/27/20 19:00 69 19 06/27/20 18:45 69 25 H 06/27/20 18:31 69 16 126/67 06/27/20 18:30 69 15 06/27/20 18:15 69 26 H 06/27/20 18:00 70 22 06/27/20 17:45 69 18 06/27/20 17:30 69 19 153/83 06/27/20 17:15 69 18 06/27/20 17:00 69 18 149/77 06/27/20 16:45 69 19 06/27/20 16:31 70 20 163/97 06/27/20 16:30 69 20 06/27/20 16:15 69 21 06/27/20 16:00 69 19 143/81 06/27/20 15:45 69 17 06/27/20 15:30 70 20 157/91 06/27/20 15:15 69 19 97 06/27/20 15:00 69 20 144/85 97 06/27/20 14:58 69 19 97 06/27/20 14:44 98.4 F 69 20 170/92 92 L 06/24/20 08:00 155/59 General Limitations: Altered Mental Status General Appearance: Alert and In Distress Head Head Exam: Normal Inspection and Atraumatic Head Exam Physical: Other (NONE NOTED.) Eyes Eye exam: Normal Appearance and PERRL; negative Scleral Icterus and Conjunctival Injection Pupils: Regular, Round: Bilateral and Reactive: Bilateral ENT ENT Exam: Normal Exam, Normal Oropharynx, Normal External Ear Exam and TM's Normal Bilaterally External Ear Exam: Normal External Inspection; negative Mastoid Tenderness TM/Canal Exam: Bilateral: Normal Nose Exam: Normal Nose Exam Mouth Exam: Normal Inspection; negative Lip Swelling and Tongue Swelling Throat Exam: Normal Inspection; negative Tonsillar Erythema, Tonsillomegaly and Tonsillar Exudate Neck Neck Exam: Normal Inspection and Trachea Midline; negative Tenderness and Lymphadenopathy Chest Chest Inspection: Normal Inspection and Symmetric Chest Wall Rise; negative Tend erness Respiratory Respiratory Exam: Normal Lung Sounds Bilat; negative Accessory Muscle Use, Chest Wall Tenderness and Respiratory Distress Cardiovascular Cardiovascular Exam: Regular Rate, Normal Rhythm, Normal Heart Sounds and Systolic Murmur; negative Diastolic Murmur Abdominal Exam Abdominal Exam: Normal Inspection, Normal Bowel Sounds and Soft; negative Tenderness Extremities Extremities Exam: Normal Inspection and Edema; negative Calf Tenderness Back Back Exam: Normal Inspection and Paraspinal Tenderness Neurological Neurological Exam: Alert, Oriented X3 and Motor Sensory Deficit Patient Oriented To: Person and Place Cranial Nerve Exam: Gag reflex (XI): Normal Motor Strength - LUE: 5/5 Motor Strength - RUE: 5/5 Motor Strength - LLE: 5/5 Motor Strength - RLE: 5/5 Upper Motor Neuron Exam: Babinski Sign: Normal Psychological Psychiatric Exam: Normal Affect and Normal Mood Skin Skin Exam: Dry MDM Additional Information Obtained Additional Information Obtained From: Old Records Differential Diagnosis Metabolic: Dehydration, Hypercalcemia and Hypoglycemia Structural: Mass Lesion Infectious: UTI Environmental: Hypothermia COURSE Treatment Treatment: SEE ORDERS. Consultation Consultation Comments: DISCUSSED PATIENT WITH DR. ELI. HE WILL ADMIT MEDARDO NT. Education/Counseling Education/Counseling: Patient Educated On: Diagnosis ROR Labs Reviewed Laboratory Results Reviewed?: Yes Result Diagrams: 06/30/20 05:26 06/30/20 05:26 Laboratory: WBC 9.1 X10^3/uL (3.6-10.0) 06/27/20 15:30 RBC 5.03 X10^6/uL (3.5-5.4) 06/27/20 15:30 Hgb 14.7 g/dL (12.0-16.0) 06/27/20 15: Hct 45.0 % (36.0-47.0) 06/27/20 15: MCV 89.4 fL (80.0-100.0) 06/27/20 15:30 MCH 29.3 pg (27.0-34.0) 06/27/20 15:30 MCHC 32.7 g/dL (33.0-35.0) L 06/27/20 15:30 RDW 19.5 % (11.6-16.5) H 06/27/20 15:30 Plt Count 51 X10^3/uL (150.0-450.0) L 06/27/20 15:30 Plt Count Comment Decreased (ADEQUATE) A 06/27/20 15:30 MPV 9.5 fL (7.4-11.0) 06/27/20 15:30 Neut % (Auto) 91.5 % (42.0-75.0) H 06/27/20 15:30 Lymph % (Auto) 2.8 % (21.0-51.0) L 06/27/20 15:30 M[place]at % (Auto) 4.9 % (0.0-13.0) 06/27/20 15:30 Eos % (Auto) 0.5 % (0.9-2.9) L 06/27/20 15:30 Baso % (Auto) 0.3 % (0.2-1.0) 06/27/20 15:30 Neut # (Auto) 8.3 x10^3/uL (2.2-4.8) H 06/27/20 15:30 Lymph # (Auto) 0.3 X10^3/uL (1.3-2.9) L 06/27/20 15:30 [place]at # (Auto) 0.4 x10^3/uL (0.3-0.8) 06/27/20 15:30 Eos # (Auto) 0.0 x10^3/uL (0.0-0.2) 06/27/20 15:30 Baso # (Auto) 0.0 X10^3/uL (0.0-0.1) 06/27/20 15:30 Absolute Nucleated RBC 0.1 /100WBC 06/27/20 15:30 Total Counted 100 06/27/20 15:30 Neutrophils % (Manual) 91 % (39-76) H 06/27/20 15:30 Lymphocytes % (Manual) 4 % (13-43) L 06/27/20 15:30 Monocytes % (Manual) 4 % (4-9) 06/27/20 15:30 Eosinophils % (Manual) 1 % (0-6) 06/27/20 15:30 Plt Morphology Comment Normal (NORMAL) 06/27/20 15:30 RBC Morphology Abnormal (NORMAL) A 06/27/20 15:30 Anisocytosis Slight A 06/27/20 15:30 Target Cells Present 06/27/20 15:30 Sodium 144 mmol/L (136-145) 06/27/20 15:30 Corrected Sodium 145 mmol/L (136-145) 06/27/20 15:30 Potassium 3.5 mmol/L (3.5-5.1) 06/27/20 15:30 Chloride 105 mmol/L (98-107) 06/27/20 15:30 Carbon Dioxide 34.2 mmol/L (21-32) H 06/27/20 15:30 BUN 25 mg/dL (7-18) H 06/27/20 15:30 Creatinine 0.82 mg/dL (0.55-1.02) 06/27/20 15:30 Est GFR (MDRD) Af Amer > 60 (>60) 06/27/20 15:30 Est GFR (MDRD) Non-Af > 60 (>60) 06/27/20 15:30 Glucose 122 mg/dL (65-99) H 06/27/20 15:30 Calcium 8.2 mg/dL (8.5-10.1) L 06/27/20 15:30 Corrected Calcium 9.7 mg/dL (8.5-10.1) 06/27/20 15:30 Total Bilirubin 3.50 mg/dL (0.2-1.0) H 06/27/20 15:30 AST 20 Units/L (15-37) 06/27/20 15:30 ALT 21 Units/L (12-78) 06/27/20 15:30 Alkaline Phosphatase 112 Units/L (46-116) 06/27/20 15:30 Creatine Kinase 30 Units/L (26-192) 06/27/20 15:30 CK-MB (CK-2) < 1.0 ng/mL (0-4.0) 06/27/20 15:30 CK/CKMB % Calc 3.3 % (<4) 06/27/20 15:30 Troponin I 0.07 ng/mL (0-1.5) 06/27/20 15:30 Total Protein 5.8 g/dL (6.4-8.2) L 06/27/20 15:30 Albumin 2.1 g/dL (3.4-5.0) L 06/27/20 15:30 Globulin 3.7 g/dL (2.5-4.5) 06/27/20 15:30 Albumin/Globulin Ratio 0.6 Ratio (1.1-2.1) L 06/27/20 15:30 Specimen Type Catherized urine 06/27/20 21:39 Urine Color Kim (YELLOW) 06/27/20 21:39 Urine Appearance Clear (CLEAR) 06/27/20 21:39 Urine pH 8.0 (5.0 - 8.0) 06/27/20 21:39 Ur Specific [place] 1.015 (1.000-1.030) 06/27/20 21:39 Urine Protein 2+ (NEGATIVE) 06/27/20 21:39 Urine Glucose (UA) Negative (NEGATIVE) 06/27/20 21:39 Urine Ketones Negative (NEGATIVE) 06/27/20 21:39 Urine Occult Blood 1+ (NEGATIVE) 06/27/20 21:39 Urine Nitrite Negative (NEGATIVE) 06/27/20 21:39 Urine Bilirubin Negative (NEGATIVE) 06/27/20 21:39 Urine Urobilinogen 2+ (NORMAL) 06/27/20 21:39 Ur Leukocyte Esterase Negative (NEGATIVE) 06/27/20 21:39 Urine RBC 3-5 /HPF (0-3) A 06/27/20 21:39 Urine WBC 3-5 /HPF (0-5) 06/27/20 21:39 Ur Squamous Epith Cells Rare /HPF (NEGATIVE) 06/27/20 21:39 Urine Bacteria Trace /HPF (NEGATIVE) 06/27/20 21:39 Ur Culture Indicated? No/not indicated 06/27/20 21:39 SARS-CoV-2 (PCR) Positive (NEGATIVE) A 06/27/20 23:23 Influenza Type A (PCR) Negative (NEGATIVE) 06/27/20 23:23 Influenza Type B (PCR) Negative (NEGATIVE) 06/27/20 23:23 RSV (PCR) Negative (NEGATIVE) 06/27/20 23:23 XRAY XRAY Interpreted by: Radiologist (REPORT NOTED AND DISCUSSED WITH PATIENT.) and Self EKG Rate: 70 Rhythm: Paced Block: None Hypertrophy: None ST: Normal and Nonsp Opioid Opioid Risk Tool Age (Robson box if 16-45): No History of Preadolescent Sexual Abuse: No Total: 0 Total Score Risk Category: Low Risk Copyright: Darryl ABEL predicting aberrant behaviors Diagnosis Discharge Problem: Weakness generalized, SOB (shortness of breath) Instructions Forms: Excuse From Work or School Precautions for COVID19 Patient Portal Social Distancing
--- NOTE | 2020-06-27 15:34 | RAD ---
EXAM: CHEST X-RAYHISTORY: Shortness of breath.TECHNIQUE: AP chest x-ray dated 06/27/2020 at 3:17 PM.COMPARISON: CXR dated June 24, 2020.FINDINGS:There is severe aortic atherosclerosis. There is a left anterior chest wall subclavian cardiac pacer with intact pacer wires to the right atrium and right ventricle.There is evidence for moderate cardiomegaly. The pulmonary vascularity and interstitial markings are diffusely prominent, consistent with mild CHF or volume overload in the appropriate clinical setting; differential diagnosis includes (but is not limited to) mild bronchitis and interstitial pneumonia in the appropriate clinical setting.There is no gross focal lung consolidation, pleural effusion, or pneumothorax seen. The visualized bony structures are within normal limits.IMPRESSION:1. Findings consistent with mild CHF or volume overload in the appropriate clinical setting (with overall mild interval improvement of infiltrates compared with the previous exam); DDX includes (but is not limited to) mild bronchitis and interstitial pneumonia in the appropriate clinical setting.2. Recommend clinical correlation and appropriate follow evaluation to ensure interval clearance as clinically warranted.3. Consider follow up evaluation with CT to rule out Covid pneumonia if clinically warranted.Electronically signed by: Fabby Anderson (Jun 27, 2020 15:33:04)
[2020-06-27 16:10] LABS: CALCIUM 8.2 mg/dL (8.5-10.1); CHLORIDE 105 mmol/L (98-107); SODIUM 144 mmol/L (136-145)
[2020-06-27 16:27] LABS: BASOPHILS % (AUTO) 0.3 % (0.2-1.0); EOSINOPHILS % (AUTO) 0.5 % (0.9-2.9); HEMOGLOBIN 14.7 g/dL (12.0-16.0); LYMPHOCYTES # (AUTO) 0.3 X10^3/uL (1.3-2.9); LYMPHOCYTES % (AUTO) 2.8 % (21.0-51.0); MEAN CORPUSCULAR HEMOGLOBIN 29.3 pg (27.0-34.0); MEAN CORPUSCULAR HGB CONC 32.7 g/dL (33.0-35.0); MEAN CORPUSCULAR VOLUME 89.4 fL (80.0-100.0); MEAN PLATELET VOLUME 9.5 fL (7.4-11.0); MONOCYTES # (AUTO) 0.4 x10^3/uL (0.3-0.8); MONOCYTES % (AUTO) 4.9 % (0.0-13.0); NEUTROPHILS # (AUTO) 8.3 x10^3/uL (2.2-4.8); NEUTROPHILS % (AUTO) 91.5 % (42.0-75.0); PLATELET COUNT 51 X10^3/uL (150.0-450.0); RED BLOOD COUNT 5.03 X10^6/uL (3.5-5.4); RED CELL DISTRIBUTION WIDTH 19.5 % (11.6-16.5); WHITE BLOOD COUNT 9.1 X10^3/uL (3.6-10.0)
[2020-06-27 16:47] LABS: ANISOCYTOSIS SLIGHT; PLATELET MORPHOLOGY COMMENT NORMAL (NORMAL); TARGET CELLS PRESENT
[2020-06-27 16:48] LABS: ALANINE AMINOTRANSFERASE 21 Units/L (12-78); ALBUMIN 2.1 g/dL (3.4-5.0); ALKALINE PHOSPHATASE 112 Units/L (46-116); ASPARTATE AMINO TRANSFERASE 20 Units/L (15-37); BLOOD UREA NITROGEN 25 mg/dL (7-18); CARBON DIOXIDE 34.2 mmol/L (21-32); CKMB % 3.3 % (<4); COR CA(FOR HYPOALB) 9.7 mg/dL (8.5-10.1); COR NA(FOR HYPERGLY) 145 mmol/L (136-145); CREATINE KINASE 30 Units/L (26-192); CREATINE KINASE MB < 1.0 ng/mL (0-4.0); CREATININE 0.82 mg/dL (0.55-1.02); TOTAL PROTEIN 5.8 g/dL (6.4-8.2); TROPONIN I 0.07 ng/mL (0-1.5); eGFR NON BLACK RACES > 60 (>60)
[2020-06-27 22:08] LABS: BILIRUBIN,URINE NEGATIVE (NEGATIVE); BLOOD/HEMOGLOBIN,URINE 1+ (NEGATIVE); GLUCOSE, URINE NEGATIVE (NEGATIVE); KETONES,URINE NEGATIVE (NEGATIVE); LEUKOCYTE ESTERASE ,URINE NEGATIVE (NEGATIVE); NITRITES,URINE NEGATIVE (NEGATIVE); PROTEIN,URINE 2+ (NEGATIVE); UROBILINOGEN,URINE 2+ (NORMAL)
[2020-06-27 22:15] LABS: APPEARANCE,URINE CLEAR (CLEAR); COLOR,URINE AMBER (YELLOW)
[2020-06-27 22:16] LABS: BACTERIA,URINE TRACE /HPF (NEGATIVE); SQUAMOUS EPITHELIAL CELL,UR RARE /HPF (NEGATIVE)
[2020-06-28] MEDS ORDERED: NS 1000 ML 1,000 ML IV SCH (07:16)
[2020-06-28] MEDS: DUONEB 0.5 MG/3 MG (3 mL) NEB SCH ×4 (08:47→21:18)
[2020-06-28 09:23] VITALS: BMI 30.6
[2020-06-28] MEDS: LASIX PO SCH (11:30)
[2020-06-28] MEDS: XARELTO PO SCH (11:30)
[2020-06-28] MEDS: COREG TAB 25 MG PO SCH ×2 (11:30→20:34)
[2020-06-28 11:31] LABS: BASOPHILS % (AUTO) 0.2 % (0.2-1.0); EOSINOPHILS # (AUTO) 0.1 x10^3/uL (0.0-0.2); EOSINOPHILS % (AUTO) 0.7 % (0.9-2.9); HEMATOCRIT 44.9 % (36.0-47.0); HEMOGLOBIN 14.6 g/dL (12.0-16.0); LYMPHOCYTES # (AUTO) 0.3 X10^3/uL (1.3-2.9); LYMPHOCYTES % (AUTO) 3.7 % (21.0-51.0); MEAN CORPUSCULAR HEMOGLOBIN 29.2 pg (27.0-34.0); MEAN CORPUSCULAR HGB CONC 32.5 g/dL (33.0-35.0); MEAN CORPUSCULAR VOLUME 89.8 fL (80.0-100.0); MEAN PLATELET VOLUME 9.3 fL (7.4-11.0); MONOCYTES # (AUTO) 0.6 x10^3/uL (0.3-0.8); MONOCYTES % (AUTO) 8.1 % (0.0-13.0); NEUTROPHILS # (AUTO) 6.9 x10^3/uL (2.2-4.8); NEUTROPHILS % (AUTO) 87.3 % (42.0-75.0); PLATELET COUNT 51 X10^3/uL (150.0-450.0); RED CELL DISTRIBUTION WIDTH 19.8 % (11.6-16.5); WHITE BLOOD COUNT 7.9 X10^3/uL (3.6-10.0)
[2020-06-28 11:51] LABS: BLOOD UREA NITROGEN 22 mg/dL (7-18); CARBON DIOXIDE 33.3 mmol/L (21-32); CHLORIDE 104 mmol/L (98-107); CREATININE 0.84 mg/dL (0.55-1.02); SODIUM 141 mmol/L (136-145); eGFR NON BLACK RACES > 60 (>60)
[2020-06-28] MEDS ORDERED: LASIX IVP ONE (13:18)
--- NOTE | 2020-06-28 13:23 | DR.H&P ---
H&P History & Physical for Day of: H&P Date: 06/28/20 Chief Complaint Chief Complaint: generalized weakness, failure to thrive Allergies Allergies Allergy/AdvReac Type Severity Reaction Status Date / Time codeine Allergy Verified 04/22/20 14:09 latex Allergy Verified 04/22/20 14:09 milk Allergy Verified 04/22/20 14:09 History of Present Illness History of Present Illness: Ms Vasquez is a 80y/o female with multiple comorbidities including COPD, CHF and atrial fibrillation was recently discharged on 06/24/19 after being treated for COVID pneumonia and COPD and CHF exacerbation. Patient was brought to the ED overnight as patient is not able to take care of herself at home and they would like her to be placed in a [facility]. On exam, patient is alert and oriented and able to answer questions. She states she does not take all her medications at home and is not able to tell me which ones she takes. labs: Hgb 14.6 Plt 51 Na 141 K 4 BUN/Cr 22/0.84 Glucose 85 CXR: concerning for mild CHF Plan: will give one dose o f IV Lasix. Wean O2 as tolerated. PT/OT as tolerated. Will add prednisone for COPD exacerbation. Continue duonebs. Monitor AM labs/imaging. Resume home meds. CM to work on placement as per PT/OT recommendations. Past Medical History Past Medical History: Asthma, CHF, COPD and Hypertension Additional Medical History: Atrial fibrillation Past Surgical History Surgical History: Cholecystectomy and Other Additional Surgical History: Pacemaker placement Family History Family Medical History: Hypertension Social History Does patient currently use any type of tobacco product: No Have you used tobacco products in the last 12 months: No Type of Tobacco Use: None Does any household member use tobacco: No Alcohol Use: None Drug Use: None Prescription drug monitoring program results: PDMP reviewed and no concerns identified Medications Home Medications: codeine Allergy (Verified 04/22/20 14:09) latex Allergy (Verified 04/22/20 14:09) milk Allergy (Verified 04/22/20 14:09) Labs Result Diagrams: 06/28/20 11:17 06/28/20 11:17 Labs: Laboratory WBC 7.9 X10^3/uL (3.6-10.0) 06/28/20 11:17 RBC 5.00 X10^6/uL (3.5-5.4) 06/28/20 11:17 Hgb 14.6 g/dL (12.0-16.0) 06/28/20 11:17 Hct 44.9 % (36.0-47.0) 06/28/20 11:17 MCV 89.8 fL (80.0-100.0) 06/28/20 11:17 MCH 29.2 pg (27.0-34.0) 06/28/20 11:17 MCHC 32.5 g/dL (33.0-35.0) L 06/28/20 11:17 RDW 19.8 % (11.6-16.5) H 06/28/20 11:17 Plt Count 51 X10^3/uL (150.0-450.0) L 06/28/20 11:17 Plt Count Comment Decreased (ADEQUATE) A 06/27/20 15:30 MPV 9.3 fL (7.4-11.0) 06/28/20 11:17 Neut % (Auto) 87.3 % (42.0-75.0) H 06/28/20 11:17 Lymph % (Auto) 3.7 % (21.0-51.0) L 06/28/20 11:17 [place] % (Auto) 8.1 % (0.0-13.0) 06/28/20 11:17 Eos % (Auto) 0.7 % (0.9-2.9) L 06/28/20 11:17 Baso % (Auto) 0.2 % (0.2-1.0) 06/28/20 11:17 Neut # (Auto) 6.9 x10^3/uL (2.2-4.8) H 06/28/20 11:17 Lymph # (Auto) 0.3 X10^3/uL (1.3-2.9) L 06/28/20 11:17 Dixon # (Auto) 0.6 x10^3/uL (0.3-0.8) 06/28/20 11:17 Eos # (Auto) 0.1 x10^3/uL (0.0-0.2) 06/28/20 11:17 Baso # (Auto) 0.0 X10^3/uL (0.0-0.1) 06/28/20 11:17 Absolute Nucleated RBC 0.1 /100WBC 06/28/20 11:17 Total Counted 100 06/27/20 15:30 Neutrophils % (Manual) 91 % (39-76) H 06/27/20 15:30 Lymphocytes % (Manual) 4 % (13-43) L 06/27/20 15:30 Monocytes % (Manual) 4 % (4-9) 06/27/20 15:30 Eosinophils % (Manual) 1 % (0-6) 06/27/20 15:30 Plt Morphology Comment Normal (NORMAL) 06/27/20 15:30 RBC Morphology Abnormal (NORMAL) A 06/27/20 15:30 Anisocytosis Slight A 06/27/20 15:30 Target Cells Present 06/27/20 15:30 Sodium 141 mmol/L (136-145) 06/28/20 11:17 Corrected Sodium TNP 06/28/20 11:17 Potassium 4.0 mmol/L (3.5-5.1) 06/28/20 11:17 Chloride 104 mmol/L (98-107) 06/28/20 11:17 Carbon Dioxide 33.3 mmol/L (21-32) H 06/28/20 11:17 BUN 22 mg/dL (7-18) H 06/28/20 11:17 Creatinine 0.84 mg/dL (0.55-1.02) 06/28/20 11:17 Est GFR (MDRD) Af Amer > 60 (>60) 06/28/20 11:17 Est GFR (MDRD) Non-Af > 60 (>60) 06/28/20 11:17 Glucose 85 mg/dL (65-99) 06/28/20 11:17 Calcium 8.0 mg/dL (8.5-10.1) L 06/28/20 11:17 Corrected Calcium 9.7 mg/dL (8.5-10.1) 06/27/20 15:30 Total Bilirubin 3.50 mg/dL (0.2-1.0) H 06/27/20 15:30 AST 20 Units/L (15-37) 06/27/20 15:30 ALT 21 Units/L (12-78) 06/27/20 15:30 Alkaline Phosphatase 112 Units/L (46-116) 06/27/20 15:30 Creatine Kinase 30 Units/L (26-192) 06/27/20 15:30 CK-MB (CK-2) < 1.0 ng/mL (0-4.0) 06/27/20 15:30 CK/CKMB % Calc 3.3 % (<4) 06/27/20 15:30 Troponin I 0.07 ng/mL (0-1.5) 06/27/20 15:30 Total Protein 5.8 g/dL (6.4-8.2) L 06/27/20 15:30 Albumin 2.1 g/dL (3.4-5.0) L 06/27/20 15:30 Globulin 3.7 g/dL (2.5-4.5) 06/27/20 15:30 Albumin/Globulin Ratio 0.6 Ratio (1.1-2.1) L 06/27/20 15:30 Specimen Type Catherized urine 06/27/20 21:39 Urine Color Kim (YELLOW) 06/27/20 21:39 Urine Appearance Clear (CLEAR) 06/27/20 21:39 Urine pH 8.0 (5.0 - 8.0) 06/27/20 21:39 Ur Specific [place] 1.015 (1.000-1.030) 06/27/20 21:39 Urine Protein 2+ (NEGATIVE) 06/27/20 21:39 Urine Glucose (UA) Negative (NEGATIVE) 06/27/20 21:39 Urine Ketones Negative (NEGATIVE) 06/27/20 21:39 Urine Occult Blood 1+ (NEGATIVE) 06/27/20 21:39 Urine Nitrite Negative (NEGATIVE) 06/27/20 21:39 Urine Bilirubin Negative (NEGATIVE) 06/27/20 21:39 Urine Urobilinogen 2+ (NORMAL) 06/27/20 21:39 Ur Leukocyte Esterase Negative (NEGATIVE) 06/27/20 21:39 Urine RBC 3-5 /HPF (0-3) A 06/27/20 21:39 Urine WBC 3-5 /HPF (0-5) 06/27/20 21:39 Ur Squamous Epith Cells Rare /HPF (NEGATIVE) 06/27/20 21:39 Urine Bacteria Trace /HPF (NEGATIVE) 06/27/20 21:39 Ur Culture Indicated? No/not indicated 06/27/20 21:39 SARS-CoV-2 (PCR) Positive (NEGATIVE) A 06/27/20 23:23 Influenza Type A (PCR) Negative (NEGATIVE) 06/27/20 23:23 Influenza Type B (PCR) Negative (NEGATIVE) 06/27/20 23:23 RSV (PCR) Negative (NEGATIVE) 06/27/20 23:23 Review of Systems Constitutional: Weakness Eyes: No Symptoms Reported ENT: No Symptoms Reported Respiratory: Shortness of Breath Cardiovascular: No Symptoms Reported Gastrointestinal: No Symptoms Reported Genitourinary: No Symptoms Reported Musculoskeletal: No Symptoms Reported Skin: No Symptoms Reported Neurological: Weakness Physical Exam Vital Signs: Temperature 98.1 F Pulse Rate 69 Respiratory Rate 20 Blood Pressure [l arm] 137/87 Blood Pressure 144/82 O2 Sat by Pulse Oximetry 94 Oriented: Normal Eyes: Normal Ear: Normal Throat: Normal Respiratory: Rales Throughout and Wheezes Throughout Cardiovascular: Normal and Edema Auscultation: Bowel Sounds: Normal Palpation: Normal Tenderness: Normal Skin: Decreased Turgur Musculoskeletal: Normal Psychiatric: Normal Mood Description: Calm Affect: Normal Speech Pattern: Clear and Appropriate Assessment/Plan (1) Weakness: Status: Acute (2) Hypertension: Qualifiers: Hypertension type: essential hypertension Qualified Code(s): I10 - Essential (primary) hypertension Status: Chronic (3) COVID-19 virus infection: Status: Acute (4) COPD exacerbation: Status: Acute (5) CHF exacerbation: Qualifiers: Heart failure type: unspecified Qualified Code(s): I50.9 - Heart failure, unspecified Status: Acute (6) Failure to thrive: Qualifiers: Failure to thrive age range: in adult Qualified Code(s): R62.7 - Adult failure to thrive Status: Acute Review H&P Reviewed: Yes Patient was examined?: Yes
[2020-06-28] MEDS: PREDNISONE TAB 20 MG PO SCH (14:09)
[2020-06-28 19:56] LABS: BILIRUBIN,URINE NEGATIVE (NEGATIVE); BLOOD/HEMOGLOBIN,URINE 3+ (NEGATIVE); GLUCOSE, URINE NEGATIVE (NEGATIVE); KETONES,URINE NEGATIVE (NEGATIVE); LEUKOCYTE ESTERASE ,URINE NEGATIVE (NEGATIVE); NITRITES,URINE NEGATIVE (NEGATIVE); PROTEIN,URINE NEGATIVE (NEGATIVE); UROBILINOGEN,URINE 2+ (NORMAL)
[2020-06-28 20:07] LABS: APPEARANCE,URINE CLEAR (CLEAR); COLOR,URINE PALE YELLOW (YELLOW)
[2020-06-28 20:08] LABS: BACTERIA,URINE NEGATIVE /HPF (NEGATIVE); SQUAMOUS EPITHELIAL CELL,UR RARE /HPF (NEGATIVE)
[2020-06-29 08:06] LABS: BASOPHILS % (AUTO) 0.2 % (0.2-1.0); HEMATOCRIT 40.2 % (36.0-47.0); LYMPHOCYTES # (AUTO) 0.2 X10^3/uL (1.3-2.9); LYMPHOCYTES % (AUTO) 3.4 % (21.0-51.0); MEAN CORPUSCULAR HEMOGLOBIN 29.1 pg (27.0-34.0); MEAN CORPUSCULAR HGB CONC 32.3 g/dL (33.0-35.0); MEAN PLATELET VOLUME 9.4 fL (7.4-11.0); MONOCYTES # (AUTO) 0.3 x10^3/uL (0.3-0.8); MONOCYTES % (AUTO) 5.5 % (0.0-13.0); NEUTROPHILS # (AUTO) 5.7 x10^3/uL (2.2-4.8); NEUTROPHILS % (AUTO) 90.9 % (42.0-75.0); PLATELET COUNT 55 X10^3/uL (150.0-450.0); RED BLOOD COUNT 4.46 X10^6/uL (3.5-5.4); RED CELL DISTRIBUTION WIDTH 18.9 % (11.6-16.5); WHITE BLOOD COUNT 6.3 X10^3/uL (3.6-10.0)
[2020-06-29 08:08] LABS: ALANINE AMINOTRANSFERASE 15 Units/L (12-78); ALBUMIN 1.9 g/dL (3.4-5.0); ALKALINE PHOSPHATASE 104 Units/L (46-116); ASPARTATE AMINO TRANSFERASE 20 Units/L (15-37); BLOOD UREA NITROGEN 23 mg/dL (7-18); CALCIUM 7.6 mg/dL (8.5-10.1); CARBON DIOXIDE 32.7 mmol/L (21-32); CHLORIDE 102 mmol/L (98-107); COR CA(FOR HYPOALB) 9.3 mg/dL (8.5-10.1); COR NA(FOR HYPERGLY) 142 mmol/L (136-145); CREATININE 0.79 mg/dL (0.55-1.02); SODIUM 140 mmol/L (136-145); TOTAL PROTEIN 5.2 g/dL (6.4-8.2); eGFR NON BLACK RACES > 60 (>60)
[2020-06-29 09:05] LABS: BAND NEUTROPHILS % 3 % (0-10); PLATELET MORPHOLOGY COMMENT NORMAL (NORMAL)
[2020-06-29] MEDS: COREG TAB 25 MG PO SCH ×2 (09:40→20:59)
[2020-06-29] MEDS: PREDNISONE TAB 20 MG PO SCH (09:41)
[2020-06-29] MEDS: XARELTO PO SCH (09:41)
[2020-06-29] MEDS: LASIX PO SCH (09:41)
[2020-06-29] MEDS: DUONEB 0.5 MG/3 MG (3 mL) NEB SCH ×4 (09:45→20:00)
[2020-06-29] MEDS ORDERED: MICRO K EXTEN CAP 10 MEQ PO PRN (09:46)
[2020-06-29] MEDS ORDERED: POTASSIUM CHL 40 MEQ/NS 0.45% 500 ML IV PRN (09:46)
[2020-06-29] MEDS ORDERED: KLOR-CON PO PRN (09:46)
[2020-06-29] MEDS ORDERED: POTASSIUM CHLORIDE LIQ 20 MEQ UDC PO PRN (09:46)
[2020-06-29] MEDS ORDERED: K-DUR TAB 20 MEQ PO PRN (09:46)
[2020-06-29] MEDS ORDERED: POTASSIUM CHL 60 MEQ/NS 0.45% 500 ML IV PRN (09:46)
[2020-06-29] MEDS: HumuLIN R SC PRN ×2 (11:58→17:22)
[2020-06-29] MEDS: K-DUR TAB 20 MEQ PO SCH ×2 (11:58→20:59)
--- NOTE | 2020-06-29 12:14 | PCM.PROG ---
Progress Note Progress Note for Day of Date of Exam: 06/29/20 Subjective Subjective: Patient seen at bedside, no events overnight. She states she is doing well with no complaints. Denies any Sx. Patient states she did get out of bed yesterday. Labs: Hgb 13 K 3.2 Glucose 200 Plan: continue PT/OT as tolerated, replace K. Will add SSI. Check A1C. Patient is not on any hypoglycemic medications. CM to work on placement tomorrow. Patient states she would prefer to go to [facility]. Past Medical Family Social History Past Med/Fam/Surg Hx: No changes since H&P Allergies: Allergies codeine Allergy (Verified 04/22/20 14:09) latex Allergy (Verified 04/22/20 14:09) milk Allergy (Verified 04/22/20 14:09) Review of Systems ROS: No change since H&P Vital Signs and I&O's Vital Signs: Temperature 97.3 F Pulse Rate [Right Brachial] 69 Pulse Rate 69 Respiratory Rate 16 Blood Pressure [l arm] 137/87 Blood Pressure [Right Arm] 128/78 Blood Pressure 144/82 O2 Sat by Pulse Oximetry 100 Intake and Output: Intake & Output 06/26/20 06/27/20 06/28/20 06/29/20 23:59 23:59 23:59 23:59 Intake Total 810 / 810 230 / 230 Output Total 2800 / 2800 350 / 350 Balance -1989 / -1989 -120 / -120 Physical Exam Oriented: Normal Eyes: Normal Ear: Normal Throat: Normal Respiratory: Generalized and Diminished Cardiovascular: Normal and Edema Auscultation: Bowel Sounds: Normal Tenderness: Normal Skin: Decreased [place] Musculoskeletal: Normal Psychiatric: Normal Mood Description: Calm Affect: Normal Speech Pattern: Clear Laboratory and Diagnostics Result Diagrams: 06/29/20 06:53 06/29/20 06:53 Labs: Laboratory WBC 6.3 X10^3/uL (3.6-10.0) 06/29/20 06:53 RBC 4.46 X10^6/uL (3.5-5.4) 06/29/20 06:53 Hgb 13.0 g/dL (12.0-16.0) 06/29/20 06:53 Hct 40.2 % (36.0-47.0) 06/29/20 06:53 MCV 90.0 fL (80.0-100.0) 06/29/20 06:53 MCH 29.1 pg (27.0-34.0) 06/29/20 06:53 MCHC 32.3 g/dL (33.0-35.0) L 06/29/20 06:53 RDW 18.9 % (11.6-16.5) H 06/29/20 06:53 Plt Count 55 X10^3/uL (150.0-450.0) L 06/29/20 06:53 Plt Count Comment Decreased (ADEQUATE) A 06/29/20 06:53 MPV 9.4 fL (7.4-11.0) 06/29/20 06:53 Neut % (Auto) 90.9 % (42.0-75.0) H 06/29/20 06:53 Lymph % (Auto) 3.4 % (21.0-51.0) L 06/29/20 06:53 [place] % (Auto) 5.5 % (0.0-13.0) 06/29/20 06:53 Eos % (Auto) 0.0 % (0.9-2.9) L 06/29/20 06:53 Baso % (Auto) 0.2 % (0.2-1.0) 06/29/20 06:53 Neut # (Auto) 5.7 x10^3/uL (2.2-4.8) H 06/29/20 06:53 Lymph # (Auto) 0.2 X10^3/uL (1.3-2.9) L 06/29/20 06:53 [place] # (Auto) 0.3 x10^3/uL (0.3-0.8) 06/29/20 06:53 Eos # (Auto) 0.0 x10^3/uL (0.0-0.2) 06/29/20 06:53 Baso # (Auto) 0.0 X10^3/uL (0.0-0.1) 06/29/20 06:53 Absolute Nucleated RBC 0.2 /100WBC 06/29/20 06:53 Total Counted 100 06/29/20 06:53 Neutrophils % (Manual) 84 % (39-76) H 06/29/20 06:53 Band Neutrophils % 3 % (0-10) 06/29/20 06:53 Lymphocytes % (Manual) 10 % (13-43) L 06/29/20 06:53 Monocytes % (Manual) 3 % (4-9) L 06/29/20 06:53 Eosinophils % (Manual) 1 % (0-6) 06/27/20 15:30 Plt Morphology Comment Normal (NORMAL) 06/29/20 06:53 RBC Morphology Normal (NORMAL) 06/29/20 06:53 Anisocytosis Slight A 06/27/20 15:30 Target Cells Present 06/27/20 15:30 Sodium 140 mmol/L (136-145) 06/29/20 06:53 Corrected Sodium 142 mmol/L (136-145) 06/29/20 06:53 Potassium 3.2 mmol/L (3.5-5.1) L 06/29/20 06:53 Chloride 102 mmol/L (98-107) 06/29/20 06:53 Carbon Dioxide 32.7 mmol/L (21-32) H 06/29/20 06:53 BUN 23 mg/dL (7-18) H 06/29/20 06:53 Creatinine 0.79 mg/dL (0.55-1.02) 06/29/20 06:53 Est GFR (MDRD) Af Amer > 60 (>60) 06/29/20 06:53 Est GFR (MDRD) Non-Af > 60 (>60) 06/29/20 06:53 Glucose 200 mg/dL (65-99) H 06/29/20 06:53 POC Glucose (mg/dL) 182 mg/dL (65-99) H 06/29/20 11:34 Hemoglobin A1c 7.0 % 06/29/20 06:53 Calcium 7.6 mg/dL (8.5-10.1) L 06/29/20 06:53 Corrected Calcium 9.3 mg/dL (8.5-10.1) 06/29/20 06:53 Magnesium 1.8 mg/dL (1.7-2.9) 06/29/20 06:53 Total Bilirubin 2.10 mg/dL (0.2-1.0) H 06/29/20 06:53 AST 20 Units/L (15-37) 06/29/20 06:53 ALT 15 Units/L (12-78) 06/29/20 06:53 Alkaline Phosphatase 104 Units/L (46-116) 06/29/20 06:53 Creatine Kinase 30 Units/L (26-192) 06/27/20 15:30 CK-MB (CK-2) < 1.0 ng/mL (0-4.0) 06/27/20 15:30 CK/CKMB % Calc 3.3 % (<4) 06/27/20 15:30 Troponin I 0.07 ng/mL (0-1.5) 06/27/20 15:30 Total Protein 5.2 g/dL (6.4-8.2) L 06/29/20 06:53 Albumin 1.9 g/dL (3.4-5.0) L 06/29/20 06:53 Globulin 3.3 g/dL (2.5-4.5) 06/29/20 06:53 Albumin/Globulin Ratio 0.6 Ratio (1.1-2.1) L 06/29/20 06:53 Specimen Type Catherized urine 06/28/20 19:06 Urine Color Pale yellow (YELLOW) 06/28/20 19:06 Urine Appearance Clear (CLEAR) 06/28/20 19:06 Urine pH 8.0 (5.0 - 8.0) 06/28/20 19:06 Ur Specific [place] 1.015 (1.000-1.030) 06/28/20 19:06 Urine Protein Negative (NEGATIVE) 06/28/20 19:06 Urine Glucose (UA) Negative (NEGATIVE) 06/28/20 19:06 Urine Ketones Negative (NEGATIVE) 06/28/20 19:06 Urine Occult Blood 3+ (NEGATIVE) 06/28/20 19:06 Urine Nitrite Negative (NEGATIVE) 06/28/20 19:06 Urine Bilirubin Negative (NEGATIVE) 06/28/20 19:06 Urine Urobilinogen 2+ (NORMAL) 06/28/20 19:06 Ur Leukocyte Esterase Negative (NEGATIVE) 06/28/20 19:06 Urine RBC 5-10 /HPF (0-3) A 06/28/20 19:06 Urine WBC 0-2 /HPF (0-5) 06/28/20 19:06 Ur Squamous Epith Cells Rare /HPF (NEGATIVE) 01/30/21 19:06 Urine Bacteria Negative /HPF (NEGATIVE) 06/28/20 19:06 Ur Culture Indicated? No/not indicated 06/28/20 19:06 SARS-CoV-2 (PCR) Positive (NEGATIVE) A 06/27/20 23:23 Influenza Type A (PCR) Negative (NEGATIVE) 06/27/20 23:23 Influenza Type B (PCR) Negative (NEGATIVE) 06/27/20 23:23 RSV (PCR) Negative (NEGATIVE) 06/27/20 23:23 Plan (1) Weakness: Status: Acute (2) Hypertension: Status: Chronic Qualifiers: Hypertension type: essential hypertension Qualified Code(s): I10 - Essential (primary) hypertension (3) COVID-19 virus infection: Status: Acute (4) COPD exacerbation: Status: Acute (5) CHF exacerbation: Status: Acute Qualifiers: Heart failure type: unspecified Qualified Code(s): I50.9 - Heart failure, unspecified (6) Failure to thrive: Status: Acute Qualifiers: Failure to thrive age range: in adult Qualified Code(s): R62.7 - Adult failure to thrive
[2020-06-29] MEDS: K-RIDER 10 MEQ/NS 100 ML 10 MEQ/100 ML BAG IV PRN ×3 (16:39→22:55)
[2020-06-29] MEDS: NS 1000 ML 1,000 ML IV SCH (16:53)
[2020-06-30] MEDS: K-RIDER 10 MEQ/NS 100 ML 10 MEQ/100 ML BAG IV PRN (01:30)
[2020-06-30] MEDS: NS 1000 ML 1,000 ML IV SCH ×2 (05:51→21:52)
[2020-06-30] MEDS: HumuLIN R SC PRN (05:52)
[2020-06-30 06:39] LABS: BASOPHILS % (AUTO) 0.1 % (0.2-1.0); HEMATOCRIT 40.6 % (36.0-47.0); HEMOGLOBIN 13.2 g/dL (12.0-16.0); LYMPHOCYTES # (AUTO) 0.2 X10^3/uL (1.3-2.9); LYMPHOCYTES % (AUTO) 3.6 % (21.0-51.0); MEAN CORPUSCULAR HEMOGLOBIN 29.4 pg (27.0-34.0); MEAN CORPUSCULAR HGB CONC 32.6 g/dL (33.0-35.0); MEAN CORPUSCULAR VOLUME 90.2 fL (80.0-100.0); MONOCYTES # (AUTO) 0.4 x10^3/uL (0.3-0.8); MONOCYTES % (AUTO) 6.7 % (0.0-13.0); NEUTROPHILS # (AUTO) 5.6 x10^3/uL (2.2-4.8); NEUTROPHILS % (AUTO) 89.6 % (42.0-75.0); PLATELET COUNT 51 X10^3/uL (150.0-450.0); RED BLOOD COUNT 4.51 X10^6/uL (3.5-5.4); RED CELL DISTRIBUTION WIDTH 19.3 % (11.6-16.5); WHITE BLOOD COUNT 6.2 X10^3/uL (3.6-10.0)
[2020-06-30 07:14] LABS: ALANINE AMINOTRANSFERASE 22 Units/L (12-78); ALBUMIN 1.9 g/dL (3.4-5.0); ALKALINE PHOSPHATASE 116 Units/L (46-116); ASPARTATE AMINO TRANSFERASE 21 Units/L (15-37); BLOOD UREA NITROGEN 18 mg/dL (7-18); CALCIUM 7.6 mg/dL (8.5-10.1); CARBON DIOXIDE 29.1 mmol/L (21-32); CHLORIDE 101 mmol/L (98-107); COR CA(FOR HYPOALB) 9.3 mg/dL (8.5-10.1); COR NA(FOR HYPERGLY) 141 mmol/L (136-145); CREATININE 0.71 mg/dL (0.55-1.02); SODIUM 137 mmol/L (136-145); TOTAL PROTEIN 5.3 g/dL (6.4-8.2); eGFR NON BLACK RACES > 60 (>60)
[2020-06-30] MEDS: K-DUR TAB 20 MEQ PO SCH ×2 (08:46→21:52)
[2020-06-30] MEDS: COLACE CAP 100 MG PO SCH (08:46)
[2020-06-30] MEDS: COREG TAB 25 MG PO SCH ×2 (08:46→21:51)
[2020-06-30] MEDS: LASIX PO SCH (08:47)
[2020-06-30] MEDS: PREDNISONE TAB 20 MG PO SCH (08:47)
[2020-06-30] MEDS: XARELTO PO SCH (08:47)
[2020-06-30] MEDS: MILK OF MAGNESIA PO SCH ×2 (08:47→21:57)
[2020-06-30] MEDS: DUONEB 0.5 MG/3 MG (3 mL) NEB SCH ×4 (09:49→21:48)
--- NOTE | 2020-06-30 16:33 | PCM.PROG ---
Progress Note Progress Note for Day of Date of Exam: 06/30/20 Subjective Subjective: Patient seen at bedside, no events overnight. She states she is doing well with no complaints. Denies any Sx. Patient states she did get out of bed yesterday. Labs: Hgb 13.2 Plt 51 K 4 Glucose 258 A1C 7.0% Plan: continue PT/OT as tolerated, CM to [facility]. CM sent referrals to other facilities. Will DC vogel. Start metformin 500 mg daily. Continue SSI. Patient stable for discharge when placement found. Past Medical Family Social History Past Med/Fam/Surg Hx: No changes since H&P Allergies: Allergies codeine Allergy (Verified 04/22/20 14:09) latex Allergy (Verified 04/22/20 14:09) milk Allergy (Verified 04/22/20 14:09) Review of Systems ROS: No change since H&P Vital Signs and I&O's Vital Signs: Temperature 99.6 F Pulse Rate [Right Brachial] 70 Pulse Rate 67 Respiratory Rate 20 Blood Pressure [l arm] 137/87 Blood Pressure [Right Arm] 166/86 Blood Pressure 144/82 O2 Sat by Pulse Oximetry 97 Intake and Output: Intake & Output 06/27/20 06/28/20 06/29/20 06/30/20 23:59 23:59 23:59 23:59 Intake Total 810 / 810 1240 / 1240 420 / 420 Output Total 2800 / 2800 1550 / 1550 875 / 875 Balance -1989 / -1990 -310 / -310 -455 / -455 Physical Exam Oriented: Normal Eyes: Normal Ear: Normal Throat: Normal Respiratory: Generalized and Diminished Cardiovascular: Normal and Edema Auscultation: Bowel Sounds: Normal Tenderness: Normal Skin: Decreased [place] Musculoskeletal: Normal Psychiatric: Normal Mood Description: Calm Affect: Normal Speech Pattern: Clear Laboratory and Diagnostics Result Diagrams: 06/30/20 05:26 06/30/20 05:26 Labs: Laboratory WBC 6.2 X10^3/uL (3.6-10.0) 06/30/20 05:26 RBC 4.51 X10^6/uL (3.5-5.4) 06/30/20 05:26 Hgb 13.2 g/dL (12.0-16.0) 06/30/20 05:26 Hct 40.6 % (36.0-47.0) 06/30/20 05:26 MCV 90.2 fL (80.0-100.0) 06/30/20 05:26 MCH 29.4 pg (27.0-34.0) 06/30/20 05:26 MCHC 32.6 g/dL (33.0-35.0) L 06/30/20 05:26 RDW 19.3 % (11.6-16.5) H 06/30/20 05:26 Plt Count 51 X10^3/uL (150.0-450.0) L 06/30/20 05:26 Plt Count Comment Decreased (ADEQUATE) A 06/29/20 06:53 MPV 9.0 fL (7.4-11.0) 06/30/20 05:26 Neut % (Auto) 89.6 % (42.0-75.0) H 06/30/20 05:26 Lymph % (Auto) 3.6 % (21.0-51.0) L 06/30/20 05:26 [place] % (Auto) 6.7 % (0.0-13.0) 06/30/20 05:26 Eos % (Auto) 0.0 % (0.9-2.9) L 06/30/20 05:26 Baso % (Auto) 0.1 % (0.2-1.0) L 06/30/20 05:26 Neut # (Auto) 5.6 x10^3/uL (2.2-4.8) H 06/30/20 05:26 Lymph # (Auto) 0.2 X10^3/uL (1.3-2.9) L 06/30/20 05:26 [place] # (Auto) 0.4 x10^3/uL (0.3-0.8) 06/30/20 05:26 Eos # (Auto) 0.0 x10^3/uL (0.0-0.2) 06/30/20 05:26 Baso # (Auto) 0.0 X10^3/uL (0.0-0.1) 06/30/20 05:26 Absolute Nucleated RBC 0.1 /100WBC 06/30/20 05:26 Total Counted 100 06/29/20 06:53 Neutrophils % (Manual) 84 % (39-76) H 06/29/20 06:53 Band Neutrophils % 3 % (0-10) 06/29/20 06:53 Lymphocytes % (Manual) 10 % (13-43) L 06/29/20 06:53 Monocytes % (Manual) 3 % (4-9) L 06/29/20 06:53 Eosinophils % (Manual) 1 % (0-6) 06/27/20 15:30 Plt Morphology Comment Normal (NORMAL) 06/29/20 06:53 RBC Morphology Normal (NORMAL) 06/29/20 06:53 Anisocytosis Slight A 06/27/20 15:30 Target Cells Present 06/27/20 15:30 Sodium 137 mmol/L (136-145) 06/30/20 05:26 Corrected Sodium 141 mmol/L (136-145) 06/30/20 05:26 Potassium 4.0 mmol/L (3.5-5.1) 06/30/20 05:26 Chloride 101 mmol/L (98-107) 06/30/20 05:26 Carbon Dioxide 29.1 mmol/L (21-32) 06/30/20 05:26 BUN 18 mg/dL (7-18) 06/30/20 05:26 Creatinine 0.71 mg/dL (0.55-1.02) 06/30/20 05:26 Est GFR (MDRD) Af Amer > 60 (>60) 06/30/20 05:26 Est GFR (MDRD) Non-Af > 60 (>60) 06/30/20 05:26 Glucose 258 mg/dL (65-99) H 06/30/20 05:26 POC Glucose (mg/dL) 161 mg/dL (65-99) H 06/30/20 12:33 Hemoglobin A1c 7.0 % 06/29/20 06:53 Calcium 7.6 mg/dL (8.5-10.1) L 06/30/20 05:26 Corrected Calcium 9.3 mg/dL (8.5-10.1) 06/30/20 05:26 Magnesium 1.8 mg/dL (1.7-2.9) 06/29/20 06:53 Total Bilirubin 1.40 mg/dL (0.2-1.0) H 06/30/20 05:26 AST 21 Units/L (15-37) 06/30/20 05:26 ALT 22 Units/L (12-78) 06/30/20 05:26 Alkaline Phosphatase 116 Units/L (46-116) 06/30/20 05:26 Creatine Kinase 30 Units/L (26-192) 06/27/20 15:30 CK-MB (CK-2) < 1.0 ng/mL (0-4.0) 06/27/20 15:30 CK/CKMB % Calc 3.3 % (<4) 06/27/20 15:30 Troponin I 0.07 ng/mL (0-1.5) 06/27/20 15:30 Total Protein 5.3 g/dL (6.4-8.2) L 06/30/20 05:26 Albumin 1.9 g/dL (3.4-5.0) L 06/30/20 05:26 Globulin 3.4 g/dL (2.5-4.5) 06/30/20 05:26 Albumin/Globulin Ratio 0.6 Ratio (1.1-2.1) L 06/30/20 05:26 Specimen Type Catherized urine 06/28/20 19:06 Urine Color Pale yellow (YELLOW) 06/28/20 19:06 Urine Appearance Clear (CLEAR) 06/28/20 19:06 Urine pH 8.0 (5.0 - 8.0) 06/28/20 19:06 Ur Specific [place] 1.015 (1.000-1.030) 06/28/20 19:06 Urine Protein Negative (NEGATIVE) 06/28/20 19:06 Urine Glucose (UA) Negative (NEGATIVE) 06/28/20 19:06 Urine Ketones Negative (NEGATIVE) 06/28/20 19:06 Urine Occult Blood 3+ (NEGATIVE) 06/28/20 19:06 Urine Nitrite Negative (NEGATIVE) 06/28/20 19:06 Urine Bilirubin Negative (NEGATIVE) 06/28/20 19:06 Urine Urobilinogen 2+ (NORMAL) 06/28/20 19:06 Ur Leukocyte Esterase Negative (NEGATIVE) 06/28/20 19:06 Urine RBC 5-10 /HPF (0-3) A 06/28/20 19:06 Urine WBC 0-2 /HPF (0-5) 06/28/20 19:06 Ur Squamous Epith Cells Rare /HPF (NEGATIVE) 06/28/20 19:06 Urine Bacteria Negative /HPF (NEGATIVE) 06/28/20 19:06 Ur Culture Indicated? No/not indicated 06/28/20 19:06 SARS-CoV-2 (PCR) Positive (NEGATIVE) A 06/27/20 23:23 Influenza Type A (PCR) Negative (NEGATIVE) 06/27/20 23:23 Influenza Type B (PCR) Negative (NEGATIVE) 06/27/20 23:23 RSV (PCR) Negative (NEGATIVE) 06/27/20 23:23 Plan (1) Weakness: Status: Acute (2) Hypertension: Status: Chronic Qualifiers: Hypertension type: essential hypertension Qualified Code(s): I10 - Essential (primary) hypertension (3) COVID-19 virus infection: Status: Acute (4) COPD exacerbation: Status: Acute (5) CHF exacerbation: Status: Acute Qualifiers: Heart failure type: unspecified Qualified Code(s): I50.9 - Heart failure, unspecified (6) Failure to thrive: Status: Acute Qualifiers: Failure to thrive age range: in adult Qualified Code(s): R62.7 - Adult failure to thrive (7) Thrombocytopenia: Status: Acute (8) Diabetes: Status: Acute
[2020-07-01] MEDS ORDERED: GLUCOPHAGE ONE (06:03)
[2020-07-01] MEDS ORDERED: GLUCOPHAGE PO SCH (07:00)
[2020-07-01] MEDS: DUONEB 0.5 MG/3 MG (3 mL) NEB SCH ×2 (09:15→13:52)
[2020-07-01] MEDS: COLACE CAP 100 MG PO SCH (09:16)
[2020-07-01] MEDS: MILK OF MAGNESIA PO SCH (09:17)
[2020-07-01] MEDS: PREDNISONE TAB 20 MG PO SCH (09:18)
[2020-07-01] MEDS: XARELTO PO SCH (09:18)
[2020-07-01] MEDS: COREG TAB 25 MG PO SCH (09:19)
[2020-07-01] MEDS: LASIX PO SCH (09:19)
[2020-07-01] MEDS: K-DUR TAB 20 MEQ PO SCH (09:19)
--- NOTE | 2020-07-01 10:42 | PCM.PROG ---
Progress Note Progress Note for Day of Date of Exam: 07/01/20 Subjective Subjective: Patient seen at bedside, no events overnight. She states she is doing well with no complaints. Denies any Sx. Patient did refuse to take metformin yesterday. She states she does not want to take more medications and will manage her elevated glucose with changes in diet. Aguilar has been removed. Plan: Will DC metformin. Change to ADA diet. Continue PT/OT as tolerated, CM working [facility]. Patient stable for discharge when placement arranged. Past Medical Family Social History Past Med/Fam/Surg Hx: No changes since H&P Allergies: Allergies codeine Allergy (Verified 04/22/20 14:09) latex Allergy (Verified 04/22/20 14:09) milk Allergy (Verified 04/22/20 14:09) Review of Systems ROS: No change since H&P Vital Signs and I&O's Vital Signs: Temperature 98.5 F Pulse Rate [Right Brachial] 71 Pulse Rate 67 Respiratory Rate 18 Blood Pressure [l arm] 137/87 Blood Pressure [Right Arm] 131/88 Blood Pressure 144/82 O2 Sat by Pulse Oximetry 97 Intake and Output: Intake & Output 06/28/20 06/29/20 06/30/20 07/01/20 23:59 23:59 23:59 23:59 Intake Total 810 / 810 1240 / 1240 680 / 680 595 / 595 Output Total 2800 / 2800 1550 / 1550 875 / 875 Balance -1989 / -1990 -310 / -310 -195 / -195 595 / 595 Physical Exam Oriented: Normal Eyes: Normal Ear: Normal Throat: Normal Respiratory: Generalized and Diminished Cardiovascular: Normal and Edema Auscultation: Bowel Sounds: Normal Tenderness: Normal Skin: Decreased [place]urgur Musculoskeletal: Normal Psychiatric: Normal Mood Description: Calm Affect: Normal Speech Pattern: Clear Laboratory and Diagnostics Result Diagrams: 06/30/20 05:26 06/30/20 05:26 Labs: Laboratory WBC 6.2 X10^3/uL (3.6-10.0) 06/30/20 05:26 RBC 4.51 X10^6/uL (3.5-5.4) 06/30/20 05:26 Hgb 13.2 g/dL (12.0-16.0) 06/30/20 05:26 Hct 40.6 % (36.0-47.0) 06/30/20 05:26 MCV 90.2 fL (80.0-100.0) 06/30/20 05:26 MCH 29.4 pg (27.0-34.0) 06/30/20 05:26 MCHC 32.6 g/dL (33.0-35.0) L 06/30/20 05:26 RDW 19.3 % (11.6-16.5) H 06/30/20 05:26 Plt Count 51 X10^3/uL (150.0-450.0) L 06/30/20 05:26 Plt Count Comment Decreased (ADEQUATE) A 06/29/20 06:53 MPV 9.0 fL (7.4-11.0) 06/30/20 05:26 Neut % (Auto) 89.6 % (42.0-75.0) H 06/30/20 05:26 Lymph % (Auto) 3.6 % (21.0-51.0) L 06/30/20 05:26 [place] % (Auto) 6.7 % (0.0-13.0) 06/30/20 05:26 Eos % (Auto) 0.0 % (0.9-2.9) L 06/30/20 05:26 Baso % (Auto) 0.1 % (0.2-1.0) L 06/30/20 05:26 Neut # (Auto) 5.6 x10^3/uL (2.2-4.8) H 06/30/20 05:26 Lymph # (Auto) 0.2 X10^3/uL (1.3-2.9) L 06/30/20 05:26 [place] # (Auto) 0.4 x10^3/uL (0.3-0.8) 06/30/20 05:26 Eos # (Auto) 0.0 x10^3/uL (0.0-0.2) 06/30/20 05:26 Baso # (Auto) 0.0 X10^3/uL (0.0-0.1) 06/30/20 05:26 Absolute Nucleated RBC 0.1 /100WBC 06/30/20 05:26 Total Counted 100 06/29/20 06:53 Neutrophils % (Manual) 84 % (39-76) H 06/29/20 06:53 Band Neutrophils % 3 % (0-10) 06/29/20 06:53 Lymphocytes % (Manual) 10 % (13-43) L 06/29/20 06:53 Monocytes % (Manual) 3 % (4-9) L 06/29/20 06:53 Eosinophils % (Manual) 1 % (0-6) 06/27/20 15:30 Plt Morphology Comment Normal (NORMAL) 06/29/20 06:53 RBC Morphology Normal (NORMAL) 06/29/20 06:53 Anisocytosis Slight A 06/27/20 15:30 Target Cells Present 06/27/20 15:30 Sodium 137 mmol/L (136-145) 06/30/20 05:26 Corrected Sodium 141 mmol/L (136-145) 06/30/20 05:26 Potassium 4.0 mmol/L (3.5-5.1) 06/30/20 05:26 Chloride 101 mmol/L (98-107) 06/30/20 05:26 Carbon Dioxide 29.1 mmol/L (21-32) 06/30/20 05:26 BUN 18 mg/dL (7-18) 06/30/20 05:26 Creatinine 0.71 mg/dL (0.55-1.02) 06/30/20 05:26 Est GFR (MDRD) Af Amer > 60 (>60) 06/30/20 05:26 Est GFR (MDRD) Non-Af > 60 (>60) 06/30/20 05:26 Glucose 258 mg/dL (65-99) H 06/30/20 05:26 POC Glucose (mg/dL) 124 mg/dL (65-99) H 07/01/20 05:26 Hemoglobin A1c 7.0 % 06/29/20 06:53 Calcium 7.6 mg/dL (8.5-10.1) L 06/30/20 05:26 Corrected Calcium 9.3 mg/dL (8.5-10.1) 06/30/20 05:26 Magnesium 1.8 mg/dL (1.7-2.9) 06/29/20 06:53 Total Bilirubin 1.40 mg/dL (0.2-1.0) H 06/30/20 05:26 AST 21 Units/L (15-37) 06/30/20 05:26 ALT 22 Units/L (12-78) 06/30/20 05:26 Alkaline Phosphatase 116 Units/L (46-116) 06/30/20 05:26 Creatine Kinase 30 Units/L (26-192) 06/27/20 15:30 CK-MB (CK-2) < 1.0 ng/mL (0-4.0) 06/27/20 15:30 CK/CKMB % Calc 3.3 % (<4) 06/27/20 15:30 Troponin I 0.07 ng/mL (0-1.5) 06/27/20 15:30 Total Protein 5.3 g/dL (6.4-8.2) L 06/30/20 05:26 Albumin 1.9 g/dL (3.4-5.0) L 06/30/20 05:26 Globulin 3.4 g/dL (2.5-4.5) 06/30/20 05:26 Albumin/Globulin Ratio 0.6 Ratio (1.1-2.1) L 06/30/20 05:26 Specimen Type Catherized urine 06/28/20 19:06 Urine Color Pale yellow (YELLOW) 06/28/20 19:06 Urine Appearance Clear (CLEAR) 06/28/20 19:06 Urine pH 8.0 (5.0 - 8.0) 06/28/20 19:06 Ur Specific [place] 1.015 (1.000-1.030) 06/28/20 19:06 Urine Protein Negative (NEGATIVE) 06/28/20 19:06 Urine Glucose (UA) Negative (NEGATIVE) 06/28/20 19:06 Urine Ketones Negative (NEGATIVE) 06/28/20 19:06 Urine Occult Blood 3+ (NEGATIVE) 06/28/20 19:06 Urine Nitrite Negative (NEGATIVE) 06/28/20 19:06 Urine Bilirubin Negative (NEGATIVE) 06/28/20 19:06 Urine Urobilinogen 2+ (NORMAL) 06/28/20 19:06 Ur Leukocyte Esterase Negative (NEGATIVE) 06/28/20 19:06 Urine RBC 5-10 /HPF (0-3) A 06/28/20 19:06 Urine WBC 0-2 /HPF (0-5) 06/28/20 19:06 Ur Squamous Epith Cells Rare /HPF (NEGATIVE) 06/28/20 19:06 Urine Bacteria Negative /HPF (NEGATIVE) 06/28/20 19:06 Ur Culture Indicated? No/not indicated 06/28/20 19:06 SARS-CoV-2 (PCR) Positive (NEGATIVE) A 06/27/20 23:23 Influenza Type A (PCR) Negative (NEGATIVE) 06/27/20 23:23 Influenza Type B (PCR) Negative (NEGATIVE) 06/27/20 23:23 RSV (PCR) Negative (NEGATIVE) 06/27/20 23:23 Plan (1) Weakness: Status: Acute (2) Hypertension: Status: Chronic Qualifiers: Hypertension type: essential hypertension Qualified Code(s): I10 - Essential (primary) hypertension (3) COVID-19 virus infection: Status: Acute (4) COPD exacerbation: Status: Acute (5) CHF exacerbation: Status: Acute Qualifiers: Heart failure type: unspecified Qualified Code(s): I50.9 - Heart failure, unspecified (6) Failure to thrive: Status: Acute Qualifiers: Failure to thrive age range: in adult Qualified Code(s): R62.7 - Adult failure to thrive (7) Thrombocytopenia: Status: Acute (8) Diabetes: Status: Acute
[2020-07-01 13:06] VITALS: BP 135/79
--- NOTE | 2020-07-01 14:48 | W.DIS.FURT ---
Summary of Discharge Discharge Summary of Date Date of Exam: 07/01/20 Admission Date Date of Admission: 06/28/20 Admission Diagnosis Patient Problems (Updated 07/03/20 @ 16:42 by Brandy Agrawal) Weakness (Chronic) R53.1 SOB (shortness of breath) (Acute) R06.02 Hospital Course: Ms Vasquez is a 80y/o female with multiple comorbidities including COPD, CHF and atrial fibrillation was recently discharged on 06/24/19 after being treated for COVID pneumonia and COPD and CHF exacerbation. Patient was brought to the ED overnight as patient is not able to take care of herself at home and family would like her to be placed in a assisted. On exam, patient is alert and oriented and able to answer questions. She states she does not take all her medications at home and is not able to tell me which ones she takes. Labs did show low platelets which is chronic, normal renal function. CXR was concerning for CHF. Patient was given IV lasix and then home dose lasix was started. She did have COPD exacerbation so received Prednisone and azithromycin along with bronchodilators. PT/OT was consulted and worked with patient throughout her stay. CM sent referral to different nursing homes and patient was accepted. She did have elevated glucose and A1C 7%. She denies hx of diabetes. She was started on metformin but patient refused and stated she would like do diet control first and then see if she needs medications. Patient does not seem compliant with her medications at home. Med list was sent to the assisted. Patient was stable for transfer. Vital Signs: Vital Signs (72 hours) 06/28/20 16:00 06/28/20 17:33 06/28/20 20:00 Temperature 98.7 F 99.6 F Pulse Rate 84 Pulse Rate [Right Brachial] 70 69 Respiratory Rate 20 22 Blood Pressure [Right Arm] 119/70 120/89 O2 Sat by Pulse Oximetry 94 L 95 92 L 06/28/20 21:18 06/29/20 00:00 06/29/20 04:00 Temperature 98.1 F 97.3 F L Pulse Rate 69 Pulse Rate [Right Brachial] 74 69 Respiratory Rate 20 16 Blood Pressure [Right Arm] 133/78 128/78 O2 Sat by Pulse Oximetry 90 L 95 97 06/29/20 08:00 06/29/20 09:45 06/29/20 12:00 Temperature 98.5 F 98.3 F Pulse Rate 69 Pulse Rate [Right Brachial] 70 62 Respiratory Rate 20 20 Blood Pressure [Right Arm] 138/78 142/87 O2 Sat by Pulse Oximetry 95 100 95 06/29/20 16:00 06/29/20 20:00 06/30/20 00:00 Temperature 97.8 F 98.3 F 97.3 F L Pulse Rate 68 Pulse Rate [Right Brachial] 70 70 70 Respiratory Rate 20 20 20 Blood Pressure [Right Arm] 144/76 143/86 138/84 O2 Sat by Pulse Oximetry 97 98 95 06/30/20 03:58 06/30/20 08:00 06/30/20 09:49 Temperature 97.7 F 99.6 F Pulse Rate 67 Pulse Rate [Right Brachial] 70 70 Respiratory Rate 22 20 Blood Pressure [Right Arm] 145/78 166/86 O2 Sat by Pulse Oximetry 98 96 97 06/30/20 12:00 06/30/20 16:00 06/30/20 20:00 Temperature 98.1 F 98.6 F 100.2 F H Pulse Rate Pulse Rate [Right Brachial] 70 70 70 Respiratory Rate 20 20 19 Blood Pressure [Right Arm] 192/97 138/87 124/84 O2 Sat by Pulse Oximetry 95 93 L 98 07/01/20 00:00 07/01/20 04:00 07/01/20 08:00 Temperature 97.8 F 98.5 F 97.9 F Pulse Rate Pulse Rate [Right Brachial] 70 71 70 Respiratory Rate 16 18 20 Blood Pressure [Right Arm] 134/85 131/88 128/79 O2 Sat by Pulse Oximetry 95 97 96 07/01/20 09:15 07/01/20 12:00 Temperature 97.9 F Pulse Rate 72 Pulse Rate [Right Brachial] 69 Respiratory Rate 20 Blood Pressure [Right Arm] 135/79 O2 Sat by Pulse Oximetry 97 96 Labs: Laboratory Last Values WBC 6.2 X10^3/uL (3.6-10.0) 06/30/20 05:26 RBC 4.51 X10^6/uL (3.5-5.4) 06/30/20 05:26 Hgb 13.2 g/dL (12.0-16.0) 06/30/20 05:26 Hct 40.6 % (36.0-47.0) 06/30/20 05:26 MCV 90.2 fL (80.0-100.0) 06/30/20 05:26 MCH 29.4 pg (27.0-34.0) 06/30/20 05:26 MCHC 32.6 g/dL (33.0-35.0) L 06/30/20 05:26 RDW 19.3 % (11.6-16.5) H 06/30/20 05:26 Plt Count 51 X10^3/uL (150.0-450.0) L 06/30/20 05:26 Plt Count Comment Decreased (ADEQUATE) A 06/29/20 06:53 MPV 9.0 fL (7.4-11.0) 06/30/20 05:26 Neut % (Auto) 89.6 % (42.0-75.0) H 06/30/20 05:26 Lymph % (Auto) 3.6 % (21.0-51.0) L 06/30/20 05:26 Hawkins % (Auto) 6.7 % (0.0-13.0) 06/30/20 05:26 Eos % (Auto) 0.0 % (0.9-2.9) L 06/30/20 05:26 Baso % (Auto) 0.1 % (0.2-1.0) L 06/30/20 05:26 Neut # (Auto) 5.6 x10^3/uL (2.2-4.8) H 06/30/20 05:26 Lymph # (Auto) 0.2 X10^3/uL (1.3-2.9) L 06/30/20 05:26 Hawkins # (Auto) 0.4 x10^3/uL (0.3-0.8) 06/30/20 05:26 Eos # (Auto) 0.0 x10^3/uL (0.0-0.2) 06/30/20 05:26 Baso # (Auto) 0.0 X10^3/uL (0.0-0.1) 06/30/20 05:26 Absolute Nucleated RBC 0.1 /100WBC 06/30/20 05:26 Total Counted 100 06/29/20 06:53 Neutrophils % (Manual) 84 % (39-76) H 06/29/20 06:53 Band Neutrophils % 3 % (0-10) 06/29/20 06:53 Lymphocytes % (Manual) 10 % (13-43) L 06/29/20 06:53 Monocytes % (Manual) 3 % (4-9) L 06/29/20 06:53 Eosinophils % (Manual) 1 % (0-6) 06/27/20 15:30 Plt Morphology Comment Normal (NORMAL) 06/29/20 06:53 RBC Morphology Normal (NORMAL) 06/29/20 06:53 Anisocytosis Slight A 06/27/20 15:30 Target Cells Present 06/27/20 15:30 Sodium 137 mmol/L (136-145) 06/30/20 05:26 Corrected Sodium 141 mmol/L (136-145) 06/30/20 05:26 Potassium 4.0 mmol/L (3.5-5.1) 06/30/20 05:26 Chloride 101 mmol/L (98-107) 06/30/20 05:26 Carbon Dioxide 29.1 mmol/L (21-32) 06/30/20 05:26 BUN 18 mg/dL (7-18) 06/30/20 05:26 Creatinine 0.71 mg/dL (0.55-1.02) 06/30/20 05:26 Est GFR (MDRD) Af Amer > 60 (>60) 06/30/20 05:26 Est GFR (MDRD) Non-Af > 60 (>60) 06/30/20 05:26 Glucose 258 mg/dL (65-99) H 06/30/20 05:26 POC Glucose (mg/dL) 148 mg/dL (65-99) H 07/01/20 11:37 Hemoglobin A1c 7.0 % 06/29/20 06:53 Calcium 7.6 mg/dL (8.5-10.1) L 06/30/20 05:26 Corrected Calcium 9.3 mg/dL (8.5-10.1) 06/30/20 05:26 Magnesium 1.8 mg/dL (1.7-2.9) 06/29/20 06:53 Total Bilirubin 1.40 mg/dL (0.2-1.0) H 06/30/20 05:26 AST 21 Units/L (15-37) 06/30/20 05:26 ALT 22 Units/L (12-78) 06/30/20 05:26 Alkaline Phosphatase 116 Units/L (46-116) 06/30/20 05:26 Creatine Kinase 30 Units/L (26-192) 06/27/20 15:30 CK-MB (CK-2) < 1.0 ng/mL (0-4.0) 06/27/20 15:30 CK/CKMB % Calc 3.3 % (<4) 06/27/20 15:30 Troponin I 0.07 ng/mL (0-1.5) 06/27/20 15:30 Total Protein 5.3 g/dL (6.4-8.2) L 06/30/20 05:26 Albumin 1.9 g/dL (3.4-5.0) L 06/30/20 05:26 Globulin 3.4 g/dL (2.5-4.5) 06/30/20 05:26 Albumin/Globulin Ratio 0.6 Ratio (1.1-2.1) L 06/30/20 05:26 Specimen Type Catherized urine 06/28/20 19:06 Urine Color Pale yellow (YELLOW) 06/28/20 19:06 Urine Appearance Clear (CLEAR) 06/28/20 19:06 Urine pH 8.0 (5.0 - 8.0) 06/28/20 19:06 Ur Specific [place] 1.015 (1.000-1.030) 06/28/20 19:06 Urine Protein Negative (NEGATIVE) 06/28/20 19:06 Urine Glucose (UA) Negative (NEGATIVE) 06/28/20 19:06 Urine Ketones Negative (NEGATIVE) 06/28/20 19:06 Urine Occult Blood 3+ (NEGATIVE) 06/28/20 19:06 Urine Nitrite Negative (NEGATIVE) 06/28/20 19:06 Urine Bilirubin Negative (NEGATIVE) 06/28/20 19:06 Urine Urobilinogen 2+ (NORMAL) 06/28/20 19:06 Ur Leukocyte Esterase Negative (NEGATIVE) 06/28/20 19:06 Urine RBC 5-10 /HPF (0-3) A 06/28/20 19:06 Urine WBC 0-2 /HPF (0-5) 06/28/20 19:06 Ur Squamous Epith Cells Rare /HPF (NEGATIVE) 06/28/20 19:06 Urine Bacteria Negative /HPF (NEGATIVE) 06/28/20 19:06 Ur Culture Indicated? No/not indicated 06/28/20 19:06 SARS-CoV-2 (PCR) Positive (NEGATIVE) A 06/27/20 23:23 Influenza Type A (PCR) Negative (NEGATIVE) 06/27/20 23:23 Influenza Type B (PCR) Negative (NEGATIVE) 06/27/20 23:23 RSV (PCR) Negative (NEGATIVE) 06/27/20 23:23 Reason For Visit: ADM Discharge Date Discharge Date: 07/01/20 Discharge Diagnosis All Active Problems (Updated 07/03/20 @ 16:42 by Brandy Agrawal) Diabetes (Chronic) Thrombocytopenia (Chronic) Failure to thrive (Chronic) CHF exacerbation (Acute) COPD exacerbation (Acute) Pneumonia (Acute) Dehydration (Acute) AMS (altered mental status) (Acute) Weakness (Chronic) SOB (shortness of breath) (Acute) COPD (chronic obstructive pulmonary disease) (Chronic) Hypertension (Chronic) CHF (congestive heart failure) (Chronic) Weakness generalized (Chronic) COVID-19 virus infection (Acute) 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 Pt is to keep follow up appointment as instructed and take medications as ordered. Discharge Medications Discharge Medications: codeine Allergy (Verified 04/22/20 14:09) latex Allergy (Verified 04/22/20 14:09) milk Allergy (Verified 04/22/20 14:09) New Prescriptions metformin 500 mg PO BID 30 Days #60 tab 06/30/20 [Rx] Follow up and Referral Follow Up: 2 Weeks (PCP) Discharge Disposition Discharge Disposition: assisted Discharge Condition: Stable Discharge Plan Discharge Plan Hospital Course: Ms Vasquez is a 80y/o female with multiple comorbidities including COPD, CHF and atrial fibrillation was recently discharged on 06/24/19 after being treated for COVID pneumonia and COPD and CHF exacerbation. Patient was brought to the ED overnight as patient is not able to take care of herself at home and family would like her to be placed in a assisted. On exam, patient is alert and oriented and able to answer questions. She states she does not take all her medications at home and is not able to tell me which ones she takes. Labs did show low platelets which is chronic, normal renal function. CXR was concerning for CHF. Patient was given IV lasix and then home dose lasix was started. She did have COPD exacerbation so received Prednisone and azithromycin along with bronchodilators. PT/OT was consulted and worked with patient throughout her stay. CM sent referral to different nursing homes and patient was accepted. She did have elevated glucose and A1C 7%. She denies hx of diabetes. She was started on metformin but patient refused and stated she would like do diet control first and then see if she needs medications. Patient does not seem compliant with her medications at home. Med list was sent to the assisted. Patient was stable for transfer. Patient Disposition: [facility] Condition: Stable Health Concerns: Post Hospitalization: new medications and changes needed to prevent readmission or further decline. Pt educated and given instructions on all concerns. Care Plan Goals: Problem: Respiratory Complications Goal: Improved Uncomplicated Respiratory Status Instructions: Follow provided instructions. Follow up with primary physician as directed. Contact primary care physician or report to the closest Emergency Room if condition worsens. Plan of Treatment: Continue with present treatment and follow up plan. Pt is to keep follow up appointment as instructed and take medications as ordered. Prescription drug monitoring program results: PDMP reviewed and no concerns identified Prescriptions: New metformin 500 mg tablet 500 mg PO BID 30 Days Qty: 60 RF: 0 Continued furosemide 20 mg tablet 20 mg PO DAILY RF: 0 Xarelto 20 mg tablet 20 mg PO DAILY RF: 0 azithromycin [Zithromax] 250 mg Tablet 250 mg PO DAILY Qty: 5 RF: 0 ipratropium-albuterol 3 ML solution for nebulization 1 neb NEB TID Qty: 90 RF: 1 carvedilol [Coreg] 25 mg Tablet 25 mg PO BID RF: 0 Discontinued cefdinir 300 mg capsule 300 mg PO BID Qty: 20 RF: 0 potassium chloride [K-Tab] 10 mEq tablet extended release 20 meq PO DAILY RF: 0 Orders to Discharge Patient Discharge Orders: Discharge (Routine); Ordered 07/01/20 Ordered By: Brandy Agrawal Follow ups/Referrals Follow ups/Referrals: Kristin Biggs [Primary Care Provider] - 3 days Instructions Stand Alone Forms: Excuse From Work or School, Precautions for COVID19, Patient Portal, Social Distancing
== END 2020-07-01 15:35 ==
LOC: MED/SURG 14:25 → ER 14:25 → MED/SURG 06-28 03:35
PROVIDERS: ADMIT Internal Medicine; ATTEND Internal Medicine
DX: R53.1 Weakness; I50.9 Heart failure, unspecified; Z95.0 Presence of cardiac pacemaker; R41.82 Altered mental status, unspecified; E11.65 Type 2 diabetes mellitus with hyperglycemia; D69.6 Thrombocytopenia, unspecified; I10 Essential (primary) hypertension; J44.1 Chronic obstructive pulmonary disease with (acute) exacerbation; R94.31 Abnormal electrocardiogram [ECG] [EKG]; R06.02 Shortness of breath; R62.7 Adult failure to thrive; U07.1 COVID-19; R26.89 Other abnormalities of gait and mobility; I48.91 Unspecified atrial fibrillation